=== PATIENT | female | born 1945 | race Caucasian/White ===

== ENCOUNTER 2016-05-12 08:23 | Outpatient (RCR) | payer MEDICARE ==
--- OUTSIDE RECORDS SUMMARY | 2016-03-10 09:43 | XMS REPORT | Continuity of Care Document ---
Author Author [facility] Organization [facility] Address Unknown Phone Unavailable Care Team Providers Care Sole Tier Name Role Phone ADITIMARIA LUISAJEFFREY DO PCP Insurance Providers Payer Name Policy Number Subscriber Name Relationship Wps Medicare [id number] Gabriela Warren 18 Self / Same As Patient Blue Cross Mcr Supp [id number] Gabriela Warren 18 Self / Same As Patient Advance Directives Directive Response Recorded Date/Time Advance Directives No 03/07/14 9:55am Health Care Power of Citrus Picker No 03/07/14 9:55am Organ Donor No 03/07/14 9:55am Problems No problem information available. Medications Current Home Medications Medication Dose Units Route Directions Days/Qty Instructions Start Date Metformin Hcl (Glucophage) 500 Mg 2 Each Oral Twice A Day With Meals 03/01/14 Amlodipine Besylate 10 Mg 10 Mg Oral Daily 03/01/14 Atorvastatin Calcium 40 Mg 40 Mg Oral Bedtime 03/01/14 Metoprolol Tartrate (Lopressor) 100 Mg 100 Mg Oral Twice A Day 03/01 Enalapril Maleate 20 Mg 20 Mg Oral Daily 03/01/14 Albuterol 8.5 Gm 1 Puff Inhalation Every 4HRS as needed for Shortness Of Breath 1 PUFFS 03/01/14 Ferrous Sulfate 1 Tab.ec 1 Tab.ec Oral Daily 03/01/14 Aspirin 81 Mg 81 Mg Oral Daily 03/01/14 Hydrochlorothiazide 25 Mg 25 Mg Oral Daily 03/07/14 Social History Social History Problem Response Recorded Date/Time Recent Foreign Travel N SEE CERTYE 01/07/2016 2:34pm Hospital Discharge Instructions No hospital discharge instructions. Plan of Care Prescriptions See Medication Section Functional Status No functional status results. Allergies, Adverse Reactions, Alerts No known allergies. Immunizations No immunization records. Vital Signs No known vital signs results. Results Laboratory Results Test Name Result Units Flags Reference Collection Date/Time Result Date/ Time Comments White Blood Count 8.5 10^3/uL 4.3-11.0 03/02/2016 10:06am 03/02/2016 10 :26am Red Blood Count 3.85 10^6/uL L 4.35-5.85 03/02/2016 10:06am 03/02/2016 10 :26am Hemoglobin 10.9 G/DL L 11.5-16.0 03/02/2016 10:0603/02/2016 10:26am Hematocrit 34 % L 35-52 03/02/2016 10:06am 03/02/2016 10:26am Mean Corpuscular Volume 87 FL 80-99 03/02/2016 10:0603/02/2016 10: 26am Mean Corpuscular Hemoglobin 28 PG 25-34 03/02/2016 10:06am 03/02/2016 10:26am Mean Corpuscular Hemoglobin Concent 32 G/DL 32-36 03/02/2016 10:06am 10:26am Red Cell Distribution Width 14.9 % H 10.0-14.5 03/02/2016 10:06am 2015 10:26am Platelet Count 240 10^3/uL 130-400 03/02/2016 10:0603/02/2016 10: 26am Mean Platelet Volume 10.0 FL 7.4-10.4 03/02/2016 10:06am 03/02/2016 10: 26am Neutrophils (%) (Auto) 64 % 42-75 03/02/2016 10:06am 03/02/2016 10: 26am Lymphocytes (%) (Auto) 25 % 12-44 03/02/2016 10:06am 03/02/2016 10: 26am Monocytes (%) (Auto) 9 % 0-12 03/02/2016 10:06am 03/02/2016 10:26am Eosinophils (%) (Auto) 3 % 0-10 03/02/2016 10:03/02/2016 10:26am Basophils (%) (Auto) 0 % 0-10 03/02/2016 10:03/02/2016 10:26am Neutrophils # (Auto) 5.4 X 10^3 1.8-7.8 03/02/2016 10:03/02/2016 10:am Lymphocytes # (Auto) 2.1 X 10^3 1.0-4.0 03/02/2016 10:03/02/2016 10:26am Monocytes # (Auto) 0.7 X 10^3 0.0-1.0 03/02/2016 10:03/02/2016 10: 26am Eosinophils # (Auto) 0.2 10^3/uL 0.0-0.3 03/02/2016 10:03/02/2016 10:26am Basophils # (Auto) 0.0 10^3/uL 0.0-0.1 03/02/2016 10:03/02/2016 10 :26am Absolute Reticulocyte Count 78 10e9/L 24-90 03/02/2016 10:2015 10:26am Percent Reticulocyte Count 2.02 % 0.50-2.40 03/02/2016 10:2015 10:26am Sodium Level 139 MMOL/L 135-145 03/02/2016 10:03/02/2016 10:40am Potassium Level 4.1 MMOL/L 3.6-5.0 03/02/2016 10:03/02/2016 10: 40am Chloride Level 105 MMOL/L 98-107 03/02/2016 10:03/02/2016 10:40am Carbon Dioxide Level 24 MMOL/L 21-32 03/02/2016 10:03/02/2016 10: 40am Anion Gap 10 MMOL/L 5-14 03/02/2016 10:03/02/2016 10:40am Blood Urea Nitrogen 16 MG/DL 7-18 03/02/2016 10:03/02/2016 10: 40am Creatinine 0.77 MG/DL 0.60-1.30 03/02/2016 10:03/02/2016 10:40am BUN/Creatinine Ratio 21 03/02/2016 10:0603/02/2016 10:40am Estimat Glomerular Filtration Rate > 60 03/02/2016 10:2015 10:40am GFR INTERPRETIVE DATA UNITS FOR ESTIMATED GFR (eGFR): mL/min/1.73 M2 REFERENCE RANGE FOR ESTIMATED GFR (eGFR) eGFR NORMAL eGFR >60 MODERATELY DECREASED eGFR 30-59 SEVERLY DECREASED eGFR 15-29 KIDNEY FAILURE <15 (OR DIALYSIS) Glucose Level 147 MG/DL H 70-105 03/02/2016 10:03/02/2016 10:40am Calcium Level 9.3 MG/DL 8.5-10.1 03/02/2016 10:03/02/2016 10:40am Total Bilirubin 0.3 MG/DL 0.1-1.0 03/02/2016 10:03/02/2016 10: 40am Alkaline Phosphatase 63 U/L 40-136 03/02/2016 10:06am 03/02/2016 10: 40am Aspartate Amino Transf (AST/SGOT) 14 U/L 5-34 03/02/2016 10:06am 2015 10:40am Alanine Aminotransferase (ALT/SGPT) 23 U/L 0-55 03/02/2016 10: 10:40am Total Protein 7.6 G/DL 6.4-8.2 03/02/2016 10:0603/02/2016 10:40am Albumin 4.1 G/DL 3.2-4.5 03/02/2016 10:0603/02/2016 10:40am Ferritin 61 ng/mL 15-150 03/02/2016 10:06am 03/03/2016 8:52am Test performed at [facility], CLIA# [id number] [address] [place] [address] Homocysteine 17.4 umol/L H <=10.3 01/07/2016 2:57pm 01/08/2016 7:05am Test performed at [facility], CLIA# [id number] [address] [place] [address] Methylmalonic Acid 0.16 umol/L 0.00-0.40 01/07/2016 2:57pm 01/10/2016 7 :04am INTERPRETIVE INFORMATION: MMA Serum/Plasma, Metabolic Disorder Test developed and characteristics determined by [email or web address]. See Compliance Statement B: Oscar/CS Performed by [email or web address], [address] [address] [facility] [place] [address] [email or web address], Wolf Lou MD - Lab. Director Procedures No known history of procedures. Encounters Encounter Location Arrival/Admit Date Discharge/Depart Date Attending Provider Discharged Recurring [facility] 03/02/16 9:52am 9:23am KRISTINE MOSER
[2016-03-31 09:29] LABS: BASOPHILS % (AUTO) 0 % (0-10); EOSINOPHILS # (AUTO) 0.3 10^3/uL (0.0-0.3); EOSINOPHILS % (AUTO) 3 % (0-10); LYMPHOCYTES # (AUTO) 1.9 X 10^3 (1.0-4.0); LYMPHOCYTES % (AUTO) 23 % (12-44); MEAN CORPUSCULAR HEMOGLOBIN 28 PG (25-34); MEAN CORPUSCULAR HGB CONC 32 G/DL (32-36); MEAN CORPUSCULAR VOLUME 88 FL (80-99); MEAN PLATELET VOLUME 9.4 FL (7.4-10.4); MONOCYTES # (AUTO) 0.8 X 10^3 (0.0-1.0); MONOCYTES % (AUTO) 10 % (0-12); NEUTROPHILS # (AUTO) 5.3 X 10^3 (1.8-7.8); NEUTROPHILS % (AUTO) 64 % (42-75); PLATELET COUNT 234 10^3/uL (130-400); RED BLOOD COUNT 3.64 10^6/uL (4.35-5.85); RED CELL DISTRIBUTION WIDTH 14.4 % (10.0-14.5); WHITE BLOOD COUNT 8.3 10^3/uL (4.3-11.0)
[2016-04-28 09:39] LABS: BASOPHILS % (AUTO) 0 % (0-10); EOSINOPHILS # (AUTO) 0.3 10^3/uL (0.0-0.3); EOSINOPHILS % (AUTO) 4 % (0-10); LYMPHOCYTES # (AUTO) 1.8 X 10^3 (1.0-4.0); LYMPHOCYTES % (AUTO) 23 % (12-44); MEAN CORPUSCULAR HEMOGLOBIN 28 PG (25-34); MEAN CORPUSCULAR HGB CONC 32 G/DL (32-36); MEAN CORPUSCULAR VOLUME 88 FL (80-99); MEAN PLATELET VOLUME 9.4 FL (7.4-10.4); MONOCYTES # (AUTO) 0.7 X 10^3 (0.0-1.0); MONOCYTES % (AUTO) 9 % (0-12); NEUTROPHILS # (AUTO) 5.1 X 10^3 (1.8-7.8); NEUTROPHILS % (AUTO) 65 % (42-75); PLATELET COUNT 215 10^3/uL (130-400); RED BLOOD COUNT 3.75 10^6/uL (4.35-5.85); RED CELL DISTRIBUTION WIDTH 14.8 % (10.0-14.5); RETICULOCYTE % 1.22 % (0.50-2.40); WHITE BLOOD COUNT 7.9 10^3/uL (4.3-11.0)
[2016-04-28 10:15] LABS: ALANINE AMINOTRANSFERASE 16 U/L (0-55); ANION GAP 10 MMOL/L (5-14); ASPARTATE AMINO TRANSFERASE 16 U/L (5-34); BILIRUBIN,TOTAL 0.3 MG/DL (0.1-1.0); BLOOD UREA NITROGEN 17 MG/DL (7-18); BUN/CREATININE RATIO 23; CALCIUM 9.2 MG/DL (8.5-10.1); CARBON DIOXIDE 23 MMOL/L (21-32); CHLORIDE 107 MMOL/L (98-107); CREATININE SERUM 0.73 MG/DL (0.60-1.30); GFR ESTIMATED > 60; GLUCOSE 131 MG/DL (70-105); POTASSIUM 4.7 MMOL/L (3.6-5.0); SODIUM 140 MMOL/L (135-145); TOTAL PROTEIN 7.3 G/DL (6.4-8.2)
[~2016-05-12 08:23] MED LIST: ALBU8.5H2 IH; AMLO10TA4 PO; ASP81TEC PO; ATOR40TA PO; ENAL20TA PO; FERR325T5 PO; FERRIC CARBOXYMALTOSE (CANCER) 750 MG in NS (IVPB) CANCER CENTER 250 ML IV SCH; HCT25T PO; METO100T2 PO; MTF500T PO
== END 2016-06-08 | disposition home or self-care (01) ==
LOC: ONC 08:23
PROVIDERS: ATTEND Internal Medicine Hematology & Oncology
DX: D50.9 Iron deficiency anemia, unspecified (principal); I10 Essential (primary) hypertension; E78.00 Pure hypercholesterolemia, unspecified; E11.9 Type 2 diabetes mellitus without complications; K29.70 Gastritis, unspecified, without bleeding; K20.9 Esophagitis, unspecified; Z79.899 Other long term (current) drug therapy
CPT/HCPCS: 36415; 80053; 82728; 85025; 85045; 96365; 99213

== ENCOUNTER 2016-10-19 09:06 | Outpatient (RCR) | payer MEDICARE ==
--- OUTSIDE RECORDS SUMMARY | 2016-07-27 09:51 | XMS REPORT | Continuity of Care Document ---
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 Name Role Phone ADITIMARIA LUISAJEFFREY DO PCP Insurance Providers Payer Name Policy Number Subscriber Name Relationship Wps Medicare [id number] Gabriela Warren 18 Self / Same As Patient Blue Cross Mcr Supp [id number] Gabriela Warren 18 Self / Same As Patient Advance Directives Directive Response Recorded Date/Time Advance Directives No 03/07/14 9:55am Health Care Power of Emt I/85 No 03/07/14 9:55am Organ Donor No 03/07/14 [...] 03/02/2016 10:06am 03/03/2016 8:52am Test performed at [facility], CLIA# [id number] [address] [place] [address] Homocysteine 17.4 umol/L H <=10.3 01/07/2016 2:57pm 01/08/2016 7:05am Test performed at [facility], CLIA# [id number] [address] [place] [address] Methylmalonic Acid 0.16 umol/L 0.00-0.40 01/07/2016 2:57pm 01/10/2016 7 :04am INTERPRETIVE INFORMATION: MMA Serum/Plasma, Metabolic Disorder Test developed and characteristics determined by [employer]. See Compliance Statement B: Results [facility]/CS Performed by [employer], [address] [facility] [place] [address] [email or web address], Wolf Lou MD - Lab. Director Procedures No known history of procedures. Encounters Encounter Location Arrival/Admit Date Discharge/Depart Date Attending Provider Discharged Recurring [facility] 03/02/16 9:52am 9:23am KRISTINE MOSER
[2016-07-27 10:05] LABS: BASOPHILS % (AUTO) 0 % (0-10); EOSINOPHILS # (AUTO) 0.3 10^3/uL (0.0-0.3); EOSINOPHILS % (AUTO) 4 % (0-10); LYMPHOCYTES # (AUTO) 2.2 X 10^3 (1.0-4.0); LYMPHOCYTES % (AUTO) 26 % (12-44); MEAN CORPUSCULAR HEMOGLOBIN 29 PG (25-34); MEAN CORPUSCULAR HGB CONC 33 G/DL (32-36); MEAN CORPUSCULAR VOLUME 89 FL (80-99); MEAN PLATELET VOLUME 9.2 FL (7.4-10.4); MONOCYTES # (AUTO) 0.6 X 10^3 (0.0-1.0); MONOCYTES % (AUTO) 8 % (0-12); NEUTROPHILS # (AUTO) 5.3 X 10^3 (1.8-7.8); NEUTROPHILS % (AUTO) 62 % (42-75); PLATELET COUNT 239 10^3/uL (130-400); RED BLOOD COUNT 3.84 10^6/uL (4.35-5.85); RED CELL DISTRIBUTION WIDTH 14.9 % (10.0-14.5); RETICULOCYTE % 1.44 % (0.50-2.40); WHITE BLOOD COUNT 8.4 10^3/uL (4.3-11.0)
[2016-07-27 10:45] LABS: ALANINE AMINOTRANSFERASE 22 U/L (0-55); ALBUMIN 3.9 G/DL (3.2-4.5); ANION GAP 10 MMOL/L (5-14); ASPARTATE AMINO TRANSFERASE 18 U/L (5-34); BILIRUBIN,TOTAL 0.3 MG/DL (0.1-1.0); BLOOD UREA NITROGEN 17 MG/DL (7-18); BUN/CREATININE RATIO 23; CALCIUM 8.8 MG/DL (8.5-10.1); CARBON DIOXIDE 24 MMOL/L (21-32); CHLORIDE 106 MMOL/L (98-107); CREATININE SERUM 0.75 MG/DL (0.60-1.30); GFR ESTIMATED > 60; GLUCOSE 144 MG/DL (70-105); POTASSIUM 4.4 MMOL/L (3.6-5.0); SODIUM 140 MMOL/L (135-145); TOTAL PROTEIN 7.4 G/DL (6.4-8.2)
[~2016-10-19 09:06] MED LIST changes: -FERRIC CARBOXYMALTOSE (CANCER) 750 MG in NS (IVPB) CANCER CENTER 250 ML IV SCH
[2016-10-19 09:46] LABS: BASOPHILS % (AUTO) 0 % (0-10); EOSINOPHILS # (AUTO) 0.2 10^3/uL (0.0-0.3); EOSINOPHILS % (AUTO) 3 % (0-10); LYMPHOCYTES # (AUTO) 1.1 X 10^3 (1.0-4.0); LYMPHOCYTES % (AUTO) 17 % (12-44); MEAN CORPUSCULAR HEMOGLOBIN 29 PG (25-34); MEAN CORPUSCULAR HGB CONC 32 G/DL (32-36); MEAN CORPUSCULAR VOLUME 92 FL (80-99); MEAN PLATELET VOLUME 9.6 FL (7.4-10.4); MONOCYTES # (AUTO) 0.6 X 10^3 (0.0-1.0); MONOCYTES % (AUTO) 8 % (0-12); NEUTROPHILS % (AUTO) 73 % (42-75); PLATELET COUNT 221 10^3/uL (130-400); RED BLOOD COUNT 3.42 10^6/uL (4.35-5.85); RED CELL DISTRIBUTION WIDTH 14.6 % (10.0-14.5); WHITE BLOOD COUNT 6.9 10^3/uL (4.3-11.0)
[2016-10-19 10:27] LABS: ALANINE AMINOTRANSFERASE 162 U/L (0-55); ALBUMIN 3.8 G/DL (3.2-4.5); ANION GAP 9 MMOL/L (5-14); ASPARTATE AMINO TRANSFERASE 312 U/L (5-34); BILIRUBIN,TOTAL 0.5 MG/DL (0.1-1.0); BLOOD UREA NITROGEN 24 MG/DL (7-18); BUN/CREATININE RATIO 29; CALCIUM 8.9 MG/DL (8.5-10.1); CARBON DIOXIDE 25 MMOL/L (21-32); CHLORIDE 105 MMOL/L (98-107); CREATININE SERUM 0.83 MG/DL (0.60-1.30); GFR ESTIMATED > 60; GLUCOSE 130 MG/DL (70-105); POTASSIUM 4.9 MMOL/L (3.6-5.0); SODIUM 139 MMOL/L (135-145); TOTAL PROTEIN 7.2 G/DL (6.4-8.2)
== END 2016-10-25 | disposition home or self-care (01) ==
LOC: ONC 09:06
PROVIDERS: ATTEND Internal Medicine Hematology & Oncology
DX: D50.9 Iron deficiency anemia, unspecified (principal); I10 Essential (primary) hypertension; E78.00 Pure hypercholesterolemia, unspecified; E11.9 Type 2 diabetes mellitus without complications; K29.70 Gastritis, unspecified, without bleeding; K20.9 Esophagitis, unspecified; Z79.899 Other long term (current) drug therapy
CPT/HCPCS: 36415; 80053; 82728; 85025; 85045; 99213

== ENCOUNTER 2017-01-18 09:09 | Outpatient (RCR) | payer MEDICARE ==
[2017-01-18 09:31] LABS: BASOPHILS % (AUTO) 0 % (0-10); EOSINOPHILS # (AUTO) 0.3 10^3/uL (0.0-0.3); EOSINOPHILS % (AUTO) 4 % (0-10); LYMPHOCYTES # (AUTO) 1.6 X 10^3 (1.0-4.0); LYMPHOCYTES % (AUTO) 22 % (12-44); MEAN CORPUSCULAR HEMOGLOBIN 27 PG (25-34); MEAN CORPUSCULAR HGB CONC 32 G/DL (32-36); MEAN CORPUSCULAR VOLUME 85 FL (80-99); MONOCYTES # (AUTO) 0.5 X 10^3 (0.0-1.0); MONOCYTES % (AUTO) 6 % (0-12); NEUTROPHILS # (AUTO) 5.1 X 10^3 (1.8-7.8); NEUTROPHILS % (AUTO) 68 % (42-75); PLATELET COUNT 275 10^3/uL (130-400); RED BLOOD COUNT 3.78 10^6/uL (4.35-5.85); RED CELL DISTRIBUTION WIDTH 16.3 % (10.0-14.5); WHITE BLOOD COUNT 7.6 10^3/uL (4.3-11.0)
[2017-01-18 10:24] LABS: ALANINE AMINOTRANSFERASE 17 U/L (0-55); ALBUMIN 3.8 GM/DL (3.2-4.5); ANION GAP 12 MMOL/L (5-14); ASPARTATE AMINO TRANSFERASE 20 U/L (5-34); BILIRUBIN,TOTAL 0.4 MG/DL (0.1-1.0); BLOOD UREA NITROGEN 18 MG/DL (7-18); BUN/CREATININE RATIO 22; CALCIUM 9.4 MG/DL (8.5-10.1); CARBON DIOXIDE 24 MMOL/L (21-32); CHLORIDE 104 MMOL/L (98-107); CREATININE SERUM 0.83 MG/DL (0.60-1.30); GFR ESTIMATED > 60; GLUCOSE 160 MG/DL (70-105); POTASSIUM 4.4 MMOL/L (3.6-5.0); SODIUM 140 MMOL/L (135-145); TOTAL PROTEIN 7.6 GM/DL (6.4-8.2)
== END 2017-01-24 | disposition home or self-care (01) ==
LOC: ONC 09:09
PROVIDERS: ATTEND Internal Medicine Hematology & Oncology
DX: D50.9 Iron deficiency anemia, unspecified (principal); I10 Essential (primary) hypertension; E78.00 Pure hypercholesterolemia, unspecified; E11.9 Type 2 diabetes mellitus without complications; K29.70 Gastritis, unspecified, without bleeding; K20.9 Esophagitis, unspecified; Z79.899 Other long term (current) drug therapy
CPT/HCPCS: 36415; 80053; 82728; 85025; 99213

== ENCOUNTER 2017-02-02 08:35 | Outpatient (RCR) | payer MEDICARE ==
[~2017-02-02 08:35] MED LIST changes: +FERRIC CARBOXYMALTOSE (CANCER) 750 MG in NS (IVPB) CANCER CENTER 250 ML IV SCH
== END 2017-03-06 | disposition home or self-care (01) ==
LOC: ONC 08:35
PROVIDERS: ATTEND Internal Medicine Hematology & Oncology
DX: D50.9 Iron deficiency anemia, unspecified (principal); I10 Essential (primary) hypertension; E78.00 Pure hypercholesterolemia, unspecified; E11.9 Type 2 diabetes mellitus without complications; K29.70 Gastritis, unspecified, without bleeding; K20.9 Esophagitis, unspecified; Z79.899 Other long term (current) drug therapy
CPT/HCPCS: 96365

== ENCOUNTER 2017-04-27 08:43 | Outpatient (RCR) | payer MEDICARE ==
[~2017-04-27 08:43] MED LIST changes: -FERRIC CARBOXYMALTOSE (CANCER) 750 MG in NS (IVPB) CANCER CENTER 250 ML IV SCH
[2017-04-27 08:55] LABS: BASOPHILS % (AUTO) 0 % (0-10); EOSINOPHILS # (AUTO) 0.3 10^3/uL (0.0-0.3); EOSINOPHILS % (AUTO) 5 % (0-10); HEMATOCRIT 33 % (35-52); HEMOGLOBIN 10.9 G/DL (11.5-16.0); LYMPHOCYTES # (AUTO) 1.5 X 10^3 (1.0-4.0); LYMPHOCYTES % (AUTO) 24 % (12-44); MEAN CORPUSCULAR HEMOGLOBIN 30 PG (25-34); MEAN CORPUSCULAR HGB CONC 33 G/DL (32-36); MEAN CORPUSCULAR VOLUME 91 FL (80-99); MEAN PLATELET VOLUME 10.2 FL (7.4-10.4); MONOCYTES # (AUTO) 0.5 X 10^3 (0.0-1.0); MONOCYTES % (AUTO) 8 % (0-12); NEUTROPHILS # (AUTO) 3.8 X 10^3 (1.8-7.8); NEUTROPHILS % (AUTO) 63 % (42-75); PLATELET COUNT 195 10^3/uL (130-400); RED BLOOD COUNT 3.67 10^6/uL (4.35-5.85); RED CELL DISTRIBUTION WIDTH 16.2 % (10.0-14.5); WHITE BLOOD COUNT 6.1 10^3/uL (4.3-11.0)
== END 2017-07-26 | disposition home or self-care (01) ==
LOC: ONC 08:43
PROVIDERS: ATTEND Internal Medicine Hematology & Oncology
DX: D50.9 Iron deficiency anemia, unspecified (principal); I10 Essential (primary) hypertension; E78.00 Pure hypercholesterolemia, unspecified; E11.9 Type 2 diabetes mellitus without complications; K29.70 Gastritis, unspecified, without bleeding; K20.9 Esophagitis, unspecified; Z79.899 Other long term (current) drug therapy
CPT/HCPCS: 82728; 85025

== ENCOUNTER 2017-08-05 05:33 | Outpatient (CLI) | payer MEDICARE ==
[~2017-08-05] VITALS: Ht 157.5 cm; Wt 100.2 kg
[2017-08-05] MEDS ORDERED: METO200T48 PO (12:06)
[2017-08-05] MEDS ORDERED: METF500T8 PO (12:06)
[2017-08-05] MEDS ORDERED: ASPI-999 PO (12:06)
[2017-08-05] MEDS ORDERED: ENAL20TA PO (12:06)
[2017-08-05] MEDS ORDERED: ATOR40TA70 PO (12:06)
[2017-08-05] MEDS ORDERED: AMLO10TA2 PO (12:06)
[2017-08-05] MEDS ORDERED: OMEP20TA7 PO (12:42)
[2017-08-05] MEDS ORDERED: FOLI1TAB24 PO (12:42)
[2017-08-05] MEDS ORDERED: FURO40TA4 PO (12:42)
[2017-08-05] MEDS ORDERED: METH2.5T PO (12:42)
[2017-08-05] MEDS ORDERED: CANA100T PO (12:42)
[2017-08-05] MEDS ORDERED: MELO15TA39 PO (12:42)
== END 2017-08-05 12:43 ==
LOC: PREOP 05:33
PROVIDERS: ATTEND Surgery
DX: Z01.818 Encounter for other preprocedural examination (principal); D64.9 Anemia, unspecified

== ENCOUNTER 2017-08-23 12:56 | Outpatient (CLI) | payer MEDICARE, BC ==
[~2017-08-23] VITALS: Ht 157.5 cm; Wt 100.2 kg
[~2017-08-23 12:56] MED LIST changes: +AMLO10TA2 PO; +ASPI-999 PO; +ATOR40TA70 PO; +CANA100T PO; +FOLI1TAB24 PO; +FURO40TA4 PO; +MELO15TA39 PO; +METF500T8 PO; +METH2.5T PO; +METO200T48 PO; +OMEP20TA7 PO
[2017-08-23 13:07] VITALS: BP 152/65
== END 2017-08-23 13:30 | disposition home or self-care (01) ==
LOC: PREOP 12:56
PROVIDERS: ATTEND Surgery
DX: Z01.818 Encounter for other preprocedural examination (principal); Z11.2 Encounter for screening for other bacterial diseases; C18.9 Malignant neoplasm of colon, unspecified
CPT/HCPCS: 87081

== ENCOUNTER 2017-08-26 09:05 | Inpatient (IN) | payer MEDICARE, BC ==
[2017-08-26] VITALS (12 sets, daily range): BP systolic 104–180; BP diastolic 39–99
[~2017-08-26] VITALS: Ht 157.5 cm; Wt 100.2 kg
--- NOTE | 2017-08-26 09:17 | Progress Note-Pre Operative ---
Pre-Operative Progress Note H&P Reviewed The H&P was reviewed, patient examined and no changes noted. Date Seen by Provider: Aug 26, 2017 Time Seen by Provider: 09:10 Date H&P Reviewed: Aug 26, 2017 Time H&P Reviewed: 09:10 Pre-Operative Diagnosis: right colon cancer FLORA PIERCE MD Aug 26, 2017 9:17 am
[2017-08-26] MEDS ORDERED: NS IV 1000 ML 1,000 ML IV SCH (09:19)
[2017-08-26] MEDS ORDERED: NALOXONE 0.4 MG/ML 1 ML (NARCAN) VIAL IV PRN (09:30)
[2017-08-26] MEDS ORDERED: metroNIDAZOLE 500MG/100ML IVPB 100 ML IV SCH (09:30)
[2017-08-26] MEDS ORDERED: METOCLOPRAMIDE INJ 10 MG/2 ML (REGLAN) IV PRN (09:30)
[2017-08-26] MEDS ORDERED: diphenhydrAMINE 50 MG/ML INJ (BENADRYL) IVP PRN (09:30)
[2017-08-26] MEDS ORDERED: oxyCODONE 20 MG/1 ML ORAL CONC (RoxiCODONE) CHARGE PER 1 ML PO PRN (09:30)
[2017-08-26] MEDS ORDERED: ONDANSETRON 4 MG/2 ML (SDV) Z0FRAN IV PRN (09:30)
[2017-08-26] MEDS ORDERED: diphenhydrAMINE 50 MG/ML INJ (BENADRYL) IV PRN (09:30)
[2017-08-26] MEDS ORDERED: ceFAZolin 2 GM/50 ML PRE-MIX IVPB IV ONE (09:45)
[2017-08-26] MEDS ORDERED: CATHETER FLUSH 10 ML SYR IV PRN (09:45)
[2017-08-26] MEDS ORDERED: ceFAZolin 2 GM IV Premixed 50 ML IV ONE (10:00)
[2017-08-26] MEDS ORDERED: metroNIDAZOLE 500MG/100ML IVPB 100 ML IV ONE (10:00)
[2017-08-26] MEDS ORDERED: FAMOTIDINE 20MG/2ML IV (PEPCID) IV ONE (11:30)
[2017-08-26] MEDS ORDERED: BUP/EPI 0.5% 1:200,000 (SENSORCAINE) 30 ML VIAL ONE (12:39)
[2017-08-26] MEDS ORDERED: ROCURONIUM 10 MG/ML 5 ML SYRINGE IV ONE ×2 (12:45→16:04)
[2017-08-26] MEDS ORDERED: MIDAZOLAM 2 MG/2 ML (VERSED) VIAL ONE (12:45)
[2017-08-26] MEDS ORDERED: proPOfol 200 MG/20 ML (DIPRIVAN) VIAL IV ONE (12:45)
[2017-08-26] MEDS ORDERED: LIDOCAINE PF 2% 5 ML (XYLOCAINE) VIAL ONE (12:45)
[2017-08-26] MEDS ORDERED: DESFLURANE (SUPRANE) 15 ML INHAL SOLN ONE ×12 (12:45→16:27)
[2017-08-26] MEDS ORDERED: SUFentanil CITRATE INJ 50MCG/ML 1ML AMP IV ONE (12:46)
[2017-08-26] MEDS: LACTATED RINGERS 1,000 ML IV PRN ×2 (13:19→14:34)
[2017-08-26] MEDS: metroNIDAZOLE 500 MG/100 ML IVPB (PRE-MIX) IV ONE ×2 (13:35→13:55)
[2017-08-26] MEDS ORDERED: HEParin (CENTRAL IV FLUSH) 500 UNIT/5 ML SYR ONE (13:40)
[2017-08-26] MEDS ORDERED: morphine INJ 10 MG/ML 1ML (SYR OR VIAL) ONE (16:08)
[2017-08-26] MEDS ORDERED: NEOSTIGMINE 1 MG/ML 5 ML SYRINGE ONE (16:28)
[2017-08-26] MEDS ORDERED: GLYCOPYRROLATE 0.2 MG/ML (ROBINUL) 2 ML VIAL ONE (16:28)
--- NOTE | 2017-08-26 16:44 | Progress Note-Post Operative ---
Post-Operative Progess Note Surgeon (s)/Choral Director (s) Surgeon FLORA PIERCE MD Choral Director: sigifredo amin OPHTHALMIC ASST Pre-Operative Diagnosis right colon cancer Post-Operative Diagnosis same Procedure & Operative Findings Date of Procedure 08/26/17 Procedure Performed/Findings laparoscopic right hemicolectomy. left subclavian central venous catheter placement. Anesthesia Type GET Estimated Blood Loss Estimated blood loss (mL): minimal Specimens/Packing Specimens Removed right colon. FLORA PIERCE MD Aug 26, 2017 4:43 pm
[2017-08-26] MEDS ORDERED: ONDANSETRON 4 MG/2 ML (SDV) Z0FRAN IVP PRN (17:00)
[2017-08-26] MEDS ORDERED: MEPERIDINE (DEMEROL) INJ 50 MG/ML IVP PRN (17:00)
[2017-08-26] MEDS ORDERED: PROMETHAZINE INJ 25 MG/ML (PHENERGAN) AMP IVP PRN (17:00)
--- NOTE | 2017-08-26 17:07 | Anesthesia-General Post-Op ---
General Patient Condition Mental Status/LOC: Same as Preop Cardiovascular: Satisfactory Nausea/Vomiting: Absent Respiratory: Satisfactory Pain: Controlled Complications: Absent Post Op Complications Complications None Follow Up Care/Instructions Patient Instructions None needed. Anesthesia/Patient Condition Patient Condition Patient is doing well, no complaints, stable vital signs, no apparent adverse anesthesia problems. No complications reported per nursing. DIPTI DUKES CRNA Aug 26, 2017 17:07
--- NOTE | 2017-08-26 17:22 | Diagnostic Imaging Report ---
PATIENT HISTORY: Central line placement. TECHNIQUE: Single frontal view of the chest. COMPARISON: CT from 10/03/2015. FINDINGS: The tip of the left subclavian line projects over the upper mediastinum in the midline, likely in the region of the left innominate vein. Lung volumes are low. There is mild cardiomegaly and mild central vascular congestion. No pneumothorax is seen. No large pleural effusion is seen. IMPRESSION: 1. The tip of the left subclavian line projects over the left innominate vein. 2. Mild cardiomegaly and mild central vascular congestion. Low lung volumes. Dictated by: Dictated on workstation # [id number]
[2017-08-26] MEDS: morphine INJ 10 MG/ML 1ML (SYR OR VIAL) IVP PRN ×2 (17:23→17:30)
[2017-08-26] MEDS ORDERED: metroNIDAZOLE 500MG/100ML IVPB 100 ML ONE (18:11)
[2017-08-26] MEDS: meTOprolol 5 MG/5 ML (LOPRESSOR) VIAL IV SCH (18:19)
[2017-08-26] MEDS ORDERED: METOCLOPRAMIDE INJ 10 MG/2 ML (REGLAN) ONE (18:19)
[2017-08-26] MEDS ORDERED: fentaNYL INJECTION 1,000 MCG in NS (IVPB) 80 ML IV SCH (18:56)
--- NOTE | 2017-08-26 19:34 | OPERATIVE REPORT ---
DATE OF SERVICE: 08/26/2017 ATTENDING PRIMARY CARE PHYSICIAN: Dr. Mark Hernandez. PREOPERATIVE DIAGNOSIS: Right colon cancer. POSTOPERATIVE DIAGNOSIS: Right colon cancer. PROCEDURE: Laparoscopic right hemicolectomy, placement of left subclavian central venous catheter. SURGEON: Flora Pierce MD ANESTHESIA: General endotracheal. ESTIMATED BLOOD LOSS: 200 mL. FINDINGS: Palpable lesion also identified by a previous submucosal injection of black ink of the ascending colon. There are no peritoneal carcinomatosis or any obvious lymphadenopathy nor liver lesions. DISPOSITION: The patient tolerated the procedure well. INDICATIONS: The patient is a 71-year-old female known to us. She was found to be anemic and underwent an EGD and colonoscopy in 2013. No major abnormalities were detected. She has a history of rheumatoid arthritis and was also started on methotrexate around the same time. She states that she continues to have issues with rheumatoid arthritis and does continue to take methotrexate. She has been seeing Dr. Hill for continued episodes of iron deficiency anemia. Due to her persistent symptoms of iron deficiency anemia, she was referred back to us for further evaluation with endoscopy. She recently underwent an EGD and colonoscopy. EGD did not show anything major. Colonoscopy did show a sessile polyp of the ascending colon. This could not be removed by endoscopic means. Biopsies of the lesion were consistent with an adenocarcinoma. DESCRIPTION OF PROCEDURE: The patient was brought to the operating room, laid supine on the table. After adequate IV pain and sedating medications and general endotracheal intubation, the chest and neck were prepped and draped in standard surgical fashion. A left subclavian vein was then cannulated with drawing of venous blood. A guidewire was then inserted without any resistance. The cannulating needle removed and a small skin incision made using 11 blade. A tract was then created using a venous dilator and a triple lumen central venous catheter was placed over the guidewire using the Seldinger technique. The catheter was then sutured to the skin using 3-0 silk interrupted sutures. Catheter was then cleaned and covered with sterile dressing. The abdomen was then prepped and draped in standard surgical fashion. An area in the left upper abdominal quadrant was then anesthetized and a transverse skin incision made using a 15 blade. An 0 silk suture was applied to the medial aspect of the incision for retraction and a Veress needle inserted with a low opening pressure of 0 mmHg and the abdomen was insufflated to 15 mmHg pressure. Veress needle removed and a 5 mm Xcel trocar placed followed by a 5 mm 45 degree angle laparoscope visualizing the peritoneal cavity. A four quadrant abdominal exploration was performed. There were significant omental adhesions as well as the liver adhesions towards the right upper abdominal quadrant due to previous open cholecystectomy through a Dionna incision. A lesion was identified through irregularities of the serosa as well as a previous submucosal black ink injection. No peritoneal implants, carcinomatosis or any obvious metastatic disease was identified. There was also no obvious lymphadenopathy identified. Under direct visualization, we then proceeded to place a supraumbilical 10 mm port after the skin and peritoneal lining were anesthetized using 0.5% Marcaine with epinephrine and a vertical skin incision made using a 15 blade. In a similar manner, two right upper abdominal quadrant 5 mm ports were placed. The patient was then placed in Trendelenburg position as well as plane right side up, left side down. We then proceeded with lateral dissection of the white lines of Toldt using the Sonicision. The adhesions towards the liver and the omentum were then taken down using the Sonicision. We then proceeded with medial to lateral dissection of a wide rim of mesentery using the Sonicision. The right colic artery identified and cauterized and cut using the Sonicision with visualization and good hemostasis. We then proceeded to approximate the level just right of the middle colic artery. The corresponding omentum was resected to be included in the specimen as well. During our mesenteric dissection, the duodenum was identified and spared throughout the process. Once completely freed, the 10 mm port site incision was then extended superiorly. The right colon as well as the terminal ileum were then eviscerated out of the opening. We then proceeded with the resection approximately 6 cm from the ileocecal valve to approximately the proximal third of the transverse colon using a JEFE 55 mm staplers with blue loads. We then proceeded with side to side anastomosis using the same stapler. The opening was then reapproximated using 3-0 silk sutures and stapled using the same JEFE stapler. We then proceeded to place seromuscular layer over the staple line using 3-0 silk interrupted sutures. The anastomosis was then placed back into the peritoneal cavity. Good hemostasis was observed. The fascia and peritoneal lining were then closed using 0 Prolene running suture. All skin incisions were closed using 4-0 Monocryl running subcuticular sutures. Wounds were cleaned and covered with Dermabond. The patient tolerated the procedure well. We will admit her to the ICU and start IV fluids as well as IV pain medication as well as DVT prophylaxis with early ambulation, calf SCDs as well as Lovenox injections. When she does have bowel function, we will remove the NG tube and start clear liquid diet and advance as tolerated. When she is tolerating clears, has good pain control with oral pain medications, ambulating well, we will discharge her home. Job ID: [id number] DocumentID: [id number] Dictated Date: 08/26/2017 16:58:19 Linux Consultant Date: 08/26/2017 19:33:36 Dictated By: FLORA PIERCE MD MTDD
[2017-08-26] MEDS: LACTATED RINGERS 1,000 ML IV SCH ×2 (19:42→22:39)
[2017-08-26] MEDS: ENOXAPARIN 30 MG/0.3 ML (LOVENOX) SYR SC SCH (21:41)
[2017-08-26] MEDS: ceFAZolin 2 GM IV Premixed 50 ML IV SCH (21:41)
[2017-08-26] MEDS: RT-ALBUTEROL SULF 2.5 MG/3 ML PRE-MIX VIAL INH SCH (22:04)
[2017-08-27] VITALS (13 sets, daily range): BP systolic 124–176; BP diastolic 40–100
[2017-08-27] MEDS: meTOprolol 5 MG/5 ML (LOPRESSOR) VIAL IV SCH ×4 (00:18→18:17)
[2017-08-27] MEDS: inSUlin (REGULAR) HUMAN 1 UNIT/0.01 ML (CHARGE PER UNIT) SC SCH ×4 (00:18→18:24)
[2017-08-27] MEDS: metroNIDAZOLE 500MG/100ML IVPB 100 ML IV SCH ×2 (02:30→11:07)
[2017-08-27] MEDS: LACTATED RINGERS 1,000 ML IV SCH ×3 (02:30→18:24)
[2017-08-27] MEDS: RT-ALBUTEROL SULF 2.5 MG/3 ML PRE-MIX VIAL INH SCH ×7 (02:49→21:02)
[2017-08-27 03:44] LABS: BASOPHILS % (AUTO) 0 % (0-10); EOSINOPHILS % (AUTO) 0 % (0-10); HEMATOCRIT 30 % (35-52); HEMOGLOBIN 9.9 G/DL (11.5-16.0); LYMPHOCYTES # (AUTO) 0.9 X 10^3 (1.0-4.0); LYMPHOCYTES % (AUTO) 11 % (12-44); MEAN CORPUSCULAR HEMOGLOBIN 29 PG (25-34); MEAN CORPUSCULAR HGB CONC 33 G/DL (32-36); MEAN CORPUSCULAR VOLUME 87 FL (80-99); MONOCYTES # (AUTO) 0.7 X 10^3 (0.0-1.0); MONOCYTES % (AUTO) 9 % (0-12); NEUTROPHILS # (AUTO) 6.6 X 10^3 (1.8-7.8); NEUTROPHILS % (AUTO) 80 % (42-75); PLATELET COUNT 167 10^3/uL (130-400); RED BLOOD COUNT 3.39 10^6/uL (4.35-5.85); WHITE BLOOD COUNT 8.2 10^3/uL (4.3-11.0)
[2017-08-27 04:04] LABS: BUN/CREATININE RATIO 15; CALCIUM 8.3 MG/DL (8.5-10.1); CARBON DIOXIDE 24 MMOL/L (21-32); CHLORIDE 109 MMOL/L (98-107); CREATININE SERUM 0.68 MG/DL (0.60-1.30); GFR ESTIMATED > 60; GLUCOSE 130 MG/DL (70-105); MAGNESIUM 1.8 MG/DL (1.8-2.4); PHOSPHORUS 1.9 MG/DL (2.3-4.7); POTASSIUM 4.1 MMOL/L (3.6-5.0); SODIUM 139 MMOL/L (135-145)
[2017-08-27] MEDS: ceFAZolin 2 GM IV Premixed 50 ML IV SCH ×2 (05:13→13:42)
[2017-08-27] MEDS ORDERED: KCL 20 MEQ TAB (K-DUR) PO SCH (06:00)
[2017-08-27] MEDS ORDERED: POTASSIUM CL 10MEQ/50ML IVPB 50 ML IV SCH (06:00)
[2017-08-27] MEDS ORDERED: MAGNESIUM 1 GM/100 ML IVPB 100 ML IV SCH (06:00)
[2017-08-27] MEDS: SENNA W/DOCUSATE (SENOKOT S) TABLET PO SCH (08:37)
[2017-08-27] MEDS: ENOXAPARIN 30 MG/0.3 ML (LOVENOX) SYR SC SCH ×2 (08:37→20:54)
[2017-08-27] MEDS: PANTOPRAZOLE 40 MG/10 ML (PROTONIX) VIAL IV SCH (08:37)
[2017-08-27] MEDS ORDERED: ONDANSETRON 4 MG/2 ML (SDV) Z0FRAN IVP PRN (09:30)
[2017-08-27] MEDS ORDERED: METOCLOPRAMIDE INJ 10 MG/2 ML (REGLAN) IVP PRN (09:30)
--- NOTE | 2017-08-27 10:18 | Progress Note (SOAP) ---
Subjective Date Seen by Provider: Aug 27, 2017 Time Seen by Provider: 10:10 Subjective/Events-last exam doing well. pain controlled. no bowel fxn yet. no respiratory issue overnight. will ambulate this morning. Objective Exam Vital Signs Date Time Temp Pulse Resp B/P (MAP) Pulse Ox O2 Delivery O2 Flow Rate FiO2 08/27/17 09:00 61 17 137/58 (84) 96 Nasal Cannula 2.00 08/27/17 08:30 98.4 Nasal Cannula 2.00 08/27/17 08:00 70 13 137/65 (89) 92 Nasal Cannula 2.00 08/27/17 07:30 Room Air 08/27/17 07:09 94 Nasal Cannula 1.00 08/27/17 07:00 64 08/27/17 07:00 13 08/27/17 07:00 65 27 157/100 (119) 90 Nasal Cannula 2.00 08/27/17 06:00 65 20 167/67 (100) 90 Nasal Cannula 2.00 08/27/17 05:00 64 16 156/70 (98) 90 Nasal Cannula 2.00 08/27/17 04:00 93 Room Air 1.00 08/27/17 04:00 65 20 160/69 (99) 92 Nasal Cannula 2.00 08/27/17 03:00 60 18 148/83 (104) 94 Nasal Cannula 2.00 08/27/17 02:49 93 Nasal Cannula 2.00 08/27/17 02:00 64 18 143/47 (79) 91 Nasal Cannula 2.00 08/27/17 01:00 64 17 124/40 (68) 92 Nasal Cannula 2.00 08/27/17 01:00 64 08/27/17 00:00 68 18 141/56 (84) 93 Nasal Cannula 2.00 08/27/17 00:00 93 Room Air 1.00 08/26/17 23:00 69 19 109/46 (67) 93 Nasal Cannula 2.00 08/26/17 22:08 94 Nasal Cannula 2.00 08/26/17 22:00 66 21 106/39 (61) 92 Nasal Cannula 2.00 08/26/17 21:00 94 Room Air 2.00 08/26/17 21:00 65 21 106/54 (71) 94 Nasal Cannula 2.00 08/26/17 20:00 68 17 122/45 (70) 94 Nasal Cannula 3.00 08/26/17 19:00 71 18 104/52 (69) 95 Nasal Cannula 3.00 08/26/17 19:00 72 08/26/17 18:45 68 19 159/49 (85) 95 Nasal Cannula 3.00 08/26/17 18:30 70 24 151/99 (116) 93 Nasal Cannula 3.00 08/26/17 18:15 69 24 157/68 (97) 93 Simple Mask 6.00 08/26/17 18:10 180/68 (105) 08/26/17 18:00 76 28 153/70 (97) 97 Simple Mask 6.00 08/26/17 17:50 98.4 63 22 158/61 (93) 95 Simple Mask 6.00 I & O 08/27/17 07:00 Intake Total 4150 ml Output Total 925 ml Balance 3225 ml Capillary Refill : General Appearance: No Apparent Distress HEENT: PERRL/EOMI Neck: Full Range of Motion Respiratory: Chest Non Tender, Lungs Clear Cardiovascular: Regular Rate, Rhythm Gastrointestinal: soft, tenderness, other (incisions clean/dry) Extremity: Normal Capillary Refill Neurologic/Psychiatric: Alert, Oriented x3 Skin: Normal Color Lymphatic: No Adenopathy Results Lab Laboratory Tests 08/27/17 00:17: Glucometer 123H 08/27/17 03:35: White Blood Count 8.2, Red Blood Count 3.39L, Hemoglobin 9.9L, Hematocrit 30L, Mean Corpuscular Volume 87, Mean Corpuscular Hemoglobin 29, Mean Corpuscular Hemoglobin Concent 33, Red Cell Distribution Width 17.0H, Platelet Count 167, Mean Platelet Volume 10.0, Neutrophils (%) (Auto) 80H, Lymphocytes (%) (Auto) 11L, Monocytes (%) (Auto) 9, Eosinophils (%) (Auto) 0, Basophils (%) (Auto) 0, Neutrophils # (Auto) 6.6, Lymphocytes # (Auto) 0.9L, Monocytes # (Auto) 0.7, Eosinophils # (Auto) 0.0, Basophils # (Auto) 0.0, Sodium Level 139, Potassium Level 4.1, Chloride Level 109H, Carbon Dioxide Level 24, Anion Gap 6, Blood Urea Nitrogen 10, Creatinine 0.68, Estimat Glomerular Filtration Rate > 60, BUN/ Creatinine Ratio 15, Glucose Level 130H, Calcium Level 8.3L, Phosphorus Level 1.9L, Magnesium Level 1.8 Assessment/Plan Assessment/Plan Assess & Plan/Chief Complaint s/p laparoscopic right hemicolectomy. ambulate. ice chips for now, advance to clear liquids if able to ambulate well. transfer to floor. Clinical Quality Measures DVT/VTE Risk/Contraindication: Risk Factor Score Per Nursin RFS Level Per Nursing on Admit: 4+=Very High FLORA PIERCE MD Aug 27, 2017 10:18 am
[2017-08-27] MEDS ORDERED: FURO40TA4 PO (11:19)
[2017-08-27] MEDS ORDERED: HYDR-3816 PO (11:19)
[2017-08-27] MEDS ORDERED: FUROSEMIDE 40 MG (LASIX) TAB PO PRN (13:15)
[2017-08-27] MEDS ORDERED: FAMOTIDINE 20MG/2ML IV (PEPCID) ONE (13:27)
[2017-08-27] MEDS: meTOprolol SUCCINATE 100 MG (TOPROL XL) TAB PO SCH ×2 (13:53→20:55)
[2017-08-27] MEDS: amLODIPine 10 MG (NORVASC) TAB PO SCH (13:53)
[2017-08-27] MEDS: FUROSEMIDE 40 MG (LASIX) TAB PO SCH (13:54)
[2017-08-27] MEDS: ENALAPRIL 10 MG (VASOTEC) TAB PO SCH ×2 (13:54→20:55)
[2017-08-27] MEDS: ATORVASTATIN 40 MG (LIPITOR) TABLET PO SCH (20:55)
[2017-08-28] VITALS: BP 133/61
[2017-08-28] MEDS: inSUlin (REGULAR) HUMAN 1 UNIT/0.01 ML (CHARGE PER UNIT) SC SCH ×5 (00:52→20:58)
[2017-08-28] MEDS: RT-ALBUTEROL SULF 2.5 MG/3 ML PRE-MIX VIAL INH SCH ×2 (02:43→06:41)
[2017-08-28] MEDS: LACTATED RINGERS 1,000 ML IV SCH ×4 (03:11→22:11)
[2017-08-28 03:54] VITALS: BP 130/62
[2017-08-28 05:08] LABS: BASOPHILS % (AUTO) 0 % (0-10); EOSINOPHILS # (AUTO) 0.1 10^3/uL (0.0-0.3); EOSINOPHILS % (AUTO) 1 % (0-10); HEMATOCRIT 28 % (35-52); HEMOGLOBIN 8.9 G/DL (11.5-16.0); LYMPHOCYTES # (AUTO) 1.5 X 10^3 (1.0-4.0); LYMPHOCYTES % (AUTO) 23 % (12-44); MEAN CORPUSCULAR HEMOGLOBIN 28 PG (25-34); MEAN CORPUSCULAR HGB CONC 32 G/DL (32-36); MEAN CORPUSCULAR VOLUME 89 FL (80-99); MEAN PLATELET VOLUME 10.4 FL (7.4-10.4); MONOCYTES # (AUTO) 0.7 X 10^3 (0.0-1.0); MONOCYTES % (AUTO) 11 % (0-12); NEUTROPHILS # (AUTO) 4.3 X 10^3 (1.8-7.8); NEUTROPHILS % (AUTO) 65 % (42-75); PLATELET COUNT 147 10^3/uL (130-400); RED BLOOD COUNT 3.13 10^6/uL (4.35-5.85); RED CELL DISTRIBUTION WIDTH 17.2 % (10.0-14.5); WHITE BLOOD COUNT 6.6 10^3/uL (4.3-11.0)
[2017-08-28 05:24] LABS: BUN/CREATININE RATIO 8; CALCIUM 8.2 MG/DL (8.5-10.1); CARBON DIOXIDE 28 MMOL/L (21-32); CHLORIDE 104 MMOL/L (98-107); CREATININE SERUM 0.63 MG/DL (0.60-1.30); GFR ESTIMATED > 60; GLUCOSE 118 MG/DL (70-105); POTASSIUM 3.4 MMOL/L (3.6-5.0); SODIUM 139 MMOL/L (135-145)
[2017-08-28] MEDS ORDERED: SODIUM PHOSPHATE INJ 30 MM in NS (IVPB) 250 ML IV ONE (06:15)
[2017-08-28 08:00] VITALS: BP 150/73
[2017-08-28] MEDS: PANTOPRAZOLE 40 MG/10 ML (PROTONIX) VIAL IV SCH (08:17)
[2017-08-28] MEDS: ENOXAPARIN 30 MG/0.3 ML (LOVENOX) SYR SC SCH ×2 (08:17→20:58)
[2017-08-28] MEDS: SENNA W/DOCUSATE (SENOKOT S) TABLET PO SCH (08:18)
[2017-08-28] MEDS: amLODIPine 10 MG (NORVASC) TAB PO SCH (08:18)
[2017-08-28] MEDS: FUROSEMIDE 40 MG (LASIX) TAB PO SCH (08:18)
[2017-08-28] MEDS: ENALAPRIL 10 MG (VASOTEC) TAB PO SCH ×2 (08:18→20:58)
[2017-08-28] MEDS: FOLIC ACID 1 MG TAB PO SCH (08:19)
[2017-08-28] MEDS: meTOprolol SUCCINATE 100 MG (TOPROL XL) TAB PO SCH ×2 (08:19→20:58)
--- NOTE | 2017-08-28 10:55 | Progress Note (SOAP) ---
Subjective Date Seen by Provider: Aug 28, 2017 Time Seen by Provider: 10:35 Subjective/Events-last exam Patient seen with Dr. Fang. Patient reports doing better this AM. Passing gas and had BM this AM. No nausea/vomiting. No fever/chills. Denies any abdominal pain. Ambulating well. Tolerating ice chips and sips of water. Review of Systems General: No Chills, No Night Sweats Gastrointestinal: No: Nausea, Vomiting Objective Exam Vital Signs Date Time Temp Pulse Resp B/P (MAP) Pulse Ox O2 Delivery O2 Flow Rate FiO2 08/28/17 08:00 Nasal Cannula 1.50 08/28/17 08:00 97.9 60 18 150/73 (98) 94 Nasal Cannula 2.00 08/28/17 07:00 16 08/28/17 06:40 92 Nasal Cannula 2.00 08/28/17 03:54 98.3 60 14 130/62 (84) 92 Nasal Cannula 2.00 08/28/17 02:44 91 Nasal Cannula 2.00 08/28/17 00:00 98.4 75 16 133/61 (85) 94 Nasal Cannula 2.00 08/27/17 21:30 100.0 08/27/17 21:02 90 Nasal Cannula 2.00 08/27/17 20:39 101.1 75 17 91 Nasal Cannula 2.00 08/27/17 20:00 Nasal Cannula 1.00 08/27/17 16:47 101.0 72 17 176/77 (110) 90 Nasal Cannula 2.00 08/27/17 15:01 90 Nasal Cannula 2.00 08/27/17 12:00 100.2 71 20 166/71 (102) 92 Nasal Cannula 2.00 08/27/17 10:54 Nasal Cannula 2.00 I & O 08/28/17 07:00 Intake Total 1000 ml Output Total 750 ml Balance 250 ml Capillary Refill : General Appearance: No Apparent Distress, WD/WN HEENT: PERRL/EOMI Neck: Full Range of Motion, Normal Inspection, Non Tender, Supple Respiratory: Chest Non Tender, Lungs Clear, Normal Breath Sounds, No Accessory Muscle Use, No Respiratory Distress Cardiovascular: Regular Rate, Rhythm, No Edema Gastrointestinal: normal bowel sounds, non tender, soft Extremity: Normal Capillary Refill, Normal Inspection, Normal Range of Motion, Non Tender, No Calf Tenderness, No Pedal Edema Neurologic/Psychiatric: Alert, Oriented x3 Skin: Normal Color, Warm/Dry (4 laparoscopic incisions C/D/I) Results Lab Laboratory Tests 08/27/17 12:17: Glucometer 125H 08/27/17 18:21: Glucometer 131H 08/28/17 00:32: Glucometer 136H 08/28/17 05:00: White Blood Count 6.6, Red Blood Count 3.13L, Hemoglobin 8.9L, Hematocrit 28L, Mean Corpuscular Volume 89, Mean Corpuscular Hemoglobin 28, Mean Corpuscular Hemoglobin Concent 32, Red Cell Distribution Width 17.2H, Platelet Count 147, Mean Platelet Volume 10.4, Neutrophils (%) (Auto) 65, Lymphocytes (%) (Auto) 23 , Monocytes (%) (Auto) 11, Eosinophils (%) (Auto) 1, Basophils (%) (Auto) 0, Neutrophils # (Auto) 4.3, Lymphocytes # (Auto) 1.5, Monocytes # (Auto) 0.7, Eosinophils # (Auto) 0.1, Basophils # (Auto) 0.0, Sodium Level 139, Potassium Level 3.4L, Chloride Level 104, Carbon Dioxide Level 28, Anion Gap 7, Blood Urea Nitrogen 5L, Creatinine 0.63, Estimat Glomerular Filtration Rate > 60, BUN/ Creatinine Ratio 8, Glucose Level 118H, Calcium Level 8.2L, Phosphorus Level 1.0 *L 08/28/17 05:32: Glucometer 115H Assessment/Plan Assessment/Plan Assess & Plan/Chief Complaint s/p laparoscopic right hemicolectomy. ambulate. 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
[2017-08-28] MEDS ORDERED: ACETAMINOPHEN 500 MG TAB (TYLENOL) PO PRN (11:00)
[2017-08-28 11:57] VITALS: BP 160/69
[2017-08-28 16:00] VITALS: BP 159/71
[2017-08-28] MEDS: ATORVASTATIN 40 MG (LIPITOR) TABLET PO SCH (20:58)
[2017-08-28 23:57] VITALS: BP 154/67
[2017-08-29] MEDS: LACTATED RINGERS 1,000 ML IV SCH ×2 (05:06→11:03)
[2017-08-29] MEDS: inSUlin (REGULAR) HUMAN 1 UNIT/0.01 ML (CHARGE PER UNIT) SC SCH ×4 (05:54→21:30)
[2017-08-29] MEDS: HYDROcodone/APAP 7.5 MG/325 MG (LORTAB, LORCET PLUS) TABLET PO PRN ×4 (06:02→21:39)
[2017-08-29 08:00] VITALS: BP 177/79
[2017-08-29] MEDS: ENALAPRIL 10 MG (VASOTEC) TAB PO SCH ×2 (08:27→21:39)
[2017-08-29] MEDS: amLODIPine 10 MG (NORVASC) TAB PO SCH (08:28)
[2017-08-29] MEDS: FUROSEMIDE 40 MG (LASIX) TAB PO SCH (08:28)
[2017-08-29] MEDS: meTOprolol SUCCINATE 100 MG (TOPROL XL) TAB PO SCH ×2 (08:28→21:38)
[2017-08-29] MEDS: SENNA W/DOCUSATE (SENOKOT S) TABLET PO SCH (08:28)
[2017-08-29] MEDS: FOLIC ACID 1 MG TAB PO SCH (08:28)
[2017-08-29] MEDS: ENOXAPARIN 30 MG/0.3 ML (LOVENOX) SYR SC SCH ×2 (08:29→21:38)
[2017-08-29] MEDS: PANTOPRAZOLE 40 MG/10 ML (PROTONIX) VIAL IV SCH (08:46)
--- NOTE | 2017-08-29 10:12 | Progress Note (SOAP) ---
Subjective Date Seen by Provider: Aug 29, 2017 Time Seen by Provider: 09:30 Subjective/Events-last exam Patient seen with Dr. Fang. Patient reports doing well but her arthritis is starting to hurt and bother her. Tolerating diet and having BMs. Reported an episode of night sweats last night as well as occasional cough. Ambulating. No abdominal pain. Review of Systems General: No Chills, Night Sweats Pulmonary: Cough Gastrointestinal: No: Nausea, Vomiting, Abdominal Pain Objective Exam Vital Signs Date Time Temp Pulse Resp B/P (MAP) Pulse Ox O2 Delivery O2 Flow Rate FiO2 08/29/17 08:13 Nasal Cannula 2.00 08/28/17 23:57 98.4 66 16 154/67 (96) 94 Nasal Cannula 2.00 08/28/17 20:22 100.1 08/28/17 20:15 Nasal Cannula 1.00 08/28/17 16:00 98.9 69 18 159/71 (100) 97 Nasal Cannula 2.00 08/28/17 11:57 98.7 69 20 160/69 (99) 93 Nasal Cannula 2.00 I & O 08/29/17 07:00 Intake Total 1040 ml Output Total 2800 ml Balance -1760 ml Capillary Refill : General Appearance: No Apparent Distress, WD/WN HEENT: PERRL/EOMI Neck: Full Range of Motion, Normal Inspection, Non Tender, Supple Respiratory: Chest Non Tender, Lungs Clear, Normal Breath Sounds, No Accessory Muscle Use, No Respiratory Distress Cardiovascular: Regular Rate, Rhythm, No Edema Gastrointestinal: normal bowel sounds, non tender, soft Extremity: Normal Capillary Refill, Normal Inspection, Normal Range of Motion, Non Tender, No Calf Tenderness Neurologic/Psychiatric: Alert, Oriented x3 Skin: Normal Color, Warm/Dry, Other (4 laparoscopic incisions C/D/I) Results Lab Laboratory Tests 08/28/17 11:56: Glucometer 106 08/28/17 15:45: Glucometer 155H 08/28/17 20:57: Glucometer 131H 08/29/17 05:45: Phosphorus Level 1.4L 08/29/17 05:47: Glucometer 128H Assessment/Plan Assessment/Plan Assess & Plan/Chief Complaint s/p laparoscopic right hemicolectomy. ambulate. Continue DYS3 diet Continue PO pain medications. Will check chest x-ray due to fever and cough. Will restart pts meloxicam for Rheumatoid arthritis. 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
[2017-08-29] MEDS: MELOXICAM 7.5 MG (MOBIC) TABLET PO SCH (10:48)
--- NOTE | 2017-08-29 11:18 | Diagnostic Imaging Report ---
Portable erect AP chest at 1040 hours. INDICATION: Fever and cough. FINDINGS: The heart size is within normal limits and the central pulmonary vascularity do seem less prominent than noted on the prior exam of 08/26/2017. The right hilum is still somewhat prominent but similar to the prior CT chest exam of 10/03/2015. There is no evidence for pneumonia or for significant pleural effusion. Mediastinum is not widened. The osseous structures are intact. The left-sided PICC line seen previously is again evident and unchanged in position. As on the prior exam, the line is slightly kinked on itself as it courses over the subclavian vein. IMPRESSION: The appearance of the chest has improved as the heart has decreased in size and the pulmonary congestion noted previously has essentially resolved. Dictated by: Dictated on workstation # [id number]
[2017-08-29] MEDS ORDERED: HYDR-3816 PO (11:28)
--- NOTE | 2017-08-29 11:30 | Discharge Inst-Surgical ---
D/C Lap Instructions-KIDO New, Converted, or Re-Newed RX: RX on Chart Follow Up Appt in 2 weeks Activity as tolerated No driving while on pain medications Incentive Spirometry use every 2 hours while awake Regular Diet Symptoms to Report: Fever over 101 degree F, Nausea/Vomiting Infection Signs and Symptoms to report: Increased redness, Foul odor of wound, Increased drainage Bathing instructions: May shower Operative Area Clean/Dry; Keep incision clean/dry If any problems/questions: Contact your physician or go to Emergency Room TUCKER HUTTON APRN Aug 29, 2017 11:30 am
[2017-08-29 16:00] VITALS: BP 151/70
[2017-08-29] MEDS: CATHETER FLUSH 10 ML SYR IV SCH (21:39)
[2017-08-29] MEDS: ATORVASTATIN 40 MG (LIPITOR) TABLET PO SCH (21:39)
[2017-08-30] VITALS: BP 148/65
[2017-08-30] MEDS: CATHETER FLUSH 10 ML SYR IV SCH (06:23)
[2017-08-30] MEDS: HYDROcodone/APAP 7.5 MG/325 MG (LORTAB, LORCET PLUS) TABLET PO PRN ×2 (06:23→13:28)
[2017-08-30] MEDS: inSUlin (REGULAR) HUMAN 1 UNIT/0.01 ML (CHARGE PER UNIT) SC SCH (06:24)
--- NOTE | 2017-08-30 07:44 | Consultation ---
History of Present Illness History of Present Illness Patient Consulted On(stefanie/time) 08/30/17 07:41 Time Seen by Provider: 07:40 History of Present Illness patient had surgery for colon cancer. Patient had hypertension and put on her home meds. patient feeling better today. Diabetes. Hypertension. Rheumatoid arthritis Allergies and Home Medications Allergies Coded Allergies: hydroxychloroquine (Verified Allergy, Unknown, HIVES, 08/05/17) Home Medications Amlodipine Besylate 10 Mg Tablet, 10 MG PO DAILY, (Reported) Aspirin 81 Mg Tab.chew, 81 MG PO DAILY, (Reported) Atorvastatin Calcium 40 Mg Tablet, 40 MG PO HS, (Reported) Canagliflozin 100 Mg Tablet, 100 MG PO DAILY, (Reported) Enalapril Maleate 20 Mg Tablet, 20 MG PO BID, (Reported) Folic Acid 1 Mg Tablet, 1 MG PO DAILY, (Reported) Furosemide 40 Mg Tablet, 40 MG PO DAILY, (Reported) Furosemide 40 Mg Tablet, 40 MG PO DAILY PRN for SWELLING, (Reported) MAY TAKE AN ADDITIONAL DOSE NEEDED Hydrocodone/Acetaminophen 1 Each Tablet, 1-2 TAB PO Q4H PRN for PAIN-MODERATE, ( Reported) Hydrocodone/Acetaminophen 1 Each Tablet, 1-2 EACH PO Q4H PRN for PAIN-MODERATE Prescribed by: TUCKER HUTTON on 08/29/17 1128 Meloxicam 15 Mg Tablet, 15 MG PO DAILY, (Reported) Metformin HCl 500 Mg Tab.er.24h, 1,000 MG PO BID, (Reported) take 2 (500mg) tabs Metoprolol Succinate 200 Mg Tab.er.24h, 100 MG PO BID, (Reported) take 1/2 of 200mg tab Omeprazole 20 Mg Tablet.dr, 20 MG PO DAILY, (Reported) Patient Home Medication List Home Medication List Reviewed: Yes Past [id number] Hx Patient Social History Alcohol Use: Denies Use Recreational Drug Use: No Smoking Status: Never a Smoker Recent Foreign Travel: No Contact w/Someone Who Travel: No Recent Hopitalizations: No Immunizations Up To Date Tetanus Booster (TDap): Unknown Date of Pneumonia Vaccine: Aug 27, 2014 Date of Influenza Vaccine: Feb 07, 2017 Seasonal Allergies Seasonal Allergies: No Surgeries History of Surgeries: Yes (cystoscopy) Surgeries: Gallbladder, Tonsillectomy Respiratory History of Respiratory Disorde: No Currently Using CPAP: No Currently Using BIPAP: No Cardiovascular History of Cardiac Disorders: Yes Cardiac Disorders: Hypertension 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 History of 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 Disord: No Genitourinary History of Genitourinary Disor: Yes (just finished abx for UTI) Gastrointestinal History of Gastrointestinal Di: Yes (colon cancer) Musculoskeletal History of Musculoskeletal Dis: Yes Musculoskeletal Disorders: Arthritis Endocrine History of Endocrine Disorders: Yes HEENT History of HEENT Disorders: No Cancer History of Cancer: Yes Cancer: Colon Psychosocial History of Psychiatric Problem: No Integumentary History of Skin or Integumenta: No Blood Transfusions History of Blood Disorders: Yes (anemia) Family Medical History Family Medial History: Abdominal aortic aneurysm 19 MOTHER Arthritis G8 SISTER Cardiovascular disease 19 FATHER Hypertension 19 FATHER Review of Systems-General Constitutional: no symptoms reported EENTM: no symptoms reported, other (cold sore below right leg) Respiratory: no symptoms reported Cardiovascular: no symptoms reported Gastrointestinal: no symptoms reported Genitourinary: no symptoms reported Physical Exam-General Problems Physical Exam Vital Signs Vital Signs - First Documented 08/26/17 08/26/17 10:05 17:50 Temp 98.6 Pulse 61 Resp 16 B/P (MAP) 156/67 (96) Pulse Ox 96 O2 Delivery Room Air O2 Flow Rate 6.00 Capillary Refill : General Appearance: WD/WN, no apparent distress Eyes: Bilateral Eye Normal Inspection HEENT: normal ENT inspection Neck: non-tender, full range of motion Respiratory: chest non-tender, lungs clear, no respiratory distress, no accessory muscle use Cardiovascular: regular rate, rhythm, no murmur Assessment/Plan Assessment/Plan Admission Diagnosis/Plan colon cancer. Hypertension. Diabetes. Rheumatoid arthritis Clinical Quality Measures DVT/VTE Risk/Contraindication: Risk Factor Score Per Nursin RFS Level Per Nursing on Admit: 4+=Very High JEFFREY PARRA DO Aug 30, 2017 07:44
[2017-08-30 08:44] VITALS: BP 152/66
[2017-08-30] MEDS: SENNA W/DOCUSATE (SENOKOT S) TABLET PO SCH (08:53)
[2017-08-30] MEDS: MELOXICAM 7.5 MG (MOBIC) TABLET PO SCH (08:53)
[2017-08-30] MEDS: ENALAPRIL 10 MG (VASOTEC) TAB PO SCH (08:53)
[2017-08-30] MEDS: FOLIC ACID 1 MG TAB PO SCH (08:53)
[2017-08-30] MEDS: meTOprolol SUCCINATE 100 MG (TOPROL XL) TAB PO SCH (08:54)
[2017-08-30] MEDS: ENOXAPARIN 30 MG/0.3 ML (LOVENOX) SYR SC SCH (08:54)
[2017-08-30] MEDS: FUROSEMIDE 40 MG (LASIX) TAB PO SCH (08:54)
[2017-08-30] MEDS: amLODIPine 10 MG (NORVASC) TAB PO SCH (08:54)
[2017-08-30] MEDS: PANTOPRAZOLE 40 MG/10 ML (PROTONIX) VIAL IV SCH (09:01)
[2017-08-30 13:45] VITALS: BP 140/66
== END 2017-08-30 13:45 | disposition home or self-care (01) | DRG 331 ==
LOC: 4TH 09:05 → SURG 09:06 → ICU 17:50 → 4TH 08-27 09:47
PROVIDERS: ADMIT Surgery; ATTEND Surgery
PROC: 0DTF4ZZ Resection of Right Large Intestine, Percutaneous Endoscopic Approach (ICD-10-PCS; principal; 2017-08-26 13:19)
DX: C18.2 Malignant neoplasm of ascending colon (principal); D50.9 Iron deficiency anemia, unspecified; E11.9 Type 2 diabetes mellitus without complications; M06.9 Rheumatoid arthritis, unspecified; I10 Essential (primary) hypertension; K21.9 Gastro-esophageal reflux disease without esophagitis; E78.00 Pure hypercholesterolemia, unspecified; R60.0 Localized edema; R50.9 Fever, unspecified; R05 Cough; Z79.899 Other long term (current) drug therapy
CPT/HCPCS: 36415; 71045; 80048; 82962; 83735; 84100; 85025; 94640; 94664; 94760

== ENCOUNTER 2017-09-27 08:51 | Outpatient (RCR) | payer MEDICARE ==
[2017-08-02 09:00] LABS: ABSOLUTE RETIC # 48 10e9/L (24-90); BASOPHILS % (AUTO) 0 % (0-10); EOSINOPHILS # (AUTO) 0.4 10^3/uL (0.0-0.3); EOSINOPHILS % (AUTO) 4 % (0-10); HEMATOCRIT 35 % (35-52); HEMOGLOBIN 11.1 G/DL (11.5-16.0); LYMPHOCYTES # (AUTO) 1.9 X 10^3 (1.0-4.0); LYMPHOCYTES % (AUTO) 22 % (12-44); MEAN CORPUSCULAR HEMOGLOBIN 28 PG (25-34); MEAN CORPUSCULAR HGB CONC 32 G/DL (32-36); MEAN CORPUSCULAR VOLUME 87 FL (80-99); MEAN PLATELET VOLUME 9.8 FL (7.4-10.4); MONOCYTES # (AUTO) 0.6 X 10^3 (0.0-1.0); MONOCYTES % (AUTO) 6 % (0-12); NEUTROPHILS # (AUTO) 6.1 X 10^3 (1.8-7.8); NEUTROPHILS % (AUTO) 68 % (42-75); PLATELET COUNT 273 10^3/uL (130-400); RED CELL DISTRIBUTION WIDTH 14.7 % (10.0-14.5)
[2017-08-02 09:20] LABS: ALANINE AMINOTRANSFERASE 21 U/L (0-55); ALBUMIN 4.1 GM/DL (3.2-4.5); ALKALINE PHOSPHATASE 69 U/L (40-136); BILIRUBIN,TOTAL 0.4 MG/DL (0.1-1.0); BUN/CREATININE RATIO 31; CALCIUM 9.4 MG/DL (8.5-10.1); CARBON DIOXIDE 21 MMOL/L (21-32); CHLORIDE 104 MMOL/L (98-107); CREATININE SERUM 0.88 MG/DL (0.60-1.30); GFR ESTIMATED > 60; GLUCOSE 132 MG/DL (70-105); POTASSIUM 4.2 MMOL/L (3.6-5.0); SODIUM 139 MMOL/L (135-145)
[2017-09-23 09:10] LABS: ABSOLUTE RETIC # 70 10e9/L (24-90); BASOPHILS % (AUTO) 0 % (0-10); EOSINOPHILS # (AUTO) 0.3 10^3/uL (0.0-0.3); EOSINOPHILS % (AUTO) 5 % (0-10); HEMATOCRIT 36 % (35-52); HEMOGLOBIN 11.2 G/DL (11.5-16.0); LYMPHOCYTES # (AUTO) 1.6 X 10^3 (1.0-4.0); LYMPHOCYTES % (AUTO) 25 % (12-44); MEAN CORPUSCULAR HEMOGLOBIN 28 PG (25-34); MEAN CORPUSCULAR HGB CONC 32 G/DL (32-36); MEAN CORPUSCULAR VOLUME 88 FL (80-99); MEAN PLATELET VOLUME 10.3 FL (7.4-10.4); MONOCYTES # (AUTO) 0.6 X 10^3 (0.0-1.0); MONOCYTES % (AUTO) 9 % (0-12); NEUTROPHILS # (AUTO) 3.9 X 10^3 (1.8-7.8); NEUTROPHILS % (AUTO) 62 % (42-75); PLATELET COUNT 168 10^3/uL (130-400); RED BLOOD COUNT 4.03 10^6/uL (4.35-5.85); RED CELL DISTRIBUTION WIDTH 15.8 % (10.0-14.5); RETICULOCYTE % 1.74 % (0.50-2.40); WHITE BLOOD COUNT 6.4 10^3/uL (4.3-11.0)
[2017-09-23 09:33] LABS: ERYTHROCYTE SEDIMENTATION RATE 37 MM/HR (0-30)
[2017-09-23 09:35] LABS: ALANINE AMINOTRANSFERASE 22 U/L (0-55); ALKALINE PHOSPHATASE 76 U/L (40-136); BILIRUBIN,TOTAL 0.5 MG/DL (0.1-1.0); BUN/CREATININE RATIO 20; CALCIUM 8.8 MG/DL (8.5-10.1); CARBON DIOXIDE 26 MMOL/L (21-32); CHLORIDE 105 MMOL/L (98-107); CREATININE SERUM 0.82 MG/DL (0.60-1.30); GFR ESTIMATED > 60; GLUCOSE 116 MG/DL (70-105); POTASSIUM 4.7 MMOL/L (3.6-5.0); SODIUM 139 MMOL/L (135-145); TOTAL PROTEIN 7.5 GM/DL (6.4-8.2)
[~2017-09-27 08:51] MED LIST changes: +FERRIC CARBOXYMALTOSE (CANCER) 750 MG in NS (IVPB) CANCER CENTER 250 ML IV SCH; +HYDR-3816 PO
== END 2017-10-31 | disposition home or self-care (01) ==
LOC: ONC 08:51
PROVIDERS: ATTEND Internal Medicine Hematology & Oncology
DX: C18.0 Malignant neoplasm of cecum (principal); M06.9 Rheumatoid arthritis, unspecified; D50.9 Iron deficiency anemia, unspecified; E11.9 Type 2 diabetes mellitus without complications; I10 Essential (primary) hypertension; K29.70 Gastritis, unspecified, without bleeding; K20.9 Esophagitis, unspecified; K90.49 Malabsorption due to intolerance, not elsewhere classified; Z79.899 Other long term (current) drug therapy; Z79.82 Long term (current) use of aspirin; Z79.84 Long term (current) use of oral hypoglycemic drugs
CPT/HCPCS: 36415; 80053; 82728; 85025; 85045; 85652; 86141; 96365; 99213

== ENCOUNTER 2017-12-27 12:33 | Outpatient (RCR) | payer MEDICARE, BC ==
[2017-12-23 10:38] LABS: BASOPHILS % (AUTO) 0 % (0-10); EOSINOPHILS # (AUTO) 0.4 10^3/uL (0.0-0.3); EOSINOPHILS % (AUTO) 5 % (0-10); HEMATOCRIT 37 % (35-52); HEMOGLOBIN 12.4 G/DL (11.5-16.0); LYMPHOCYTES # (AUTO) 1.6 X 10^3 (1.0-4.0); LYMPHOCYTES % (AUTO) 22 % (12-44); MEAN CORPUSCULAR HEMOGLOBIN 29 PG (25-34); MEAN CORPUSCULAR HGB CONC 33 G/DL (32-36); MEAN CORPUSCULAR VOLUME 89 FL (80-99); MEAN PLATELET VOLUME 10.2 FL (7.4-10.4); MONOCYTES # (AUTO) 0.5 X 10^3 (0.0-1.0); MONOCYTES % (AUTO) 7 % (0-12); NEUTROPHILS # (AUTO) 4.8 X 10^3 (1.8-7.8); NEUTROPHILS % (AUTO) 65 % (42-75); PLATELET COUNT 226 10^3/uL (130-400); RED BLOOD COUNT 4.22 10^6/uL (4.35-5.85); RED CELL DISTRIBUTION WIDTH 15.6 % (10.0-14.5); WHITE BLOOD COUNT 7.4 10^3/uL (4.3-11.0)
[2017-12-23 10:59] LABS: ALANINE AMINOTRANSFERASE 26 U/L (0-55); ALBUMIN 4.2 GM/DL (3.2-4.5); ALKALINE PHOSPHATASE 73 U/L (40-136); BILIRUBIN,TOTAL 0.4 MG/DL (0.1-1.0); BUN/CREATININE RATIO 23; CALCIUM 9.9 MG/DL (8.5-10.1); CARBON DIOXIDE 24 MMOL/L (21-32); CHLORIDE 107 MMOL/L (98-107); CREATININE SERUM 0.83 MG/DL (0.60-1.30); GFR ESTIMATED > 60; GLUCOSE 155 MG/DL (70-105); POTASSIUM 4.4 MMOL/L (3.6-5.0); SODIUM 139 MMOL/L (135-145)
[~2017-12-27 12:33] MED LIST changes: -AMLO10TA2 PO; +AMLO10TA6 PO; -FERRIC CARBOXYMALTOSE (CANCER) 750 MG in NS (IVPB) CANCER CENTER 250 ML IV SCH; -METH2.5T PO; +MTX2.5T PO
== END 2018-01-04 | disposition home or self-care (01) ==
LOC: ONC 12:33
PROVIDERS: ATTEND Internal Medicine Hematology & Oncology
DX: C18.0 Malignant neoplasm of cecum (principal); D50.9 Iron deficiency anemia, unspecified; I10 Essential (primary) hypertension; E78.00 Pure hypercholesterolemia, unspecified; E11.9 Type 2 diabetes mellitus without complications; K29.70 Gastritis, unspecified, without bleeding; K20.9 Esophagitis, unspecified; M06.9 Rheumatoid arthritis, unspecified; K90.49 Malabsorption due to intolerance, not elsewhere classified; Z79.82 Long term (current) use of aspirin; Z79.84 Long term (current) use of oral hypoglycemic drugs; Z79.899 Other long term (current) drug therapy
CPT/HCPCS: 36415; 80053; 82378; 82728; 85025; 99213

== ENCOUNTER 2018-03-30 08:37 | Outpatient (RCR) | payer MEDICARE, BC ==
[2018-03-15 09:02] LABS: BASOPHILS % (AUTO) 0 % (0-10); EOSINOPHILS # (AUTO) 0.4 10^3/uL (0.0-0.3); EOSINOPHILS % (AUTO) 5 % (0-10); HEMATOCRIT 38 % (35-52); HEMOGLOBIN 12.7 G/DL (11.5-16.0); LYMPHOCYTES # (AUTO) 1.8 X 10^3 (1.0-4.0); LYMPHOCYTES % (AUTO) 25 % (12-44); MEAN CORPUSCULAR HEMOGLOBIN 31 PG (25-34); MEAN CORPUSCULAR HGB CONC 34 G/DL (32-36); MEAN CORPUSCULAR VOLUME 91 FL (80-99); MEAN PLATELET VOLUME 10.3 FL (7.4-10.4); MONOCYTES # (AUTO) 0.6 X 10^3 (0.0-1.0); MONOCYTES % (AUTO) 8 % (0-12); NEUTROPHILS # (AUTO) 4.4 X 10^3 (1.8-7.8); NEUTROPHILS % (AUTO) 62 % (42-75); PLATELET COUNT 213 10^3/uL (130-400); RED BLOOD COUNT 4.15 10^6/uL (4.35-5.85); RED CELL DISTRIBUTION WIDTH 14.4 % (10.0-14.5); WHITE BLOOD COUNT 7.1 10^3/uL (4.3-11.0)
[2018-03-15 09:24] LABS: ALBUMIN 4.3 GM/DL (3.2-4.5); BILIRUBIN,TOTAL 0.5 MG/DL (0.1-1.0); CALCIUM 9.5 MG/DL (8.5-10.1); CREATININE SERUM 0.93 MG/DL (0.60-1.30); TOTAL PROTEIN 7.9 GM/DL (6.4-8.2)
== END 2018-06-13 | disposition home or self-care (01) ==
LOC: ONC 08:37
PROVIDERS: ATTEND Internal Medicine Hematology & Oncology
DX: C18.0 Malignant neoplasm of cecum (principal); D50.9 Iron deficiency anemia, unspecified; I10 Essential (primary) hypertension; E78.00 Pure hypercholesterolemia, unspecified; E11.9 Type 2 diabetes mellitus without complications; K29.70 Gastritis, unspecified, without bleeding; K20.9 Esophagitis, unspecified; M06.9 Rheumatoid arthritis, unspecified; K90.49 Malabsorption due to intolerance, not elsewhere classified; Z79.82 Long term (current) use of aspirin; Z79.84 Long term (current) use of oral hypoglycemic drugs; Z79.899 Other long term (current) drug therapy
CPT/HCPCS: 36415; 80053; 82378; 82728; 85025; 99213

== ENCOUNTER 2018-06-29 08:43 | Outpatient (RCR) | payer MEDICARE, BC ==
[2018-06-24 08:54] LABS: BASOPHILS % (AUTO) 1 % (0-10); EOSINOPHILS # (AUTO) 0.3 10^3/uL (0.0-0.3); EOSINOPHILS % (AUTO) 4 % (0-10); HEMATOCRIT 38 % (35-52); HEMOGLOBIN 12.3 G/DL (11.5-16.0); LYMPHOCYTES # (AUTO) 1.7 X 10^3 (1.0-4.0); LYMPHOCYTES % (AUTO) 26 % (12-44); MEAN CORPUSCULAR HEMOGLOBIN 30 PG (25-34); MEAN CORPUSCULAR HGB CONC 33 G/DL (32-36); MEAN CORPUSCULAR VOLUME 91 FL (80-99); MEAN PLATELET VOLUME 10.1 FL (7.4-10.4); MONOCYTES # (AUTO) 0.6 X 10^3 (0.0-1.0); MONOCYTES % (AUTO) 8 % (0-12); NEUTROPHILS % (AUTO) 61 % (42-75); PLATELET COUNT 189 10^3/uL (130-400); RED CELL DISTRIBUTION WIDTH 14.7 % (10.0-14.5); WHITE BLOOD COUNT 6.6 10^3/uL (4.3-11.0)
[2018-06-24 09:18] LABS: ALANINE AMINOTRANSFERASE 34 U/L (0-55); ALBUMIN 4.1 GM/DL (3.2-4.5); ALKALINE PHOSPHATASE 66 U/L (40-136); BILIRUBIN,TOTAL 0.5 MG/DL (0.1-1.0); BUN/CREATININE RATIO 26; CALCIUM 9.1 MG/DL (8.5-10.1); CARBON DIOXIDE 22 MMOL/L (21-32); CHLORIDE 105 MMOL/L (98-107); CREATININE SERUM 0.85 MG/DL (0.60-1.30); GFR ESTIMATED > 60; GLUCOSE 139 MG/DL (70-105); POTASSIUM 4.3 MMOL/L (3.6-5.0); SODIUM 139 MMOL/L (135-145); TOTAL PROTEIN 7.6 GM/DL (6.4-8.2)
[~2018-06-29 08:43] MED LIST changes: -AMLO10TA6 PO; +AMLO10TA7 PO
[2018-09-07] MEDS ORDERED: METH2.5T PO ×2 (09:43)
== END 2018-09-14 15:02 | disposition home or self-care (01) ==
LOC: ONC 08:43
PROVIDERS: ATTEND Internal Medicine Hematology & Oncology
DX: C18.0 Malignant neoplasm of cecum (principal); D50.9 Iron deficiency anemia, unspecified; I10 Essential (primary) hypertension; E78.00 Pure hypercholesterolemia, unspecified; E11.9 Type 2 diabetes mellitus without complications; K29.70 Gastritis, unspecified, without bleeding; K20.9 Esophagitis, unspecified; M06.9 Rheumatoid arthritis, unspecified; K90.49 Malabsorption due to intolerance, not elsewhere classified; Z79.82 Long term (current) use of aspirin; Z79.84 Long term (current) use of oral hypoglycemic drugs; Z79.899 Other long term (current) drug therapy
CPT/HCPCS: 36415; 80053; 82378; 82728; 85025; 99213

== ENCOUNTER 2018-09-07 05:40 | Outpatient (CLI) | payer MEDICARE, BC ==
[~2018-09-07] VITALS: Ht 157.5 cm; Wt 102.1 kg
[2018-09-07] MEDS ORDERED: METH2.5T PO (09:43)
== END 2018-09-07 09:48 | disposition home or self-care (01) ==
LOC: PREOP 05:40
PROVIDERS: ATTEND Surgery
DX: Z01.818 Encounter for other preprocedural examination (principal)

== ENCOUNTER 2018-09-14 08:15 | Day surgery (SDC) | payer MEDICARE, BC ==
[~2018-09-14] VITALS: Ht 157.5 cm; Wt 102.1 kg
[~2018-09-14 08:15] MED LIST changes: +METH2.5T PO
--- OUTSIDE RECORDS SUMMARY | 2018-09-14 08:25 | XMS REPORT | Continuity of Care Document ---
Author Organization Unknown Address Unknown Allergies Active Description Code Type Severity Reaction Onset Reported/Identified Relationship to Patient Clinical Status Yes No Known Drug Allergies [id number] Drug Allergy Unknown N/A 03/07/2014 Yes hydroxychloroquine [id number] Drug Allergy Unknown HIVES 08/05/2017 Yes fentanyl [id number] Drug Allergy Moderate HALLUCINATIONS 09/07/2018 Yes hydroxychloroquine [id number] Drug Allergy Mild HIVES 09/07/2018 Medications There is no data. Problems Date Dx Coded Attending Type Code Diagnosis Diagnosed By KRISTINE MOSER Ot D50.9 IRON DEFICIENCY ANEMIA, UNSPECIFIED KRISTINE MOSER Ot E11.9 TYPE 2 DIABETES MELLITUS WITHOUT COMPLIC KRISTINE MOSER Ot E78.0 PURE HYPERCHOLESTEROLEMIA KRISTINE MOSER Ot I10 ESSENTIAL (PRIMARY) HYPERTENSION KRISTINE MOSER Ot K20.9 ESOPHAGITIS, UNSPECIFIED KRISTINE MOSER Ot K29.70 GASTRITIS, UNSPECIFIED, WITHOUT BLEEDING KRISTINE MOSER Ot 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 03/07/2014 FLORA PIERCE MD Ot 250.00 DIAB SHANA WO COMPL, TYPE II OR UNSPEC TY 03/07/2014 FLORA PIERCE MD Ot 272.0 PURE HYPERCHOLESTEROLEM 03/07/2014 FLORA PIERCE MD Ot 285.9 ANEMIA NOS 03/07/2014 FLORA PIERCE MD Ot 401.9 HYPERTENSION NOS 03/07/2014 FLORA PIERCE MD Ot 455.0 INT HEMORRHOID W/O COMPL 03/07/2014 FLORA PIERCE MD Ot 455.3 EXT HEMORRHOID W/O COMPL 03/07/2014 FLORA PIERCE MD Ot 530.11 REFLUX ESOPHAGITIS 03/07/2014 ABRAM PIERCE MDAAKI Ot 535.50 UNSP GASTRITIS GASTRODUODENITIS W/O ME 03/07/2014 FLORA PIERCE MD, Ot 553.3 DIAPHRAGMATIC HERNIA 03/07/2014 FLORA PIERCE MD, Ot 562.10 DIVERTICULOSIS COLON (W/O MENT OF HEMORR 11/30/2014 STAN CAMARILLO, FLORA Romero V72.84 01/01/2015 GELLENDER DO, JEFFREY A Ot 729.5 01/01/2015 GELLENDER DO, JEFFREY A Ot E000.8 01/01/2015 GELLENDER DO, JEFFREY A Ot E927.0 01/24/2015 GELLENDER DO, JEFFREY A Ot 729.5 01/24/2015 GELLENDER DO, JEFFREY A Ot E000.8 01/24/2015 GELLENDER DO, JEFFREY A Ot E927.0 05/06/2015 EHSANKRISTINE N Ot D50.9 05/06/2015 EHSAN, BOBSHAWNA N Ot E11.9 05/06/2015 EHSAN, BOBSHAWNA N Ot E78.0 05/06/2015 EHSAN, BOBAN N Ot I10 05/06/2015 EHSAN, BOBAN N Ot K20.9 05/06/2015 EHSAN, BOBAN N Ot K29.70 05/06/2015 EHSAN, BOBAN N Ot Z79.899 05/29/2015 EHSAN, BOBAN N Ot D50.9 05/29/2015 EHSAN, BOBAN N Ot E11.9 05/29/2015 EHSAN, BOBAN N Ot E78.0 05/29/2015 EHSAN, BOBAN N Ot I10 05/29/2015 EHSAN, BOBAN N Ot K20.9 05/29/2015 EHSAN, BOBAN N Ot K29.70 05/29/2015 EHSAN, BOBAN N Ot Z79.899 06/19/2015 EHSAN, BOBAN N Ot D50.9 IRON DEFICIENCY ANEMIA, UNSPECIFIED 06/19/2015 EHSAN, BOBAN N Ot E11.9 TYPE 2 DIABETES MELLITUS WITHOUT COMPLIC 06/19/2015 EHSAN, BOBSHAWNA N Ot E78.0 PURE HYPERCHOLESTEROLEMIA 06/19/2015 KRISTINE MOSER N Ot I10 ESSENTIAL (PRIMARY) HYPERTENSION 06/19/2015 EHSAN, BOBAN N Ot K20.9 ESOPHAGITIS, UNSPECIFIED 06/19/2015 EHSAN, BOBAN N Ot K29.70 GASTRITIS, UNSPECIFIED, WITHOUT BLEEDING 06/19/2015 EHSAN, BOBAN N Ot 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 07/11/2015 MANDY HENRIQUEZ PICKLE MAKER Ot D50.9 09/04/2015 STAN CAMARILLO, FLORA Ot V72.84 09/04/2015 GELLENDER DO, JEFFREY A Ot 729.5 09/04/2015 GELLENDER DO, JEFFREY A Ot E000.8 09/04/2015 GELLENDER DO, JEFFREY A Ot E927.0 09/04/2015 MANDY HENRIQUEZ PICKLE MAKER Ot D50.9 09/04/2015 EHSAN, BOBAN N Ot D50.9 09/04/2015 EHSAN, BOBAN N Ot E11.9 09/04/2015 EHSAN, BOBAN N Ot E78.0 09/04/2015 EHSAN, BOBAN N Ot I10 09/04/2015 EHSAN, BOBAN N Ot K20.9 09/04/2015 EHSAN, BOBAN N Ot K29.70 09/04/2015 EHSAN, BOBAN N Ot Z79.899 09/04/2015 STAN CAMARILLO, FLORA Ot V72.84 09/04/2015 [facility] A Ot 729.5 09/04/2015 [facility] A Ot E000.8 09/04/2015 [facility] A Ot E927.0 09/04/2015 MANDY HENRIQUEZ PICKLE MAKER Ot D50.9 09/04/2015 EHSAN, BOBAN N Ot D50.9 09/04/2015 EHSAN, BOBAN N Ot E11.9 09/04/2015 EHSAN, BOBAN N Ot E78.0 09/04/2015 EHSAN, BOBAN N Ot I10 09/04/2015 EHSAN, BOBAN N Ot K20.9 09/04/2015 EHSAN, BOBAN N Ot K29.70 09/04/2015 EHSAN, BOBAN N Ot Z79.899 09/04/2015 STAN CAMARILLO, FLORA Ot V72.84 09/04/2015 [facility] , JEFFREY A Ot 729.5 09/04/2015 GELLENMARIA LUISA DO, JEFFREY [place] Ot E000.8 09/04/2015 GELLENDER DO, JEFFREY [place] Ot E927.0 09/04/2015 MARTINEZ MANDY HOSKINS Ot D50.9 09/04/2015 EHSAN, BOBAN N Ot D50.9 09/04/2015 EHSAN, BOBAN N Ot E11.9 09/04/2015 EHSAN, BOBAN N Ot E78.0 09/04/2015 HESAN, BOBAN N Ot I10 09/04/2015 EHSAN, BOBAN N Ot K20.9 09/04/2015 EHSAN, BOBAN N Ot K29.70 09/04/2015 EHSAN, BOBAN N Ot Z79.899 09/19/2015 EHSAN, BOBAN N Ot D50.9 09/19/2015 EHSAN, BOBAN N Ot E11.9 09/19/2015 EHSAN, BOBAN N Ot E78.0 09/19/2015 EHSAN, BOBAN N Ot I10 09/19/2015 EHSAN, BOBAN N Ot K20.9 09/19/2015 EHSAN, BOBAN N Ot K29.70 09/19/2015 EHSAN, BOBAN N Ot Z79.899 09/19/2015 EHSAN, BOBAN N Ot D50.9 09/19/2015 EHSAN, BOBAN N Ot E11.9 09/19/2015 EHSAN, BOBAN N Ot E78.0 09/19/2015 EHSAN, BOBAN N Ot I10 09/19/2015 EHSAN, BOBAN N Ot K20.9 09/19/2015 EHSAN, BOBAN N Ot K29.70 09/19/2015 EHSAN, BOBAN N Ot Z79.899 09/20/2015 EHSAN, BOBAN N Ot D50.9 IRON DEFICIENCY ANEMIA, UNSPECIFIED 09/20/2015 EHSAN, BOBAN N Ot E11.9 TYPE 2 DIABETES MELLITUS WITHOUT COMPLIC 09/20/2015 EHSAN, BOBAN N Ot E78.0 PURE HYPERCHOLESTEROLEMIA 09/20/2015 EHSAN, BOBAN N Ot I10 ESSENTIAL (PRIMARY) HYPERTENSION 09/20/2015 EHSAN, BOBAN N Ot K20.9 ESOPHAGITIS, UNSPECIFIED 09/20/2015 EHSAN, BOBAN N Ot K29.70 GASTRITIS, UNSPECIFIED, WITHOUT BLEEDING 09/20/2015 EHSAN BOBAN N Ot 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 09/24/2015 EHSAN, BOBAN N Ot D50.9 IRON DEFICIENCY ANEMIA, UNSPECIFIED 09/24/2015 EHSAN, BOBAN N Ot E11.9 TYPE 2 DIABETES MELLITUS WITHOUT COMPLIC 09/24/2015 EHSAN, BOBAN N Ot E78.0 PURE HYPERCHOLESTEROLEMIA 09/24/2015 EHSAN, BOBAN N Ot I10 ESSENTIAL (PRIMARY) HYPERTENSION 09/24/2015 EHSAN, BOBAN N Ot K20.9 ESOPHAGITIS, UNSPECIFIED 09/24/2015 EHSAN, BOBAN N Ot K29.70 GASTRITIS, UNSPECIFIED, WITHOUT BLEEDING 09/24/2015 EHSAN, BOBAN N Ot 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 09/26/2015 AIDA DO, JEFFREY De La Vega Ot M79.641 PAIN IN RIGHT HAND 09/26/2015 GALINAMARIA INESMARIA LUISA DO, JEFFREY [place] Ot R22.31 LOCALIZED SWELLING, MASS AND LUMP, RIGHT 10/04/2015 EHSAN, BOBAN N Ot K92.2 GASTROINTESTINAL HEMORRHAGE, UNSPECIFIED 10/04/2015 EHSAN, BOBAN N Ot R53.1 WEAKNESS 10/04/2015 EHSAN, BOBAN N Ot K92.2 GASTROINTESTINAL HEMORRHAGE, UNSPECIFIED 10/04/2015 EHSAN, BOBAN N Ot R53.1 WEAKNESS 10/24/2015 EHSAN, BOBAN N Ot K92.2 GASTROINTESTINAL HEMORRHAGE, UNSPECIFIED 10/24/2015 EHSAN, BOBAN N Ot R53.1 WEAKNESS 10/31/2015 EHSANKRISTINE N Ot D50.9 IRON DEFICIENCY ANEMIA, UNSPECIFIED 10/31/2015 EHSAN, BOBAN N Ot E11.9 TYPE 2 DIABETES MELLITUS WITHOUT COMPLIC 10/31/2015 EHSAN, BOBAN N Ot E78.0 PURE HYPERCHOLESTEROLEMIA 10/31/2015 EHSAN, BOBAN N Ot I10 ESSENTIAL (PRIMARY) HYPERTENSION 10/31/2015 EHSAN, BOBAN N Ot K20.9 ESOPHAGITIS, UNSPECIFIED 10/31/2015 EHSAN BOBAN N Ot K29.70 GASTRITIS, UNSPECIFIED, WITHOUT BLEEDING 10/31/2015 EHSAN, TRUAN N Ot Z79.899 OTHER RETIREMENT (CURRENT) DRUG THERAPY 11/12/2015 ADDY HENRIQUEZBRENDA Arevalo PICKLE MAKER Ot D50.9 IRON DEFICIENCY ANEMIA, UNSPECIFIED 11/12/2015 ADDY HENRIQUEZBRENDA Arevalo PICKLE MAKER Ot E11.9 TYPE 2 DIABETES MELLITUS WITHOUT COMPLIC 11/12/2015 MARTINEZ MANDY Arevalo PICKLE MAKER Ot E78.0 PURE HYPERCHOLESTEROLEMIA 11/12/2015 HENRIQUEZADDYBRENDA Arevalo PICKLE MAKER Ot I10 ESSENTIAL (PRIMARY) HYPERTENSION 11/12/2015 ADDY HENRIQUEZBRENDA Arevalo PICKLE MAKER Ot 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 11/25/2015 EHSAN, TRUAN N Ot D50.9 IRON DEFICIENCY ANEMIA, UNSPECIFIED 11/25/2015 EHSAN, BOBAN N Ot E11.9 TYPE 2 DIABETES MELLITUS WITHOUT COMPLIC 11/25/2015 EHSAN BOBAN N Ot E78.0 PURE HYPERCHOLESTEROLEMIA 11/25/2015 EHASN, BOBAN N Ot I10 ESSENTIAL (PRIMARY) HYPERTENSION 11/25/2015 EHSAN BOBAN N Ot K20.9 ESOPHAGITIS, UNSPECIFIED 11/25/2015 EHSAN BOBAN N Ot K29.70 GASTRITIS, UNSPECIFIED, WITHOUT BLEEDING 11/25/2015 EHSAN BOBAN N Ot 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 12/03/2015 ADDY HENRIQUEZBRENDA Arevalo PICKLE MAKER Ot D50.9 IRON DEFICIENCY ANEMIA, UNSPECIFIED 12/03/2015 ADDY HENRIQUEZBRENDA Arevalo PICKLE MAKER Ot E11.9 TYPE 2 DIABETES MELLITUS WITHOUT COMPLIC 12/03/2015 ADDY HENRIQUEZBRENDA Arevalo PICKLE MAKER Ot E78.0 PURE HYPERCHOLESTEROLEMIA 12/03/2015 ADDY HENRIQUEZBRENDA Arevalo PICKLE MAKER Ot I10 ESSENTIAL (PRIMARY) HYPERTENSION 12/03/2015 ADDY HENRIQUEZBRENDA Arevalo PICKLE MAKER Ot 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 12/19/2015 EHSANTRUAN N Ot D50.9 IRON DEFICIENCY ANEMIA, UNSPECIFIED 12/19/2015 EHSANTRUAN N Ot E11.9 TYPE 2 DIABETES MELLITUS WITHOUT COMPLIC 12/19/2015 EHSAN BOBAN N Ot E78.0 PURE HYPERCHOLESTEROLEMIA 12/19/2015 EHSAN BOBAN N Ot I10 ESSENTIAL (PRIMARY) HYPERTENSION 12/19/2015 EHSAN BOBAN N Ot K20.9 ESOPHAGITIS, UNSPECIFIED 12/19/2015 EHSAN BOBAN N Ot K29.70 GASTRITIS, UNSPECIFIED, WITHOUT BLEEDING 12/19/2015 EHSAN, BOBAN N Ot Z79.899 OTHER RETIREMENT (CURRENT) DRUG THERAPY 12/20/2015 EHSAN, BOBAN N Ot D50.9 IRON DEFICIENCY ANEMIA, UNSPECIFIED 12/20/2015 EHSAN, BOBAN N Ot E11.9 TYPE 2 DIABETES MELLITUS WITHOUT COMPLIC 12/20/2015 EHSAN, BOBAN N Ot E78.0 PURE HYPERCHOLESTEROLEMIA 12/20/2015 EHSAN, BOBAN N Ot I10 ESSENTIAL (PRIMARY) HYPERTENSION 12/20/2015 EHSAN, BOBAN N Ot K20.9 ESOPHAGITIS, UNSPECIFIED 12/20/2015 EHSAN, BOBAN N Ot K29.70 GASTRITIS, UNSPECIFIED, WITHOUT BLEEDING 12/20/2015 EHSAN, BOBAN N Ot Z79.899 OTHER RETIREMENT (CURRENT) DRUG THERAPY 01/06/2016 EHSAN, BOBAN N Ot D50.9 IRON DEFICIENCY ANEMIA, UNSPECIFIED 01/06/2016 EHSAN, BOBAN N Ot E11.9 TYPE 2 DIABETES MELLITUS WITHOUT COMPLIC 01/06/2016 EHSAN, BOBAN N Ot E78.0 PURE HYPERCHOLESTEROLEMIA 01/06/2016 EHSAN, BOBAN N Ot I10 ESSENTIAL (PRIMARY) HYPERTENSION 01/06/2016 EHSAN, BOBAN N Ot K20.9 ESOPHAGITIS, UNSPECIFIED 01/06/2016 EHSAN, BOBAN N Ot K29.70 GASTRITIS, UNSPECIFIED, WITHOUT BLEEDING 01/06/2016 EHSAN, BOBAN N Ot 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 01/08/2016 EHSAN, BOBAN N Ot D50.9 IRON DEFICIENCY ANEMIA, UNSPECIFIED 01/08/2016 EHSAN, BOBAN N Ot E11.9 TYPE 2 DIABETES MELLITUS WITHOUT COMPLIC 01/08/2016 EHSAN, BOBAN N Ot E78.0 PURE HYPERCHOLESTEROLEMIA 01/08/2016 EHSAN, BOBAN N Ot I10 ESSENTIAL (PRIMARY) HYPERTENSION 01/08/2016 EHSAN, BOBAN N Ot K20.9 ESOPHAGITIS, UNSPECIFIED 01/08/2016 EHSAN, BOBAN N Ot K29.70 GASTRITIS, UNSPECIFIED, WITHOUT BLEEDING 01/08/2016 EHSAN, BOBAN N Ot 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 02/27/2016 EHSAN, BOBAN N Ot D50.9 IRON DEFICIENCY ANEMIA, UNSPECIFIED 02/27/2016 EHSAN, BOBAN N Ot E11.9 TYPE 2 DIABETES MELLITUS WITHOUT COMPLIC 02/27/2016 EHSAN, BOBAN N Ot E78.0 PURE HYPERCHOLESTEROLEMIA 02/27/2016 EHSAN, BOBAN N Ot I10 ESSENTIAL (PRIMARY) HYPERTENSION 02/27/2016 EHSAN, BOBAN N Ot K20.9 ESOPHAGITIS, UNSPECIFIED 02/27/2016 EHSAN, BOBAN N Ot K29.70 GASTRITIS, UNSPECIFIED, WITHOUT BLEEDING 02/27/2016 EHSAN, BOBAN N Ot 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 03/09/2016 EHSAN, BOBAN N Ot D50.9 IRON DEFICIENCY ANEMIA, UNSPECIFIED 03/09/2016 EHSAN, BOBAN N Ot E11.9 TYPE 2 DIABETES MELLITUS WITHOUT COMPLIC 03/09/2016 EHSAN, BOBAN N Ot E78.0 PURE HYPERCHOLESTEROLEMIA 03/09/2016 EHSAN, BOBAN N Ot I10 ESSENTIAL (PRIMARY) HYPERTENSION 03/09/2016 EHSAN BOBAN N Ot K20.9 ESOPHAGITIS, UNSPECIFIED 03/09/2016 EHSAN, BOBAN N Ot K29.70 GASTRITIS, UNSPECIFIED, WITHOUT BLEEDING 03/09/2016 EHSAN, BOBAN N Ot 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 03/11/2016 EHSAN BOBAN N Ot D50.9 IRON DEFICIENCY ANEMIA, UNSPECIFIED 03/11/2016 EHSAN, BOBAN N Ot E11.9 TYPE 2 DIABETES MELLITUS WITHOUT COMPLIC 03/11/2016 EHSAN, BOBAN N Ot E78.0 PURE HYPERCHOLESTEROLEMIA * DO NOT USE * 03/11/2016 EHSAN, BOBAN N Ot I10 ESSENTIAL (PRIMARY) HYPERTENSION 03/11/2016 EHSAN, BOBAN N Ot K20.9 ESOPHAGITIS, UNSPECIFIED 03/11/2016 EHSAN, BOBAN N Ot K29.70 GASTRITIS, UNSPECIFIED, WITHOUT BLEEDING 03/11/2016 EHSAN, BOBAN N Ot Z79.899 OTHER RETIREMENT (CURRENT) DRUG THERAPY 04/28/2016 EHSAN, BOBAN N Ot D50.9 IRON DEFICIENCY ANEMIA, UNSPECIFIED 04/28/2016 EHSAN, BOBAN N Ot E11.9 TYPE 2 DIABETES MELLITUS WITHOUT COMPLIC 04/28/2016 EHSAN, BOBAN N Ot E78.00 PURE HYPERCHOLESTEROLEMIA, UNSPECIFIED 04/28/2016 EHSAN, BOBAN N Ot I10 ESSENTIAL (PRIMARY) HYPERTENSION 04/28/2016 EHSAN, BOBAN N Ot K20.9 ESOPHAGITIS, UNSPECIFIED 04/28/2016 EHSAN, BOBAN N Ot K29.70 GASTRITIS, UNSPECIFIED, WITHOUT BLEEDING 04/28/2016 EHSAN, BOBAN N Ot Z79.899 OTHER RETIREMENT (CURRENT) DRUG THERAPY 06/08/2016 EHSAN, BOBAN N Ot D50.9 IRON DEFICIENCY ANEMIA, UNSPECIFIED 06/08/2016 EHSAN, BOBAN N Ot E11.9 TYPE 2 DIABETES MELLITUS WITHOUT COMPLIC 06/08/2016 EHSAN, BOBAN N Ot E78.00 PURE HYPERCHOLESTEROLEMIA, UNSPECIFIED 06/08/2016 EHSAN, BOBAN N Ot I10 ESSENTIAL (PRIMARY) HYPERTENSION 06/08/2016 EHSAN, BOBAN N Ot K20.9 ESOPHAGITIS, UNSPECIFIED 06/08/2016 EHSAN, BOBAN N Ot K29.70 GASTRITIS, UNSPECIFIED, WITHOUT BLEEDING 06/08/2016 EHSAN, BOBAN N Ot 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 06/09/2016 EHSAN, BOBAN N Ot D50.9 IRON DEFICIENCY ANEMIA, UNSPECIFIED 06/09/2016 EHSAN, BOBAN N Ot E11.9 TYPE 2 DIABETES MELLITUS WITHOUT COMPLIC 06/09/2016 EHSAN, BOBAN N Ot E78.00 PURE HYPERCHOLESTEROLEMIA, UNSPECIFIED 06/09/2016 EHSAN, BOBAN N Ot I10 ESSENTIAL (PRIMARY) HYPERTENSION 06/09/2016 EHSAN, BOBAN N Ot K20.9 ESOPHAGITIS, UNSPECIFIED 06/09/2016 EHSAN, BOBAN N Ot K29.70 GASTRITIS, UNSPECIFIED, WITHOUT BLEEDING 06/09/2016 EHSAN, BOBAN N Ot 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 06/14/2016 EHSAN, BOBAN N Ot D50.9 IRON DEFICIENCY ANEMIA, UNSPECIFIED 06/14/2016 EHSAN, BOBAN N Ot E11.9 TYPE 2 DIABETES MELLITUS WITHOUT COMPLIC 06/14/2016 HESAN, BOBAN N Ot E78.00 PURE HYPERCHOLESTEROLEMIA, UNSPECIFIED 06/14/2016 EHSAN, BOBAN N Ot I10 ESSENTIAL (PRIMARY) HYPERTENSION 06/14/2016 EHSAN, BOBAN N Ot K20.9 ESOPHAGITIS, UNSPECIFIED 06/14/2016 EHSAN, BOBAN N Ot K29.70 GASTRITIS, UNSPECIFIED, WITHOUT BLEEDING 06/14/2016 EHSAN, BOBAN N Ot 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 07/28/2016 EHSAN, BOBAN N Ot D50.9 IRON DEFICIENCY ANEMIA, UNSPECIFIED 07/28/2016 EHSAN, BOBAN N Ot E11.9 TYPE 2 DIABETES MELLITUS WITHOUT COMPLIC 07/28/2016 EHSAN, BOBAN N Ot E78.00 PURE HYPERCHOLESTEROLEMIA, UNSPECIFIED 07/28/2016 EHSAN, BOBAN N Ot I10 ESSENTIAL (PRIMARY) HYPERTENSION 07/28/2016 EHSAN, BOBAN N Ot K20.9 ESOPHAGITIS, UNSPECIFIED 07/28/2016 EHSAN, BOBAN N Ot K29.70 GASTRITIS, UNSPECIFIED, WITHOUT BLEEDING 07/28/2016 EHSAN, BOBAN N Ot 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 08/27/2016 EHSAN, BOBAN N Ot D50.9 IRON DEFICIENCY ANEMIA, UNSPECIFIED 08/27/2016 EHSAN, BOBAN N Ot E11.9 TYPE 2 DIABETES MELLITUS WITHOUT COMPLIC 08/27/2016 EHSAN, BOBAN N Ot E78.00 PURE HYPERCHOLESTEROLEMIA, UNSPECIFIED 08/27/2016 EHSAN, BOBAN N Ot I10 ESSENTIAL (PRIMARY) HYPERTENSION 08/27/2016 EHSAN, BOBAN N Ot K20.9 ESOPHAGITIS, UNSPECIFIED 08/27/2016 EHSAN, BOBAN N Ot K29.70 GASTRITIS, UNSPECIFIED, WITHOUT BLEEDING 08/27/2016 EHSAN, BOBAN N Ot 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 10/25/2016 EHSAN, BOBAN N Ot D50.9 IRON DEFICIENCY ANEMIA, UNSPECIFIED 10/25/2016 EHSAN, BOBAN N Ot E11.9 TYPE 2 DIABETES MELLITUS WITHOUT COMPLIC 10/25/2016 EHSAN, BOBAN N Ot E78.00 PURE HYPERCHOLESTEROLEMIA, UNSPECIFIED 10/25/2016 EHSAN, BOBAN N Ot I10 ESSENTIAL (PRIMARY) HYPERTENSION 10/25/2016 EHSAN, BOBAN N Ot K20.9 ESOPHAGITIS, UNSPECIFIED 10/25/2016 HESAN, BOBAN N Ot K29.70 GASTRITIS, UNSPECIFIED, WITHOUT BLEEDING 10/25/2016 EHSAN, BOBAN N Ot Z79.899 OTHER RETIREMENT (CURRENT) DRUG THERAPY 11/10/2016 EHSAN, BOBAN N Ot D50.9 IRON DEFICIENCY ANEMIA, UNSPECIFIED 11/10/2016 EHSAN, BOBAN N Ot E11.9 TYPE 2 DIABETES MELLITUS WITHOUT COMPLIC 11/10/2016 EHSAN, BOBAN N Ot E78.00 PURE HYPERCHOLESTEROLEMIA, UNSPECIFIED 11/10/2016 EHSAN, BOBAN N Ot I10 ESSENTIAL (PRIMARY) HYPERTENSION 11/10/2016 EHSAN, BOBAN N Ot K20.9 ESOPHAGITIS, UNSPECIFIED 11/10/2016 EHSAN, BOBAN N Ot K29.70 GASTRITIS, UNSPECIFIED, WITHOUT BLEEDING 11/10/2016 EHSAN, BOBAN N Ot Z79.899 OTHER RETIREMENT (CURRENT) DRUG THERAPY 12/01/2016 EHSAN, BOBAN N Ot D50.9 IRON DEFICIENCY ANEMIA, UNSPECIFIED 12/01/2016 EHSAN, BOBAN N Ot E11.9 TYPE 2 DIABETES MELLITUS WITHOUT COMPLIC 12/01/2016 EHSAN, BOBAN N Ot E78.00 PURE HYPERCHOLESTEROLEMIA, UNSPECIFIED 12/01/2016 EHSAN, BOBAN N Ot I10 ESSENTIAL (PRIMARY) HYPERTENSION 12/01/2016 EHSAN, BOBAN N Ot K20.9 ESOPHAGITIS, UNSPECIFIED 12/01/2016 EHSAN, BOBAN N Ot K29.70 GASTRITIS, UNSPECIFIED, WITHOUT BLEEDING 12/01/2016 EHSAN, BOBAN N Ot Z79.899 OTHER RETIREMENT (CURRENT) DRUG THERAPY 01/24/2017 EHSAN, BOBAN N Ot D50.9 IRON DEFICIENCY ANEMIA, UNSPECIFIED 01/24/2017 EHSAN, BOBAN N Ot E11.9 TYPE 2 DIABETES MELLITUS WITHOUT COMPLIC 01/24/2017 EHSAN, BOBAN N Ot E78.00 PURE HYPERCHOLESTEROLEMIA, UNSPECIFIED 01/24/2017 EHSAN, BOBAN N Ot I10 ESSENTIAL (PRIMARY) HYPERTENSION 01/24/2017 EHSAN, BOBAN N Ot K20.9 ESOPHAGITIS, UNSPECIFIED 01/24/2017 EHSAN, BOBAN N Ot K29.70 GASTRITIS, UNSPECIFIED, WITHOUT BLEEDING 01/24/2017 EHSAN, BOBAN N Ot Z79.899 OTHER RETIREMENT (CURRENT) DRUG THERAPY 01/25/2017 EHSAN, BOBAN N Ot D50.9 IRON DEFICIENCY ANEMIA, UNSPECIFIED 01/25/2017 EHSAN, BOBAN N Ot E11.9 TYPE 2 DIABETES MELLITUS WITHOUT COMPLIC 01/25/2017 KRISTINE MOSER Eric Ot E78.00 PURE HYPERCHOLESTEROLEMIA, UNSPECIFIED 01/25/2017 EHSANKRISTINE Ot I10 ESSENTIAL (PRIMARY) HYPERTENSION 01/25/2017 EHSAN TRUSHAWNA Eric Ot K20.9 ESOPHAGITIS, UNSPECIFIED 01/25/2017 KRISTINE MOSER Eric Ot K29.70 GASTRITIS, UNSPECIFIED, WITHOUT BLEEDING 01/25/2017 EHSAN TRUSHAWNA Eric Ot Z79.899 OTHER RETIREMENT (CURRENT) DRUG THERAPY 01/26/2017 STAN CAMARILLO, FLORA Ot V72.84 EXAM PRE-OPERATIVE NOS 01/26/2017 GELLENDER DO, JEFFREY A Ot 729.5 PAIN IN LIMB 01/26/2017 GALINALENMARIA LUISA DO, JEFFREY A Ot E000.8 OTHER EXTERNAL CAUSE STATUS 01/26/2017 ADITIDER DO, JEFFREY A Ot E927.0 OVEREXERTION FROM SUDDEN STRENUOUS MOVEM 01/26/2017 MANDY HENRIQUEZP Ot D50.9 IRON DEFICIENCY ANEMIA, UNSPECIFIED 01/26/2017 AIDA DO, JEFFREY A Ot M79.641 PAIN IN RIGHT HAND 01/26/2017 AIDA DO, JEFFREY A Ot R22.31 LOCALIZED SWELLING, MASS AND LUMP, RIGHT 01/26/2017 EHSAN, TRUSHAWNA Eric Ot K92.2 GASTROINTESTINAL HEMORRHAGE, UNSPECIFIED 01/26/2017 EHSANTRUSHAWNA Eric Ot R53.1 WEAKNESS 01/26/2017 MANDY HENRIQUEZ PICKLE MAKER Ot D50.9 IRON DEFICIENCY ANEMIA, UNSPECIFIED 01/26/2017 MANDY HENRIQUEZP Ot E11.9 TYPE 2 DIABETES MELLITUS WITHOUT COMPLIC 01/26/2017 MANDY HENRIQUEZP Ot E78.0 PURE HYPERCHOLESTEROLEMIA 01/26/2017 MANDY HENRIQUEZP Ot I10 ESSENTIAL (PRIMARY) HYPERTENSION 01/26/2017 MANDY HENRIQUEZP Ot 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 01/26/2017 KRISTINE MOSER Ot D50.9 IRON DEFICIENCY ANEMIA, UNSPECIFIED 01/26/2017 KRISTINE MOSER Ot E11.9 TYPE 2 DIABETES MELLITUS WITHOUT COMPLIC 01/26/2017 KRISTINE MOSER Ot E78.00 PURE HYPERCHOLESTEROLEMIA, UNSPECIFIED 01/26/2017 EHSAN, BOBAN N Ot I10 ESSENTIAL (PRIMARY) HYPERTENSION 01/26/2017 EHSAN, BOBAN N Ot K20.9 ESOPHAGITIS, UNSPECIFIED 01/26/2017 EHSAN, BOBAN N Ot K29.70 GASTRITIS, UNSPECIFIED, WITHOUT BLEEDING 01/26/2017 EHSAN, BOBAN N Ot Z79.899 OTHER RETIREMENT (CURRENT) DRUG THERAPY 01/26/2017 EHSAN, BOBAN N Ot D50.9 IRON DEFICIENCY ANEMIA, UNSPECIFIED 01/26/2017 EHSAN, BOBAN N Ot E11.9 TYPE 2 DIABETES MELLITUS WITHOUT COMPLIC 01/26/2017 EHSAN, BOBAN N Ot E78.00 PURE HYPERCHOLESTEROLEMIA, UNSPECIFIED 01/26/2017 EHSAN, BOBAN N Ot I10 ESSENTIAL (PRIMARY) HYPERTENSION 01/26/2017 EHSAN, BOBAN N Ot K20.9 ESOPHAGITIS, UNSPECIFIED 01/26/2017 EHSAN, BOBAN N Ot K29.70 GASTRITIS, UNSPECIFIED, WITHOUT BLEEDING 01/26/2017 EHSAN, BOBAN N Ot 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 02/26/2017 EHSAN, BOBAN N Ot D50.9 IRON DEFICIENCY ANEMIA, UNSPECIFIED 02/26/2017 EHSAN, BOBAN N Ot E11.9 TYPE 2 DIABETES MELLITUS WITHOUT COMPLIC 02/26/2017 EHSAN, BOBAN N Ot E78.00 PURE HYPERCHOLESTEROLEMIA, UNSPECIFIED 02/26/2017 EHSAN, BOBAN N Ot I10 ESSENTIAL (PRIMARY) HYPERTENSION 02/26/2017 EHSAN, BOBAN N Ot K20.9 ESOPHAGITIS, UNSPECIFIED 02/26/2017 EHSAN, BOBAN N Ot K29.70 GASTRITIS, UNSPECIFIED, WITHOUT BLEEDING 02/26/2017 EHSAN, BOBAN N Ot 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 03/06/2017 EHSAN, BOBAN N Ot D50.9 IRON DEFICIENCY ANEMIA, UNSPECIFIED 03/06/2017 EHSAN, BOBAN N Ot E11.9 TYPE 2 DIABETES MELLITUS WITHOUT COMPLIC 03/06/2017 EHSAN, BOBAN N Ot E78.00 PURE HYPERCHOLESTEROLEMIA, UNSPECIFIED 03/06/2017 EHSAN, BOBAN N Ot I10 ESSENTIAL (PRIMARY) HYPERTENSION 03/06/2017 EHSAN, BOBAN N Ot K20.9 ESOPHAGITIS, UNSPECIFIED 03/06/2017 EHSAN, BOBAN N Ot K29.70 GASTRITIS, UNSPECIFIED, WITHOUT BLEEDING 03/06/2017 EHSAN, BOBAN N Ot Z79.899 OTHER RETIREMENT (CURRENT) DRUG THERAPY 04/28/2017 EHSAN, BOBAN N Ot D50.9 IRON DEFICIENCY ANEMIA, UNSPECIFIED 04/28/2017 EHSAN, BOBAN N Ot E11.9 TYPE 2 DIABETES MELLITUS WITHOUT COMPLIC 04/28/2017 EHSAN, BOBAN N Ot E78.00 PURE HYPERCHOLESTEROLEMIA, UNSPECIFIED 04/28/2017 EHSAN, BOBAN N Ot I10 ESSENTIAL (PRIMARY) HYPERTENSION 04/28/2017 EHSAN, BOBAN N Ot K20.9 ESOPHAGITIS, UNSPECIFIED 04/28/2017 EHSAN, BOBAN N Ot K29.70 GASTRITIS, UNSPECIFIED, WITHOUT BLEEDING 04/28/2017 EHSAN, BOBAN N Ot Z79.899 OTHER RETIREMENT (CURRENT) DRUG THERAPY 06/01/2017 EHSAN, BOBAN N Ot D50.9 IRON DEFICIENCY ANEMIA, UNSPECIFIED 06/01/2017 EHSAN, BOBAN N Ot E11.9 TYPE 2 DIABETES MELLITUS WITHOUT COMPLIC 06/01/2017 EHSAN, BOBAN N Ot E78.00 PURE HYPERCHOLESTEROLEMIA, UNSPECIFIED 06/01/2017 EHSAN, BOBAN N Ot I10 ESSENTIAL (PRIMARY) HYPERTENSION 06/01/2017 EHSAN, BOBAN N Ot K20.9 ESOPHAGITIS, UNSPECIFIED 06/01/2017 EHSAN, BOBAN N Ot K29.70 GASTRITIS, UNSPECIFIED, WITHOUT BLEEDING 06/01/2017 EHSAN, BOBAN N Ot Z79.899 OTHER RETIREMENT (CURRENT) DRUG THERAPY 07/26/2017 EHSAN, BOBAN N Ot D50.9 IRON DEFICIENCY ANEMIA, UNSPECIFIED 07/26/2017 EHSAN, BOBAN N Ot E11.9 TYPE 2 DIABETES MELLITUS WITHOUT COMPLIC 07/26/2017 EHSAN, BOBAN N Ot E78.00 PURE HYPERCHOLESTEROLEMIA, UNSPECIFIED 07/26/2017 EHSAN, BOBAN N Ot I10 ESSENTIAL (PRIMARY) HYPERTENSION 07/26/2017 EHSAN, BOBAN N Ot K20.9 ESOPHAGITIS, UNSPECIFIED 07/26/2017 EHSAN, BOBAN N Ot K29.70 GASTRITIS, UNSPECIFIED, WITHOUT BLEEDING 07/26/2017 EHSAN, BOBAN N Ot Z79.899 OTHER RETIREMENT (CURRENT) DRUG THERAPY 07/27/2017 EHSANKRISTINE TEE N Ot D50.9 IRON DEFICIENCY ANEMIA, UNSPECIFIED 07/27/2017 EHSAN BOBAN N Ot E11.9 TYPE 2 DIABETES MELLITUS WITHOUT COMPLIC 07/27/2017 EHSAN, BOBAN N Ot E78.00 PURE HYPERCHOLESTEROLEMIA, UNSPECIFIED 07/27/2017 EHSAN, BOBAN N Ot I10 ESSENTIAL (PRIMARY) HYPERTENSION 07/27/2017 EHSANKRISTINE N Ot K20.9 ESOPHAGITIS, UNSPECIFIED 07/27/2017 EHSAN, BOBAN N Ot K29.70 GASTRITIS, UNSPECIFIED, WITHOUT BLEEDING 07/27/2017 EHSAN, BOBAN N Ot Z79.899 OTHER RETIREMENT (CURRENT) DRUG THERAPY 08/05/2017 FLORA PIERCE MD, Ot D64.9 ANEMIA, UNSPECIFIED 08/05/2017 FLORA PIERCE MD, Ot Z01.818 ENCOUNTER FOR OTHER PREPROCEDURAL EXAMIN 08/05/2017 KRISTINE OMSER N Ot D50.9 IRON DEFICIENCY ANEMIA, UNSPECIFIED 08/05/2017 EHSAN BOBSHAWNA N Ot E11.9 TYPE 2 DIABETES MELLITUS WITHOUT COMPLIC 08/05/2017 EHSAN BOBAN N Ot E78.00 PURE HYPERCHOLESTEROLEMIA, UNSPECIFIED 08/05/2017 EHSAN, BOBAN N Ot I10 ESSENTIAL (PRIMARY) HYPERTENSION 08/05/2017 KRISTINE MOSER N Ot K20.9 ESOPHAGITIS, UNSPECIFIED 08/05/2017 EHSAN BOBAN N Ot K29.70 GASTRITIS, UNSPECIFIED, WITHOUT BLEEDING 08/05/2017 EHSAN KRISTINE N Ot Z79.899 OTHER RETIREMENT (CURRENT) DRUG THERAPY 08/09/2017 FLORA PIERCE MD, Ot D64.9 ANEMIA, UNSPECIFIED 08/09/2017 FLORA PIERCE MD Ot Z01.818 ENCOUNTER FOR OTHER PREPROCEDURAL EXAMIN 08/10/2017 FLORA PIERCE MD, Ot V72.84 EXAM PRE-OPERATIVE NOS 08/10/2017 GELLENDER DO, JEFFREY A Ot 729.5 PAIN IN LIMB 08/10/2017 GELLENDER DO, JEFFREY [place] Ot E000.8 OTHER EXTERNAL CAUSE STATUS 08/10/2017 GELLENDER DO, JEFFREY [place] Ot E927.0 OVEREXERTION FROM SUDDEN STRENUOUS MOVEM 08/10/2017 MANDY HENRIQUEZP Ot D50.9 IRON DEFICIENCY ANEMIA, UNSPECIFIED 08/10/2017 GELLENDER DO, JEFFREY De La Vega Ot M79.641 PAIN IN RIGHT HAND 08/10/2017 GELLENDER DO, JEFFREY De La Vega Ot R22.31 LOCALIZED SWELLING, MASS AND LUMP, RIGHT 08/10/2017 KRISTINE MOSER Ot K92.2 GASTROINTESTINAL HEMORRHAGE, UNSPECIFIED 08/10/2017 KRISTINE MOSER Ot R53.1 WEAKNESS 08/10/2017 MANDY HENRIQUEZP Ot D50.9 IRON DEFICIENCY ANEMIA, UNSPECIFIED 08/10/2017 MANDY HENRIQUEZ PICKLE MAKER Ot E11.9 TYPE 2 DIABETES MELLITUS WITHOUT COMPLIC 08/10/2017 MANDY HENRIQUEZP Ot E78.0 PURE HYPERCHOLESTEROLEMIA 08/10/2017 MANDY HENRIQUEZ PICKLE MAKER Ot I10 ESSENTIAL (PRIMARY) HYPERTENSION 08/10/2017 MANDY HENRIQUEZP Ot 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 08/10/2017 KRISTINE MOSER Ot D50.9 IRON DEFICIENCY ANEMIA, UNSPECIFIED 08/10/2017 KRISTINE MOSER Ot E11.9 TYPE 2 DIABETES MELLITUS WITHOUT COMPLIC 08/10/2017 KRISTINE MOSER Ot E78.00 PURE HYPERCHOLESTEROLEMIA, UNSPECIFIED 08/10/2017 KRISTINE MOSER Ot I10 ESSENTIAL (PRIMARY) HYPERTENSION 08/10/2017 KRISTINE MOSER Ot K20.9 ESOPHAGITIS, UNSPECIFIED 08/10/2017 KRISTINE MOSER Ot K29.70 GASTRITIS, UNSPECIFIED, WITHOUT BLEEDING 08/10/2017 KRISTINE MOSER Ot Z79.899 OTHER RETIREMENT (CURRENT) DRUG THERAPY 08/11/2017 STAN CAMARILLO, FLORA Ot V72.84 EXAM PRE-OPERATIVE NOS 08/11/2017 GELLENDER DO, JEFFREY De La Vega Ot 729.5 PAIN IN LIMB 08/11/2017 GELLENDER DO, JEFFREY De La Vega Ot E000.8 OTHER EXTERNAL CAUSE STATUS 08/11/2017 GELLENDER DO, JEFFREY De La Vega Ot E927.0 OVEREXERTION FROM SUDDEN STRENUOUS MOVEM 08/11/2017 MANDY HENRIQUEZ PICKLE MAKER Ot D50.9 IRON DEFICIENCY ANEMIA, UNSPECIFIED 08/11/2017 GELJEFFREY MCCLAIN DO Ot M79.641 PAIN IN RIGHT HAND 08/11/2017 JEFFREY PRARA DO Ot R22.31 LOCALIZED SWELLING, MASS AND LUMP, RIGHT 08/11/2017 KRISTINE MOSER Ot K92.2 GASTROINTESTINAL HEMORRHAGE, UNSPECIFIED 08/11/2017 KRISTINE MOSER Ot R53.1 WEAKNESS 08/11/2017 MANDY HENRIQUEZP Ot D50.9 IRON DEFICIENCY ANEMIA, UNSPECIFIED 08/11/2017 MANDY HENRIQUEZ PICKLE MAKER Ot E11.9 TYPE 2 DIABETES MELLITUS WITHOUT COMPLIC 08/11/2017 MANDY HENRIQUEZ PICKLE MAKER Ot E78.0 PURE HYPERCHOLESTEROLEMIA 08/11/2017 MANDY HENRIQUEZ PICKLE MAKER Ot I10 ESSENTIAL (PRIMARY) HYPERTENSION 08/11/2017 MANDY HENRIQUEZ PICKLE MAKER Ot Z79.899 OTHER RETIREMENT (CURRENT) DRUG THERAPY 08/11/2017 KRISTINE MOSER Eric Ot D50.9 IRON DEFICIENCY ANEMIA, UNSPECIFIED 08/11/2017 KRISTINE MOSER Eric Ot E11.9 TYPE 2 DIABETES MELLITUS WITHOUT COMPLIC 08/11/2017 KRISTINE MOSER Eric Ot E78.00 PURE HYPERCHOLESTEROLEMIA, UNSPECIFIED 08/11/2017 KRISTINE MOSER N Ot I10 ESSENTIAL (PRIMARY) HYPERTENSION 08/11/2017 KRISTINE MOSER Eric Ot K20.9 ESOPHAGITIS, UNSPECIFIED 08/11/2017 KRISTINE MOSER Eric Ot K29.70 GASTRITIS, UNSPECIFIED, WITHOUT BLEEDING 08/11/2017 KRISTINE MOSER N Ot Z79.899 OTHER RETIREMENT (CURRENT) DRUG THERAPY 08/11/2017 FLORA PIERCE MD, Ot D64.9 ANEMIA, UNSPECIFIED 08/11/2017 FLORA PIERCE MD Ot E11.9 TYPE 2 DIABETES MELLITUS WITHOUT COMPLIC 08/11/2017 FLORA PIERCE MD, Ot E78.00 PURE HYPERCHOLESTEROLEMIA, UNSPECIFIED 08/11/2017 FLORA PIERCE MD Ot I10 ESSENTIAL (PRIMARY) HYPERTENSION 08/11/2017 FLORA PIERCE MD Ot K21.0 GASTRO-ESOPHAGEAL REFLUX DISEASE WITH ES 08/11/2017 FLORA PIERCE MD, Ot K29.70 GASTRITIS, UNSPECIFIED, WITHOUT BLEEDING 08/11/2017 FLORA PIERCE MD, Ot K44.9 DIAPHRAGMATIC HERNIA WITHOUT OBSTRUCTION 08/11/2017 FLORA PIERCE MD, Ot K57.30 DVRTCLOS OF LG INT W/O PERFORATION OR AB 08/11/2017 FLORA PIERCE MD, Ot K63.5 POLYP OF COLON 08/11/2017 FLORA PIERCE MD, Ot K64.1 SECOND DEGREE HEMORRHOIDS 08/11/2017 FLORA PIERCE MD, Ot M06.9 RHEUMATOID ARTHRITIS, UNSPECIFIED 08/11/2017 FLORA PIERCE MD, Ot Z79.82 EXCHANGE UNDERWRITING CONSULTANT (CURRENT) USE OF ASPIRIN 08/11/2017 FLORA PIERCE MD, Ot Z79.84 RETIREMENT (CURRENT) USE OF ORAL HYPOGLYC 08/11/2017 FLORA PIERCE MD, Ot Z79.899 OTHER RETIREMENT (CURRENT) DRUG THERAPY 08/11/2017 FLORA PIERCE MD, Ot Z88.8 ALLERGY STATUS TO OTH DRUG/MEDS/BIOL SUB 08/16/2017 FLORA PIERCE MD, Ot D64.9 ANEMIA, UNSPECIFIED 08/16/2017 FLORA PIERCE MD Ot E11.9 TYPE 2 DIABETES MELLITUS WITHOUT COMPLIC 08/16/2017 FLORA PIERCE MD Ot E78.00 PURE HYPERCHOLESTEROLEMIA, UNSPECIFIED 08/16/2017 FLORA PIERCE MD Ot I10 ESSENTIAL (PRIMARY) HYPERTENSION 08/16/2017 FLORA PIERCE MD, Ot K21.0 GASTRO-ESOPHAGEAL REFLUX DISEASE WITH ES 08/16/2017 FLORA PIERCE MD, Ot K29.70 GASTRITIS, UNSPECIFIED, WITHOUT BLEEDING 08/16/2017 FLORA PIERCE MD, Ot K44.9 DIAPHRAGMATIC HERNIA WITHOUT OBSTRUCTION 08/16/2017 FLORA PIERCE MD, Ot K57.30 DVRTCLOS OF LG INT W/O PERFORATION OR AB 08/16/2017 FLORA PIERCE MD, Ot K63.5 POLYP OF COLON 08/16/2017 FLORA PIERCE MD, Ot K64.1 SECOND DEGREE HEMORRHOIDS 08/16/2017 FLORA PIERCE MD, Ot M06.9 RHEUMATOID ARTHRITIS, UNSPECIFIED 08/16/2017 FLORA PIERCE MD, Ot Z79.82 RETIREMENT (CURRENT) USE OF ASPIRIN 08/16/2017 FLORA PIERCE MD, Ot Z79.84 RETIREMENT (CURRENT) USE OF ORAL HYPOGLYC 08/16/2017 FLORA PIERCE MD, Ot 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 08/16/2017 FLORA PIERCE MD, Ot Z88.8 ALLERGY STATUS TO OTH DRUG/MEDS/BIOL SUB 08/23/2017 FLORA PIERCE MD, Ot C18.9 MALIGNANT NEOPLASM OF COLON, UNSPECIFIED 08/23/2017 FLORA PIERCE MD, Ot Z01.818 ENCOUNTER FOR OTHER PREPROCEDURAL EXAMIN 08/23/2017 FLORA PIERCE MD, Ot Z11.2 ENCOUNTER FOR SCREENING FOR OTHER BACTER 08/24/2017 FLORA PIERCE MD, Ot C18.9 MALIGNANT NEOPLASM OF COLON, UNSPECIFIED 08/24/2017 FLORA PIERCE MD, Ot Z01.818 ENCOUNTER FOR OTHER PREPROCEDURAL EXAMIN 08/24/2017 FLORA PIERCE MD, Ot Z11.2 ENCOUNTER FOR SCREENING FOR OTHER BACTER 08/25/2017 KRISTINE MOSER Ot D50.9 IRON DEFICIENCY ANEMIA, UNSPECIFIED 08/25/2017 KRISTINE OMSER Ot E11.9 TYPE 2 DIABETES MELLITUS WITHOUT COMPLIC 08/25/2017 KRISTINE MOSER Ot E78.00 PURE HYPERCHOLESTEROLEMIA, UNSPECIFIED 08/25/2017 KRISTINE MOSER Ot I10 ESSENTIAL (PRIMARY) HYPERTENSION 08/25/2017 KRISTINE MOSER Ot K20.9 ESOPHAGITIS, UNSPECIFIED 08/25/2017 KRISTINE MOSER Ot K29.70 GASTRITIS, UNSPECIFIED, WITHOUT BLEEDING 08/25/2017 KRISTINE MOSER Ot 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 08/26/2017 FLORA PIERCE MD, Ot D64.9 ANEMIA, UNSPECIFIED 08/26/2017 FLORA PIERCE MD, Ot E11.9 TYPE 2 DIABETES MELLITUS WITHOUT COMPLIC 08/26/2017 FLORA PIERCE MD, Ot E78.00 PURE HYPERCHOLESTEROLEMIA, UNSPECIFIED 08/26/2017 FLORA PIERCE MD, Ot I10 ESSENTIAL (PRIMARY) HYPERTENSION 08/26/2017 FLORA PIERCE MD, Ot K21.0 GASTRO-ESOPHAGEAL REFLUX DISEASE WITH ES 08/26/2017 FLORA PIERCE MD, Ot K29.70 GASTRITIS, UNSPECIFIED, WITHOUT BLEEDING 08/26/2017 FLORA PIERCE MD, Ot K44.9 DIAPHRAGMATIC HERNIA WITHOUT OBSTRUCTION 08/26/2017 FLORA PIERCE MD, Ot K57.30 DVRTCLOS OF LG INT W/O PERFORATION OR AB 08/26/2017 FLORA PIERCE MD, Ot K63.5 POLYP OF COLON 08/26/2017 FLORA PIERCE MD, Ot K64.1 SECOND DEGREE HEMORRHOIDS 08/26/2017 FLORA PIERCE MD, Ot M06.9 RHEUMATOID ARTHRITIS, UNSPECIFIED 08/26/2017 FLORA PIERCE MD, Ot Z79.82 EXCHANGE UNDERWRITING CONSULTANT (CURRENT) USE OF ASPIRIN 08/26/2017 FLORA PIERCE MD, Ot Z79.84 RETIREMENT (CURRENT) USE OF ORAL HYPOGLYC 08/26/2017 FLORA PIERCE MD, Ot Z79.899 OTHER RETIREMENT (CURRENT) DRUG THERAPY 08/26/2017 FLORA PIERCE MD, Ot Z88.8 ALLERGY STATUS TO OTH DRUG/MEDS/BIOL SUB 08/28/2017 FLORA PIERCE MD, Ot C18.2 MALIGNANT NEOPLASM OF ASCENDING COLON 08/28/2017 FLORA PIERCE MD, Ot D64.9 ANEMIA, UNSPECIFIED 08/28/2017 FLORA PIERCE MD, Ot E11.9 TYPE 2 DIABETES MELLITUS WITHOUT COMPLIC 08/28/2017 FLORA PIERCE MD, Ot E78.00 PURE HYPERCHOLESTEROLEMIA, UNSPECIFIED 08/28/2017 FLORA PIERCE MD Ot I10 ESSENTIAL (PRIMARY) HYPERTENSION 08/28/2017 FLORA PIERCE MD, Ot K21.9 GASTRO-ESOPHAGEAL REFLUX DISEASE WITHOUT 08/28/2017 FLORA PIERCE MD, Ot M06.9 RHEUMATOID ARTHRITIS, UNSPECIFIED 08/28/2017 FLORA PIERCE MD, Ot R60.0 LOCALIZED EDEMA 08/28/2017 FLORA PIERCE MD, Ot Z79.899 OTHER RETIREMENT (CURRENT) DRUG THERAPY 08/30/2017 FLORA PIERCE MD, Ot C18.2 MALIGNANT NEOPLASM OF ASCENDING COLON 08/30/2017 FLORA PIERCE MD, Ot D50.9 IRON DEFICIENCY ANEMIA, UNSPECIFIED 08/30/2017 FLORA PIERCE MD, Ot E11.9 TYPE 2 DIABETES MELLITUS WITHOUT COMPLIC 08/30/2017 FLORA PIERCE MD, Ot E78.00 PURE HYPERCHOLESTEROLEMIA, UNSPECIFIED 08/30/2017 FLORA PIERCE MD Ot I10 ESSENTIAL (PRIMARY) HYPERTENSION 08/30/2017 FLORA PIERCE MD Ot K21.9 GASTRO-ESOPHAGEAL REFLUX DISEASE WITHOUT 08/30/2017 FLORA PIERCE MD Ot M06.9 RHEUMATOID ARTHRITIS, UNSPECIFIED 08/30/2017 FLORA PIERCE MD Ot R05 COUGH 08/30/2017 FLORA PIERCE MD Ot R50.9 FEVER, UNSPECIFIED 08/30/2017 FLORA PIERCE MD Ot R60.0 LOCALIZED EDEMA 08/30/2017 FLORA PIERCE MD, Ot 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 10/31/2017 KRISTINE MOSER N Ot C18.0 MALIGNANT NEOPLASM OF CECUM 10/31/2017 EHSANKRISTINE TEE N Ot D50.9 IRON DEFICIENCY ANEMIA, UNSPECIFIED 10/31/2017 EHSAN, BOBSHAWNA N Ot E11.9 TYPE 2 DIABETES MELLITUS WITHOUT COMPLIC 10/31/2017 KRISTINE MOSER N Ot E78.00 PURE HYPERCHOLESTEROLEMIA, UNSPECIFIED 10/31/2017 EHSAN, BOBAN N Ot I10 ESSENTIAL (PRIMARY) HYPERTENSION 10/31/2017 KRISTINE MOSER N Ot K20.9 ESOPHAGITIS, UNSPECIFIED 10/31/2017 EHSANKRISTINE TEE N Ot K29.70 GASTRITIS, UNSPECIFIED, WITHOUT BLEEDING 10/31/2017 KRISTINE MOSER N Ot 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, NOT EL 10/31/2017 KRISTINE MOSER N Ot M06.9 RHEUMATOID ARTHRITIS, UNSPECIFIED 10/31/2017 KRISTINE MOSER N Ot Z79.82 EXCHANGE UNDERWRITING CONSULTANT (CURRENT) USE OF ASPIRIN 10/31/2017 KRISTINE MOSER N Ot Z79.84 RETIREMENT (CURRENT) USE OF ORAL HYPOGLYC 10/31/2017 KRISTINE MOSER N Ot Z79.899 OTHER RETIREMENT (CURRENT) DRUG THERAPY 11/02/2017 KRISTINE MOSER N Ot C18.0 MALIGNANT NEOPLASM OF CECUM 11/02/2017 EHSAN, BOBAN N Ot D50.9 IRON DEFICIENCY ANEMIA, UNSPECIFIED 11/02/2017 EHSANTRUAN N Ot E11.9 TYPE 2 DIABETES MELLITUS WITHOUT COMPLIC 11/02/2017 EHSAN BOBAN N Ot I10 ESSENTIAL (PRIMARY) HYPERTENSION 11/02/2017 EHSAN, BOBAN N Ot K20.9 ESOPHAGITIS, UNSPECIFIED 11/02/2017 KRISTINE MOSER N Ot K29.70 GASTRITIS, UNSPECIFIED, WITHOUT BLEEDING 11/02/2017 KRISTINE MOSER N Ot 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, NOT EL 11/02/2017 KRISTINE MOSER N Ot M06.9 RHEUMATOID ARTHRITIS, UNSPECIFIED 11/02/2017 KRISTINE MOSER N Ot Z79.82 RETIREMENT (CURRENT) USE OF ASPIRIN 11/02/2017 EHSAN KRISTINE N Ot Z79.84 EXCHANGE UNDERWRITING CONSULTANT (CURRENT) USE OF ORAL HYPOGLYC 11/02/2017 EHSANKRISTINE N Ot Z79.899 OTHER RETIREMENT (CURRENT) DRUG THERAPY 11/27/2017 EHSAN TRUSHAWNA N Ot C18.0 MALIGNANT NEOPLASM OF CECUM 11/27/2017 EHSAN KRISTINE N Ot D50.9 IRON DEFICIENCY ANEMIA, UNSPECIFIED 11/27/2017 EHSAN, TRUAN N Ot E11.9 TYPE 2 DIABETES MELLITUS WITHOUT COMPLIC 11/27/2017 EHSAN BOBAN N Ot I10 ESSENTIAL (PRIMARY) HYPERTENSION 11/27/2017 KRISTINE MOSER N Ot K20.9 ESOPHAGITIS, UNSPECIFIED 11/27/2017 KRISTINE MOSER N Ot K29.70 GASTRITIS, UNSPECIFIED, WITHOUT BLEEDING 11/27/2017 KRISTINE MOSER N Ot 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, NOT EL 11/27/2017 KRISTINE MOSER N Ot M06.9 RHEUMATOID ARTHRITIS, UNSPECIFIED 11/27/2017 KRISTINE MOSER N Ot Z79.82 EXCHANGE UNDERWRITING CONSULTANT (CURRENT) USE OF ASPIRIN 11/27/2017 EHSANKRISTINE N Ot Z79.84 RETIREMENT (CURRENT) USE OF ORAL HYPOGLYC 11/27/2017 EHSAN TRUSHAWNA N Ot 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 12/24/2017 EHSANKRISTINE N Ot D50.9 IRON DEFICIENCY ANEMIA, UNSPECIFIED 12/24/2017 EHSAN BOBAN N Ot E11.9 TYPE 2 DIABETES MELLITUS WITHOUT COMPLIC 12/24/2017 EHSANKRISTINE N Ot E78.00 PURE HYPERCHOLESTEROLEMIA, UNSPECIFIED 12/24/2017 EHSAN BOBAN N Ot I10 ESSENTIAL (PRIMARY) HYPERTENSION 12/24/2017 EHSANKRISTINE N Ot K20.9 ESOPHAGITIS, UNSPECIFIED 12/24/2017 EHSANKRISTINE N Ot K29.70 GASTRITIS, UNSPECIFIED, WITHOUT BLEEDING 12/24/2017 KRISTINE MOSER N Ot Z79.899 OTHER RETIREMENT (CURRENT) DRUG THERAPY 01/04/2018 KRISTINE MOSER N Ot C18.0 MALIGNANT NEOPLASM OF CECUM 01/04/2018 EHSANKRISTINE TEE N Ot D50.9 IRON DEFICIENCY ANEMIA, UNSPECIFIED 01/04/2018 EHSANKRISTINE N Ot E11.9 TYPE 2 DIABETES MELLITUS WITHOUT COMPLIC 01/04/2018 EHSANKRISTINE N Ot E78.00 PURE HYPERCHOLESTEROLEMIA, UNSPECIFIED 01/04/2018 EHSAN, BOBAN N Ot I10 ESSENTIAL (PRIMARY) HYPERTENSION 01/04/2018 EHSANKRISTINE N Ot K20.9 ESOPHAGITIS, UNSPECIFIED 01/04/2018 EHSANKRISTINE N Ot K29.70 GASTRITIS, UNSPECIFIED, WITHOUT BLEEDING 01/04/2018 EHSAN KRISTINE N Ot 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, NOT EL 01/04/2018 KRISTINE MOSER N Ot M06.9 RHEUMATOID ARTHRITIS, UNSPECIFIED 01/04/2018 KRISTINE MOSER N Ot Z79.82 EXCHANGE UNDERWRITING CONSULTANT (CURRENT) USE OF ASPIRIN 01/04/2018 KRISTINE MOSER N Ot Z79.84 RETIREMENT (CURRENT) USE OF ORAL HYPOGLYC 01/04/2018 KRISTINE MOSER N Ot 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 01/25/2018 KRISTINE MOSER N Ot C18.0 MALIGNANT NEOPLASM OF CECUM 01/25/2018 KRISTINE MOSER N Ot D50.9 IRON DEFICIENCY ANEMIA, UNSPECIFIED 01/25/2018 EHSANKRISTINE N Ot E11.9 TYPE 2 DIABETES MELLITUS WITHOUT COMPLIC 01/25/2018 EHSANKRISTINE N Ot E78.00 PURE HYPERCHOLESTEROLEMIA, UNSPECIFIED 01/25/2018 EHSAN BOBAN N Ot I10 ESSENTIAL (PRIMARY) HYPERTENSION 01/25/2018 KRISTINE MOSER N Ot K20.9 ESOPHAGITIS, UNSPECIFIED 01/25/2018 EHSANKRISTINE N Ot K29.70 GASTRITIS, UNSPECIFIED, WITHOUT BLEEDING 01/25/2018 EHSANKRISTINE N Ot 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, NOT EL 01/25/2018 EHSAN, BOBAN N Ot M06.9 RHEUMATOID ARTHRITIS, UNSPECIFIED 01/25/2018 EHSANKRISTINE N Ot Z79.82 RETIREMENT (CURRENT) USE OF ASPIRIN 01/25/2018 EHSANTRUAN N Ot Z79.84 EXCHANGE UNDERWRITING CONSULTANT (CURRENT) USE OF ORAL HYPOGLYC 01/25/2018 EHSAN BOBAN N Ot 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 03/08/2018 EHSAN BOBAN N Ot C18.0 MALIGNANT NEOPLASM OF CECUM 03/08/2018 EHSAN BOBAN N Ot D50.9 IRON DEFICIENCY ANEMIA, UNSPECIFIED 03/08/2018 EHSAN, BOBAN N Ot E11.9 TYPE 2 DIABETES MELLITUS WITHOUT COMPLIC 03/08/2018 EHSAN, BOBAN N Ot E78.00 PURE HYPERCHOLESTEROLEMIA, UNSPECIFIED 03/08/2018 EHSAN, BOBAN N Ot I10 ESSENTIAL (PRIMARY) HYPERTENSION 03/08/2018 EHSAN BOBAN N Ot K20.9 ESOPHAGITIS, UNSPECIFIED 03/08/2018 EHSAN, BOBAN N Ot K29.70 GASTRITIS, UNSPECIFIED, WITHOUT BLEEDING 03/08/2018 EHSAN BOBAN N Ot 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, NOT EL 03/08/2018 EHSANKRISTINE TEE N Ot M06.9 RHEUMATOID ARTHRITIS, UNSPECIFIED 03/08/2018 EHSAN BOBSHAWNA N Ot Z79.82 EXCHANGE UNDERWRITING CONSULTANT (CURRENT) USE OF ASPIRIN 03/08/2018 EHSAN BOBAN N Ot Z79.84 EXCHANGE UNDERWRITING CONSULTANT (CURRENT) USE OF ORAL HYPOGLYC 03/08/2018 EHSANTRUSHAWNA N Ot 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 05/02/2018 EHSAN KRISTINE N Ot C18.0 MALIGNANT NEOPLASM OF CECUM 05/02/2018 EHSAN BOBAN N Ot D50.9 IRON DEFICIENCY ANEMIA, UNSPECIFIED 05/02/2018 EHSAN, BOBAN N Ot E11.9 TYPE 2 DIABETES MELLITUS WITHOUT COMPLIC 05/02/2018 EHSAN, BOBAN N Ot E78.00 PURE HYPERCHOLESTEROLEMIA, UNSPECIFIED 05/02/2018 EHSAN, BOBAN N Ot I10 ESSENTIAL (PRIMARY) HYPERTENSION 05/02/2018 EHSAN, BOBAN N Ot K20.9 ESOPHAGITIS, UNSPECIFIED 05/02/2018 EHSAN, BOBAN N Ot K29.70 GASTRITIS, UNSPECIFIED, WITHOUT BLEEDING 05/02/2018 KRISTINE MOSER N Ot 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, NOT EL 05/02/2018 KRISTINE MOSER N Ot M06.9 RHEUMATOID ARTHRITIS, UNSPECIFIED 05/02/2018 KRISTINE MOSER N Ot Z79.82 EXCHANGE UNDERWRITING CONSULTANT (CURRENT) USE OF ASPIRIN 05/02/2018 EHSANKRISTINE N Ot Z79.84 RETIREMENT (CURRENT) USE OF ORAL HYPOGLYC 05/02/2018 KRISTINE MOSER N Ot 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 06/13/2018 EHSAN BOBAN N Ot C18.0 MALIGNANT NEOPLASM OF CECUM 06/13/2018 EHSAN, BOBAN N Ot D50.9 IRON DEFICIENCY ANEMIA, UNSPECIFIED 06/13/2018 EHSAN, BOBAN N Ot E11.9 TYPE 2 DIABETES MELLITUS WITHOUT COMPLIC 06/13/2018 EHSAN, BOBAN N Ot E78.00 PURE HYPERCHOLESTEROLEMIA, UNSPECIFIED 06/13/2018 EHSAN, BOBAN N Ot I10 ESSENTIAL (PRIMARY) HYPERTENSION 06/13/2018 EHSAN BOBAN N Ot K20.9 ESOPHAGITIS, UNSPECIFIED 06/13/2018 EHSAN BOBAN N Ot K29.70 GASTRITIS, UNSPECIFIED, WITHOUT BLEEDING 06/13/2018 EHASN, BOBSHAWNA N Ot 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, NOT EL 06/13/2018 KRISTINE MOSER N Ot M06.9 RHEUMATOID ARTHRITIS, UNSPECIFIED 06/13/2018 KRISTINE MOSER N Ot Z79.82 EXCHANGE UNDERWRITING CONSULTANT (CURRENT) USE OF ASPIRIN 06/13/2018 KRISTINE MOSER N Ot Z79.84 EXCHANGE UNDERWRITING CONSULTANT (CURRENT) USE OF ORAL HYPOGLYC 06/13/2018 EHSANKRISTINE N Ot 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 06/14/2018 EHSAN BOBAN N Ot C18.0 MALIGNANT NEOPLASM OF CECUM 06/14/2018 EHSAN, BOBAN N Ot D50.9 IRON DEFICIENCY ANEMIA, UNSPECIFIED 06/14/2018 EHSAN, BOBAN N Ot E11.9 TYPE 2 DIABETES MELLITUS WITHOUT COMPLIC 06/14/2018 EHSAN, BOBAN N Ot E78.00 PURE HYPERCHOLESTEROLEMIA, UNSPECIFIED 06/14/2018 EHSAN, BOBAN N Ot I10 ESSENTIAL (PRIMARY) HYPERTENSION 06/14/2018 EHSAN, BOBAN N Ot K20.9 ESOPHAGITIS, UNSPECIFIED 06/14/2018 KRISTINE MOSER Eric Ot K29.70 GASTRITIS, UNSPECIFIED, WITHOUT BLEEDING 06/14/2018 KRISTINE MOSER Eric Ot 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, NOT EL 06/14/2018 KRISTINE MOSER Eric Ot M06.9 RHEUMATOID ARTHRITIS, UNSPECIFIED 06/14/2018 KRISTINE MOSER Eric Ot Z79.82 RETIREMENT (CURRENT) USE OF ASPIRIN 06/14/2018 KRISTINE MOSER Eric Ot Z79.84 RETIREMENT (CURRENT) USE OF ORAL HYPOGLYC 06/14/2018 KRISTINE MOSER Eric Ot Z79.899 OTHER RETIREMENT (CURRENT) DRUG THERAPY 06/24/2018 STAN CAMARILLO, FLORA Ot V72.84 EXAM PRE-OPERATIVE NOS 06/24/2018 AIDA DO, JEFFREY De La Vega Ot 729.5 PAIN IN LIMB 06/24/2018 AIDA LUNDBERG, JEFFREY De La Vega Ot E000.8 OTHER EXTERNAL CAUSE STATUS 06/24/2018 AIDA LUNDBERG, JEFFREY De La Vega Ot E927.0 OVEREXERTION FROM SUDDEN STRENUOUS MOVEM 06/24/2018 MANDY HENRIQUEZP Ot D50.9 IRON DEFICIENCY ANEMIA, UNSPECIFIED 06/24/2018 AIDA LUNDBERG, JEFFREY De La Vega Ot M79.641 PAIN IN RIGHT HAND 06/24/2018 AIDA LUNDBERG, JEFFREY De La Vega Ot R22.31 LOCALIZED SWELLING, MASS AND LUMP, RIGHT 06/24/2018 KRISTINE MOSER Eric Ot K92.2 GASTROINTESTINAL HEMORRHAGE, UNSPECIFIED 06/24/2018 KRISTINE MOSER Eric Ot R53.1 WEAKNESS 06/24/2018 MANDY HENRIQUEZ PICKLE MAKER Ot D50.9 IRON DEFICIENCY ANEMIA, UNSPECIFIED 06/24/2018 MANDY HENRIQUEZ PICKLE MAKER Ot E11.9 TYPE 2 DIABETES MELLITUS WITHOUT COMPLIC 06/24/2018 MANDY HENRIQUEZP Ot E78.0 PURE HYPERCHOLESTEROLEMIA 06/24/2018 MANDY HENRIQUEZP Ot I10 ESSENTIAL (PRIMARY) HYPERTENSION 06/24/2018 MANDY HENRIQUEZP Ot 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 06/24/2018 EHSANTRUSHAWNA Eric Ot C18.0 MALIGNANT NEOPLASM OF CECUM 06/24/2018 KRISTINE MOSER N Ot D50.9 IRON DEFICIENCY ANEMIA, UNSPECIFIED 06/24/2018 KRISTINE MOSER N Ot E11.9 TYPE 2 DIABETES MELLITUS WITHOUT COMPLIC 06/24/2018 KRISTINE MOSER N Ot E78.00 PURE HYPERCHOLESTEROLEMIA, UNSPECIFIED 06/24/2018 KRISTINE MOSER N Ot I10 ESSENTIAL (PRIMARY) HYPERTENSION 06/24/2018 KRISTINE MOSER N Ot K20.9 ESOPHAGITIS, UNSPECIFIED 06/24/2018 EHSAN TRUSHAWNA N Ot K29.70 GASTRITIS, UNSPECIFIED, WITHOUT BLEEDING 06/24/2018 KRISTINE MOSER N Ot 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, NOT EL 06/24/2018 KRISTINE MOSER N Ot M06.9 RHEUMATOID ARTHRITIS, UNSPECIFIED 06/24/2018 EHSAN TRUSHAWNA N Ot Z79.82 EXCHANGE UNDERWRITING CONSULTANT (CURRENT) USE OF ASPIRIN 06/24/2018 EHSANKRISTINE N Ot Z79.84 EXCHANGE UNDERWRITING CONSULTANT (CURRENT) USE OF ORAL HYPOGLYC 06/24/2018 KRISTINE MOSER N Ot Z79.899 OTHER RETIREMENT (CURRENT) DRUG THERAPY 06/27/2018 KRISTINE MOSER N Ot C18.0 MALIGNANT NEOPLASM OF CECUM 06/27/2018 KRISTINE MOSER N Ot D50.9 IRON DEFICIENCY ANEMIA, UNSPECIFIED 06/27/2018 KRISTINE MOSER N Ot E11.9 TYPE 2 DIABETES MELLITUS WITHOUT COMPLIC 06/27/2018 KRISTINE MOSER N Ot E78.00 PURE HYPERCHOLESTEROLEMIA, UNSPECIFIED 06/27/2018 KRISTINE MOSER N Ot I10 ESSENTIAL (PRIMARY) HYPERTENSION 06/27/2018 KRISTINE MOSER N Ot K20.9 ESOPHAGITIS, UNSPECIFIED 06/27/2018 KRISTINE MOSER N Ot K29.70 GASTRITIS, UNSPECIFIED, WITHOUT BLEEDING 06/27/2018 KRISTINE MOSER N Ot 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, 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 06/27/2018 EHSAN TRUSHAWNA N Ot M06.9 RHEUMATOID ARTHRITIS, UNSPECIFIED 06/27/2018 EHSANKRISTINE N Ot Z79.82 EXCHANGE UNDERWRITING CONSULTANT (CURRENT) USE OF ASPIRIN 06/27/2018 KRISTINE MOSER N Ot Z79.84 RETIREMENT (CURRENT) USE OF ORAL HYPOGLYC 06/27/2018 KRISTINE MOSER N Ot 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 07/27/2018 KRISTINE MOSER Eric Ot C18.0 MALIGNANT NEOPLASM OF CECUM 07/27/2018 KRISTINE MOSER Eric Ot D50.9 IRON DEFICIENCY ANEMIA, UNSPECIFIED 07/27/2018 KRISTINE MOSER Eric Ot E11.9 TYPE 2 DIABETES MELLITUS WITHOUT COMPLIC 07/27/2018 KRISTINE MOSER Eric Ot E78.00 PURE HYPERCHOLESTEROLEMIA, UNSPECIFIED 07/27/2018 KRISTINE MOSER Eric Ot I10 ESSENTIAL (PRIMARY) HYPERTENSION 07/27/2018 KRISTINE MOSER Eric Ot K20.9 ESOPHAGITIS, UNSPECIFIED 07/27/2018 KRISTINE MOSER Eric Ot K29.70 GASTRITIS, UNSPECIFIED, WITHOUT BLEEDING 07/27/2018 KRISTINE MOSER Eric Ot 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, 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 07/27/2018 KRISTINE MOSER Eric Ot M06.9 RHEUMATOID ARTHRITIS, UNSPECIFIED 07/27/2018 KRISTINE MOSER Eric Ot Z79.82 EXCHANGE UNDERWRITING CONSULTANT (CURRENT) USE OF ASPIRIN 07/27/2018 KRISTINE MOSER Eric Ot Z79.84 RETIREMENT (CURRENT) USE OF ORAL HYPOGLYC 07/27/2018 KRISTINE MOSER Eric Ot 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 09/07/2018 STAN CAMARILLO, FLORA Ot Z01.818 ENCOUNTER FOR OTHER PREPROCEDURAL EXAMIN Procedures Code Description Performed By Performed On [id number] RESECTION OF RIGHT LARGE INTESTINE, PERC 08/26/2017 Results Test Result Range Complete blood count (CBC) with automated white blood cell (WBC) differential - 08/11/17 14:30 Blood leukocytes automated count (number/volume) 6.5 10*3/uL 4.3-11.0 Blood erythrocytes automated count (number/volume) 3.88 10*6/uL 4.35-5.85 Venous blood hemoglobin measurement (mass/volume) 10.9 g/dL 11.5-16.0 Blood hematocrit (volume fraction) 34 % 35-52 Automated erythrocyte mean corpuscular volume 88 [foz_us] 80-99 Automated erythrocyte mean corpuscular hemoglobin (mass per erythrocyte) 28 pg 25-34 Automated erythrocyte mean corpuscular hemoglobin concentration measurement ( mass/volume) 32 g/dL 32-36 Automated erythrocyte distribution width ratio 16.1 % 10.0-14.5 Automated blood platelet count (count/volume) 218 10*3/uL 130-400 Automated blood platelet mean volume measurement 10.2 [foz_us] 7.4-10.4 Automated blood neutrophils/100 leukocytes 69 % 42-75 Automated blood lymphocytes/100 leukocytes 19 % 12-44 Blood monocytes/100 leukocytes 8 % 0-12 Automated blood eosinophils/100 leukocytes 3 % 0-10 Automated blood basophils/100 leukocytes 0 % 0-10 Blood neutrophils automated count (number/volume) 4.5 10*3 1.8-7.8 Blood lymphocytes automated count (number/volume) 1.3 10*3 1.0-4.0 Blood monocytes automated count (number/volume) 0.5 10*3 0.0-1.0 Automated eosinophil count 0.2 10*3/uL 0.0-0.3 Automated blood basophil count (count/volume) 0.0 10*3/uL 0.0-0.1 Comprehensive metabolic panel - 08/11/17 14:30 Serum or plasma sodium measurement (moles/volume) 137 mmol/L 135-145 Serum or plasma potassium measurement (moles/volume) 4.0 mmol/L 3.6-5.0 Serum or plasma chloride measurement (moles/volume) 104 mmol/L 98-107 Carbon dioxide 25 mmol/L 21-32 Serum or plasma anion gap determination (moles/volume) 8 mmol/L 5-14 Serum or plasma urea nitrogen measurement (mass/volume) 11 mg/dL 7-18 Serum or plasma creatinine measurement (mass/volume) 0.75 mg/dL 0.60-1.30 Serum or plasma urea nitrogen/creatinine mass ratio 15 NRG Serum or plasma creatinine measurement with calculation of estimated glomerular filtration rate > NRG Serum or plasma glucose measurement (mass/volume) 116 mg/dL 70-105 Serum or plasma calcium measurement (mass/volume) 8.8 mg/dL 8.5-10.1 Serum or plasma total bilirubin measurement (mass/volume) 0.5 mg/dL 0.1-1.0 Serum or plasma alkaline phosphatase measurement (enzymatic activity/volume) 68 U/L 40-136 Serum or plasma aspartate aminotransferase measurement (enzymatic activity/ volume) 43 U/L 5-34 Serum or plasma alanine aminotransferase measurement (enzymatic activity/volume ) 45 U/L 0-55 Serum or plasma protein measurement (mass/volume) 7.4 g/dL 6.4-8.2 Serum or plasma albumin measurement (mass/volume) 3.8 g/dL 3.2-4.5 Serum ragweed IgE antibody assay - 08/11/17 14:30 Serum ragweed IgE antibody assay 1.5 % 0.0-5.0 Methicillin resistant Staphylococcus aureus (MRSA) screening culture - 13:26 Methicillin resistant Staphylococcus aureus (MRSA) screening culture NG NRG Capillary blood glucose measurement by glucometer (mass/volume) - 08/26/17 09: 27 Capillary blood glucose measurement by glucometer (mass/volume) 159 mg/dL 70-110 Capillary blood glucose measurement by glucometer (mass/volume) - 08/27/17 00: 17 Capillary blood glucose measurement by glucometer (mass/volume) 123 mg/dL 70-110 Complete blood count (CBC) with automated white blood cell (WBC) differential - 08/27/17 03:35 Blood leukocytes automated count (number/volume) 8.2 10*3/uL 4.3-11.0 Blood erythrocytes automated count (number/volume) 3.39 10*6/uL 4.35-5.85 Venous blood hemoglobin measurement (mass/volume) 9.9 g/dL 11.5-16.0 Blood hematocrit (volume fraction) 30 % 35-52 Automated erythrocyte mean corpuscular volume 87 [foz_us] 80-99 Automated erythrocyte mean corpuscular hemoglobin (mass per erythrocyte) 29 pg 25-34 Automated erythrocyte mean corpuscular hemoglobin concentration measurement ( mass/volume) 33 g/dL 32-36 Automated erythrocyte distribution width ratio 17.0 % 10.0-14.5 Automated blood platelet count (count/volume) 167 10*3/uL 130-400 Automated blood platelet mean volume measurement 10.0 [foz_us] 7.4-10.4 Automated blood neutrophils/100 leukocytes 80 % 42-75 Automated blood lymphocytes/100 leukocytes 11 % 12-44 Blood monocytes/100 leukocytes 9 % 0-12 Automated blood eosinophils/100 leukocytes 0 % 0-10 Automated blood basophils/100 leukocytes 0 % 0-10 Blood neutrophils automated count (number/volume) 6.6 10*3 1.8-7.8 Blood lymphocytes automated count (number/volume) 0.9 10*3 1.0-4.0 Blood monocytes automated count (number/volume) 0.7 10*3 0.0-1.0 Automated eosinophil count 0.0 10*3/uL 0.0-0.3 Automated blood basophil count (count/volume) 0.0 10*3/uL 0.0-0.1 Whole blood basic metabolic panel - 08/27/17 03:35 Serum or plasma sodium measurement (moles/volume) 139 mmol/L 135-145 Serum or plasma potassium measurement (moles/volume) 4.1 mmol/L 3.6-5.0 Serum or plasma chloride measurement (moles/volume) 109 mmol/L 98-107 Carbon dioxide 24 mmol/L 21-32 Serum or plasma anion gap determination (moles/volume) 6 mmol/L 5-14 Serum or plasma urea nitrogen measurement (mass/volume) 10 mg/dL 7-18 Serum or plasma creatinine measurement (mass/volume) 0.68 mg/dL 0.60-1.30 Serum or plasma urea nitrogen/creatinine mass ratio 15 NRG Serum or plasma creatinine measurement with calculation of estimated glomerular filtration rate > NRG Serum or plasma glucose measurement (mass/volume) 130 mg/dL 70-105 Serum or plasma calcium measurement (mass/volume) 8.3 mg/dL 8.5-10.1 Serum or plasma phosphate measurement (mass/volume) - 08/27/17 03:35 Serum or plasma phosphate measurement (mass/volume) 1.9 mg/dL 2.3-4.7 Magnesium - 08/27/17 03:35 Magnesium 1.8 mg/dL 1.8-2.4 Capillary blood glucose measurement by glucometer (mass/volume) - 08/27/17 12: 17 Capillary blood glucose measurement by glucometer (mass/volume) 125 mg/dL 70-110 Capillary blood glucose measurement by glucometer (mass/volume) - 08/27/17 18: 21 Capillary blood glucose measurement by glucometer (mass/volume) 131 mg/dL 70-110 Capillary blood glucose measurement by glucometer (mass/volume) - 08/28/17 00: 32 Capillary blood glucose measurement by glucometer (mass/volume) 136 mg/dL 70-110 Complete blood count (CBC) with automated white blood cell (WBC) differential - 08/28/17 05:00 Blood leukocytes automated count (number/volume) 6.6 10*3/uL 4.3-11.0 Blood erythrocytes automated count (number/volume) 3.13 10*6/uL 4.35-5.85 Venous blood hemoglobin measurement (mass/volume) 8.9 g/dL 11.5-16.0 Blood hematocrit (volume fraction) 28 % 35-52 Automated erythrocyte mean corpuscular volume 89 [foz_us] 80-99 Automated erythrocyte mean corpuscular hemoglobin (mass per erythrocyte) 28 pg 25-34 Automated erythrocyte mean corpuscular hemoglobin concentration measurement ( mass/volume) 32 g/dL 32-36 Automated erythrocyte distribution width ratio 17.2 % 10.0-14.5 Automated blood platelet count (count/volume) 147 10*3/uL 130-400 Automated blood platelet mean volume measurement 10.4 [foz_us] 7.4-10.4 Automated blood neutrophils/100 leukocytes 65 % 42-75 Automated blood lymphocytes/100 leukocytes 23 % 12-44 Blood monocytes/100 leukocytes 11 % 0-12 Automated blood eosinophils/100 leukocytes 1 % 0-10 Automated blood basophils/100 leukocytes 0 % 0-10 Blood neutrophils automated count (number/volume) 4.3 10*3 1.8-7.8 Blood lymphocytes automated count (number/volume) 1.5 10*3 1.0-4.0 Blood monocytes automated count (number/volume) 0.7 10*3 0.0-1.0 Automated eosinophil count 0.1 10*3/uL 0.0-0.3 Automated blood basophil count (count/volume) 0.0 10*3/uL 0.0-0.1 Whole blood basic metabolic panel - 08/28/17 05:00 Serum or plasma sodium measurement (moles/volume) 139 mmol/L 135-145 Serum or plasma potassium measurement (moles/volume) 3.4 mmol/L 3.6-5.0 Serum or plasma chloride measurement (moles/volume) 104 mmol/L 98-107 Carbon dioxide 28 mmol/L 21-32 Serum or plasma anion gap determination (moles/volume) 7 mmol/L 5-14 Serum or plasma urea nitrogen measurement (mass/volume) 5 mg/dL 7-18 Serum or plasma creatinine measurement (mass/volume) 0.63 mg/dL 0.60-1.30 Serum or plasma urea nitrogen/creatinine mass ratio 8 NRG Serum or plasma creatinine measurement with calculation of estimated glomerular filtration rate > NRG Serum or plasma glucose measurement (mass/volume) 118 mg/dL 70-105 Serum or plasma calcium measurement (mass/volume) 8.2 mg/dL 8.5-10.1 Serum or plasma phosphate measurement (mass/volume) - 08/28/17 05:00 Serum or plasma phosphate measurement (mass/volume) 1.0 mg/dL 2.3-4.7 Capillary blood glucose measurement by glucometer (mass/volume) - 08/28/17 05: 32 Capillary blood glucose measurement by glucometer (mass/volume) 115 mg/dL 70-110 Capillary blood glucose measurement by glucometer (mass/volume) - 08/28/17 11: 56 Capillary blood glucose measurement by glucometer (mass/volume) 106 mg/dL 70-110 Capillary blood glucose measurement by glucometer (mass/volume) - 08/28/17 15: 45 Capillary blood glucose measurement by glucometer (mass/volume) 155 mg/dL 70-110 Capillary blood glucose measurement by glucometer (mass/volume) - 08/28/17 20: 57 Capillary blood glucose measurement by glucometer (mass/volume) 131 mg/dL 70-110 Serum or plasma phosphate measurement (mass/volume) - 08/29/17 05:45 Serum or plasma phosphate measurement (mass/volume) 1.4 mg/dL 2.3-4.7 Capillary blood glucose measurement by glucometer (mass/volume) - 08/29/17 05: 47 Capillary blood glucose measurement by glucometer (mass/volume) 128 mg/dL 70-110 Capillary blood glucose measurement by glucometer (mass/volume) - 08/29/17 10: 57 Capillary blood glucose measurement by glucometer (mass/volume) 136 mg/dL 70-110 Capillary blood glucose measurement by glucometer (mass/volume) - 08/29/17 15: 50 Capillary blood glucose measurement by glucometer (mass/volume) 155 mg/dL 70-110 Capillary blood glucose measurement by glucometer (mass/volume) - 08/29/17 20: 39 Capillary blood glucose measurement by glucometer (mass/volume) 192 mg/dL 70-110 Serum or plasma phosphate measurement (mass/volume) - 08/30/17 05:10 Serum or plasma phosphate measurement (mass/volume) 1.4 mg/dL 2.3-4.7 Capillary blood glucose measurement by glucometer (mass/volume) - 08/30/17 06: 05 Capillary blood glucose measurement by glucometer (mass/volume) 120 mg/dL 70-110 Capillary blood glucose measurement by glucometer (mass/volume) - 08/30/17 10: 32 Capillary blood glucose measurement by glucometer (mass/volume) 169 mg/dL 70-110 Encounters ACCT No. Visit Date/Time Discharge Status Pt. Type Provider Facility Loc./Unit Complaint [id number] 09/07/2018 05:40:00 09/07/2018 09:48:00 DIS Outpatient FLORA PIERCE MD [facility] PREOP COLONOSCOPY [id number] 06/29/2018 08:43:00 06/29/2018 23:59:59 CLS Outpatient KRISTINE MOSER [facility] ONC [id number] 03/30/2018 08:37:00 06/13/2018 00:01:00 DIS Outpatient KRISTINE MOSER [facility] ONC [id number] 12/27/2017 12:33:00 01/04/2018 00:01:00 DIS Outpatient KRISTINE MOSER [facility] ONC [id number] 09/27/2017 08:51:00 10/31/2017 00:01:00 DIS Outpatient KRISTINE MOSER [facility] ONC [id number] 08/26/2017 09:05:00 08/30/2017 13:45:00 DIS Inpatient FLORA PIERCE MD [facility] 4TH COLON CANCER [id number] 08/23/2017 12:56:00 08/23/2017 13:30:00 DIS Outpatient FLORA PIERCE MD [facility] PREOP COLON CANCER [id number] 08/11/2017 14:30:00 08/11/2017 23:59:59 CLS Preadmit FLORA PIERCE MD [facility] RAD COLON MASS [id number] 08/11/2017 09:58:00 08/11/2017 15:31:00 DIS Outpatient FLORA PIERCE MD [facility] ENDO ANEMIA [id number] 08/05/2017 05:33:00 08/05/2017 12:43:00 DIS Outpatient FLORA PIERCE MD [facility] PREOP COLONOSCOPY/EGD [id number] 04/27/2017 08:43:00 07/26/2017 00:01:00 DIS Outpatient EHSANKRISTINE TEE [facility] ONC [id number] 02/02/2017 08:35:00 03/06/2017 00:01:00 DIS Outpatient KRISTINE OMSER [facility] ONC [id number] 01/18/2017 09:09:00 01/24/2017 00:01:00 DIS Outpatient KRISTINE MOSER [facility] ONC [id number] 2016 09:06:00 10/25/2016 00:01:00 DIS Outpatient KRISTINE MOSER [facility] ONC [id number] 05/12/2016 08:23:00 06/08/2016 00:01:00 DIS Outpatient KRISTINE MOSER [facility] ONC [id number] 03/02/2016 09:52:00 03/09/2016 09:23:00 DIS Outpatient KRISTINE MOSER [facility] ONC [id number] 11/08/2015 11:42:00 12/19/2015 00:01:00 DIS Outpatient KRISTINE MOSER [facility] ONC [id number] 11/11/2015 13:00:00 11/11/2015 23:59:59 CLS Outpatient MANDY HENRIQUEZ [facility] ONC [id number] 10/03/2015 08:25:00 10/03/2015 23:59:59 CLS Outpatient KRISTINE MOSER [facility] RAD WEAKNESS,GI BLEEDING [id number] 09/04/2015 10:41:00 09/04/2015 23:59:59 CLS Outpatient JEFFREY PARRA DO [facility] RAD PAIN RIGHT HAND AND SWELLING [id number] 06/20/2015 12:25:00 06/20/2015 23:59:59 CLS Outpatient MANDY HENRIQUEZ [facility] ONC [id number] 04/02/2015 08:56:00 06/19/2015 00:01:00 DIS Outpatient KRISTINE MOSER Eric [facility] ONC [id number] 11/30/2014 15:39:00 11/30/2014 23:59:59 CLS Outpatient JEFFREY PARRA DO [facility] RAD ROLLED RT SIDE FOOR 5TH METATARSAL [id number] 03/07/2014 09:10:00 03/07/2014 14:15:00 DIS Outpatient FLORA PIERCE MD [facility] SDC ANEMIA [id number] 03/01/2014 07:36:00 03/01/2014 23:59:59 CLS Outpatient FLORA PIERCE MD [facility] PREOP ANEMIA [id number] 09/14/2018 08:15:00 ACT Outpatient FLORA PIERCE MD [facility] ENDO SCREENING/HX COLON CA/1 YR FOLLOW UP [id number] 11/30/2014 15:39:00 Document Registration [id number] 11/30/2014 15:39:00 Document Registration [id number] 11/30/2014 15:39:00 Document Registration [id number] 12/01/2014 05:12:26 ACT Document Registration
[2018-09-14] MEDS ORDERED: NS IV 500 ML 500 ML IV PRN (08:26)
[2018-09-14] MEDS ORDERED: NS IV 500 ML 500 ML ONE (08:28)
[2018-09-14] MEDS ORDERED: fentaNYL INJECTION 100 MCG/2 ML AMP IVP ONE (08:30)
[2018-09-14] MEDS ORDERED: LIDOCAINE JELLY 2% 6 ML SYRINGE MM PRN (08:30)
[2018-09-14] MEDS ORDERED: MIDAZOLAM 2 MG/2 ML (VERSED) VIAL IVP ONE (08:30)
[2018-09-14 08:42] VITALS: BP 178/80
[2018-09-14] MEDS ORDERED: morphine INJ 10 MG/ML 1ML (SYR OR VIAL) ONE (09:50)
[2018-09-14] MEDS ORDERED: MIDAZOLAM 2 MG/2 ML (VERSED) VIAL ONE ×5 (09:50→10:03)
[2018-09-14] MEDS ORDERED: LIDOCAINE JELLY 2% 6 ML SYRINGE ONE (09:51)
--- NOTE | 2018-09-14 09:52 | Conscious Sedation/ASA ---
Conscious Sedation Pre-Proced Time 09:00 ASA Score 2 For ASA 3 and 4: Consider anesthesia and medical clearance. Also, for patients with a history of failed moderate sedation consider anesthesia. Airway Lungs Heart ASA score ASA 1: a normal healthy patient ASA 2: a patient with a mild systemic disease (mid diabetes, controlled hypertension, obesity ASA 3: a patient with a severe systemic disease that limits activity (angina , COPD, prior Myocardial infarction) ASA 4: a patient with an incapacitating disease that is a constant threat to life (CHF, renal failure) ASA 5: a moribund patient not expected to survive 24 hrs. (ruptured aneurysm) ASA 6: a declared brain- patient whose organs are being harvested. For emergent operations, add the letter E after the classification Mallampati Classification Grade 3 Sedation Plan Analgesia, Amnesia, Plan communicated to team members, Discussed options with patient/fam, Discussed risks with patient/fam The patient is an appropriate candidate to undergo the planned procedure, sedation, and anesthesia. The patient immediately re-assessed prior to indication. FLORA PIERCE MD Sep 14, 2018 09:52
--- NOTE | 2018-09-14 09:52 | Progress Note-Pre Operative ---
Pre-Operative Progress Note H&P Reviewed The H&P was reviewed, patient examined and no changes noted. Date Seen by Provider: Sep 14, 2018 Time Seen by Provider: 09:00 Date H&P Reviewed: Sep 14, 2018 Time H&P Reviewed: 09:00 Pre-Operative Diagnosis: hx colon ca FLORA PIERCE MD Sep 14, 2018 09:52
--- NOTE | 2018-09-14 09:54 | Discharge Inst-Surgical ---
D/C Lap Instructions-STAN Follow Up 1 year Activity as tolerated High Fiber Diet 25g or more per day Avoid Alcohol, Caffeine, Spicy [place] and Acid foods. Drink 64 fluid oz or more of fluids per day. Symptoms to Report: Fever over 101 degree F, Nausea/Vomiting If any problems/questions: Contact your physician or go to Emergency Room FLORA PIERCE MD Sep 14, 2018 09:54
[2018-09-14] MEDS ORDERED: ACETAMINOPHEN 325 MG TABLET PO PRN (10:00)
[2018-09-14] MEDS ORDERED: HYDROcodone/APAP 5 MG/325 MG (LORTAB) TAB PO PRN (10:00)
[2018-09-14] MEDS ORDERED: morphine INJ 10 MG/ML 1ML (SYR OR VIAL) IV PRN (10:00)
[2018-09-14] MEDS ORDERED: ONDANSETRON 4 MG/2 ML (SDV) Z0FRAN IV PRN (10:00)
--- NOTE | 2018-09-14 10:27 | Progress Note-Post Operative ---
Post-Operative Progess Note Surgeon (s)/Computer Technology Teacher (s) Surgeon FLORA PIERCE MD Computer Technology Teacher: none Pre-Operative Diagnosis hx colon ca Post-Operative Diagnosis mild chronic stage 1 ext and int hemorrhoids, moderate sigmoid diverticulosis. Procedure & Operative Findings Date of Procedure 09/14/18 Procedure Performed/Findings Colonoscopy Anesthesia Type cs Estimated Blood Loss Estimated blood loss (mL): minimal Specimens/Packing Specimens Removed none FLORA PIERCE MD Sep 14, 2018 10:27
[2018-09-14 10:30] VITALS: BP 118/58
[2018-09-14 11:00] VITALS: BP 120/62
[2018-09-14 11:05] VITALS: BP 120/62
--- NOTE | 2018-09-14 13:27 | OPERATIVE REPORT ---
DATE OF SERVICE: 09/14/2018 ATTENDING PRIMARY CARE PHYSICIAN: Mark Hernandez DO PREOPERATIVE DIAGNOSIS: History of colon cancer. POSTOPERATIVE DIAGNOSES: Mild chronic stage I external and internal hemorrhoids, moderate sigmoid diverticulosis. PROCEDURE: Colonoscopy. SURGEON: Flora Pierce MD ANESTHESIA: Conscious sedation. ESTIMATED BLOOD LOSS: Minimal. FINDINGS: Mild chronic stage I external and internal hemorrhoids, moderate sigmoid diverticulosis with no inflammatory changes to indicate any active diverticulitis. The descending and transverse colon as well as the ileocolonic anastomosis were normal. DISPOSITION: The patient tolerated the procedure well. INDICATIONS: The patient is a 72-year-old female known to us. She was referred over to us for anemia and had been getting iron infusions. She was seen by us in 2013. EGD and colonoscopy were performed. She was found to have diverticulosis; however, no neoplasms identified at that time. She was then seen in 07/2017 for continued anemia and underwent an EGD and colonoscopy and found to have a neoplasm of the right colon, which was biopsied and consistent with a moderately differentiated adenocarcinoma. She then underwent a laparoscopic right hemicolectomy on 08/26/2017. She is here for her followup colonoscopy. At this time, she is doing well, does not report any diarrhea, constipation as well as no red blood per rectum nor any dark tarry stools. DESCRIPTION OF PROCEDURE: The patient was brought to the endoscopy suite, laid in the left lateral decubitus position. After adequate IV pain and sedating medications and conscious sedation anesthesia, a digital rectal examination was performed. Mild chronic stage I external and internal hemorrhoids were identified, which were not actively edematous nor inflamed and no bleeding. Normal sphincter tone was felt and there were no palpable masses. The endoscope was then intubated to the anus and rectum gently insufflated. The endoscope was then advanced through the valves of Diaz of the rectum with no polyps or any neoplasms identified. Through the sigmoid colon, a moderate sigmoid diverticulosis identified. There were no mucosal inflammatory changes to indicate any active diverticulitis. The endoscope was then advanced to the remainder of the descending and transverse colon to the ileocolonic anastomosis with no recurrent lesions identified. The endoscope was then slowly withdrawn while taking a second look and suctioning of residual air with no additional findings. The patient tolerated the procedure well. We will recommend continued medical management with a high fiber diet with at least 25 to 30 grams of fiber per day as well as significant amounts of water daily to promote soft stools daily. We will recommend a followup colonoscopy in one year and if this is normal, she may wait approximately 5 years for her next colonoscopy. Job ID: [id number] DocumentID: [id number] Dictated Date: 09/14/2018 10:26:32 Outside Plant Engineer Date: 09/14/2018 13:26:24 Dictated By: FLORA PIERCE MD
[2018-09-14] MEDS ORDERED: morphine INJ 10 MG/ML 1ML (SYR OR VIAL) IVP ONE (15:30)
== END 2018-09-14 11:05 | disposition home or self-care (01) ==
LOC: ENDO 08:15
PROVIDERS: ATTEND Surgery
DX: Z08 Encounter for follow-up examination after completed treatment for malignant neoplasm (principal); Z85.038 Personal history of other malignant neoplasm of large intestine; K64.0 First degree hemorrhoids; K57.30 Diverticulosis of large intestine without perforation or abscess without bleeding; D64.9 Anemia, unspecified; E11.9 Type 2 diabetes mellitus without complications; M06.9 Rheumatoid arthritis, unspecified; E78.00 Pure hypercholesterolemia, unspecified; K21.0 Gastro-esophageal reflux disease with esophagitis; K44.9 Diaphragmatic hernia without obstruction or gangrene; K29.70 Gastritis, unspecified, without bleeding; Z87.11 Personal history of peptic ulcer disease; Z86.010 Personal history of colon polyps; Z79.899 Other long term (current) drug therapy; Z79.84 Long term (current) use of oral hypoglycemic drugs; Z79.82 Long term (current) use of aspirin

== ENCOUNTER 2018-09-29 09:32 | Outpatient (RCR) | payer MEDICARE, BC ==
[2018-09-22 10:57] LABS: BASOPHILS % (AUTO) 0 % (0-10); EOSINOPHILS # (AUTO) 0.3 10^3/uL (0.0-0.3); EOSINOPHILS % (AUTO) 5 % (0-10); HEMATOCRIT 38 % (35-52); HEMOGLOBIN 12.1 G/DL (11.5-16.0); LYMPHOCYTES # (AUTO) 1.8 X 10^3 (1.0-4.0); LYMPHOCYTES % (AUTO) 27 % (12-44); MEAN CORPUSCULAR HEMOGLOBIN 29 PG (25-34); MEAN CORPUSCULAR HGB CONC 32 G/DL (32-36); MEAN CORPUSCULAR VOLUME 91 FL (80-99); MEAN PLATELET VOLUME 10.5 FL (7.4-10.4); MONOCYTES # (AUTO) 0.5 X 10^3 (0.0-1.0); MONOCYTES % (AUTO) 8 % (0-12); NEUTROPHILS % (AUTO) 60 % (42-75); PLATELET COUNT 170 10^3/uL (130-400); RED CELL DISTRIBUTION WIDTH 14.6 % (10.0-14.5); WHITE BLOOD COUNT 6.6 10^3/uL (4.3-11.0)
[2018-09-22 11:20] LABS: ALANINE AMINOTRANSFERASE 38 U/L (0-55); ALKALINE PHOSPHATASE 66 U/L (40-136); BILIRUBIN,TOTAL 0.4 MG/DL (0.1-1.0); BUN/CREATININE RATIO 22; CALCIUM 9.4 MG/DL (8.5-10.1); CARBON DIOXIDE 20 MMOL/L (21-32); CHLORIDE 107 MMOL/L (98-107); CREATININE SERUM 0.85 MG/DL (0.60-1.30); GFR ESTIMATED > 60; GLUCOSE 125 MG/DL (70-105); POTASSIUM 4.7 MMOL/L (3.6-5.0); SODIUM 138 MMOL/L (135-145); TOTAL PROTEIN 7.6 GM/DL (6.4-8.2)
== END 2018-12-21 | disposition home or self-care (01) ==
LOC: ONC 09:32
PROVIDERS: ATTEND Internal Medicine Hematology & Oncology
DX: C18.0 Malignant neoplasm of cecum (principal); D50.9 Iron deficiency anemia, unspecified; I10 Essential (primary) hypertension; E78.00 Pure hypercholesterolemia, unspecified; E11.9 Type 2 diabetes mellitus without complications; K29.70 Gastritis, unspecified, without bleeding; K20.9 Esophagitis, unspecified; M06.9 Rheumatoid arthritis, unspecified; K90.49 Malabsorption due to intolerance, not elsewhere classified; Z79.82 Long term (current) use of aspirin; Z79.84 Long term (current) use of oral hypoglycemic drugs; Z79.899 Other long term (current) drug therapy
CPT/HCPCS: 36415; 80053; 82378; 82728; 85025; 99213

== ENCOUNTER 2018-12-29 09:48 | Outpatient (RCR) | payer MEDICARE, BC ==
[2018-12-26 09:31] LABS: BASOPHILS % (AUTO) 0 % (0-10); EOSINOPHILS # (AUTO) 0.3 10^3/uL (0.0-0.3); EOSINOPHILS % (AUTO) 5 % (0-10); HEMATOCRIT 37 % (35-52); HEMOGLOBIN 12.2 G/DL (11.5-16.0); LYMPHOCYTES # (AUTO) 1.3 X 10^3 (1.0-4.0); LYMPHOCYTES % (AUTO) 21 % (12-44); MEAN CORPUSCULAR HEMOGLOBIN 29 PG (25-34); MEAN CORPUSCULAR HGB CONC 33 G/DL (32-36); MEAN CORPUSCULAR VOLUME 89 FL (80-99); MONOCYTES # (AUTO) 0.5 X 10^3 (0.0-1.0); MONOCYTES % (AUTO) 8 % (0-12); NEUTROPHILS # (AUTO) 4.1 X 10^3 (1.8-7.8); NEUTROPHILS % (AUTO) 67 % (42-75); PLATELET COUNT 177 10^3/uL (130-400); RED CELL DISTRIBUTION WIDTH 14.9 % (10.0-14.5); WHITE BLOOD COUNT 6.1 10^3/uL (4.3-11.0)
[2018-12-26 09:53] LABS: ALANINE AMINOTRANSFERASE 35 U/L (0-55); ALBUMIN 3.9 GM/DL (3.2-4.5); ALKALINE PHOSPHATASE 59 U/L (40-136); BILIRUBIN,TOTAL 0.4 MG/DL (0.1-1.0); BUN/CREATININE RATIO 20; CALCIUM 9.3 MG/DL (8.5-10.1); CARBON DIOXIDE 20 MMOL/L (21-32); CHLORIDE 104 MMOL/L (98-107); CREATININE SERUM 0.84 MG/DL (0.60-1.30); GFR ESTIMATED > 60; GLUCOSE 203 MG/DL (70-105); POTASSIUM 4.5 MMOL/L (3.6-5.0); SODIUM 136 MMOL/L (135-145); TOTAL PROTEIN 7.1 GM/DL (6.4-8.2)
[2019-03-23 09:15] LABS: BASOPHILS % (AUTO) 0 % (0-10); EOSINOPHILS # (AUTO) 0.3 10^3/uL (0.0-0.3); EOSINOPHILS % (AUTO) 4 % (0-10); HEMATOCRIT 39 % (35-52); HEMOGLOBIN 12.4 G/DL (11.5-16.0); LYMPHOCYTES # (AUTO) 1.6 X 10^3 (1.0-4.0); LYMPHOCYTES % (AUTO) 21 % (12-44); MEAN CORPUSCULAR HEMOGLOBIN 29 PG (25-34); MEAN CORPUSCULAR HGB CONC 32 G/DL (32-36); MEAN CORPUSCULAR VOLUME 91 FL (80-99); MEAN PLATELET VOLUME 10.5 FL (7.4-10.4); MONOCYTES # (AUTO) 0.6 X 10^3 (0.0-1.0); MONOCYTES % (AUTO) 8 % (0-12); NEUTROPHILS % (AUTO) 66 % (42-75); PLATELET COUNT 177 10^3/uL (130-400); RED CELL DISTRIBUTION WIDTH 15.1 % (10.0-14.5); WHITE BLOOD COUNT 7.5 10^3/uL (4.3-11.0)
[2019-03-23 09:36] LABS: ALANINE AMINOTRANSFERASE 30 U/L (0-55); ALBUMIN 4.2 GM/DL (3.2-4.5); ALKALINE PHOSPHATASE 75 U/L (40-136); BILIRUBIN,TOTAL 0.4 MG/DL (0.1-1.0); BUN/CREATININE RATIO 21; CALCIUM 9.1 MG/DL (8.5-10.1); CARBON DIOXIDE 21 MMOL/L (21-32); CHLORIDE 106 MMOL/L (98-107); GFR ESTIMATED > 60; GLUCOSE 173 MG/DL (70-105); POTASSIUM 4.6 MMOL/L (3.6-5.0); SODIUM 138 MMOL/L (135-145); TOTAL PROTEIN 7.7 GM/DL (6.4-8.2)
== END 2019-03-26 | disposition home or self-care (01) ==
LOC: ONC 09:48
PROVIDERS: ATTEND Internal Medicine Hematology & Oncology
DX: C18.0 Malignant neoplasm of cecum (principal); D50.9 Iron deficiency anemia, unspecified; I10 Essential (primary) hypertension; E78.00 Pure hypercholesterolemia, unspecified; E11.9 Type 2 diabetes mellitus without complications; K29.70 Gastritis, unspecified, without bleeding; K20.9 Esophagitis, unspecified; M06.9 Rheumatoid arthritis, unspecified; K90.49 Malabsorption due to intolerance, not elsewhere classified; Z79.82 Long term (current) use of aspirin; Z79.84 Long term (current) use of oral hypoglycemic drugs; Z79.899 Other long term (current) drug therapy
CPT/HCPCS: 36415; 80053; 82378; 82728; 85025; 99213

== ENCOUNTER 2019-03-30 09:44 | Outpatient (RCR) | payer MEDICARE, BC ==
[~2019-03-30 09:44] MED LIST changes: +METF500T19 PO; -METF500T8 PO
[2019-06-22 09:15] LABS: BASOPHILS % (AUTO) 0 % (0-10); EOSINOPHILS # (AUTO) 0.3 10^3/uL (0.0-0.3); EOSINOPHILS % (AUTO) 5 % (0-10); HEMATOCRIT 38 % (35-52); HEMOGLOBIN 12.5 G/DL (11.5-16.0); LYMPHOCYTES # (AUTO) 1.5 X 10^3 (1.0-4.0); LYMPHOCYTES % (AUTO) 25 % (12-44); MEAN CORPUSCULAR HEMOGLOBIN 29 PG (25-34); MEAN CORPUSCULAR HGB CONC 33 G/DL (32-36); MEAN CORPUSCULAR VOLUME 89 FL (80-99); MEAN PLATELET VOLUME 10.4 FL (7.4-10.4); MONOCYTES # (AUTO) 0.6 X 10^3 (0.0-1.0); MONOCYTES % (AUTO) 10 % (0-12); NEUTROPHILS # (AUTO) 3.7 X 10^3 (1.8-7.8); NEUTROPHILS % (AUTO) 61 % (42-75); PLATELET COUNT 172 10^3/uL (130-400); WHITE BLOOD COUNT 6.1 10^3/uL (4.3-11.0)
[2019-06-22 09:37] LABS: ALANINE AMINOTRANSFERASE 31 U/L (0-55); ALBUMIN 4.1 GM/DL (3.2-4.5); ALKALINE PHOSPHATASE 66 U/L (40-136); BILIRUBIN,TOTAL 0.4 MG/DL (0.1-1.0); BUN/CREATININE RATIO 23; CALCIUM 9.5 MG/DL (8.5-10.1); CARBON DIOXIDE 22 MMOL/L (21-32); CHLORIDE 105 MMOL/L (98-107); CREATININE SERUM 0.87 MG/DL (0.60-1.30); GFR ESTIMATED > 60; GLUCOSE 163 MG/DL (70-105); POTASSIUM 4.3 MMOL/L (3.6-5.0); SODIUM 138 MMOL/L (135-145); TOTAL PROTEIN 7.7 GM/DL (6.4-8.2)
== END 2019-06-22 09:01 | disposition home or self-care (01) ==
LOC: ONC 09:44
PROVIDERS: ATTEND Internal Medicine Hematology & Oncology
DX: C18.0 Malignant neoplasm of cecum (principal); D50.9 Iron deficiency anemia, unspecified; I10 Essential (primary) hypertension; E78.00 Pure hypercholesterolemia, unspecified; E11.9 Type 2 diabetes mellitus without complications; K29.70 Gastritis, unspecified, without bleeding; K20.9 Esophagitis, unspecified; M06.9 Rheumatoid arthritis, unspecified; K90.49 Malabsorption due to intolerance, not elsewhere classified; Z79.82 Long term (current) use of aspirin; Z79.84 Long term (current) use of oral hypoglycemic drugs; Z79.899 Other long term (current) drug therapy
CPT/HCPCS: 80053; 82378; 82728; 85025; 99213

== ENCOUNTER → 2019-05-10 | Outpatient (CLI) | payer MEDICARE, BC ==
[~2019-05-10] MED LIST changes: -METF500T19 PO; +METF500T8 PO
[2019-05-10 11:32] LABS: BILIRUBIN,URINE NEGATIVE (NEGATIVE); CLARITY,URINE SL CLOUDY; COLOR,URINE YELLOW; GLUCOSE, URINE (UA) 3+ (NEGATIVE); KETONES,URINE NEGATIVE (NEGATIVE); LEUKOCYTE ESTERASE ,URINE 1+ (NEGATIVE); NITRITE,URINE NEGATIVE (NEGATIVE); PH,URINE 5.5 (5-9); PROTEIN,URINE TRACE (NEGATIVE)
[2019-05-10 11:51] LABS: BACTERIA,URINE FEW /HPF; WBC,URINE 25-50 /HPF
== END ==
LOC: LAB 11:13
PROVIDERS: ATTEND Family Medicine
DX: N39.0 Urinary tract infection, site not specified (principal)
CPT/HCPCS: 81000; 87088

== ENCOUNTER 2019-06-29 09:42 | Outpatient (RCR) | payer MEDICARE, BC ==
[~2019-06-29 09:42] MED LIST changes: +HYDR-34 PO; -HYDR-3816 PO; +METF500T19 PO; -METF500T8 PO
== END 2019-09-20 | disposition home or self-care (01) ==
LOC: ONC 09:42
PROVIDERS: ATTEND Internal Medicine Hematology & Oncology
DX: C18.0 Malignant neoplasm of cecum (principal); D50.9 Iron deficiency anemia, unspecified; I10 Essential (primary) hypertension; E78.00 Pure hypercholesterolemia, unspecified; E11.9 Type 2 diabetes mellitus without complications; K29.70 Gastritis, unspecified, without bleeding; K20.9 Esophagitis, unspecified; M06.9 Rheumatoid arthritis, unspecified; K90.49 Malabsorption due to intolerance, not elsewhere classified; Z79.82 Long term (current) use of aspirin; Z79.84 Long term (current) use of oral hypoglycemic drugs; Z79.899 Other long term (current) drug therapy; Z98.890 Other specified postprocedural states; Z90.49 Acquired absence of other specified parts of digestive tract
CPT/HCPCS: 99213

== ENCOUNTER 2019-11-22 09:59 | Outpatient (RCR) | payer MEDICARE, BC ==
[2019-11-15 10:51] LABS: BASOPHILS % (AUTO) 0 % (0-10); EOSINOPHILS # (AUTO) 0.2 10^3/uL (0.0-0.3); EOSINOPHILS % (AUTO) 4 % (0-10); HEMATOCRIT 36 % (35-52); HEMOGLOBIN 11.9 G/DL (11.5-16.0); LYMPHOCYTES # (AUTO) 1.5 X 10^3 (1.0-4.0); LYMPHOCYTES % (AUTO) 26 % (12-44); MEAN CORPUSCULAR HGB CONC 33 G/DL (32-36); MEAN CORPUSCULAR VOLUME 89 FL (80-99); MONOCYTES # (AUTO) 0.6 X 10^3 (0.0-1.0); MONOCYTES % (AUTO) 9 % (0-12); NEUTROPHILS # (AUTO) 3.6 X 10^3 (1.8-7.8); NEUTROPHILS % (AUTO) 60 % (42-75); PLATELET COUNT 188 10^3/uL (130-400); WHITE BLOOD COUNT 5.9 10^3/uL (4.3-11.0)
[2019-11-15 10:52] LABS: MEAN CORPUSCULAR HEMOGLOBIN 29 PG (25-34)
[2019-11-15 11:08] LABS: BILIRUBIN,TOTAL 0.5 MG/DL (0.1-1.0); CALCIUM 9.3 MG/DL (8.5-10.1); CREATININE SERUM 0.93 MG/DL (0.60-1.30); POTASSIUM 4.4 MMOL/L (3.6-5.0); TOTAL PROTEIN 7.8 GM/DL (6.4-8.2)
[~2019-11-22 09:59] MED LIST changes: +METF-865 PO; -METF500T19 PO
== END 2020-02-13 | disposition home or self-care (01) ==
LOC: ONC 09:59
PROVIDERS: ATTEND Internal Medicine Hematology & Oncology
DX: C18.0 Malignant neoplasm of cecum (principal); D50.9 Iron deficiency anemia, unspecified; I10 Essential (primary) hypertension; E78.00 Pure hypercholesterolemia, unspecified; E11.9 Type 2 diabetes mellitus without complications; K29.70 Gastritis, unspecified, without bleeding; K20.9 Esophagitis, unspecified; M06.9 Rheumatoid arthritis, unspecified; K90.49 Malabsorption due to intolerance, not elsewhere classified; Z79.82 Long term (current) use of aspirin; Z79.84 Long term (current) use of oral hypoglycemic drugs; Z79.899 Other long term (current) drug therapy; Z98.890 Other specified postprocedural states; Z90.49 Acquired absence of other specified parts of digestive tract
CPT/HCPCS: 80053; 82378; 82728; 85025; 99213

== ENCOUNTER → 2020-01-23 | Outpatient (CLI) | payer MEDICARE, BC | LOC: LAB 08:57 | PROVIDERS: ATTEND Family Medicine | DX: N39.0 Urinary tract infection, site not specified (principal) | CPT/HCPCS: 87077; 87088; 87186 ==

== ENCOUNTER → 2020-04-05 | Outpatient (CLI) | payer MEDICARE, BC ==
[~2020-04-05] MED LIST changes: +AMLO-251 PO; -AMLO10TA7 PO; +ENAL20TA16 PO
[2020-04-05 13:14] LABS: BASOPHILS % (AUTO) 0 % (0-10); EOSINOPHILS # (AUTO) 0.2 10^3/uL (0.0-0.3); EOSINOPHILS % (AUTO) 3 % (0-10); HEMATOCRIT 36 % (35-52); HEMOGLOBIN 11.8 g/dL (11.5-16.0); LYMPHOCYTES # (AUTO) 1.6 10^3/uL (1.0-4.0); LYMPHOCYTES % (AUTO) 26 % (12-44); MEAN CORPUSCULAR HEMOGLOBIN 29 pg (25-34); MEAN CORPUSCULAR HGB CONC 32 g/dL (32-36); MEAN CORPUSCULAR VOLUME 90 fL (80-99); MEAN PLATELET VOLUME 9.6 fL (9.0-12.2); MONOCYTES # (AUTO) 0.6 10^3/uL (0.0-1.0); MONOCYTES % (AUTO) 10 % (0-12); NEUTROPHILS # (AUTO) 3.6 10^3/uL (1.8-7.8); NEUTROPHILS % (AUTO) 60 % (42-75); PLATELET COUNT 162 10^3/uL (130-400)
[2020-04-05 13:35] LABS: ALANINE AMINOTRANSFERASE 27 U/L (0-55); ALKALINE PHOSPHATASE 61 U/L (40-136); BILIRUBIN,TOTAL 0.5 MG/DL (0.1-1.0); BUN/CREATININE RATIO 15; CALCIUM 9.1 MG/DL (8.5-10.1); CARBON DIOXIDE 24 MMOL/L (21-32); CHLORIDE 105 MMOL/L (98-107); CREATININE SERUM 0.81 MG/DL (0.60-1.30); GFR ESTIMATED > 60; GLUCOSE 156 MG/DL (70-105); POTASSIUM 3.9 MMOL/L (3.6-5.0); SODIUM 140 MMOL/L (135-145); TOTAL PROTEIN 7.6 GM/DL (6.4-8.2)
== END ==
LOC: EDSTATUS 02-14 16:12 → ONC 12:57
PROVIDERS: ATTEND Internal Medicine Hematology & Oncology
DX: C18.0 Malignant neoplasm of cecum (principal); D50.9 Iron deficiency anemia, unspecified; I10 Essential (primary) hypertension; E78.00 Pure hypercholesterolemia, unspecified; E11.9 Type 2 diabetes mellitus without complications; K29.70 Gastritis, unspecified, without bleeding; M06.9 Rheumatoid arthritis, unspecified; K90.49 Malabsorption due to intolerance, not elsewhere classified; Z79.82 Long term (current) use of aspirin; Z79.84 Long term (current) use of oral hypoglycemic drugs; Z79.899 Other long term (current) drug therapy; Z98.890 Other specified postprocedural states; Z90.49 Acquired absence of other specified parts of digestive tract
CPT/HCPCS: 80053; 82378; 82728; 85025; G0463; 99213

== ENCOUNTER → 2020-04-05 | Outpatient (CLI) | payer MEDICARE, BC ==
[2020-04-05 13:55] LABS: CHOLESTEROL 146 MG/DL (< 200); HDL CHOLESTEROL 36 MG/DL (40-60); TRIGLYCERIDES 342 MG/DL (<150); VLDL CHOLESTEROL 68 MG/DL (5-40)
== END ==
LOC: LAB 13:01
PROVIDERS: ATTEND Family Medicine
DX: E11.9 Type 2 diabetes mellitus without complications (principal); I10 Essential (primary) hypertension; E78.5 Hyperlipidemia, unspecified
CPT/HCPCS: 36415; 80061; 83036

== ENCOUNTER → 2020-09-26 | Outpatient (CLI) | payer MEDICARE, BC ==
[~2020-09-26] MED LIST changes: -FOLI1TAB24 PO; +FOLI1TAB33 PO
[2020-09-26 10:20] LABS: BASOPHILS % (AUTO) 0 % (0-10); EOSINOPHILS # (AUTO) 0.1 10^3/uL (0.0-0.3); EOSINOPHILS % (AUTO) 3 % (0-10); HEMATOCRIT 35 % (35-52); HEMOGLOBIN 11.5 g/dL (11.5-16.0); LYMPHOCYTES # (AUTO) 1.2 10^3/uL (1.0-4.0); LYMPHOCYTES % (AUTO) 25 % (12-44); MEAN CORPUSCULAR HEMOGLOBIN 29 pg (25-34); MEAN CORPUSCULAR HGB CONC 33 g/dL (32-36); MEAN CORPUSCULAR VOLUME 89 fL (80-99); MEAN PLATELET VOLUME 9.8 fL (9.0-12.2); MONOCYTES # (AUTO) 0.6 10^3/uL (0.0-1.0); MONOCYTES % (AUTO) 12 % (0-12); NEUTROPHILS # (AUTO) 2.8 10^3/uL (1.8-7.8); NEUTROPHILS % (AUTO) 59 % (42-75); PLATELET COUNT 154 10^3/uL (130-400); WHITE BLOOD COUNT 4.7 10^3/uL (4.3-11.0)
[2020-09-26 10:39] LABS: ERYTHROCYTE SEDIMENTATION RATE 13 MM/HR (0-30)
[2020-09-26 10:48] LABS: CREATININE SERUM 0.78 MG/DL (0.60-1.30)
== END ==
LOC: LAB 10:03
PROVIDERS: ATTEND Internal Medicine Rheumatology
DX: M06.09 Rheumatoid arthritis without rheumatoid factor, multiple sites (principal)
CPT/HCPCS: 36415; 82565; 84460; 85025; 85652; 86141

== ENCOUNTER → 2020-09-26 | Outpatient (CLI) | payer MEDICARE, BC ==
[2020-09-26 10:18] LABS: BASOPHILS % (AUTO) 0 % (0-10); EOSINOPHILS # (AUTO) 0.1 10^3/uL (0.0-0.3); EOSINOPHILS % (AUTO) 3 % (0-10); HEMATOCRIT 35 % (35-52); HEMOGLOBIN 11.5 g/dL (11.5-16.0); LYMPHOCYTES # (AUTO) 1.2 10^3/uL (1.0-4.0); LYMPHOCYTES % (AUTO) 25 % (12-44); MEAN CORPUSCULAR HEMOGLOBIN 29 pg (25-34); MEAN CORPUSCULAR HGB CONC 33 g/dL (32-36); MEAN CORPUSCULAR VOLUME 89 fL (80-99); MEAN PLATELET VOLUME 9.8 fL (9.0-12.2); MONOCYTES # (AUTO) 0.6 10^3/uL (0.0-1.0); MONOCYTES % (AUTO) 12 % (0-12); NEUTROPHILS # (AUTO) 2.8 10^3/uL (1.8-7.8); NEUTROPHILS % (AUTO) 59 % (42-75); PLATELET COUNT 154 10^3/uL (130-400); WHITE BLOOD COUNT 4.7 10^3/uL (4.3-11.0)
[2020-09-26 10:48] LABS: ALANINE AMINOTRANSFERASE 39 U/L (0-55); ALBUMIN 3.9 GM/DL (3.2-4.5); ALKALINE PHOSPHATASE 69 U/L (40-136); BILIRUBIN,TOTAL 0.4 MG/DL (0.1-1.0); BUN/CREATININE RATIO 18; CALCIUM 8.8 MG/DL (8.5-10.1); CARBON DIOXIDE 19 MMOL/L (21-32); CHLORIDE 104 MMOL/L (98-107); GFR ESTIMATED > 60; GLUCOSE 172 MG/DL (70-105); POTASSIUM 4.2 MMOL/L (3.6-5.0); SODIUM 136 MMOL/L (135-145); TOTAL PROTEIN 7.8 GM/DL (6.4-8.2)
== END ==
LOC: ONC 10:01
PROVIDERS: ATTEND Internal Medicine Hematology & Oncology
DX: C18.0 Malignant neoplasm of cecum (principal); M06.9 Rheumatoid arthritis, unspecified; E11.9 Type 2 diabetes mellitus without complications; I10 Essential (primary) hypertension; Z86.2 Personal history of diseases of the blood and blood-forming organs and certain disorders involving the immune mechanism
CPT/HCPCS: 80053; 82378; 82728; 85025

== ENCOUNTER → 2020-10-07 | Outpatient (CLI) | payer MEDICARE, BC | LOC: ONC 10:10 | PROVIDERS: ATTEND Internal Medicine Hematology & Oncology | DX: C18.0 Malignant neoplasm of cecum (principal); Z86.2 Personal history of diseases of the blood and blood-forming organs and certain disorders involving the immune mechanism | CPT/HCPCS: 99213 ==

== ENCOUNTER → 2020-11-21 | Outpatient (CLI) | payer MEDICARE, BC ==
--- NOTE | 2020-11-21 08:25 | Diagnostic Imaging Report ---
PROCEDURE: CT abdomen and pelvis without contrast. TECHNIQUE: Multiple contiguous axial images were obtained through the abdomen and pelvis without the use of intravenous contrast. Auto Exposure Controls were utilized during the CT exam to meet ALARA standards for radiation dose reduction. INDICATION: Urinary tract infections and hematuria. Correlation is made with prior CT from 08/11/2017. Lung bases are clear. No discrete liver mass is identified. Gallbladder appears to be surgically absent. There is no biliary duct dilatation. Pancreas and spleen are unremarkable. No adrenal mass is detected. No definite renal calculi or hydronephrosis is identified. Aorta is calcified but nonaneurysmal. No definite ureteral or bladder calculi are seen. Bladder is decompressed. There is some wall thickening to the bladder, indeterminate. The small and large bowel loops are normal caliber. There appear to be postoperative changes from a right hemicolectomy. There is diffuse diverticulosis of the sigmoid and descending colon but no evidence of acute diverticulitis. There is no free fluid or fluid collection. Uterus is unremarkable. No definite abdominal or pelvic lymphadenopathy is identified. IMPRESSION: 1. No evidence of urinary tract calculi or obstruction. 2. Uncomplicated diverticulosis. 3. Wall thickening of the urinary bladder. While this could be owing to incomplete distention, possibility of cystitis cannot be entirely excluded. Dictated by: Dictated on workstation # [id number]
== END ==
LOC: RAD 06:39
PROVIDERS: ATTEND Urology
DX: N39.0 Urinary tract infection, site not specified (principal); N32.89 Other specified disorders of bladder; K57.90 Diverticulosis of intestine, part unspecified, without perforation or abscess without bleeding
CPT/HCPCS: 74176

== ENCOUNTER 2021-02-12 19:57 | Inpatient (IN) | payer MEDICARE, BC ==
[~2021-02-12] VITALS: Ht 155 cm; Wt 95.0 kg
[2021-02-12 20:04] VITALS: BP 171/82
--- NOTE | 2021-02-12 20:18 | ED General ---
General Stated Complaint: CONFUSION/NO TREE./TROUBLE WALKING,SPEAKING Source of Information: Patient Exam Limitations: No Limitations History of Present Illness Date Seen by Provider: Feb 12, 2021 Time Seen by Provider: 20:15 Initial Comments To ER by family with reports of altered mental status. Patient has been forgetting to take her pills, all of them, for the past 4 days. This is very unlike her. She did note some chills last week but that lasted only about a day and has been gone since then. She had an appointment with Dr. Parra today as part of a routine exam and was able to make it there without difficulty. She then took a nap this evening and upon awakening had some increased confusion and general weakness. No nausea no vomiting no fevers or chills other than the chills last week. She is on cephalexin for UTI suppression though daughter does not believe her to be taking it as directed. She follows with Dr. Gonzalez for this reason for recurrent urinary tract infections. Patient does report that her urine this morning was unusually cloudy. Timing/Duration: 1-2 Days Severity: Moderate Associated Systoms: No Cough, No Shortness of Air Allergies and Home Medications Allergies Coded Allergies: fentanyl (Verified Allergy, Intermediate, HALLUCINATIONS, 09/07/18) hydroxychloroquine (Verified Allergy, Mild, HIVES, 09/07/18) Patient Home Medication List Home Medication List Reviewed: Yes Amlodipine Besylate (Amlodipine Besylate) 10 Mg Tablet, 10 MG PO DAILY, (Reported) Entered as Reported by: THAI ARREOLA on 08/05/17 1206 Aspirin (Aspirin) 81 Mg Tab.chew, 81 MG PO DAILY, (Reported) Entered as Reported by: THAI ARREOLA on 08/05/17 1206 Atorvastatin Calcium (Atorvastatin Calcium) 40 Mg Tablet, 40 MG PO HS, (Reported) Entered as Reported by: TAHI ARREOLA on 08/05/17 1206 Canagliflozin (Invokana) 100 Mg Tablet, 100 MG PO DAILY, (Reported) Entered as Reported by: THAI ARREOLA on 08/05/17 1242 Enalapril Maleate (Enalapril Maleate) 20 Mg Tablet, 20 MG PO BID, (Reported) Entered as Reported by: THAI ARREOLA on 08/05/17 1206 Folic Acid (Folic Acid) 1 Mg Tablet, 1 MG PO DAILY, (Reported) Entered as Reported by: THAI ARREOLA on 08/05/17 1242 Furosemide (Furosemide) 40 Mg Tablet, 40 MG PO DAILY, (Reported) Entered as Reported by: THAI ARREOLA on 08/05/17 1242 Furosemide (Furosemide) 40 Mg Tablet, 40 MG PO DAILY PRN for SWELLING, (Reported) Entered as Reported by: JASIEL ORR on 08/27/17 1119 Meloxicam (Meloxicam) 15 Mg Tablet, 15 MG PO DAILY, (Reported) Entered as Reported by: THAI ARREOLA on 08/05/17 1242 Metformin HCl (Metformin HCl ER) 500 Mg Tab.er.24h, 1,000 MG PO BID, (Reported) Entered as Reported by: THAI ARREOLA on 08/05/17 1206 Methotrexate Sodium (Methotrexate) 2.5 Mg Tablet, 7.5 MG PO Fr, (Reported) Entered as Reported by: JESSICA MONTAGUE on 09/07/18 0943 Metoprolol Succinate (Metoprolol Succinate) 200 Mg Tab.er.24h, 100 MG PO BID, (Reported) Entered as Reported by: THAI ARREOLA on 08/05/17 1206 Omeprazole (Omeprazole) 20 Mg Tablet.dr, 20 MG PO DAILY, (Reported) Entered as Reported by: THAI ARREOLA on 08/05/17 1242 Review of Systems Review of Systems Constitutional: see HPI, chills; No fever EENTM: see HPI Respiratory: see HPI; No cough Cardiovascular: no symptoms reported Genitourinary: no symptoms reported Musculoskeletal: no symptoms reported Skin: no symptoms reported Psychiatric/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: No Symptoms Reported Hematologic/Lymphatic: No Symptoms Reported Past Dbfgxdb-Jeqdko-Aymnei Hx Immunizations Up To Date Tetanus Booster (TDap): Unknown Seasonal Allergies Seasonal Allergies: No Past Medical History Surgeries: Yes (cystoscopy, CATARACTS, COLON RESECTION) Gallbladder, Tonsillectomy Respiratory: No Currently Using CPAP: No Currently Using BIPAP: No Cardiac: Yes Hypertension 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: No Sexually Transmitted Disease: No HIV/AIDS: No Genitourinary: Yes UTI-Chronic Gastrointestinal: Yes (colon cancer) Gastroesophageal Reflux Musculoskeletal: Yes Arthritis Endocrine: Yes Diabetes, Non-Insulin dep HEENT: Yes (READING GLASSES) Loss of Vision: Bilateral Hearing Impairment: Denies Cancer: Yes Colon Did You Recieve Any Treatments: Yes What Type of Treatment Did You: Surgical Intervention Psychosocial: No Integumentary: No Blood Disorders: Yes (anemia) Adverse Reaction/Blood Tranf: No (N/A) Family Medical History Abdominal aortic aneurysm 19 MOTHER Arthritis G8 SISTER Cardiovascular disease 19 FATHER Hypertension 19 FATHER Physical Exam Vital Signs Vital Signs - First Documented 02/12/21 20:00 Temp 37.0 Pulse 98 Resp 20 B/P (MAP) 181/121 (141) O2 Delivery Room Air Capillary Refill : Height, Weight, BMI Height: 5'2.00" Weight: 225lbs. 0.0oz. 102.044015oy; 41.2 BMI Method: General Appearance: No Apparent Distress, WD/WN Eyes: Bilateral Eye Normal Inspection, Bilateral Eye PERRL, Bilateral Eye EOMI Neck: Full Range of Motion, Normal Inspection Respiratory: No Accessory Muscle Use, No Respiratory Distress Cardiovascular: Regular Rate, Rhythm, Normal Peripheral Pulses Gastrointestinal: Normal Bowel Sounds, Non Tender, Soft Extremity: Normal Capillary Refill, Normal Inspection Neurologic/Psychiatric: Alert, Oriented x3, Other (At this time she is alert and oriented, pleasant but generally weak and requires assistance of 1-2 to get out of her chair and into bed which is unusual for her. She has difficulty with recent memory which family also states is not like her.) Skin: Normal Color, Warm/Dry Focused Exam Lactate Level 02/12/21 20:16: Lactic Acid Level 2.48*H Lactic Acid Level Laboratory Tests Test 02/12/21 20:16 Lactic Acid Level 2.48 MMOL/L (0.50-2.00) *H Progress/Results/Core Measures Suspected Sepsis SIRS Temperature: Pulse: Respiratory Rate: Laboratory Tests 02/12/21 20:08: White Blood Count 4.0L Blood Pressure / Mean: 02/12/21 20:16: Lactic Acid Level 2.48*H Laboratory Tests 02/12/21 20:08: Creatinine 1.28, INR Comment 1.1, Platelet Count 202, Total Bilirubin 0.4 Results/Orders Lab Results Laboratory Tests Test 02/12/21 20:08 02/12/21 20:16 02/12/21 21:08 Range/Units White Blood Count 4.0 L 4.3-11.0 10^3/uL Red Blood Count 3.75 L 3.80-5.11 10^6/uL Hemoglobin 10.7 L 11.5-16.0 g/dL Hematocrit 34 L 35-52 % Mean Corpuscular Volume 90 80-99 fL Mean Corpuscular Hemoglobin 29 25-34 pg Mean Corpuscular Hemoglobin Concent 32 32-36 g/dL Red Cell Distribution Width 15.0 H 10.0-14.5 % Platelet Count 202 130-400 10^3/uL Mean Platelet Volume 9.6 9.0-12.2 fL Immature Granulocyte % (Auto) 1 % Neutrophils (%) (Auto) 69 42-75 % Lymphocytes (%) (Auto) 21 12-44 % Monocytes (%) (Auto) 9 0-12 % Eosinophils (%) (Auto) 1 0-10 % Basophils (%) (Auto) 1 0-10 % Neutrophils # (Auto) 2.8 1.8-7.8 10^3/uL Lymphocytes # (Auto) 0.8 L 1.0-4.0 10^3/uL Monocytes # (Auto) 0.4 0.0-1.0 10^3/uL Eosinophils # (Auto) 0.0 0.0-0.3 10^3/uL Basophils # (Auto) 0.0 0.0-0.1 10^3/uL Immature Granulocyte # (Auto) 0.0 0.0-0.1 10^3/uL Prothrombin Time 14.6 12.2-14.7 SEC INR Comment 1.1 0.8-1.4 Activated Partial Thromboplast Time 33 24-35 SEC Sodium Level 134 L 135-145 MMOL/L Potassium Level 4.9 3.6-5.0 MMOL/L Chloride Level 106 98-107 MMOL/L Carbon Dioxide Level 16 L 21-32 MMOL/L Anion Gap 12 5-14 MMOL/L Blood Urea Nitrogen 22 H 7-18 MG/DL Creatinine 1.28 0.60-1.30 MG/DL Estimat Glomerular Filtration Rate 40 BUN/Creatinine Ratio 17 Glucose Level 160 H 70-105 MG/DL Calcium Level 10.2 H 8.5-10.1 MG/DL Corrected Calcium 10.2 H 8.5-10.1 MG/DL Total Bilirubin 0.4 0.1-1.0 MG/DL Aspartate Amino Transf (AST/SGOT) 29 5-34 U/L Alanine Aminotransferase (ALT/SGPT) 27 0-55 U/L Alkaline Phosphatase 61 40-136 U/L Total Protein 8.4 H 6.4-8.2 GM/DL Albumin 4.0 3.2-4.5 GM/DL Lactic Acid Level 2.48 *H 0.50-2.00 MMOL/L Urine Color YELLOW Urine Clarity CLOUDY Urine pH 6.0 5-9 Urine Specific [place] 1.020 1.016-1.022 Urine Protein 2+ H NEGATIVE Urine Glucose (UA) TRACE H NEGATIVE Urine Ketones NEGATIVE NEGATIVE Urine Nitrite POSITIVE H NEGATIVE Urine Bilirubin NEGATIVE NEGATIVE Urine Urobilinogen 0.2 < = 1.0 MG/DL Urine Leukocyte Esterase 3+ H NEGATIVE Urine RBC (Auto) 3+ H NEGATIVE Urine RBC NONE /HPF Urine WBC >100 H /HPF Urine Squamous Epithelial Cells NONE /HPF Urine Renal Epithelial Cells NONE /HPF Urine Crystals NONE /LPF Urine Bacteria LARGE H /HPF Urine Casts NONE /LPF Urine Mucus LARGE H /LPF Urine Culture Indicated CULTURE PENDING My Orders Orders - KATHERINE LOUIS APRN Cbc With Automated Diff (02/12/21 20:02) Comprehensive Metabolic Panel (02/12/21 20:02) Ua Culture If Indicated (02/12/21 20:02) Chest 1 View, Ap/Pa Only (02/12/21 20:02) Ed Iv/Invasive Line Start (02/12/21 20:02) Ct Head Wo (02/12/21 20:02) Blood Culture (02/12/21 20:02) Sputum Culture (02/12/21 20:02) Urine Culture (02/12/21 20:02) Protime With Inr (02/12/21 20:02) Partial Thromboplastin Time (02/12/21 20:02) Vital Signs Adult Sepsis Patie Q15M (02/12/21 20:02) O2 (02/12/21 20:02) Remove Rings In Anticipation O (02/12/21 20:02) Lactic Acid Analyzer (02/12/21 20:02) Vital Signs/I&O 02/12/21 20:00 Temp 37.0 Pulse 98 Resp 20 B/P (MAP) 181/121 (141) O2 Delivery Room Air Capillary Refill : Departure Communication (Admissions) 2140-Given the altered mental status and the general weakness with UTI will admit for empiric Rocephin. Historically she has grown out E. coli which was sensitive to Rocephin. Discussed with Dr. Dior and he agrees with the plan of care. Impression Primary Impression: UTI (urinary tract infection) Qualified Codes: N30.00 - Acute cystitis without hematuria Additional Impression: AMS (altered mental status) Qualified Codes: R41.82 - Altered mental status, unspecified Disposition: ADMITTED INPATIENT Condition: Stable Admissions Decision to Admit Reason: Admit from ER (General) Decision to Admit/Date: Feb 12, 2021 Time/Decision to Admit Time: 21:42 Departure-Patient Inst. Referrals: JEFFREY PARRA DO (PCP/Family) Primary Care Physician KATHERINE LOUIS APRN Feb 12, 2021 20:18
[2021-02-12 20:24] LABS: BASOPHILS % (AUTO) 1 % (0-10); EOSINOPHILS % (AUTO) 1 % (0-10); HEMATOCRIT 34 % (35-52); HEMOGLOBIN 10.7 g/dL (11.5-16.0); LYMPHOCYTES # (AUTO) 0.8 10^3/uL (1.0-4.0); LYMPHOCYTES % (AUTO) 21 % (12-44); MEAN CORPUSCULAR HEMOGLOBIN 29 pg (25-34); MEAN CORPUSCULAR HGB CONC 32 g/dL (32-36); MEAN CORPUSCULAR VOLUME 90 fL (80-99); MEAN PLATELET VOLUME 9.6 fL (9.0-12.2); MONOCYTES # (AUTO) 0.4 10^3/uL (0.0-1.0); MONOCYTES % (AUTO) 9 % (0-12); NEUTROPHILS # (AUTO) 2.8 10^3/uL (1.8-7.8); NEUTROPHILS % (AUTO) 69 % (42-75); PLATELET COUNT 202 10^3/uL (130-400)
[2021-02-12 20:37] LABS: BILIRUBIN,TOTAL 0.4 MG/DL (0.1-1.0); CALCIUM 10.2 MG/DL (8.5-10.1); CREATININE SERUM 1.28 MG/DL (0.60-1.30); POTASSIUM 4.9 MMOL/L (3.6-5.0); TOTAL PROTEIN 8.4 GM/DL (6.4-8.2)
[2021-02-12 20:40] LABS: INR 1.1 (0.8-1.4); PROTHROMBIN TIME PATIENT 14.6 SEC (12.2-14.7)
--- NOTE | 2021-02-12 21:03 | Diagnostic Imaging Report ---
PROCEDURE: CT head without contrast. TECHNIQUE: Multiple contiguous axial images were obtained through the brain without the use of intravenous contrast. Auto Exposure Controls were utilized during the CT exam to meet ALARA standards for radiation dose reduction. INDICATION: Altered mental status. COMPARISON: None available. FINDINGS: No hyperdense hemorrhage or space-occupying mass. No hydrocephalus or midline shift. Symmetric prominence of the ventricles and cortical sulci is compatible with age-appropriate atrophy. No isolated lobar atrophy. No territorial loss of [place]-white matter differentiation to indicate acute/subacute infarct. Periventricular white matter hypoattenuation is most compatible chronic microvascular ischemic disease. The mastoid air cells are clear. Paranasal sinuses are normal. No focal osseous abnormality of the calvarium. IMPRESSION: No acute intracranial process. Dictated by: Dictated on workstation # [id number]
--- NOTE | 2021-02-12 21:08 | Diagnostic Imaging Report ---
CHEST 1 VIEW, AP/PA ONLY Indication: Altered mental status Comparison: 08/29/2017 Findings: No focal airspace disease in the visualized lungs. Please note that the posterior lower lobes are poorly evaluated by portable radiography. No pleural effusion or pneumothorax. Normal cardiomediastinal silhouette. Impression: 1. No acute cardiopulmonary process by portable radiography. Dictated by: Dictated on workstation # [id number]
[2021-02-12 21:13] LABS: BILIRUBIN,URINE NEGATIVE (NEGATIVE); CLARITY,URINE CLOUDY; COLOR,URINE YELLOW; GLUCOSE, URINE (UA) TRACE (NEGATIVE); KETONES,URINE NEGATIVE (NEGATIVE); LEUKOCYTE ESTERASE ,URINE 3+ (NEGATIVE); NITRITE,URINE POSITIVE (NEGATIVE); PROTEIN,URINE 2+ (NEGATIVE)
[2021-02-12 21:26] LABS: BACTERIA,URINE LARGE /HPF; WBC,URINE >100 /HPF
[2021-02-12] MEDS ORDERED: meTOprolol SUCCINATE 100 MG (TOPROL XL) TAB PO ONE (21:45)
[2021-02-12] MEDS ORDERED: amLODIPine 5 MG (NORVASC) TAB PO ONE (21:45)
[2021-02-12] MEDS ORDERED: cefTRIAXone 1,000 MG in WATER (STERILE) FOR INJECTION 10 ML IV ONE (21:45)
[2021-02-12] MEDS ORDERED: LACTATED RINGERS 1,000 ML IV SCH (22:15)
[2021-02-12 22:58] VITALS: BP 171/82
[2021-02-12 23:26] VITALS: BP 171/82
[2021-02-13 00:30] VITALS: BP 146/95
[2021-02-13] MEDS ORDERED: ACETAMINOPHEN 325 MG TABLET PO PRN (00:45)
[2021-02-13] MEDS ORDERED: ONDANSETRON 4 MG/2 ML (SDV) Z0FRAN IVP PRN (00:45)
[2021-02-13] MEDS: LACTATED RINGERS 1,000 ML IV SCH ×3 (01:48→20:58)
[2021-02-13 03:37] VITALS: BP 138/74
[2021-02-13 05:45] LABS: BASOPHILS % (AUTO) 1 % (0-10); EOSINOPHILS % (AUTO) 1 % (0-10); HEMATOCRIT 30 % (35-52); HEMOGLOBIN 9.3 g/dL (11.5-16.0); LYMPHOCYTES # (AUTO) 0.9 10^3/uL (1.0-4.0); LYMPHOCYTES % (AUTO) 27 % (12-44); MEAN CORPUSCULAR HEMOGLOBIN 29 pg (25-34); MEAN CORPUSCULAR HGB CONC 32 g/dL (32-36); MEAN CORPUSCULAR VOLUME 91 fL (80-99); MEAN PLATELET VOLUME 10.5 fL (9.0-12.2); MONOCYTES # (AUTO) 0.5 10^3/uL (0.0-1.0); MONOCYTES % (AUTO) 13 % (0-12); NEUTROPHILS # (AUTO) 1.9 10^3/uL (1.8-7.8); NEUTROPHILS % (AUTO) 58 % (42-75); PLATELET COUNT 162 10^3/uL (130-400); WHITE BLOOD COUNT 3.4 10^3/uL (4.3-11.0)
[2021-02-13 06:03] LABS: POTASSIUM 4.9 MMOL/L (3.6-5.0)
[2021-02-13 06:04] LABS: CALCIUM 9.3 MG/DL (8.5-10.1)
[2021-02-13 06:08] LABS: CREATININE SERUM 0.96 MG/DL (0.60-1.30)
[2021-02-13 07:30] VITALS: BP 166/66
[2021-02-13] MEDS: ENOXAPARIN 40 MG/0.4 ML (LOVENOX) SYR SC SCH ×2 (08:24→20:58)
--- NOTE | 2021-02-13 09:19 | Physical Therapy Evaluation ---
PT Evaluation-General Medical Diagnosis Admission Date Feb 12, 2021 at 21:40 Medical Diagnosis: AMS, UTI Onset Date: Feb 12, 2021 Therapy Diagnosis Therapy Diagnosis: impaired mobility, strength, endurance Height/Weight Height (Feet): 5 Height (Inches): 2.00 Weight (Pounds): 225 Weight (Ounces): 0.0 Precautions Precautions/Isolations: Fall Prevention, Standard Precautions Referral Physician: Barby Reason for Referral: Evaluation/Treatment Medical History Additional Medical History Past Medical History Surgeries: Yes (cystoscopy, CATARACTS, COLON RESECTION) Gallbladder, Tonsillectomy Respiratory: No Currently Using CPAP: No Currently Using BIPAP: No Cardiac: Yes Hypertension 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: No Sexually Transmitted Disease: No HIV/AIDS: No Genitourinary: Yes UTI-Chronic Gastrointestinal: Yes (colon cancer) Gastroesophageal Reflux Musculoskeletal: Yes Arthritis Endocrine: Yes Diabetes, Non-Insulin dep HEENT: Yes (READING GLASSES) Loss of Vision: Bilateral Hearing Impairment: Denies Cancer: Yes Colon Did You Recieve Any Treatments: Yes What Type of Treatment Did You: Surgical Intervention Psychosocial: No Integumentary: No Blood Disorders: Yes (anemia) Reviewed History: Yes Social History Home: Single Level Current Living Status: Spouse Entry Into Home: Stairs Without Railing PT Steps Into Home: 2 Prior Prior Level of Function SCALE: Activities may be completed with or without assistive devices. 3-Vcvijddjjx-omrqetx completes the activity by him/herself with no assistance from a helper. 5-Set-up or Clean-up Assistance-helper sets up or cleans up; patient completes activity. [place] assists only prior to or following the activity. 4-Supervision or Touching Assistance-helper provides verbal cues and/or touching/steadying and/or contact guard assistance as patient completes activity. Assistance may be provided throughout the activity or intermittently. 3-Partial/Moderate Assistance-helper does LESS THAN HALF the effort. [place] lift s, holds or supports trunk or limbs, but provides less than half the effort. 2-Substantial/Maximal Assistance-helper does MORE THAN HALF the effort. [place] lifts or holds trunk or limbs and provides more than half the effort. 5-Hndcvdrno-pjomna does ALL the effort. Patient does none of the effort to complete the activity. Or, the assistance of 2 or more helpers is required for the patient to complete the activity. If activity was not attempted, code reason: 7-Patient Refused. 9-Not Applicable-not attempted and the patient did not perform the activity before the current illness, exacerbation or injury. 10-Not Attempted due to Environmental Limitations-(lack of equipment, weather restraints, etc.). 88-Not Attempted due to Medical Conditions or Safety Concerns. Bed Mobility: 6 Transfers (B,C,W/C): 6 Gait: 6 Stairs: 6 Indoor Mobility (Ambulation): Independent Stairs: Independent Prior Device Use: SPC PT Evaluation-Current Subjective Patient in bed pre tx, agrees to PT, has no complaints of pain at rest but states she has been having pain in her left hip. Patient needs to get pants on and she needs assist getting them on her feet while sitting EOB but is able to pull them up herself after standing with CGA. Pt/Family Goals to be independent at home Objective Patient Orientation: Person, Place, Situation Attachments: IV ROM/Strength ROM Lower Extremities WNL Strength Lower Extremities 4/5 gross BLE Sensory Hearing: Functional Sensation Right Lower Extremit: Intact Sensation Left Lower Extremity: Intact Transfers Roll Left to Right (QC): 6 Lying to Sitting/Side of Bed(Q: 5 Sit to Stand (QC): 4 Chair/Hln-kv-Uqcdk Xfer(QC): 4 cues for hand placement with sit <-> stand. Patient needs to use the restroom, she ambulates from the bed to bathroom and after getting into position she can pull her pants down herself and when done she pulls them back up herself. Gait Does the Patient Walk?: Yes Mode of Locomotion: Walk Anticipated Mode of Locomotion: Walk Walk 10 feet (QC): 4 Walk 50 ft with 2 Turns(QC): 4 Distance: 120' Gait Assistive Device: FWW Comments/Gait Description slow ambulation, cues to stay close to walker Balance Sitting Static: Normal Sitting Dynamic: Normal Standing Static: Fair Standing Dynamic: Fair Assessment/Needs Patient has impaired mobility, strength, endurance. Patient in recliner post tx with nurse call, phone, tray, all needs met, patient instructed to call nurse if she needs to get up, patient assures therapist that she will do so. Patient CGA for transfers and ambulation. Rehab Potential: Fair PT Snf Goals Snf Goals PT House Mover Helper Goals Time Frame: Feb 20, 2021 Roll Left & Right (QC): 6 Sit to Lying (QC): 6 Lying-Sitting on Side/Bed(QC): 6 Sit to Stand (QC): 6 Chair/Lqm-lr-Jqebn Xfer(QC): 6 Walk 10 feet (QC): 6 Walk 50ft with 2 Turns (QC): 6 Walk 150 ft (QC): 6 PT Plan Problem List Problem List: Activity Tolerance, Functional Strength, Safety, Balance, Gait, Transfer, Bed Mobility, ROM Treatment/Plan Treatment Plan: Continue Plan of Care Treatment Plan: Bed Mobility, Education, Functional Activity Livia, Functional Strength, Gait, Safety, Therapeutic Exercise, Transfers Treatment Duration: Feb 20, 2021 Frequency: 6 times per week Estimated Hrs Per Day: .25 hour per day Patient and/or Family Agrees t: Yes Safety Risks/Education Patient Education: Gait Training, Transfer Techniques, Correct Positioning, Safety Issues Teaching Recipient: Patient Teaching Methods: Demonstration, Discussion Response to Teaching: Reinforcement Needed Discharge Recommendations Plan Patient will perform bed mobility and transfer training, balance and endurance training, functional strengthening, stair training, gait training, and education, to improve functional mobility and independence at home. Therapy Discharge Recommendati: Home & Family, Post Acute PT Time/GCodes Time In: 0830 Time Out: 0900 Total Billed Treatment Time: 30 Total Billed Treatment 1 visit EBONY 15' FA 15' RAEGAN WHYTE PT Feb 13, 2021 09:19
--- NOTE | 2021-02-13 09:54 | History & Physical-Hospitalist ---
LINDA PEARSON Yolette MED STUDENT 02/13/21 0954: History of Present Illness HPI/Chief Complaint Pt was admitted to floor from ED yesterday d/t dizziness and confusion with UTI symptoms. Pt reports her daughters were concerned about her and felt she should be evaluated. Pt reports not taking her UTI prophylaxis antibiotic, blood pressure medication or water pill for three days d/t appointments and not wanting to urinate frequently. Pt has hx of chronic UTI's for which she takes either Bactrim or Ciprofloxacin prescribed by her PCP, Dr. Hernandez. Pt also sees Dr. Gonzalez and he recently put her on a prophylactic antibiotic. Pt states she is normally compliant with antibiotic treatment and always takes the full dose and does not stockpile her antibiotics. Pt reports this current UTI has been ongoing for awhile and she has been trying to treat it at home with no relief. Pt reports she lives at home with her who helps with her meals. Pt uses a walker at home that she borrowed from a friend. Pt has concerns of diarrhea recently d/t antibiotic use. Pt denies blood in stools. Date Seen 02/13/21 Attending Physician Chinmay Dior MD PCP Mark Hernandez DO Referring Physician Date of Admission Feb 12, 2021 at 21:40 Home Medications & Allergies Home Medications Reviewed patient Home Medication Reconciliation performed by pharmacy medication reconciliations medical laboratory technicians and/or nursing. Patients Allergies have been reviewed. Allergies Allergies Coded Allergies fentanyl (Verified Allergy, Intermediate, HALLUCINATIONS, 09/07/18) hydroxychloroquine (Verified Allergy, Mild, HIVES, 09/07/18) Past Cfvwrid-Mipulq-Fzsmxq Hx Patient Social History Tobacco Use?: No Smoking Status: Never a Smoker Use of E-Cig and/or Vaping dev: No Substance use?: No Alcohol Use?: No Pt feels they are or have been: No Immunizations Up To Date Date of Influenza Vaccine: Mar 14, 2018 First/Initial COVID19 Vaccinat: 07/26/2020 Second COVID19 Vaccination [place]: 08/20/2020 Tetanus Booster (TDap): More Than 5 Years Date of Pneumonia Vaccine: Aug 27, 2014 Seasonal Allergies Seasonal Allergies: No Current Status status: No status: No Advance Directives: No Communicates: Verbally Primary Language: British Preferred Spoken Language: British Is interpretation needed?: No Sensory deficits: Vision impairment Implanted or Applied Medical D: None Past Medical History Surgeries: Gallbladder, Tonsillectomy Currently Using CPAP: No Currently Using BIPAP: No Hypertension Sexually Transmitted Disease: No HIV/AIDS: No UTI-Chronic Gastroesophageal Reflux Arthritis Diabetes, Non-Insulin dep Loss of Vision: Bilateral Hearing Impairment: Denies Colon Did You Recieve Any Treatments: Yes What Type of Treatment Did You: Surgical Intervention Blood Disorders: Yes (anemia) Adverse Reaction/Blood Tranf: No (N/A) Family Medical History Abdominal aortic aneurysm 19 MOTHER Arthritis G8 SISTER Cardiovascular disease 19 FATHER Hypertension 19 FATHER Review of Systems Constitutional: No chills, No fever; malaise EENTM: no symptoms reported Respiratory: No cough, No dyspnea on exertion Cardiovascular: No chest pain, No palpitations Gastrointestinal: No abdominal pain, No constipation, No diarrhea, No nausea, No vomiting Genitourinary: No dysuria; frequency, other (urgency) Musculoskeletal: no symptoms reported Skin: no symptoms reported Physical Exam Physical Exam Vital Signs Vital Signs - First Documented 02/12/21 02/12/21 20:00 20:04 Temp 37.0 Pulse 98 Resp 20 B/P (MAP) 181/121 (141) Pulse Ox 95 O2 Delivery Room Air Capillary Refill : Less Than 3 Seconds Height, Weight, BMI Height: 5'2.00" Weight: 225lbs. 0.0oz. 102.219395qw; 39.54 BMI Method: General Appearance: No Apparent Distress, WD/WN HEENT: PERRL/EOMI Neck: Full Range of Motion, Normal Inspection Respiratory: Chest Non Tender, Normal Breath Sounds, No Accessory Muscle Use, No Respiratory Distress Cardiovascular: Regular Rate, Rhythm, No Murmur, Normal Peripheral Pulses Gastrointestinal: Normal Bowel Sounds, No Organomegaly, No Pulsatile Mass, Non Tender, Soft Extremity: Normal Capillary Refill, Normal Inspection, Non Tender, Pedal Edema (1+ pitting) Neurologic/Psychiatric: Alert, Oriented x3, No Motor/Sensory Deficits, Normal Mood/Affect, clinical transformation specialist II-XII Norm as Tested Skin: Normal Color, Warm/Dry Results Results/Procedures Labs Laboratory Tests 02/12/21 20:08 02/13/21 04:25 Patient resulted labs reviewed. Assessment/Plan Admission Diagnosis UTI Altered Mental Status Reason for Inpatient Admission: UTI, AMS Assessment and Plan UTI AMS Decreased mobility HTN GERD UTI -Pt has chronic UTIs -Urine culture grew Gram negative bacillus, pending sensitivity report -Currently on Ceftriaxone AMS -Resolved Anemia -Will order iron panel Decreased Mobility -Order for walker at home -Physical therapy ordered for rehabilitation HTN -Amlodipine and Metoprolol Hyponatremia -Continue LR Hypercalcemia -Resolved GERD Diarrhea -Will order probiotic KAYE COLVIN MD 02/15/21 1238: History of Present Illness Exam Limitations: no limitations Time Seen by a Provider: 12:34 Past Gtgqrly-Vijbgd-Wahage Hx Family Medical History Abdominal aortic aneurysm 19 MOTHER Arthritis G8 SISTER Cardiovascular disease 19 FATHER Hypertension 19 FATHER Results Results/Procedures Imaging: Reviewed Imaging Report [facility] [place] [place] NAME: LULÚ WARREN MED REC#: [id number] PT STATUS: REG ER : 1945 PHYSICIAN: KATHERINE LOUIS APRN ADMIT DATE: 02/12/21/ER Signed Date of Exam:02/12/21 CT HEAD WO PROCEDURE: CT head without contrast. TECHNIQUE: Multiple contiguous axial images were obtained through the brain without the use of intravenous contrast. Auto Exposure Controls were utilized during the CT exam to meet ALARA standards for radiation dose reduction. INDICATION: Altered mental status. COMPARISON: None available. FINDINGS: No hyperdense hemorrhage or space-occupying mass. No hydrocephalus or midline shift. Symmetric prominence of the ventricles and cortical sulci is compatible with age-appropriate atrophy. No isolated lobar atrophy. No territorial loss of copeland-white matter differentiation to indicate acute/subacute infarct. Periventricular white matter hypoattenuation is most compatible chronic microvascular ischemic disease. The mastoid air cells are clear. Paranasal sinuses are normal. No focal osseous abnormality of the calvarium. IMPRESSION: No acute intracranial process. Dictated by: Dictated on workstation # [id number] Dict: 02/12/212099 Trans: 02/12/212101 [facility] [id number] Interpreted by: JOLEEN SARABIA MD Electronically signed by: JOLEEN SARABIA MD 02/12/212101 [facility] [place], [place] NAME: LULÚ WARREN MED REC#: [id number] PT STATUS: REG ER : 1945 PHYSICIAN: KATHERINE LOUIS ANIMAL CARE GIVER ADMIT DATE: 02/12/21/ER Signed Date of Exam:02/12/21 CHEST 1 VIEW, AP/PA ONLY CHEST 1 VIEW, AP/PA ONLY Indication: Altered mental status Comparison: 08/29/2017 Findings: No focal airspace disease in the visualized lungs. Please note that the posterior lower lobes are poorly evaluated by portable radiography. No pleural effusion or pneumothorax. Normal cardiomediastinal silhouette. Impression: 1. No acute cardiopulmonary process by portable radiography. Dictated by: Dictated on workstation # [id number] Dict: 02/12/212105 Trans: 02/12/212106 [facility] [id number] Interpreted by: JOLEEN SARABIA MD Electronically signed by: JOLEEN SARABIA MD 02/12/212106 Assessment/Plan Admission Diagnosis Admission Status: Inpatient Order (span 2 midnights) Reason for Inpatient Admission: see below Assessment and Plan Patient was admitted to the hospital secondary to urinary tract infection and generalized weakness. She has chronic recurring urinary tract infections and follows with Dr. Gonzalez. She has been treated with IV antibiotics. We will keep her in the hospital and wait for cultures and sensitivities to return. She will be seen by physical therapy and Occupational Therapy. She is requesting home health upon discharge and if appropriate this will be arranged. Diagnosis/Problems Diagnosis/Problems (1) AMS (altered mental status) Status: Resolved Qualifiers: Altered mental status type: unspecified Qualified Codes: R41.82 - Altered mental status, unspecified Resolution Date/Time: 02/14/21 @ 11:11 (2) UTI (urinary tract infection) Status: Acute Qualifiers: Urinary tract infection type: acute cystitis Hematuria presence: without hematuria Qualified Codes: N30.00 - Acute cystitis without hematuria (3) Anemia Status: Chronic Supervisory-Addendum Brief Verification & Attestation Participated in pt care: history, MDM, physical Personally performed: exam, history, MDM, supervision of care Care discussed with: Medical Student Procedures: n/a Results interpretation: Verified all documentation Verification and Attestation of Medical Student E/M Service A medical student performed and documented this service in my presence. I rev iewed and verified all information documented by the medical student and made modifications to such information, when appropriate. I personally performed the physical exam and medical decision making. Kaye Colvin, Feb 15, 2021,12:34 LINDA PEARSON MED STUDENT Feb 13, 2021 09:54 KAYE COLVIN MD Feb 15, 2021 12:38
[2021-02-13 11:36] VITALS: BP 152/70
--- NOTE | 2021-02-13 12:34 | Occupational Therapy Eval ---
OT Evaluation-General/PLF Medical Diagnosis Admission Date Feb 12, 2021 at 21:40 Medical Diagnosis: AMS, UTI Onset Date: Feb 12, 2021 Therapy Diagnosis Therapy Diagnosis: AMS, UTI Height/Weight Height (Feet): 5 Height (Inches): 2.00 Weight (Pounds): 225 Weight (Ounces): 0.0 Precautions Precautions/Isolations: Fall Prevention, Standard Precautions Referral Physician: Barby Referral Reason: Evaluation/Treatment Medical History Pertinent Medical History: Arthritis, DM Additional Medical History Frequent UTI Current History Pt presents to ED d/t dizziness and confusion with UTI symptoms. She reports her daughters were concerned about her and felt she should be evaluated. Pt reports not taking her blood pressure or water pill for three days d/t appointments and not wanting to urinate frequently. Pt has hx of chronic UTI's for which she takes either Bactrim or Ciprofloxacin prescribed by her PCP, Dr. Hernandez. She verbalizes that this current UTI has been ongoing for awhile and she has been trying to treat it at home with no relief. Pt reports she lives in a single story home with her spouse. She was indep with all ADLs except that her assists her with transferring in/out of tub. She shares IADL responsibilities with her spouse, except he will do majority of cooking and grocery shopping. Pt uses a 4ww that she borrowed from a friend. Reviewed History: Yes Social History Home: Single Level Current Living Status: Spouse Entry Into Home: Stairs Without Railing Steps Into Home: 2 ADL-Prior Level of Function SCALE: Activities may be completed with or without assistive devices. 0-Ygzawhaxsq-crizctg completes the activity by him/herself with no assistance from a helper. 5-Set-up or Clean-up Assistance-helper sets up or cleans up; patient completes activity. [place] assists only prior to or following the activity. 4-Supervision or Touching Assistance-helper provides verbal cues and/or touching/steadying and/or contact guard assistance as patient completes activity. Assistance may be provided throughout the activity or intermittently. 3-Partial/Moderate Assistance-helper does LESS THAN HALF the effort. [place] lifts, holds or supports trunk or limbs, but provides less than half the effort. 2-Substantial/Maximal Assistance-helper does MORE THAN HALF the effort. [place] lifts or holds trunk or limbs and provides more than half the effort. 3-Xyspvrtdk-rrjwhn does ALL the effort. Patient does none of the effort to complete the activity. Or, the assistance of 2 or more helpers is required for the patient to complete the activity. If activity was not attempted, code reason: 7-Patient Refused. 9-Not Applicable-not attempted and the patient did not perform the activity before the current illness, exacerbation or injury. 10-Not Attempted due to Environmental Limitations-(lack of equipment, weather restraints, etc.). 88-Not Attempted due to Medical Conditions or Safety Concerns. Self Care: Independent Functional Cognition: Independent DME/Equipment: Bedside Commode, Tub/Shower Pt uses a commode over toilet to increase height. Drive Self: No OT Current Status Subjective "I am feeling so much better today." Pt denies any pain. Appearance Pt left sitting in chair with lunch in front of her. All needs within reach. RN informed. Mental Status/Objective Patient Orientation: Person, Place, Situation Attachments: IV Current Glasses/Contacts: Yes Hand Dominance: Right Upper Extremity ROM WFL Upper Extremity Strength 3+/5 throughout ADL-Treatment Lower Body Dressing (QC): 4 (SBA) On/Off Footwear (QC): 6 Toileting Hygiene (QC): 4 (SBA) Pt sitting in recliner at OT arrival. Able to stand and ambulate to/from bathroom with use of 4ww and SBA. Cue for correct hand placement. Pt able to lower/stand from toilet and manage clothing over hips without assist. Cue to wipe front to back with education provided on UTI's. She stood at the sink for hand hygiene with sup. While sitting in chair, pt able to don/doff milagros socks with use of cross over method. Education on DME and adaptive strategies including purchase of shower chair/tub transfer bench, grab bars, bedrail, and energy conservation strategies. Family in room taking notes and asking letty ropriate questions. Pt reports that she is back at baseline for self cares. No further OT services needed at this time. Education OT Patient Education: Energy conservation, Modified ADL techniques, Progress toward Goal/Update tx plan, Purpose of tx/functional activities Teaching Recipient: Patient, Family Teaching Methods: Demonstration, Discussion Response to Teaching: Verbalize Understanding OT Senior Living Goals Ops Analyst Goals 1=Demonstrate adherence to instructed precautions during ADL tasks. 2=Patient will verbalize/demonstrate understanding of assistive devices/modifications for ADL. 3=Patient will improve strength/tolerance for activity to enable patient to perform ADL's. OT Education/Plan Problem List/Assessment Assessment: Decreased UE Strength Discharge Recommendations Plan/Recommendations: Discharge/Goals Met Therapy Discharge Recommendati: Home & Family Equpiment Recommendations-D/C: Extended Bath Bench, Rails on Tub/Shower, Bath Chair Comment education on bath/tub bench vs shower chair as well as demonstration on how to perform sit method when getting in/out of tub. Treatment Plan/Plan of Care Treatment,Training & Education: Yes Patient would benefit from OT for education, treatment and training to promote independence in ADL's, mobility, safety and/or upper extremity function for ADL's. Plan of Care: ADL Retraining Treatment Duration: Feb 13, 2021 Frequency: 1 time per week Estimated Hrs Per Day: .25 hour per day Agreement: Yes Rehab Potential: Fair Time/GCodes Start Time: 11:37 Stop Time: 12:00 Total Time Billed (hr/min): 23 Billed Treatment Time 1, EVL (10 min), ADL (13 min) Lor Daly OT Feb 13, 2021 12:34
[2021-02-13] MEDS ORDERED: SOLI5TAB7 PO (15:13)
[2021-02-13] MEDS ORDERED: ASPI-1238 PO (15:13)
[2021-02-13] MEDS ORDERED: CEPH250C PO (15:13)
[2021-02-13] MEDS ORDERED: ACET-2267 PO (15:13)
[2021-02-13] MEDS ORDERED: ZINC50TA58 PO (15:13)
[2021-02-13] MEDS ORDERED: L.AC1CAP6 PO (15:13)
[2021-02-13] MEDS ORDERED: CHOL-34 PO (15:13)
[2021-02-13] MEDS ORDERED: ASCO500T17 PO (15:13)
[2021-02-13 16:00] VITALS: BP 148/72
[2021-02-13] MEDS: LACTOBACILLUS ACIDOPHILUS (PROBIOTIC) CAPSULE PO SCH (17:50)
[2021-02-13] MEDS ORDERED: FUROSEMIDE 40 MG (LASIX) TAB PO PRN (19:45)
[2021-02-13] MEDS ORDERED: ACETAMINOPHEN 500 MG TAB (TYLENOL) PO PRN (19:45)
[2021-02-13 20:47] VITALS: BP 170/72
[2021-02-13] MEDS: meTOprolol SUCCINATE 100 MG (TOPROL XL) TAB PO SCH (20:58)
[2021-02-13] MEDS: ENALAPRIL 10 MG (VASOTEC) TAB PO SCH (20:58)
[2021-02-13] MEDS ORDERED: SOLIFENACIN 5 MG TAB (VESICARE) NON-FORMULARY PO SCH (21:00)
[2021-02-13] MEDS ORDERED: cefTRIAXone 1,000 MG/SWFI 10 ML IV PUSH IV SCH ×2 (21:00)
[2021-02-13] MEDS ORDERED: NON-FORMULARY MEDICATION 1 EA EA (Metoprolol Succinate 100 MG) PO SCH (21:00)
[2021-02-13] MEDS ORDERED: FOLIC ACID 1 MG TAB PO SCH (21:00)
[2021-02-13] MEDS ORDERED: NON-FORMULARY MEDICATION 1 EA EA (Enalapril Maleate 20 MG) PO SCH (21:00)
[2021-02-14] VITALS: BP 148/88
[2021-02-14 03:51] VITALS: BP 130/70
[2021-02-14] MEDS ORDERED: TROSPIUM 20 MG (SANCTURA) TAB PO SCH (06:00)
[2021-02-14 08:00] VITALS: BP 157/79
[2021-02-14] MEDS: LACTOBACILLUS ACIDOPHILUS (PROBIOTIC) CAPSULE PO SCH ×2 (08:55→11:57)
[2021-02-14] MEDS: meTOprolol SUCCINATE 100 MG (TOPROL XL) TAB PO SCH (08:55)
[2021-02-14] MEDS: ENOXAPARIN 40 MG/0.4 ML (LOVENOX) SYR SC SCH (08:55)
[2021-02-14] MEDS: ENALAPRIL 10 MG (VASOTEC) TAB PO SCH (08:55)
[2021-02-14] MEDS ORDERED: FUROSEMIDE 40 MG (LASIX) TAB PO SCH (09:00)
[2021-02-14] MEDS ORDERED: PANTOPRAZOLE 20 MG TABLET (PROTONIX) PO SCH (09:00)
[2021-02-14] MEDS ORDERED: NON-FORMULARY MEDICATION 1 EA EA (L.acidoph & Paracasei,B.lactis (Probiotic) 1 EACH) PO SCH (09:00)
[2021-02-14] MEDS ORDERED: amLODIPine 10 MG (NORVASC) TAB PO SCH (09:00)
[2021-02-14] MEDS ORDERED: VITAMIN D3 25 MCG (1,000 UNITS) TABLET PO SCH (09:00)
--- NOTE | 2021-02-14 10:06 | D/C HH Face to Face Order ---
D/C Face to Face Orders Instructions for Patient Via [facility], Patient Instructions/FollowUp: Please continue to take your medications as written. Please follow up with your primary care doctor to follow up this hospital stay. Physician to follow Patient: Dr Hernandez Discharge Diet for Home: No Restrictions Patient Data-Allergies,Ht & Wt Patient Allergies: Coded Allergies: fentanyl (Verified Allergy, Intermediate, HALLUCINATIONS, 09/07/18) hydroxychloroquine (Verified Allergy, Mild, HIVES, 09/07/18) Height (Feet): 5 Height (Inches): 2.00 Weight (Pounds): 225 Weight (Ounces): 0.0 Home Health Need/Face to Face Date of Face to Face: Feb 14, 2021 Clinical Findings: Generalized weakness and fatigue I have seen Pt lcvk-nl-nvqk: Yes Discharged To: Home Diagnosis/Conditions: Recurrent UTIs, weakness Patient is Homebound due to: Muscle weakness Homebound Status Due to the above stated illness, injury or surgical procedure (medical condition or diagnosis) and associated clinical findings, the patient is homebound because of his/her inability to leave home except with aid of a s upportive device and/or person AND leaving the home requires a considerable and taxing effort or is medically contraindicated. Pt req the following assistanc: Walker Home Health Nursing Orders Home Health Services Order: Nursing Services, Behavioral Health Tech-Evaluate & Treat, Physical Therapy-Evaluate & Treat Home Health Infusion Therapy Line Start Date: Feb 12, 2021 Therapy Orders Therapy Orders: OT (must have SN or PT order), Physical Therapy Therapy Specific Orders: Eval assistive deivces, Teach enviro modifications/safety, Gait training, Increase strength/endurance Certify Stmt I certify that this patient is under my care and that I, a nurse practitioner or a physician; a glass ribbon machine operator assistant working with me, had a face to face encounter that - meets the physician face to face encounter requirements with this patient as dated. KAYE GARZA MD Feb 14, 2021 10:06
[2021-02-14] MEDS ORDERED: CEFD300C3 PO (11:04)
[2021-02-14] MEDS ORDERED: CEPH250C PO (11:04)
--- NOTE | 2021-02-14 11:10 | Discharge Summary ---
LINDA PEARSON MED STUDENT 02/14/21 1110: Diagnosis/Chief Complaint Date of Admission Feb 12, 2021 at 21:40 Date of Discharge Discharge Date: Feb 14, 2021 Admission Diagnosis UTI Altered Mental Status Primary Care Mark Hernandez DO Discharge Diagnosis UTI Anemia Decreased mobility HTN GERD (1) UTI (urinary tract infection) Status: Acute Assessment & Plan: D/c with PO Cefdinir 300mg q24hr x7 days Continue taking probiotic at home (2) Anemia Status: Chronic Assessment & Plan: Likely d/t methotrexate use (3) AMS (altered mental status) Status: Resolved Discharge Summary Discharge Physical Exam Allergies: Coded Allergies: fentanyl (Verified Allergy, Intermediate, HALLUCINATIONS, 09/07/18) hydroxychloroquine (Verified Allergy, Mild, HIVES, 09/07/18) Vitals & I&Os Vital Signs Date Time Temp Pulse Resp B/P (MAP) Pulse Ox O2 Delivery O2 Flow Rate FiO2 02/14/21 08:00 36.7 52 20 157/79 (105) 93 Room Air General Appearance: No Apparent Distress, WD/WN HEENT: PERRL/EOMI Respiratory: Chest Non Tender, Lungs Clear, Normal Breath Sounds, No Accessory Muscle Use, No Respiratory Distress Cardiovascular: Regular Rate, Rhythm, No Murmur, Normal Peripheral Pulses Gastrointestinal: Normal Bowel Sounds, No Organomegaly, No Pulsatile Mass, Non Tender, Soft Extremity: Normal Capillary Refill, Normal Inspection, Non Tender, No Pedal Edema Skin: Normal Color, Warm/Dry Neurologic/Psychiatric: Alert, Oriented x3, No Motor/Sensory Deficits, Normal Mood/Affect, pulpwood dealer II-XII Norm as Tested Hospital Course Labs (last 24 hrs) Microbiology 02/12/21 Blood Culture - Preliminary, Resulted No growth 02/12/21 Urine Culture - Preliminary, Resulted 3 or more isolates Patient resulted labs reviewed. Discharge Home Medications: Active Scripts Active Cefdinir 300 Mg Capsule 300 Mg PO BID Cephalexin 250 Mg Capsule 250 Mg PO DAILY 30 Days resume after completing Cefdinir Reported Vitamin D3 (Cholecalciferol (Vitamin D3)) 25 Mcg Tablet 25 Mcg PO DAILY Vitamin C (Ascorbic Acid) 500 Mg Tablet 500 Mg PO DAILY Zinc 50 Mg Tablet 50 Mg PO DAILY Tylenol Extra Strength (Acetaminophen) 500 Mg Tablet 1,000 Mg PO Q8H PRN Probiotic (L.acidoph & Paracasei,B.lactis) 1 Each Capsule 1 Each PO DAILY Solifenacin Succinate 5 Mg Tablet 5 Mg PO HS Aspirin EC (Aspirin) 81 Mg Tablet.dr 81 Mg PO HS Methotrexate (Methotrexate Sodium) 2.5 Mg Tablet 5 Mg PO FRI TAKES 2 (2.5MG) TABS Furosemide 40 Mg Tablet 40 Mg PO DAILY PRN MAY TAKE AN ADDITIONAL DOSE NEEDED Furosemide 40 Mg Tablet 40 Mg PO DAILY Folic Acid 1 Mg Tablet 1 Mg PO HS Meloxicam 15 Mg Tablet 15 Mg PO DAILY Omeprazole 20 Mg Tablet.dr 20 Mg PO DAILY Enalapril Maleate 20 Mg Tablet 20 Mg PO BID Metoprolol Succinate 200 Mg Tab.er.24h 100 Mg PO BID TAKES OF A 200MG TAB Atorvastatin Calcium 40 Mg Tablet 40 Mg PO HS Amlodipine Besylate 10 Mg Tablet 10 Mg PO DAILY Metformin HCl ER (Metformin HCl) 500 Mg Tab.er.24h 1,000 Mg PO BID TAKES 2 (500MG) TABS Instructions to patient/family Please see electronic discharge instructions given to patient. HOLLIE COLVIN MD 02/16/21 5108: Discharge Summary Discharge Physical Exam Allergies: Coded Allergies: fentanyl (Verified Allergy, Intermediate, HALLUCINATIONS, 09/07/18) hydroxychloroquine (Verified Allergy, Mild, HIVES, 09/07/18) Hospital Course Patient was admitted secondary to generalized weakness and confusion due to urinary tract infection. She was treated with IV antibiotics and did very well. Her symptoms resolved. She is able to be discharged home on oral antibiotics. She was set up with home health for transition from hospital to home. She is to follow-up with her primary care doctor to follow-up this hospital stay she specifically asked about coming off some of her chronic medicines and it was recommended that she do this in conjunction with her primary physician. Discussion & Recommendations Discharge Planning: >30 minutes discharge planning Supervisory-Addendum Brief Verification & Attestation Participated in pt care: history, MDM, physical Personally performed: exam, history, MDM, supervision of care Care discussed with: Medical Student Procedures: n/a Results interpretation: Verified all documentation Verification and Attestation of Medical Student E/M Service A medical student performed and documented this service in my presence. I reviewed and verified all information documented by the medical student and made modifications to such information, when appropriate. I personally performed the physical exam and medical decision making. Hollie Colvin, Feb 16, 2021,13:57 Problem Qualifiers (1) UTI (urinary tract infection): Urinary tract infection type: acute cystitis Hematuria presence: without hematuria Qualified Codes: N30.00 - Acute cystitis without hematuria (2) AMS (altered mental status): Altered mental status type: unspecified Qualified Codes: R41.82 - Altered mental status, unspecified LINDA PEARSON MED STUDENT Feb 14, 2021 11:10 HOLLIE COLVIN MD Feb 16, 2021 13:58
--- NOTE | 2021-02-14 11:45 | Physical Therapy Daily Note ---
PT Daily Note-Current Subjective Patient in recliner pre tx, agrees to PT, has no complaints of pain. Appearance Patient in recliner post tx with nurse call, phone, tray, all needs met. Mental Status Patient Orientation: Person, Place, Situation Attachments: IV Transfers SCALE: Activities may be completed with or without assistive devices. 2-Xbnpifvfvu-nruaolu completes the activity by him/herself with no assistance from a helper. 5-Set-up or Clean-up Assistance-helper sets up or cleans up; patient completes activity. [place] assists only prior to or following the activity. 4-Supervision or Touching Assistance-helper provides verbal cues and/or touching/steadying and/or contact guard assistance as patient completes activity. Assistance may be provided throughout the activity or intermittently. 3-Partial/Moderate Assistance-helper does LESS THAN HALF the effort. [place] lifts, holds or supports trunk or limbs, but provides less than half the effort. 2-Substantial/Maximal Assistance-helper does MORE THAN HALF the effort. [place] lifts or holds trunk or limbs and provides more than half the effort. 9-Qhqueybxz-amqxpk does ALL the effort. Patient does none of the effort to complete the activity. Or, the assistance of 2 or more helpers is required for the patient to complete the activity. If activity was not attempted, code reason: 7-Patient Refused. 9-Not Applicable-not attempted and the patient did not perform the activity before the current illness, exacerbation or injury. 10-Not Attempted due to Environmental Limitations-(lack of equipment, weather restraints, etc.). 88-Not Attempted due to Medical Conditions or Safety Concerns. Sit to Stand (QC): 4 Chair/Lrk-xg-Psumd Xfer(QC): 4 SBA Gait Training Distance: 200' Walk 10 feet (QC): 4 Walk 50 ft with 2 Turns(QC): 4 Walk 150 ft (QC): 4 Gait Assistive Device: Walker 4 Wheeled slow but steady ambulation. Patient states she is being discharged from the hospital later today. 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 Time Frame: Feb 20, 2021 Roll Left & Right (QC): 6 Sit to Lying (QC): 6 Lying-Sitting on Side/Bed(QC): 6 Sit to Stand (QC): 6 Chair/Hfj-ef-Wxvak Xfer(QC): 6 Walk 10 feet (QC): 6 Walk 50ft with 2 Turns (QC): 6 Walk 150 ft (QC): 6 PT Plan Problem List Problem List: Activity Tolerance, Functional Strength, Safety, Balance, Gait, Transfer Treatment/Plan Treatment Plan: Continue Plan of Care Treatment Plan: Bed Mobility, Education, Functional Activity Livia, Functional Strength, Gait, Safety, Therapeutic Exercise, Transfers Treatment Duration: Feb 20, 2021 Frequency: 6 times per week Estimated Hrs Per Day: .25 hour per day Patient and/or Family Agrees t: Yes Safety Risks/Education Patient Education: Gait Training, Transfer Techniques, Correct Positioning, Safety Issues Teaching Recipient: Patient Teaching Methods: Demonstration, Discussion Response to Teaching: Reinforcement Needed Time/GCodes Time In: 1106 Time Out: 1116 Total Billed Treatment Time: 10 Total Billed Treatment 1 visit GT 10' RAEGAN WHYTE PT Feb 14, 2021 11:45
[2021-02-14 13:05] VITALS: BP 157/79
== END 2021-02-14 13:05 | disposition home health service (06) | DRG 690 ==
LOC: EDUNIT# 19:57 → ER 20:01 → 4TH 21:40
PROVIDERS: ADMIT Internal Medicine; ATTEND Internal Medicine
DX: N39.0 Urinary tract infection, site not specified (principal); E87.1 Hypo-osmolality and hyponatremia; D64.9 Anemia, unspecified; I10 Essential (primary) hypertension; K21.9 Gastro-esophageal reflux disease without esophagitis; R41.82 Altered mental status, unspecified; T45.1X5A Adverse effect of antineoplastic and immunosuppressive drugs, initial encounter; M19.90 Unspecified osteoarthritis, unspecified site; E11.9 Type 2 diabetes mellitus without complications; E83.52 Hypercalcemia; R19.7 Diarrhea, unspecified; Z79.82 Long term (current) use of aspirin; Z79.899 Other long term (current) drug therapy; Z79.84 Long term (current) use of oral hypoglycemic drugs
CPT/HCPCS: 36415; 70450; 71045; 80048; 80053; 81000; 83605; 85025; 85610; 85730; 87040; 87088

== ENCOUNTER 2021-03-18 20:51 | Inpatient (IN) | payer MEDICARE, BC ==
[~2021-03-18] VITALS: Ht 157.5 cm; Wt 96.5 kg
[~2021-03-18 20:51] MED LIST changes: +ACET-2267 PO; +ASCO500T17 PO; +ASPI-1238 PO; +CEFD300C3 PO; +CEPH250C PO; +CHOL-34 PO; +L.AC1CAP6 PO; +SOLI5TAB7 PO; +ZINC50TA58 PO
[2021-03-18] MEDS ORDERED: LACTATED RINGERS 1,000 ML IV ONE (21:00)
--- NOTE | 2021-03-18 21:09 | ED General ---
General Stated Complaint: AMS Source of Information: Family (DAUGHTER) Exam Limitations: Other (PT IS MINIMALLY VERBAL/ALTERED MENTAL STATUS AND UNABLE TO PROVIDE ANY INFORMATION) History of Present Illness Date Seen by Provider: Mar 18, 2021 Time Seen by Provider: 20:53 Initial Comments PT ARRIVES VIA EMS FROM HOME, WITH DAUGHTER RIDING IN AMBULANCE WITH HER PT LIVES WITH HER DAUGHTER STATES THAT YESTERDAY MORNING AT 0800, PT "DIDN'T FEEL WELL" BUT NO SPECIFIC SYMPTOMS CHECKED ON HER TODAY, AND PT'S REPORTED THAT SHE HAD NOT BEEN OUT OF BED SINCE 1430 TODAY AND IS TOO WEAK TO STAND PT HAS BEEN CONFUSED TODAY AND MINIMALLY VERBAL WAS REPORTED TO DAUGHTER THAT PT WAS UP MULTIPLE TIMES DURING THE NIGHT TO URINATE, AND HAS BEEN INCONTINENT OF URINE SINCE YESTERDAY HAS HAD MINIMAL INTAKE SINCE YESTERDAY--ONLY A LITTLE BIT OF TOAST TODAY, AND U NKNOWN HOW MUCH FLUID INTAKE SHE HAS HAD OVER THE LAST 2 DAYS NO REPORTED VOMITING OR DIARRHEA FAMILY UNAWARE OF FEVER--TEMP IS 39.7/103.4 DEGREES ON ARRIVAL HERE PT WITH CHRONIC UTI'S OVER THE LAST YEAR OR SO, AND IS FOLLOWED BY DR. MURILLO, AND HAD BEEN ON KEFLEX FOR MAINTENANCE, BUT IS UNCLEAR IF PT HAS BEEN TAKING OR NOT PT ADMITTED 02/12-02/14/21 FOR UTI AND SIMILAR SYMPTOMS TODAY, BUT IS WORSE TODAY THAN SHE WAS WHEN SHE WAS ADMITTED THEN--MORE WEAK AND CONFUSED THIS TIME. URINE CULTURE GREW OUT > 3 ISOLATES/CONTAMINATED SPECIMEN PT IS DIABETIC, ON ORAL MEDICATIONS AND HAS RHEUMATOID ARTHRITIS, NO METHOTREXATE PT DX WITH COLON CANCER IN 2018--S/P SURGERY. NO CHEMO OR RADIATION PT HAS HAD BOTH COVID-19 VACCINES PCP: DR. PARRA UROLOGIST: DR. MURILLO SURGEON: DR. PIERCE Allergies and Home Medications Allergies Coded Allergies: fentanyl (Verified Allergy, Intermediate, HALLUCINATIONS, 09/07/18) hydroxychloroquine (Verified Allergy, Mild, HIVES, 09/07/18) Patient Home Medication List Home Medication List Reviewed: Yes Acetaminophen (Tylenol Extra Strength) 500 Mg Tablet, 1,000 MG PO Q8H PRN for PAIN-MILD (1-4), (Reported) Entered as Reported by: FIDELINA WATSON on 02/13/21 1513 Amlodipine Besylate (Amlodipine Besylate) 10 Mg Tablet, 10 MG PO DAILY, (Reported) Entered as Reported by: THAI ARREOLA on 08/05/17 1206 Ascorbic Acid (Vitamin C) 500 Mg Tablet, 500 MG PO DAILY, (Reported) Entered as Reported by: FIDELINA WATSON on 02/13/21 151 Aspirin (Aspirin EC) 81 Mg Tablet.dr, 81 MG PO HS, (Reported) Entered as Reported by: FIDELINA WATSON on 02/13/21 151 Atorvastatin Calcium (Atorvastatin Calcium) 40 Mg Tablet, 40 MG PO HS, (Reporte d) Entered as Reported by: THAI ARREOLA on 08/05/17 120 Cefdinir (Cefdinir) 300 Mg Capsule, 300 MG PO BID Prescribed by: KAYE GARZA on 02/14/21 110 Cephalexin (Cephalexin) 250 Mg Capsule, 250 MG PO DAILY Prescribed by: KAYE GARZA on 02/14/21 1104 Cholecalciferol (Vitamin D3) (Vitamin D3) 25 Mcg Tablet, 25 MCG PO DAILY, (Reported) Entered as Reported by: FIDELINA WATSON on 02/13/21 151 Enalapril Maleate (Enalapril Maleate) 20 Mg Tablet, 20 MG PO BID, (Reported) Entered as Reported by: THAI ARREOLA on 08/05/17 1206 Folic Acid (Folic Acid) 1 Mg Tablet, 1 MG PO HS, (Reported) Entered as Reported by: THAI ARREOLA on 08/05/17 1242 Furosemide (Furosemide) 40 Mg Tablet, 40 MG PO DAILY, (Reported) Entered as Reported by: THAI ARREOLA on 08/05/17 1242 Furosemide (Furosemide) 40 Mg Tablet, 40 MG PO DAILY PRN for SWELLING, (Reported) Entered as Reported by: JASIEL ORR on 08/27/17 1119 L.acidoph & Paracasei,B.lactis (Probiotic) 1 Each Capsule, 1 EACH PO DAILY, (Reported) Entered as Reported by: FIDELINA WATSON on 02/13/21 151 Meloxicam (Meloxicam) 15 Mg Tablet, 15 MG PO DAILY, (Reported) Entered as Reported by: THAI ARREOLA on 08/05/17 1242 Metformin HCl (Metformin HCl ER) 500 Mg Tab.er.24h, 1,000 MG PO BID, (Reported) Entered as Reported by: THAI ARREOLA on 08/05/17 1206 Methotrexate Sodium (Methotrexate) 2.5 Mg Tablet, 5 MG PO FRI, (Reported) Entered as Reported by: JESSICA MONTAGUE on 09/07/18 0943 Metoprolol Succinate (Metoprolol Succinate) 200 Mg Tab.er.24h, 100 MG PO BID, (Reported) Entered as Reported by: THAI ARREOLA on 08/05/17 1206 Omeprazole (Omeprazole) 20 Mg Tablet.dr, 20 MG PO DAILY, (Reported) Entered as Reported by: THAI ARREOLA on 08/05/17 1242 Solifenacin Succinate (Solifenacin Succinate) 5 Mg Tablet, 5 MG PO HS, (Reported) Entered as Reported by: FIDELINA WATSON on 02/13/21 1513 Zinc (Zinc) 50 Mg Tablet, 50 MG PO DAILY, (Reported) Entered as Reported by: FIDELINA WATSON on 02/13/21 1513 Review of Systems Review of Systems Constitutional: see HPI, malaise, weakness Past Thvxxzk-Drsxat-Ogzicu Hx Immunizations Up To Date Tetanus Booster (TDap): Unknown First/Initial COVID19 Vaccinat: 07/26/2020 Second COVID19 Vaccination [place]: 08/20/2020 Seasonal Allergies Seasonal Allergies: No Past Medical History Surgery/Hospitalization HX: Colon resection, galbladder, tonsilectomy, Surgeries: Yes (cystoscopy, CATARACTS, COLON RESECTION) Abdominal, Bladder Surgery, Bowel Surgery, Eye Surgery, Gallbladder, Tonsillectomy Respiratory: No Currently Using CPAP: No Currently Using BIPAP: No Cardiac: Yes High Cholesterol, Hypertension 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 Sexually Transmitted Disease: No HIV/AIDS: No Genitourinary: Yes UTI-Chronic Gastrointestinal: Yes (COLON CANCER DX 2018) Gastroesophageal Reflux Musculoskeletal: Yes (ON METHOTREXATE) Arthritis, Rheumatoid Arthritis Endocrine: Yes Diabetes, Non-Insulin dep HEENT: Yes (READING GLASSES; S/P CATARACT SURGERY) Cataract Loss of Vision: Bilateral Hearing Impairment: Denies Cancer: Yes Colon Did You Recieve Any Treatments: Yes What Type of Treatment Did You: Surgical Intervention COLON CANCER DX 2018--S/P RIGHT HEMICOLECTOMY Psychosocial: No Integumentary: No Blood Disorders: Yes (anemia) Adverse Reaction/Blood Tranf: No (N/A) Family Medical History Abdominal aortic aneurysm 19 MOTHER Arthritis G8 SISTER Cardiovascular disease 19 FATHER Hypertension 19 FATHER PAST SURGICAL HISTORY: -LAPAROSCOPIC RIGHT HEMICOLECTOMY [address] PIERCE -CHOLECYSTECTOMY -TONSILLECTOMY -CATARACT SURGERY -CYSTOSCOPIES -EGD/COLONOSCOPY 2013 Physical Exam Vital Signs Vital Signs - First Documented 03/18/21 20:52 Temp 39.7 Pulse 74 Resp 22 B/P (MAP) 142/62 (88) Pulse Ox 96 O2 Delivery Room Air Capillary Refill : Height, Weight, BMI Height: 5'2.00" Weight: 225lbs. 0.0oz. [id number]; 39.54 BMI Method: General Appearance: No Apparent Distress, Obese, Other (LETHARGIC, NOT REALLY TALKING. PT IS VERY WARM AND FACE IS VERY FLUSHED) HEENT: PERRL/EOMI Neck: Normal Inspection Respiratory: Normal Breath Sounds, No Accessory Muscle Use, No Respiratory Di stress Cardiovascular: Regular Rate, Rhythm, No Edema, No Murmur Gastrointestinal: Non Tender, Soft Genital/Rectal: Other (HAS EXTENSIVE ERYTHEMA, MACERATION/SKIN BREAK DOWN, WITH A FEW SATELLITE LESIONS TO ENTIRE GENITAL/RECTAL AREA-FROM MONS TO PERIRECTAL AREA. ) Back: No CVA Tenderness Extremity: Normal Capillary Refill, No Pedal Edema Neurologic/Psychiatric: Other (AWAKE, BUT IS LETHARGIC AND NOT REALLY TALKING OR FOLLOWING COMMANDS, APPEARS TO RECOGNIZE DAUGHTERF) Skin: Normal Color (FLUSHED), Warm/Dry (VERY WARM); No Rash Focused Exam Sepsis Stage: Severe Sepsis Possible Source: Genitouriary Lactate Level 03/18/21 21:11: Lactic Acid Level 0.99 Time of Focused Exam: 22:30 Respiratory: Normal Breath Sounds, No Accessory Muscle Use, No Respiratory Distress Cardiovascular: Regular Rate, Rhythm, No Edema, No Murmur Capillary Refill: Less Than 3 Seconds Skin: normal color, warm/dry Lactic Acid Level Laboratory Tests Test 03/18/21 21:11 Lactic Acid Level 0.99 MMOL/L (0.50-2.00) Within 3hrs of presentation: Admin fluids, Admin ABX, Blood cultures prior to ABX's, Focus exam, Lactate level Progress/Results/Core Measures Suspected Sepsis SIRS Temperature: Pulse: Respiratory Rate: Laboratory Tests 03/18/21 21:11: White Blood Count 2.3L Blood Pressure / Mean: 03/18/21 21:11: Lactic Acid Level 0.99 Laboratory Tests 03/18/21 21:11: Creatinine 2.90H, INR Comment 1.2, Platelet Count 216, Total Bilirubin 0.7 Results/Orders Lab Results Laboratory Tests Test 03/18/21 21:11 03/18/21 21:52 03/18/21 21:54 Range/Units White Blood Count 2.3 L 4.3-11.0 10^3/uL Red Blood Count 3.27 L 3.80-5.11 10^6/uL Hemoglobin 9.4 L 11.5-16.0 g/dL Hematocrit 29 L 35-52 % Mean Corpuscular Volume 88 80-99 fL Mean Corpuscular Hemoglobin 29 25-34 pg Mean Corpuscular Hemoglobin Concent 33 32-36 g/dL Red Cell Distribution Width 15.4 H 10.0-14.5 % Platelet Count 216 130-400 10^3/uL Mean Platelet Volume 9.8 9.0-12.2 fL Immature Granulocyte % (Auto) 0 % Neutrophils (%) (Auto) 28 L 42-75 % Lymphocytes (%) (Auto) 62 H 12-44 % Monocytes (%) (Auto) 5 0-12 % Eosinophils (%) (Auto) 4 0-10 % Basophils (%) (Auto) 0 0-10 % Neutrophils # (Auto) 0.6 L 1.8-7.8 10^3/uL Lymphocytes # (Auto) 1.4 1.0-4.0 10^3/uL Monocytes # (Auto) 0.1 0.0-1.0 10^3/uL Eosinophils # (Auto) 0.1 0.0-0.3 10^3/uL Basophils # (Auto) 0.0 0.0-0.1 10^3/uL Immature Granulocyte # (Auto) 0.0 0.0-0.1 10^3/uL Neutrophils % (Manual) 22 % Lymphocytes % (Manual) 65 % Monocytes % (Manual) 5 % Eosinophils % (Manual) 8 % Blood Morphology Comment NORMAL Erythrocyte Sedimentation Rate 90 H 0-30 MM/HR Prothrombin Time 15.5 H 12.2-14.7 SEC INR Comment 1.2 0.8-1.4 Activated Partial Thromboplast Time 30 24-35 SEC Sodium Level 131 L 135-145 MMOL/L Potassium Level 6.0 H 3.6-5.0 MMOL/L Chloride Level 106 98-107 MMOL/L Carbon Dioxide Level 12 L 21-32 MMOL/L Anion Gap 13 5-14 MMOL/L Blood Urea Nitrogen 80 H 7-18 MG/DL Creatinine 2.90 H 0.60-1.30 MG/DL Estimat Glomerular Filtration Rate 16 BUN/Creatinine Ratio 28 Glucose Level 142 H 70-105 MG/DL Lactic Acid Level 0.99 0.50-2.00 MMOL/L Calcium Level 9.2 8.5-10.1 MG/DL Corrected Calcium 9.8 8.5-10.1 MG/DL Magnesium Level 1.9 1.6-2.4 MG/DL Total Bilirubin 0.7 0.1-1.0 MG/DL Aspartate Amino Transf (AST/SGOT) 38 H 5-34 U/L Alanine Aminotransferase (ALT/SGPT) 52 0-55 U/L Alkaline Phosphatase 77 40-136 U/L Lactate Dehydrogenase 268 H 125-220 U/L Total Creatine Kinase 54 29-168 U/L Creatine Kinase MB 0.6 <6.6 NG/ML Myoglobin 90.7 10.0-92.0 NG/ML Troponin I < 0.028 <0.028 NG/ML C-Reactive Protein High Sensitivity 12.18 H 0.00-0.50 MG/DL Total Protein 7.9 6.4-8.2 GM/DL Albumin 3.3 3.2-4.5 GM/DL Amylase Level 34 25-125 U/L Lipase 13 8-78 U/L Beta-Hydroxybutyrate (Chem panel) 0.51 H 0.00-0.27 MMOL/L Procalcitonin 0.32 H <0.10 NG/ML TSH [place] Testing 1.62 0.35-4.94 UIU/ML Urine Color YELLOW Urine Clarity CLEAR Urine pH 6.0 5-9 Urine Specific [place] 1.020 1.016-1.022 Urine Protein 2+ H NEGATIVE Urine Glucose (UA) 1+ H NEGATIVE Urine Ketones NEGATIVE NEGATIVE Urine Nitrite NEGATIVE NEGATIVE Urine Bilirubin NEGATIVE NEGATIVE Urine Urobilinogen 0.2 < = 1.0 MG/DL Urine Leukocyte Esterase 2+ H NEGATIVE Urine RBC (Auto) 3+ H NEGATIVE Urine RBC 0 /HPF Urine WBC >100 H /HPF Urine Squamous Epithelial Cells NONE /HPF Urine Renal Epithelial Cells NONE /HPF Urine Crystals NONE /LPF Urine Bacteria NEGATIVE /HPF Urine Casts NONE /LPF Urine Mucus NEGATIVE /LPF Urine Culture Indicated CULTURE PENDING SARS-CoV-2 RNA (RT-PCR) Not Detected Not Detecte My Orders Orders - PRISCILA NUNEZ DO Ed Iv/Invasive Line Start (03/18/21 20:53) Ekg Tracing (03/18/21 20:53) Catheter(Urinary) Insert & Ass 03,15 (03/18/21 20:53) Ct Head Wo-R/O Stroke (03/18/21 20:53) Amylase (03/18/21 20:53) Cbc With Automated Diff (03/18/21 20:53) Comprehensive Metabolic Panel (03/18/21 20:53) Creatine Kinase (03/18/21 20:53) Creatine Kinase Mb (03/18/21 20:53) Hs C Reactive Protein (03/18/21 20:53) Lactic Acid Analyzer (03/18/21 20:53) Lipase (03/18/21 20:53) Magnesium (03/18/21 20:53) Thyroid Analyzer (03/18/21 20:53) Ua Culture If Indicated (03/18/21 20:53) Erythrocyte Sedimentation Rate (03/18/21 20:53) Myoglobin Serum (03/18/21 20:53) Troponin I (03/18/21 20:53) Chest 1 View, Ap/Pa Only (03/18/21 20:53) Procalcitonin (Pct) (03/18/21 20:53) LDH (03/18/21 20:53) Blood Culture (03/18/21 20:53) Covid 19 Inhouse Test (03/18/21 20:53) Urine Culture (03/18/21 20:53) Protime With Inr (03/18/21 20:53) Partial Thromboplastin Time (03/18/21 20:53) Ed Iv/Invasive Line Start (03/18/21 20:53) Vital Signs Adult Sepsis Patie Q15M (03/18/21 20:53) O2 (03/18/21 20:53) Remove Rings In Anticipation O (03/18/21 20:53) Lactated Ringers (Lr 1000 Ml Iv Solution (03/18/21 21:00) Acetaminophen Tablet (Tylenol Tablet) (03/18/21 21:15) Ibuprofen Tablet (Motrin Tablet) (03/18/21 21:15) Lidocaine 2% Viscous 15 Ml (Xylocaine Vi (03/18/21 21:30) Manual Differential (03/18/21 21:11) Ct Chest/Abdomen/Pelvis Wo (03/18/21 21:57) Cefepime Injection (Maxipime Injection) (03/18/21 22:45) Beta Hydroxybutyrate (03/18/21 22:40) D50w (Emergency) Syringe (Dextrose 50% 5 (03/18/21 22:45) Insulin (Regular) Human (Novolin R (Per (03/18/21 22:45) Calcium Chloride 10% Injection (Calcium (03/18/21 22:45) Sodium Polystyrene Sulfonate (Kayexalate (03/18/21 22:45) Ed Iv/Invasive Line Start (03/18/21 22:47) Ns Iv 1000 Ml (Sodium Chloride 0.9%) (03/18/21 23:00) Medications Given in ED Current Medications Medications Dose Ordered Sig/Faiza Route Start Time Stop Time Status Last Admin Dose Admin Acetaminophen 1,000 mg ONCE ONCE PO 03/18/21 21:15 03/18/21 21:16 DC 03/18/21 21:45 1,000 MG Calcium Chloride 1 gm ONCE ONCE INJ 03/18/21 22:45 03/18/21 22:46 DC 03/19/21 00:51 1 GM Cefepime HCl 1000 mg/Sterile Water 10 ml @ 200 mls/hr ONCE ONCE IV 03/18/21 22:45 03/18/21 22:47 DC 03/18/21 22:56 200 MLS/HR Dextrose 50 ml ONCE ONCE IV 03/18/21 22:45 03/18/21 22:46 DC 03/18/21 23:09 50 ML Ibuprofen 800 mg ONCE ONCE PO 03/18/21 21:15 03/19/21 00:41 DC 03/18/21 21:45 800 MG Insulin Human Regular 10 unit ONCE ONCE IV 03/18/21 22:45 03/18/21 22:46 DC 03/18/21 23:09 10 UNIT Lactated Ringer's 1,000 ml @ 0 mls/hr Q0M ONCE IV 03/18/21 21:00 03/18/21 21:01 DC 03/18/21 21:46 0 MLS/HR Lidocaine HCl 5 ml ONCE ONCE MM 03/18/21 21:30 03/18/21 21:31 DC 03/18/21 21:33 5 ML Sodium Polystyrene Sulfonate 15 gm ONCE ONCE PO 03/18/21 22:45 03/18/21 22:46 DC 03/18/21 22:56 15 GM Vital Signs/I&O 03/18/21 03/18/21 03/18/21 20:52 21:45 21:45 Temp 39.7 39.7 39.7 Pulse 74 Resp 22 B/P (MAP) 142/62 (88) Pulse Ox 96 O2 Delivery Room Air 03/19/21 00:00 Intake Total 1200 ml Balance 1200 ml Capillary Refill : Progress Note : Progress Note GIVEN IV FLUIDS GIVEN TYLENOL AND MOTRIN FOR FEVER SEPSIS PROTOCOL INITIATED PT IS MUCH MORE VOCAL AND INTERACTIVE AND LESS CONFUSED, EVEN AFTER 1/2 LITER OF FLUIDS PT CONTINUES TO IMPROVE IN MENTATION AND IS BASICALLY BACK TO BASELINE AT TIME OF ADMIT--PT NOT CONFUSED AT ALL, TALKATIVE, AND INTERACTIVE AND MUCH LESS LETHARGIC. NO DETERIORATION IN PT'S CONDITION DURING ER STAY TEMP DOWN WITH FLUIDS AND TYLENOL AND MOTRIN NO HYPOXIA--O2 SATS IN MID TO UPPER 90'S ON ROOM AIR NO HYPOTENSION OR TACHYCARDIA NO DYSPNEA NO COUGH ECG Initial ECG Impression Date: Mar 18, 2021 Initial ECG Impression Time: 21:04 Initial ECG Rate: 71 Initial ECG Rhythm: Normal Sinus (MUCH ARTIFACT DUE TO PT MOVEMENT) EKG : EKG Time: 23:26 Rate: 71 Rhythm: Normal Sinus Diagnostic Imaging Comments CXR--PER RADIOLOGIST REPORT AT 2256 FINDINGS: The heart size is normal. There is some venous congestion. There is no pleural effusion or pneumothorax. The mediastinum is unremarkable. IMPRESSION: Central pulmonary venous congestion. CT HEAD--PER RADIOLOGIST VIA PHONE AT 2230 FINDINGS: The ventricles and cortical sulci are diffusely prominent, compatible with age-related volume loss. There are confluent areas of abnormal, low attenuation in the periventricular white matter. This is consistent with chronic small vessel ischemic changes. There is no midline shift or mass-effect. No acute intra-axial hemorrhage is seen. There are no abnormal areas of increased or decreased density to suggest acute hemorrhage or edema. No extra-axial masses or collections are present. The bony calvarium is intact. The visualized paranasal sinuses are unremarkable. The mastoid air cells are clear. IMPRESSION: 1. No acute intracranial abnormality. No CT evidence of mass, acute infarct or intracranial hemorrhage. 2. Chronic small vessel ischemic changes in the deep white matter. CT CHEST/ABDOMEN /PELVIS--PER RADIOLOGIST REPORT AT 2255 FINDINGS: There are no discrete pulmonary nodules, masses or infiltrates. There are coronary artery calcifications. There is no pleural or pericardial fluid. There is no pneumothorax. There is no pathologically enlarged adenopathy in the chest. The liver is normal in size and without focal lesion. There is cholelithiasis. There is no biliary ductal dilatation. Spleen is normal. Pancreas and adrenal glands are unremarkable. There is bilateral hydronephrosis. There is Winters catheter in the bladder. There is atherosclerotic calcification of the aorta which is nonaneurysmal. There is no free air. There is no ascites. There are no focal inflammatory changes. There is diverticular disease without evidence of diverticulitis. No pelvic mass or adenopathy. There are degenerative changes in the spine. IMPRESSION: No acute cardiopulmonary abnormality. Coronary artery calcification. Cholelithiasis. Bilateral hydronephrosis without evidence of obstructive uropathy. There is a Winters catheter in the bladder. Diverticular disease without evidence of diverticulitis. Reviewed: Reviewed by Ar Departure Communication (Admissions) 2257--SPOKE WITH DR. ESCOBAR, HOSPITALIST, ACCEPTS PT FOR ADMIT. NO ADDITIONAL RECOMMENDATIONS AT THIS TIME. 2309--REPORT TO E-ICU PHYSICIAN, NO ADDITIONAL RECOMMENDATIONS AT THIS TIME Impression Primary Impression: Severe sepsis Additional Impressions: Dehydration Acute renal failure AMS (altered mental status) UTI (urinary tract infection) Anemia Hyperkalemia Hyponatremia Acidosis SEVERE RASH IN MARCOS AREA NIDDM History of colon cancer Rheumatoid arthritis Disposition: ADMITTED INPATIENT Condition: Improved Admissions Decision to Admit Reason: Admit from ER (General) Decision to Admit/Date: Mar 18, 2021 Time/Decision to Admit Time: 23:00 Departure-Patient Inst. Referrals: JEFFREY PARRA DO (PCP/Family) Primary Care Physician PRISCILA NUNEZ DO Mar 18, 2021 21:09
[2021-03-18] MEDS ORDERED: ACETAMINOPHEN 500 MG TAB (TYLENOL) PO ONE (21:15)
[2021-03-18] MEDS ORDERED: IBUPROFEN 800 MG (MOTRIN) TAB PO ONE (21:15)
[2021-03-18 21:30] LABS: BASOPHILS % (AUTO) 0 % (0-10); EOSINOPHILS # (AUTO) 0.1 10^3/uL (0.0-0.3); EOSINOPHILS % (AUTO) 4 % (0-10); HEMATOCRIT 29 % (35-52); HEMOGLOBIN 9.4 g/dL (11.5-16.0); LYMPHOCYTES # (AUTO) 1.4 10^3/uL (1.0-4.0); LYMPHOCYTES % (AUTO) 62 % (12-44); MEAN CORPUSCULAR HEMOGLOBIN 29 pg (25-34); MEAN CORPUSCULAR HGB CONC 33 g/dL (32-36); MEAN CORPUSCULAR VOLUME 88 fL (80-99); MEAN PLATELET VOLUME 9.8 fL (9.0-12.2); MONOCYTES # (AUTO) 0.1 10^3/uL (0.0-1.0); MONOCYTES % (AUTO) 5 % (0-12); NEUTROPHILS # (AUTO) 0.6 10^3/uL (1.8-7.8); NEUTROPHILS % (AUTO) 28 % (42-75); PLATELET COUNT 216 10^3/uL (130-400); WHITE BLOOD COUNT 2.3 10^3/uL (4.3-11.0)
[2021-03-18] MEDS ORDERED: LIDOCAINE 2% VISCOUS 15 ML UDC MM ONE (21:30)
[2021-03-18 21:49] LABS: ALBUMIN 3.3 GM/DL (3.2-4.5); CHLORIDE 106 MMOL/L (98-107); EOSINOPHILS % (MANUAL) 8 %; LYMPHOCYTES % (MANUAL) 65 %; MONOCYTES % (MANUAL) 5 %; NEUTROPHILS % (MANUAL) 22 %; RBC MORPH NORMAL; SODIUM 131 MMOL/L (135-145)
[2021-03-18 21:50] LABS: CALCIUM 9.2 MG/DL (8.5-10.1)
[2021-03-18 21:51] LABS: AMYLASE 34 U/L (25-125)
[2021-03-18 21:52] LABS: GLUCOSE 142 MG/DL (70-105); TOTAL PROTEIN 7.9 GM/DL (6.4-8.2)
[2021-03-18 21:53] LABS: BILIRUBIN,TOTAL 0.7 MG/DL (0.1-1.0); CARBON DIOXIDE 12 MMOL/L (21-32)
[2021-03-18 21:55] LABS: ALKALINE PHOSPHATASE 77 U/L (40-136); GFR ESTIMATED 16
[2021-03-18 21:56] LABS: BUN/CREATININE RATIO 28
[2021-03-18 21:58] LABS: ALANINE AMINOTRANSFERASE 52 U/L (0-55); MAGNESIUM 1.9 MG/DL (1.6-2.4)
[2021-03-18 21:59] LABS: INR 1.2 (0.8-1.4); PROTHROMBIN TIME PATIENT 15.5 SEC (12.2-14.7)
[2021-03-18 22:00] LABS: CREATINE KINASE 54 U/L (29-168); ERYTHROCYTE SEDIMENTATION RATE 90 MM/HR (0-30); LIPASE 13 U/L (8-78)
[2021-03-18 22:07] LABS: CREATINE KINASE MB 0.6 NG/ML (<6.6)
[2021-03-18 22:19] LABS: CLARITY,URINE CLEAR; COLOR,URINE YELLOW; GLUCOSE, URINE (UA) 1+ (NEGATIVE); KETONES,URINE NEGATIVE (NEGATIVE); PROTEIN,URINE 2+ (NEGATIVE)
[2021-03-18 22:20] LABS: BILIRUBIN,URINE NEGATIVE (NEGATIVE); LEUKOCYTE ESTERASE ,URINE 2+ (NEGATIVE); NITRITE,URINE NEGATIVE (NEGATIVE)
[2021-03-18 22:20] LABS: TSH (THYROID ANALYZER) 1.62 UIU/ML (0.35-4.94)
[2021-03-18 22:21] LABS: BACTERIA,URINE NEGATIVE /HPF; RBC,URINE 0 /HPF; WBC,URINE >100 /HPF
--- NOTE | 2021-03-18 22:34 | Diagnostic Imaging Report ---
INDICATION: Altered mental status. Weakness. TECHNIQUE: Routine non contrast-enhanced axial images were obtained from the skull base to the vertex. Auto Exposure Controls were utilized during the CT exam to meet ALARA standards for radiation dose reduction COMPARISON: 02/12/2021 FINDINGS: The ventricles and cortical sulci are diffusely prominent, compatible with age-related volume loss. There are confluent areas of abnormal, low attenuation in the periventricular white matter. This is consistent with chronic small vessel ischemic changes. There is no midline shift or mass-effect. No acute intra-axial hemorrhage is seen. There are no abnormal areas of increased or decreased density to suggest acute hemorrhage or edema. No extra-axial masses or collections are present. The bony calvarium is intact. The visualized paranasal sinuses are unremarkable. The mastoid air cells are clear. IMPRESSION: 1. No acute intracranial abnormality. No CT evidence of mass, acute infarct or intracranial hemorrhage. 2. Chronic small vessel ischemic changes in the deep white matter. Results were discussed with Dr. Page by Dr. Pablo at 2230 on 03/18/2021 Dictated by: Dictated on workstation # [id number]
--- NOTE | 2021-03-18 22:44 | Diagnostic Imaging Report ---
INDICATION: Altered mental status. COMPARISON: 02/12/2021. FINDINGS: The heart size is normal. There is some venous congestion. There is no pleural effusion or pneumothorax. The mediastinum is unremarkable. IMPRESSION: Central pulmonary venous congestion. Dictated by: Dictated on workstation # [id number]
[2021-03-18] MEDS ORDERED: CALCIUM CHLORIDE 1 GM/10 ML (IMS) SYR INJ ONE (22:45)
[2021-03-18] MEDS ORDERED: inSUlin (REGULAR) HUMAN 1 UNIT/0.01 ML (CHARGE PER UNIT) IV ONE (22:45)
[2021-03-18] MEDS ORDERED: DEXTROSE 50% 50 ML (IMS) SYR IV ONE (22:45)
[2021-03-18] MEDS ORDERED: CEFEPIME INJECTION 1,000 MG in WATER (STERILE) FOR INJECTION 10 ML IV ONE (22:45)
[2021-03-18] MEDS ORDERED: SOD POLYSTERENE 15 GM/60 ML (KAYEXALATE) UNIT DOSE PO ONE (22:45)
--- NOTE | 2021-03-18 22:53 | Diagnostic Imaging Report ---
PROCEDURE: CT chest, abdomen, and pelvis without contrast. TECHNIQUE: Multiple contiguous axial images were obtained through the chest, abdomen, and pelvis without the use of intravenous contrast. Auto Exposure Controls were utilized during the CT exam to meet ALARA standards for radiation dose reduction. INDICATION: Colon cancer, fever and UTI. COMPARISON: 11/21/2020 FINDINGS: There are no discrete pulmonary nodules, masses or infiltrates. There are coronary artery calcifications. There is no pleural or pericardial fluid. There is no pneumothorax. There is no pathologically enlarged adenopathy in the chest. The liver is normal in size and without focal lesion. There is cholelithiasis. There is no biliary ductal dilatation. Spleen is normal. Pancreas and adrenal glands are unremarkable. There is bilateral hydronephrosis. There is Winters catheter in the bladder. There is atherosclerotic calcification of the aorta which is nonaneurysmal. There is no free air. There is no ascites. There are no focal inflammatory changes. There is diverticular disease without evidence of diverticulitis. No pelvic mass or adenopathy. There are degenerative changes in the spine. IMPRESSION: No acute cardiopulmonary abnormality. Coronary artery calcification. Cholelithiasis. Bilateral hydronephrosis without evidence of obstructive uropathy. There is a Winters catheter in the bladder. Diverticular disease without evidence of diverticulitis. Dictated by: Dictated on workstation # [id number]
[2021-03-18] MEDS ORDERED: NS IV 1000 ML 1,000 ML IV SCH (23:00)
[2021-03-18 23:55] VITALS: BP 147/93
[2021-03-19] VITALS (15 sets, daily range): BP systolic 77–169; BP diastolic 45–99
[2021-03-19] MEDS ORDERED: IBUPROFEN 800 MG (MOTRIN) TAB PO PRN (00:15)
[2021-03-19 00:23] LABS: ABG BASE EXCESS -10.7 MMOL/L (-2.5-2.5); ABG OXYGEN SATURATION 96 % (94-100); ABG PCO2 29 MMHG (35-45); ABG PO2 89 MMHG (79-93); ABG TCO2 15.2 MMOL/L (21.0-31.0)
[2021-03-19 00:24] LABS: ALLENS TEST YES-POS; PATIENT TEMP 37.9
[2021-03-19 00:27] LABS: ABG PH 7.31 (7.37-7.43); VENTILATOR NO
[2021-03-19] MEDS ORDERED: NS W/KCL 20 MEQ/L 1,000 ML IV SCH (00:30)
[2021-03-19] MEDS ORDERED: ONDANSETRON 4 MG/2 ML (SDV) Z0FRAN IVP PRN (00:30)
[2021-03-19] MEDS ORDERED: NS IV 1000 ML 1,000 ML ONE (00:42)
[2021-03-19] MEDS: NS IV 1000 ML 1,000 ML IV SCH ×2 (00:50→05:52)
--- NOTE | 2021-03-19 01:02 | Tele-ICU Progress Note ---
Progress Note 75F with DM, chronic UTIs, RA, colon ca s/p resection 2018 admitted with sepsis. Feeling unwell since yesterday with nonspecific symptoms. Today confused, minimally verbal, too weak to stand. On arrival, temp 103. Has been on keflex for UTI prophylaxis. COVID negative, +vaccine. - UTI/Sepsis: protocol in place. Cultures pending. cefepime initiated. - DM: on metformin at home. Despite ADRIAN, no evidence of metformin tox with normal glucose and lactic. Will place in insulin sliding scale. - ADRIAN: secondary to hypovolemia vs ATN from sepsis. IVF ongoing. Monitor renal function and UOP, Avoid hypotension and nephrotoxins. - hyperK: Secondary to ADRIAN. Calcium, bicarb, insulin, dextrose, kayexelate given. Will follow up with AM labs (in 3 hours) Focused Exam Lactate Level 03/18/21 21:11: Lactic Acid Level 0.99 Height, Weight, BMI Height: 5'2.00" Weight: 225lbs. 0.0oz. 102.161118dz; 38.00 BMI Method: Time of Focused Exam: 22:30 Lactic Acid Level Laboratory Tests Test 03/18/21 21:11 Lactic Acid Level 0.99 MMOL/L (0.50-2.00) JOSHUA MARIE MD Mar 19, 2021 01:01
[2021-03-19 05:04] LABS: BASOPHILS % (AUTO) 1 % (0-10); EOSINOPHILS # (AUTO) 0.1 10^3/uL (0.0-0.3); EOSINOPHILS % (AUTO) 3 % (0-10); HEMATOCRIT 26 % (35-52); HEMOGLOBIN 8.2 g/dL (11.5-16.0); LYMPHOCYTES # (AUTO) 1.6 10^3/uL (1.0-4.0); LYMPHOCYTES % (AUTO) 62 % (12-44); MEAN CORPUSCULAR HEMOGLOBIN 29 pg (25-34); MEAN CORPUSCULAR HGB CONC 32 g/dL (32-36); MEAN CORPUSCULAR VOLUME 90 fL (80-99); MEAN PLATELET VOLUME 9.5 fL (9.0-12.2); MONOCYTES # (AUTO) 0.1 10^3/uL (0.0-1.0); MONOCYTES % (AUTO) 3 % (0-12); NEUTROPHILS # (AUTO) 0.8 10^3/uL (1.8-7.8); NEUTROPHILS % (AUTO) 30 % (42-75); PLATELET COUNT 176 10^3/uL (130-400); WHITE BLOOD COUNT 2.6 10^3/uL (4.3-11.0)
[2021-03-19 05:28] LABS: POTASSIUM 4.7 MMOL/L (3.6-5.0)
[2021-03-19 05:29] LABS: CALCIUM 9.2 MG/DL (8.5-10.1)
[2021-03-19 05:34] LABS: CREATININE SERUM 2.3 MG/DL (0.60-1.30)
[2021-03-19] MEDS: inSUlin ASPART (NovoLOG) 1 UNIT/0.01 ML (CHARGE PER UNIT) SC SCH ×4 (05:52→21:02)
[2021-03-19] MEDS ORDERED: KCL 20 MEQ TAB (K-DUR) PO SCH (06:00)
[2021-03-19] MEDS ORDERED: MAGNESIUM 1 GM/100 ML IVPB 100 ML IV SCH (06:00)
[2021-03-19] MEDS ORDERED: POTASSIUM CL 10MEQ/50ML IVPB 50 ML IV SCH (06:00)
[2021-03-19] MEDS ORDERED: ENOXAPARIN 30 MG/0.3 ML (LOVENOX) SYR SC SCH (09:00)
[2021-03-19] MEDS: LACTATED RINGERS 1,000 ML IV SCH ×3 (09:42→21:43)
[2021-03-19] MEDS: NYSTATIN CREAM (MYCOSTATIN) 30 GM TUBE TP SCH ×2 (09:42→21:43)
--- NOTE | 2021-03-19 11:11 | Tele-ICU Progress Note ---
Subjective Date Seen by a Provider: Mar 19, 2021 Time Seen by a Provider: 09:38 Sepsis Event Evaluation Height, Weight, BMI Height: 5'2.00" Weight: 225lbs. 0.0oz. 102.842384dj; 42.26 BMI Method: Focused Exam Lactate Level 03/18/21 21:11: Lactic Acid Level 0.99 03/19/21 00:55: Lactic Acid Level 1.37 Time of Focused Exam: 22:30 Exam Exam Patient acknowledged, consented, and participated in this virtual visit which was conducted using real time audio/video Vital Signs Date Time Temp Pulse Resp B/P (MAP) Pulse Ox O2 Delivery O2 Flow Rate FiO2 03/19/21 10:00 64 23 126/48 (74) 98 Nasal Cannula 2.00 03/19/21 09:00 63 12 152/64 (93) 98 Nasal Cannula 2.00 03/19/21 08:00 55 19 123/95 (104) 98 Nasal Cannula 2.00 03/19/21 07:37 36.6 03/19/21 07:00 60 03/19/21 07:00 61 19 126/46 (72) 98 Nasal Cannula 2.00 03/19/21 06:00 Nasal Cannula 2.00 03/19/21 06:00 60 19 126/46 (72) 98 Nasal Cannula 2.00 03/19/21 05:00 62 19 110/45 (66) 97 Nasal Cannula 2.00 03/19/21 04:33 36.6 67 14 154/86 (108) 94 Nasal Cannula 2.00 03/19/21 04:00 65 22 132/49 (76) 95 Room Air 03/19/21 03:55 96 Nasal Cannula 2.00 03/19/21 03:00 66 20 152/70 (97) 97 Room Air 03/19/21 02:45 36.9 69 18 147/93 (111) 95 Room Air 03/19/21 02:00 62 19 169/78 (108) 97 Room Air 03/19/21 01:09 96 Room Air 03/19/21 01:00 65 125/57 (79) 91 Room Air 03/19/21 00:42 64 03/19/21 00:03 37.9 72 19 127/52 95 Room Air 03/19/21 00:00 22 110/60 (77) Room Air 03/18/21 23:55 36.9 69 18 147/93 (111) 95 Room Air 03/18/21 23:50 36.6 03/18/21 23:50 36.6 03/18/21 23:25 38.0 03/18/21 21:45 39.7 03/18/21 21:45 39.7 03/18/21 20:52 39.7 74 22 142/62 (88) 96 Room Air I & O 03/19/21 07:00 Intake Total 3460 ml Output Total 1200 ml Balance 2260 ml Height & Weight Height: 5'2.00" Weight: 225lbs. 0.0oz. 102.511643tx; 42.26 BMI Method: General Appearance: No Apparent Distress, Obese, Other (LETHARGIC, NOT REALLY TALKING. PT IS VERY WARM AND FACE IS VERY FLUSHED) HEENT: PERRL/EOMI Neck: Normal Inspection Respiratory: Normal Breath Sounds, No Accessory Muscle Use, No Respiratory Distress Cardiovascular: Regular Rate, Rhythm, No Edema, No Murmur Capillary Refill: Less Than 3 Seconds Extremity: Normal Capillary Refill, No Pedal Edema Neurologic/Psychiatric: Other (AWAKE, BUT IS LETHARGIC AND NOT REALLY TALKING OR FOLLOWING COMMANDS, APPEARS TO RECOGNIZE DAUGHTERF) Skin: Normal Color (FLUSHED), Warm/Dry (VERY WARM); No Rash Results Lab Laboratory Tests 03/18/21 21:11 03/19/21 04:25 Assessment/Plan Assessment/Plan (Tele-ICU Physician , Progress Note ) Available chart/ vitals / labs / Images reviewed Video assessment done using teleICU camera, rest of exam as per RN Discussed with RN , EXAM PER RN Events overnight : Afebrile I/O = Drips: Pressors: , hemodynamically stable Consultants: Hospital course: 03/19- ER to ICU with ADRIAN , sepsis A/P Sepsis ( immunocompromised - on MTX for RA ) and hydronephrosis - > h/o chronic UTIs - urine cx pending - urology consult ? TME - due to above - resolved ADRIAN- hypovolemia, sepsis - cont hydration HyperKalemia due to above - resolved , follow Metabolic acidosis - ADRIAN, sepsis , not suspected metformin toxicity - with low lactate - follow closely - CT - Bilateral hydronephrosis without evidence of obstructive uropathy. DM II - on metformin home ISS Lines : (Central Line Necessity Reviewed) Winters: OG: Nutritin: Analgesia: Anxiety/ delirium VTE Prophylaxis: lovenox Stress Ulcer Prophylaxis: po Plans in collaboration with bedside consultants and IM MDs. Discussed with RN to reach out if any questions or concerns A total of 25 minutes of critical care time was devoted to this patient today, required to treat and/or prevent further deterioration of critical care condition ( as above) . KEYA SWENSON MD Mar 19, 2021 11:11
[2021-03-19] MEDS ORDERED: fluCOnazole (DIFLUCAN) 100 MG TAB PO ONE (11:30)
[2021-03-19] MEDS: CEFEPIME 1,000 MG/SWFI 10 ML IV PUSH IV SCH ×4 (11:54→23:30)
--- NOTE | 2021-03-19 13:47 | History & Physical ---
SEANSTUART 03/19/21 1347: History of Present Illness History of Present Illness Reason for visit/HPI Pt is a 75yo female with PMH of chronic UTI (last admitted to hospital 02/12 for this), T2DM and colon cancer s/p resection. She states that she woke up 2 days ago feeling very tired and weak, was unable to get out of bed. She reported worsening dysuria, loss of appetite, diarrhea 3x in the last few days and chills. Denies any shortness of breath, cough, vomiting, stomach/back pain or changes in vision. She states that recently she has felt like she needs to urinate "all the time". She has been incontinent of urine for the last 2 day. She recently noticed a rash on her buttocks. She saw Dr. Gonzalez with urology last week for her chronic UTIs, who prescribed her Keflex that she has been taking prophylactically. Date of Admission Mar 18, 2021 at 23:00 Date Seen by a Provider: Mar 19, 2021 Time Seen by a Provider: 09:00 I consulted on this patient on 03/19/21 13:39 Attending Physician Dayan Brunner DO Admitting Physician Mark Hernandez DO Consult Allergies and Home Medications Allergies Coded Allergies: fentanyl (Verified Allergy, Intermediate, HALLUCINATIONS, 09/07/18) hydroxychloroquine (Verified Allergy, Mild, HIVES, 09/07/18) Patient Home Medication List Acetaminophen (Tylenol Extra Strength) 500 Mg Tablet, 1,000 MG PO Q8H PRN for PAIN-MILD (1-4), (Reported) Entered as Reported by: FIDELINA WATSON on 02/13/211512 Last Action: Reviewed Amlodipine Besylate (Amlodipine Besylate) 10 Mg Tablet, 10 MG PO DAILY, (Reported) Entered as Reported by: THAI ARREOLA on 08/05/17 1206 Last Action: Reviewed Ascorbic Acid (Vitamin C) 500 Mg Tablet, 500 MG PO DAILY, (Reported) Entered as Reported by: FIDELINA WATSON on 02/13/211512 Last Action: Reviewed Aspirin (Aspirin EC) 81 Mg Tablet., 81 MG PO HS, (Reported) Entered as Reported by: FIDELINA WATSON on 02/13/211512 Last Action: Reviewed Atorvastatin Calcium (Atorvastatin Calcium) 40 Mg Tablet, 40 MG PO HS, (Reported) Entered as Reported by: THAI ARREOLA on 08/05/17 120 Last Action: Reviewed Cephalexin (Cephalexin) 250 Mg Tablet, 250 MG PO DAILY, (Reported) Entered as Reported by: FIDELINA WATSON on 03/19/21 152 Last Action: Reviewed Cholecalciferol (Vitamin D3) (Vitamin D3) 25 Mcg Tablet, 25 MCG PO DAILY, (Reported) Entered as Reported by: FIDELINA WATSON on 02/13/211512 Last Action: Reviewed Enalapril Maleate (Enalapril Maleate) 20 Mg Tablet, 20 MG PO BID, (Reported) Entered as Reported by: THAI ARREOLA on 08/05/171205 Last Action: Reviewed Folic Acid (Folic Acid) 1 Mg Tablet, 1 MG PO HS, (Reported) Entered as Reported by: THAI ARREOLA on 08/05/17 124 Last Action: Reviewed Furosemide (Furosemide) 40 Mg Tablet, 40 MG PO DAILY, (Reported) Entered as Reported by: THAI ARREOLA on 08/05/17 124 Last Action: Reviewed Furosemide (Furosemide) 40 Mg Tablet, 40 MG PO DAILY PRN for SWELLING, (Reported ) Entered as Reported by: JASIEL ORR on 08/27/17 1119 Last Action: Reviewed L.acidoph & Paracasei,B.lactis (Probiotic) 1 Each Capsule, 1 EACH PO DAILY, (Reported) Entered as Reported by: FIDELINA WATSON on 02/13/211512 Last Action: Reviewed Meloxicam (Meloxicam) 15 Mg Tablet, 15 MG PO DAILY, (Reported) Entered as Reported by: THAI ARREOLA on 08/05/17 124 Last Action: Reviewed Metformin HCl (Metformin HCl ER) 500 Mg Tab.er.24h, 1,000 MG PO BID, (Reported) Entered as Reported by: THAI ARREOLA on 08/05/171205 Last Action: Reviewed Methotrexate Sodium (Methotrexate) 2.5 Mg Tablet, 5 MG PO FRI, (Reported) Entered as Reported by: JESSICA MONTAGUE on 09/07/18 9398 Last Action: Reviewed Metoprolol Succinate (Metoprolol Succinate) 200 Mg Tab.er.24h, 100 MG PO BID, (Reported) Entered as Reported by: THAI ARREOLA on 08/05/17 1206 Last Action: Reviewed Omeprazole (Omeprazole) 20 Mg Tablet.dr, 20 MG PO DAILY, (Reported) Entered as Reported by: THAI ARREOLA on 08/05/17 1242 Last Action: Reviewed Solifenacin Succinate (Solifenacin Succinate) 5 Mg Tablet, 5 MG PO HS, (Reported) Entered as Reported by: FIDELINA WATSON on 02/13/21 151 Last Action: Reviewed Zinc (Zinc) 50 Mg Tablet, 50 MG PO DAILY, (Reported) Entered as Reported by: FIDELINA WATSON on 02/13/21 151 Last Action: Reviewed Discontinued Medications Cefdinir (Cefdinir) 300 Mg Capsule, 300 MG PO BID Discontinued Reason: No Longer Taking Prescribed by: KAYE GARZA on 02/14/21 110 Last Action: Discontinued Cephalexin (Cephalexin) 250 Mg Capsule, 250 MG PO DAILY Discontinued Reason: No Longer Taking Prescribed by: KAYE GARZA on 02/14/21 110 Last Action: Discontinued Past Mpurzvc-Xtmftf-Zqwlfb Hx Patient Social History Tobacco Use?: No Smoking Status: Never a Smoker Use of E-Cig and/or Vaping dev: No Substance use?: No Alcohol Use?: No Pt feels they are or have been: No Immunizations Up To Date Date of Influenza Vaccine: Mar 19, 2021 First/Initial COVID19 Vaccinat: 2020 Second COVID19 Vaccination [place]: 2020 Tetanus Booster (TDap): More Than 5 Years Date of Pneumonia Vaccine: Aug 27, 2014 Seasonal Allergies Seasonal Allergies: No Current Status Advance Directives: No Communicates: Verbally Primary Language: [place] Preferred Spoken Language: [place] Is interpretation needed?: No Implanted or Applied Medical D: None Past Medical History Surgeries: Abdominal, Bladder Surgery, Bowel Surgery, Eye Surgery, Gallbladder, Tonsillectomy Currently Using CPAP: No Currently Using BIPAP: No 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 Cholesterol, 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 Sexually Transmitted Disease: No HIV/AIDS: No UTI-Chronic Gastroesophageal Reflux Arthritis, Rheumatoid Arthritis Diabetes, Non-Insulin dep Cataract Loss of Vision: Bilateral Hearing Impairment: Denies Colon Did You Recieve Any Treatments: Yes What Type of Treatment Did You: Surgical Intervention COLON CANCER DX 2018--S/P RIGHT HEMICOLECTOMY Blood Disorders: Yes (anemia) Adverse Reaction/Blood Tranf: No (N/A) Family Medical History Abdominal aortic aneurysm 19 MOTHER Arthritis G8 SISTER Cardiovascular disease 19 FATHER Hypertension 19 FATHER PAST SURGICAL HISTORY: -LAPAROSCOPIC RIGHT HEMICOLECTOMY [address] PIERCE -CHOLECYSTECTOMY -TONSILLECTOMY -CATARACT SURGERY -CYSTOSCOPIES -EGD/COLONOSCOPY 2013 Review of Systems Constitutional: chills; No diaphoresis EENTM: No blurred vision, No double vision Respiratory: No cough, No short of breath Cardiovascular: No chest pain, No palpitations Gastrointestinal: No abdominal pain, No constipation; diarrhea, loss of appetite; No nausea, No vomiting Genitourinary: dysuria, incontinence Musculoskeletal: No back pain Skin: rash (buttocks) Physical Exam Vital Signs Vital Signs - First Documented 03/18/21 03/19/21 20:52 03:55 Temp 39.7 Pulse 74 Resp 22 B/P (MAP) 142/62 (88) Pulse Ox 96 O2 Delivery Room Air O2 Flow Rate 2.00 Capillary Refill : Less Than 3 Seconds Height, Weight, BMI Height: 5'2.00" Weight: 225lbs. 0.0oz. 102.451274ot; 42.26 BMI Method: General Appearance: WD/WN HEENT: PERRL/EOMI Neck: Normal Inspection, Supple Respiratory: Chest Non Tender, Normal Breath Sounds, No Accessory Muscle Use, No Respiratory Distress Cardiovascular: Regular Rate, Rhythm, No Murmur Gastrointestinal: Normal Bowel Sounds, Non Tender, Soft Extremity: Normal Capillary Refill, Normal Inspection, No Pedal Edema Neurologic/Psychiatric: Alert, Oriented x3, Normal Mood/Affect Skin: Normal Color, Warm/Dry Assessment/Plan Assessment and Plan Severe sepsis Likely related to UTI, urine culture pending IV fluids & Cefepime Lactic acid- 0.99 ADRIAN Dehydration & sepsis likely precipitating factors Will monitor renal fxn closely Metabolic acidosis ADRIAN, sepsis. Metformin toxicity unlikely- Lactate is low. Monitor closely CT revealed B/L hydronephrosis w/o evidence of obstructive uropathy Anemia Possible ACD related to RA and chronic UTI Hyperkalemia Resolved at present T2DM ISS DVT PPX Lovenox Admission Diagnosis Admission Status: Inpatient Order (span 2 midnights) Reason for Inpatient Admission: IV fluids, abx, monitor kidney fxn ROS LEIVA MD 03/19/21 1606: Allergies and Home Medications Allergies Coded Allergies: fentanyl (Verified Allergy, Intermediate, HALLUCINATIONS, 09/07/18) hydroxychloroquine (Verified Allergy, Mild, HIVES, 09/07/18) Patient Home Medication List Home Medication List Reviewed: Yes Acetaminophen (Tylenol Extra Strength) 500 Mg Tablet, 1,000 MG PO Q8H PRN for PAIN-MILD (1-4), (Reported) Entered as Reported by: FIDELINA WATSON on 02/13/211512 Last Action: Reviewed Amlodipine Besylate (Amlodipine Besylate) 10 Mg Tablet, 10 MG PO DAILY, (Reported) Entered as Reported by: THAI ARREOLA on 08/05/17 1206 Last Action: Reviewed Ascorbic Acid (Vitamin C) 500 Mg Tablet, 500 MG PO DAILY, (Reported) Entered as Reported by: FIDELINA WATSON on 02/13/211512 Last Action: Reviewed Aspirin (Aspirin EC) 81 Mg Tablet.dr, 81 MG PO HS, (Reported) Entered as Reported by: FIDELINA WATSON on 02/13/211512 Last Action: Reviewed Atorvastatin Calcium (Atorvastatin Calcium) 40 Mg Tablet, 40 MG PO HS, (Reported) Entered as Reported by: THAI ARREOLA on 08/05/17 1206 Last Action: Reviewed Cephalexin (Cephalexin) 250 Mg Tablet, 250 MG PO DAILY, (Reported) Entered as Reported by: FIDELINA WATSON on 03/19/21 152 Last Action: Reviewed Cholecalciferol (Vitamin D3) (Vitamin D3) 25 Mcg Tablet, 25 MCG PO DAILY, (Reported) Entered as Reported by: FIDELINA WATSON on 02/13/211512 Last Action: Reviewed Enalapril Maleate (Enalapril Maleate) 20 Mg Tablet, 20 MG PO BID, (Reported) Entered as Reported by: THAI ARREOLA on 08/05/17 1206 Last Action: Reviewed Folic Acid (Folic Acid) 1 Mg Tablet, 1 MG PO HS, (Reported) Entered as Reported by: THAI ARREOLA on 08/05/17 1242 Last Action: Reviewed Furosemide (Furosemide) 40 Mg Tablet, 40 MG PO DAILY, (Reported) Entered as Reported by: THAI ARREOLA on 08/05/17 1242 Last Action: Reviewed Furosemide (Furosemide) 40 Mg Tablet, 40 MG PO DAILY PRN for SWELLING, (Reported) Entered as Reported by: JASIEL ORR on 08/27/17 1119 Last Action: Reviewed L.acidoph & Paracasei,B.lactis (Probiotic) 1 Each Capsule, 1 EACH PO DAILY, (Reported) Entered as Reported by: FIDELINA WATSON on 02/13/211512 Last Action: Reviewed Meloxicam (Meloxicam) 15 Mg Tablet, 15 MG PO DAILY, (Reported) Entered as Reported by: THAI ARREOLA on 08/05/17 1242 Last Action: Reviewed Metformin HCl (Metformin HCl ER) 500 Mg Tab.er.24h, 1,000 MG PO BID, (Reported) Entered as Reported by: THAI ARREOLA on 08/05/17 1206 Last Action: Reviewed Methotrexate Sodium (Methotrexate) 2.5 Mg Tablet, 5 MG PO FRI, (Reported) Entered as Reported by: JESSICA MONTAGUE on 09/07/18 0943 Last Action: Reviewed Metoprolol Succinate (Metoprolol Succinate) 200 Mg Tab.er.24h, 100 MG PO BID, (Reported) Entered as Reported by: THAI ARREOLA on 08/05/17 1206 Last Action: Reviewed Omeprazole (Omeprazole) 20 Mg Tablet.dr, 20 MG PO DAILY, (Reported) Entered as Reported by: THAI ARREOLA on 08/05/17 1242 Last Action: Reviewed Solifenacin Succinate (Solifenacin Succinate) 5 Mg Tablet, 5 MG PO HS, (Reported) Entered as Reported by: FIDELINA WATSON on 02/13/211512 Last Action: Reviewed Zinc (Zinc) 50 Mg Tablet, 50 MG PO DAILY, (Reported) Entered as Reported by: FIDELINA WATSON on 02/13/211512 Last Action: Reviewed Discontinued Medications Cefdinir (Cefdinir) 300 Mg Capsule, 300 MG PO BID Discontinued Reason: No Longer Taking Prescribed by: KAYE GARZA on 02/14/21 110 Last Action: Discontinued Cephalexin (Cephalexin) 250 Mg Capsule, 250 MG PO DAILY Discontinued Reason: No Longer Taking Prescribed by: KAYE GARZA on 02/14/211103 Last Action: Discontinued Past Mopxofk-Ykfcfk-Erjvpc Hx Past Medical History Diabetes, Non-Insulin dep Family Medical History Abdominal aortic aneurysm 19 MOTHER Arthritis G8 SISTER Cardiovascular disease 19 FATHER Hypertension 19 FATHER Assessment/Plan Assessment and Plan Admitted with severe sepsis due to UTI with ADRIAN. Continue fluids and antibiotics. Consult urology due to hydronephrosis. Checking anemia labs. Problems: (1) Severe sepsis Status: Acute (2) UTI (urinary tract infection) Status: Acute (3) Acute renal failure Status: Acute Admission Diagnosis Severe sepsis due to UTI Admission Status: Inpatient Order (span 2 midnights) Reason for Inpatient Admission: IV antibiotics and fluids Supervisory-Addendum Brief Verification & Attestation Participated in pt care: history, MDM, physical Personally performed: exam, history, MDM, supervision of care Care discussed with: Medical Student Procedures: n/a Results interpretation: Verified all documentation A medical student performed and documented this service in my presence. I reviewed and verified all information documented by the medical student and made modifications to such information, when appropriate. I personally performed the physical exam and medical decision making. STUART ESTRADA Mar 19, 2021 13:47 ROS LEIVA MD Mar 19, 2021 16:06
[2021-03-19] MEDS ORDERED: CEPH250T PO (15:27)
[2021-03-19] MEDS: ACETAMINOPHEN 500 MG TAB (TYLENOL) PO PRN (17:08)
[2021-03-20] VITALS (7 sets, daily range): BP systolic 128–155; BP diastolic 58–84
[2021-03-20] MEDS: inSUlin ASPART (NovoLOG) 1 UNIT/0.01 ML (CHARGE PER UNIT) SC SCH ×4 (05:09→21:34)
[2021-03-20] MEDS: LACTATED RINGERS 1,000 ML IV SCH ×2 (05:11→12:36)
[2021-03-20 05:50] LABS: BASOPHILS % (AUTO) 1 % (0-10); EOSINOPHILS # (AUTO) 0.1 10^3/uL (0.0-0.3); EOSINOPHILS % (AUTO) 4 % (0-10); HEMATOCRIT 24 % (35-52); HEMOGLOBIN 7.7 g/dL (11.5-16.0); LYMPHOCYTES % (AUTO) 47 % (12-44); MEAN CORPUSCULAR HEMOGLOBIN 28 pg (25-34); MEAN CORPUSCULAR HGB CONC 32 g/dL (32-36); MEAN CORPUSCULAR VOLUME 90 fL (80-99); MEAN PLATELET VOLUME 9.2 fL (9.0-12.2); MONOCYTES # (AUTO) 0.1 10^3/uL (0.0-1.0); MONOCYTES % (AUTO) 3 % (0-12); NEUTROPHILS # (AUTO) 0.9 10^3/uL (1.8-7.8); NEUTROPHILS % (AUTO) 44 % (42-75); PLATELET COUNT 132 10^3/uL (130-400); WHITE BLOOD COUNT 2.1 10^3/uL (4.3-11.0)
[2021-03-20 05:58] LABS: POTASSIUM 4.3 MMOL/L (3.6-5.0)
[2021-03-20 06:04] LABS: CREATININE SERUM 1.33 MG/DL (0.60-1.30)
[2021-03-20 07:52] LABS: RETICULOCYTE % 0.45 % (0.50-2.40)
[2021-03-20] MEDS: ENOXAPARIN 40 MG/0.4 ML (LOVENOX) SYR SC SCH (09:07)
[2021-03-20] MEDS: NYSTATIN CREAM (MYCOSTATIN) 30 GM TUBE TP SCH ×2 (09:08→19:48)
[2021-03-20] MEDS: CEFEPIME 1,000 MG/SWFI 10 ML IV PUSH IV SCH ×4 (11:05→19:19)
--- NOTE | 2021-03-20 12:00 | Progress Note ---
Subjective Subjective Date Seen by Provider: Mar 20, 2021 Time Seen by Provider: 08:40 Pt reports feeling well this morning. She was able to sit up in her chair yesterday and is wanting to get up and move around a bit today. She denies any N/V, sweats/chills, SOA or pain/discomfort. Review of Systems General: No Chills, No Night Sweats Pulmonary: No Dyspnea Cardiovascular: No: Chest Pain, Palpitations Gastrointestinal: No: Nausea, Vomiting, Abdominal Pain, Diarrhea Objective Exam Vital Signs Vital Signs Date Time Temp Pulse Resp B/P (MAP) Pulse Ox O2 Delivery O2 Flow Rate FiO2 03/20/21 11:33 37.2 111 20 155/74 (101) 92 Room Air 03/20/21 08:05 37.2 76 20 154/74 (100) 92 Room Air 03/20/21 04:20 36.7 70 22 128/58 (81) 91 Room Air 03/20/21 00:24 36.3 75 18 147/84 (105) 92 Room Air 03/19/21 21:05 Room Air 03/19/21 19:34 37.1 80 20 145/74 (97) 94 Room Air 03/19/21 17:08 37.4 03/19/21 16:00 37.4 90 18 156/99 (118) 95 Room Air I & O 03/20/21 07:00 Intake Total 3455 ml Output Total 3125 ml Balance 330 ml General Appearance: WD/WN HEENT: PERRL/EOMI Neck: Normal Inspection, Supple Respiratory: Chest Non Tender, Normal Breath Sounds, No Accessory Muscle Use, No Respiratory Distress Cardiovascular: Regular Rate, Rhythm, No Murmur Gastrointestinal: Normal Bowel Sounds, Non Tender, Soft Genital/Rectal: Other (HAS EXTENSIVE ERYTHEMA, MACERATION/SKIN BREAK DOWN, WITH A FEW SATELLITE LESIONS TO ENTIRE GENITAL/RECTAL AREA-FROM MONS TO PERIRECTAL AREA. ) Back: No CVA Tenderness Extremity: Normal Capillary Refill, Normal Inspection, No Pedal Edema Neurologic/Psychiatric: Alert, Oriented x3, Normal Mood/Affect Skin: Normal Color, Warm/Dry Results Lab Laboratory Tests 03/19/21 13:02: Glucometer 197H 03/19/21 16:56: Glucometer 101 03/19/21 20:05: Glucometer 160H 03/19/21 21:49: 10/14/21 05:05: Glucometer 108 03/20/21 05:20: White Blood Count 2.1L, Red Blood Count 2.72L, Hemoglobin 7.7L, Hematocrit 24L, Mean Corpuscular Volume 90, Mean Corpuscular Hemoglobin 28, Mean Corpuscular Hemoglobin Concent 32, Red Cell Distribution Width 15.5H, Platelet Count 132, Mean Platelet Volume 9.2, Immature Granulocyte % (Auto) 1, Neutrophils (%) (Auto) 44, Lymphocytes (%) (Auto) 47H, Monocytes (%) (Auto) 3, Eosinophils (%) (Auto) 4, Basophils (%) (Auto) 1, Neutrophils # (Auto) 0.9L, Lymphocytes # (Auto) 1.0, Monocytes # (Auto) 0.1, Eosinophils # (Auto) 0.1, Basophils # (Auto) 0.0, Immature Granulocyte # (Auto) 0.0, Absolute Reticulocyte Count 12L, Percent Reticulocyte Count 0.45L, Sodium Level 134L, Potassium Level 4.3, Chloride Level 110H, Carbon Dioxide Level 15L, Anion Gap 9, Blood Urea Nitrogen 39H, Creatinine 1.33H, Estimat Glomerular Filtration Rate 39, BUN/Creatinine Ratio 29, Glucose Level 106H, Calcium Level 9.0 03/20/21 11:13: Glucometer 157H Microbiology 03/19/21 MRSA Screen - Final, Complete MRSA not isolated 03/18/21 Urine Culture - Final, Complete YEAST 03/18/21 Blood Culture - Preliminary, Resulted No growth Assessment/Plan Assessment/Plan Assessment and Plan UTI Sepsis resolved Urine culture + for yeast Received 1 dose fluconazole. Using Nystatin cream Receiving IV fluids & Cefepime. 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 Metformin toxicity unlikely- Lactate is low. Monitor closely CT revealed B/L hydronephrosis w/o evidence of obstructive uropathy Anemia Possible ACD related to RA and chronic UTI Hyperkalemia Resolved at present T2DM ISS DVT PPX Lovenox Clinical Quality Measures Admission Status Admission Dx Severe sepsis Likely related to UTI, urine culture pending IV fluids & Cefepime Lactic acid- 0.99 ADRIAN Dehydration & sepsis likely precipitating factors Will monitor renal fxn closely Metabolic acidosis ADRIAN, sepsis. Metformin toxicity unlikely- Lactate is low. Monitor closely CT revealed B/L hydronephrosis w/o evidence of obstructive uropathy Anemia Possible ACD related to RA and chronic UTI Hyperkalemia Resolved at present T2DM ISS DVT PPX Lovenox Supervisory-Addendum Brief Verification & Attestation Participated in pt care: history, MDM, physical Personally performed: exam, history, MDM, supervision of care Care discussed with: Medical Student Procedures: n/a Results interpretation: Verified all documentation A medical student performed and documented this service in my presence. I reviewed and verified all information documented by the medical student and made modifications to such information, when appropriate. I personally performed the physical exam and medical decision making. STUART ESTRADA Mar 20, 2021 12:00 ROS LEIVA MD Mar 20, 2021 12:49
--- NOTE | 2021-03-20 13:41 | Occupational Therapy Eval ---
OT Evaluation-General/PLF Medical Diagnosis Admission Date Mar 18, 2021 at 23:00 Medical Diagnosis: sepis, UTI, acute renal failure Onset Date: Mar 17, 2021 Therapy Diagnosis Therapy Diagnosis: decreased ADL status Height/Weight Height (Feet): 5 Height (Inches): 2.00 Weight (Pounds): 225 Weight (Ounces): 0.0 Precautions Precautions/Isolations: Fall Prevention, Standard Precautions Referral Physician: Garrick Referral Reason: Evaluation/Treatment Medical History Pertinent Medical History: Arthritis, DM Additional Medical History chronic UTI (last admit 02/12), DM, colon cancer s/p resection, GERD, arthritis Current History Pt has been weak and tired, unable to get out of bed and diarrhea Social History Home: Single Level Current Living Status: Spouse Entry Into Home: Stairs With Railing (steps getting built) Steps Into Home: 2 ADL-Prior Level of Function SCALE: Activities may be completed with or without assistive devices. 6-Waawcyapjn-oexvqvc completes the activity by him/herself with no assistance fr om a helper. 5-Set-up or Clean-up Assistance-helper sets up or cleans up; patient completes activity. [place] assists only prior to or following the activity. 4-Supervision or Touching Assistance-helper provides verbal cues and/or touching/steadying and/or contact guard assistance as patient completes activity. Assistance may be provided throughout the activity or intermittently. 3-Partial/Moderate Assistance-helper does LESS THAN HALF the effort. [place] lifts, holds or supports trunk or limbs, but provides less than half the effort. 2-Substantial/Maximal Assistance-helper does MORE THAN HALF the effort. [place] lifts or holds trunk or limbs and provides more than half the effort. 0-Iwmisnxza-eopavx does ALL the effort. Patient does none of the effort to complete the activity. Or, the assistance of 2 or more helpers is required for the patient to complete the activity. If activity was not attempted, code reason: 7-Patient Refused. 9-Not Applicable-not attempted and the patient did not perform the activity before the current illness, exacerbation or injury. 10-Not Attempted due to Environmental Limitations-(lack of equipment, weather restraints, etc.). 88-Not Attempted due to Medical Conditions or Safety Concerns. ADL PLOF Comments Pt reports IND with ADLs at OF, able to manage her own shower but requires SBA in/out of bath tub. Pt indicates IND with dressing and toileting. Self Care: Independent Functional Cognition: Independent DME/Equipment: Tub/Shower OT Current Status Subjective Pt seated in recliner, nursing students present. Pt agreeable to OT evaluation. Mental Status/Objective Patient Orientation: Person, Place, Situation Attachments: Winters Catheter, IV Current Upper Extremity ROM WFL Upper Extremity Coordination WFL Upper Extremity Sensation WFL Upper Extremity Strength grossly 3+/5 ADL-Treatment Eating (QC): 6 On/Off Footwear (QC): 3 Other Treatments Pt seated in recliner, finished with lunch. Pt provided information about PLOF and home set up, and participated in UE Screen. Pt states she feels like she is close to her baseline, unsure if she would benefit from further OT services. She declines need to toilet at this time (catheter present). Pt donned gripper socks, requiring min A with threading over toes bilaterally, pt then able to reach down and pull socks up. OT talked with pt about sock aide, she does not have one but indicates "Brandon is coming up". OT educated pt on POC, including further education on AE for LE dressing, and to check back to see if pt has any further concerns with completing ADLs, pt in agreement. Post tx, pt in recliner, call light in reach and all needs met. Education OT Patient Education: Correct positioning, Energy conservation, Modified ADL techniques, Progress toward Goal/Update tx plan, Purpose of tx/functional activities, Rehab process, Safety issues Teaching Recipient: Patient Teaching Methods: Discussion Response to Teaching: Verbalize Understanding OT Block Breaker Goals Correction Goals Time Frame: Mar 28, 2021 Eating (QC): 6 Oral Hygiene (QC): 6 Toileting Hygiene (QC): 6 Shower/Bathe Self (QC): 4 Upper Body Dressing (QC): 6 Lower Body Dressing (QC): 6 On/Off Footwear (QC): 6 Additional Goals: 1-Demonstrate ADL Tasks, 2-Verbalize Understanding, 3- ImproveStrength/Livia 1=Demonstrate adherence to instructed precautions during ADL tasks. 2=Patient will verbalize/demonstrate understanding of assistive devices/modifications for ADL. 3=Patient will improve strength/tolerance for activity to enable patient to perform ADL's. OT Education/Plan Problem List/Assessment Assessment: Decreased Activ Tolerance, Decreased UE Strength, Impaired I ADL's, Impaired Self-Care Skills Pt would benefit from short term skilled OT services in order to increase safety and independence with ADLs, and she would benefit from education on sock aide/ AE for LE dressing. Discharge Recommendations Plan/Recommendations: Continue POC Equpiment Recommendations-D/C: Transport Specialist, Sock Aide Treatment Plan/Plan of Care Patient would benefit from OT for education, treatment and training to promote independence in ADL's, mobility, safety and/or upper extremity function for ADL's. Plan of Care: ADL Retraining, Functional Mobility, UE Funct Exercise/Act Treatment Duration: Mar 28, 2021 Frequency: 5 times per week Estimated Hrs Per Day: .25 hour per day Time/GCodes Start Time: 13:17 Stop Time: 13:33 Total Time Billed (hr/min): 16 Billed Treatment Time 1, LISA REDDY OT Mar 20, 2021 13:41
--- NOTE | 2021-03-20 14:33 | Physical Therapy Evaluation ---
PT Evaluation-General Medical Diagnosis Admission Date Mar 18, 2021 at 23:00 Medical Diagnosis: sepis, UTI, acute renal failure Onset Date: Mar 17, 2021 Therapy Diagnosis Therapy Diagnosis: debility/weakness Height/Weight Height (Feet): 5 Height (Inches): 2.00 Weight (Pounds): 225 Weight (Ounces): 0.0 Precautions Precautions/Isolations: Fall Prevention, Standard Precautions Referral Physician: Garrick Reason for Referral: Evaluation/Treatment Medical History Pertinent Medical History: DM, Rheumatoid Arthritis Additional Medical History colon cancer Current History EMS from home secondary to AMS Reviewed History: Yes Social History Home: Single Level Current Living Status: Spouse Entry Into Home: Stairs With Railing (steps getting built) PT Steps Into Home: 2 Prior Prior Level of Function SCALE: Activities may be completed with or without assistive devices. 5-Ddlckozrbe-fcarrus completes the activity by him/herself with no assistance from a helper. 5-Set-up or Clean-up Assistance-helper sets up or cleans up; patient completes activity. [place] assists only prior to or following the activity. 4-Supervision or Touching Assistance-helper provides verbal cues and/or touching/steadying and/or contact guard assistance as patient completes activity. Assistance may be provided throughout the activity or intermittently. 3-Partial/Moderate Assistance-helper does LESS THAN HALF the effort. [place] lifts, holds or supports trunk or limbs, but provides less than half the effort. 2-Substantial/Maximal Assistance-helper does MORE THAN HALF the effort. [place] lifts or holds trunk or limbs and provides more than half the effort. 5-Uechnlnrk-orwwog does ALL the effort. Patient does none of the effort to complete the activity. Or, the assistance of 2 or more helpers is required for the patient to complete the activity. If activity was not attempted, code reason: 7-Patient Refused. 9-Not Applicable-not attempted and the patient did not perform the activity before the current illness, exacerbation or injury. 10-Not Attempted due to Environmental Limitations-(lack of equipment, weather restraints, etc.). 88-Not Attempted due to Medical Conditions or Safety Concerns. Bed Mobility: 6 Transfers (B,C,W/C): 6 Gait: 6 Stairs: 6 Indoor Mobility (Ambulation): Independent Stairs: Independent Prior Devices Use: Walker (4WW) PT Evaluation-Current Subjective Patient agrees to PT. Objective Patient Orientation: Normal For Age Attachments: Winters Catheter, IV ROM/Strength ROM Lower Extremities bilateral LE WFL Strength Lower Extremities 3+/5 grossly bilateral LE Integumentary/Posture Bladder Incontinence: Winters Cath Posture WFL Neuromuscular (Tone, Coordination, Reflexes) grossly intact Sensory Vision: Functional Hearing: Functional Transfers Roll Left to Right (QC): 4 Sit to Lying (QC): 4 Lying to Sitting/Side of Bed(Q: 4 Sit to Stand (QC): 4 Chair/Wpy-lh-Tdjrs Xfer(QC): 4 Gait Does the Patient Walk?: Yes Mode of Locomotion: Walk Anticipated Mode of Locomotion: Walk Walk 10 feet (QC): 4 Walk 50 ft with 2 Turns(QC): 4 Walk 150 ft (QC): 4 Distance: 150' Gait Assistive Device: FWW Comments/Gait Description SBA/slow, steady gait sequence Balance Sitting Static: Normal Sitting Dynamic: Normal Standing Static: Normal Standing Dynamic: Normal Assessment/Needs 75 y.o. female,will benefit from short term skilled PT to address functional strength and mobility to improve current LOF to safely return to home at maximum LOF. Rehab Potential: Fair PT Fpc Goals Marketing Business Analyst Goals PT Marketing Business Analyst Goals Time Frame: Mar 29, 2021 Roll Left & Right (QC): 6 Sit to Lying (QC): 6 Lying-Sitting on Side/Bed(QC): 6 Sit to Stand (QC): 6 Chair/Hme-mb-Kzmmk Xfer(QC): 6 Toilet Transfer (QC): 6 Walk 10 feet (QC): 6 Walk 50ft with 2 Turns (QC): 6 Walk 150 ft (QC): 6 1 Step (curb) (QC): 6 4 Steps (QC): 6 PT Plan Problem List Problem List: Activity Tolerance, Functional Strength, Safety, Balance, Gait, Transfer, Bed Mobility Treatment/Plan Treatment Plan: Continue Plan of Care Treatment Plan: Bed Mobility, Education, Functional Activity Livia, Functional Strength, Gait, Safety, Therapeutic Exercise, Transfers Treatment Duration: Mar 29, 2021 Frequency: 6 times per week Estimated Hrs Per Day: .25 hour per day Patient and/or Family Agrees t: Yes Time/GCodes Time In: 1350 Time Out: 1402 Total Billed Treatment Time: 12 Total Billed Treatment 1 visit EVMod 12 min DEAN UDBON PT Mar 20, 2021 14:33
[2021-03-20] MEDS ORDERED: fluCOnazole (DIFLUCAN) 100 MG TAB PO ONE (17:30)
[2021-03-20] MEDS ORDERED: fluCOnazole (DIFLUCAN) 100 MG TAB PO NR (18:00)
--- NOTE | 2021-03-20 18:06 | CONSULTATION REPORT ---
DATE OF SERVICE: 03/20/2021 ATTENDING PHYSICIAN: Dr. Mccauley. SUMMARY: After reviewing the patient's record in the hospital and in the office, this is a 75-year-old white lady with history of urinary tract infection, admitted again with UTI and sepsis, put on appropriate antibiotic including anti-yeast treatment. She feels better and I first encountered her on 11/18/2020 for history of urinary tract infection, overactive bladder with incontinence, and on and off hematuria. She was followed with urine test. A CT scan at that time was normal except for wall thickening of the urinary bladder. Cystoscopy was performed on 12/02/2020 at the office and revealed distal urethral stenosis and diffuse trabeculation and cystitis. She was put on medication for that including Macrodantin, Premarin vaginal cream and Myrbetriq 50 daily with a plan of scoping her again in two to three months, which happened on 01/20/2021. The bladder looked much better, but not 100% yet. We will continue her on Myrbetriq and Keflex 250 mg daily along with the Premarin cream and she did well. Last time, I saw her in the office was 03/11/2021 and she was doing much better, well residuals in both cystoscopy time was 30 mL and 5 mL. When she came here, catheter was inserted. Unfortunately, there is no documentation of how much the nursing staff had in the bladder. A CT scan revealed bilateral hydronephrosis, most probably due outlet bladder obstruction either functional or neurogenic. Catheter is indwelling, draining clear diego urine. The patient definitely is looking and doing better. IMPRESSION: History of urinary tract infection present one and bilateral hydronephrosis from outlet bladder obstruction. PLAN: 1. Hold any anticholinergic or bladder treatment she is on whether Myrbetriq, solifenacin or else. 2. Leave the Winters catheter in for now. 3. Get a renal ultrasound tomorrow and see what it shows. 4. Down [address], she may need another cystoscopy with possible biopsies. The plan was fully explained to the patient. CC: Dr. Kamla Mccauley -- requested, unable to deliver. Job ID: [id number] DocumentID: [id number] Dictated Date: 03/20/2021 17:26:51 Quality Assurance Associate Date: 03/20/2021 18:05:52 Dictated By: SARAH MURILLO MD
--- NOTE | 2021-03-20 18:51 | CONSULTATION REPORT ---
DATE OF SERVICE: 03/20/2021 The patient is admitted to room 411. PRIMARY PHYSICIAN: Dr. Kamla Mccauley. IMPRESSION: 1. A 75-year-old female admitted to the hospital with mental status changes and found to have urinary tract infection/sepsis. 2. Urine cultures growing more than 100,000 colonies of yeast. 3. Acute on chronic kidney failure at the time of admission with GFR of 16 mL per minute. 4. History of rheumatoid arthritis and on treatment with weekly methotrexate. 5. Current pancytopenia, most likely related to methotrexate toxicity worsened by renal failure. 6. Bilateral hydronephrosis without evidence of obstructive uropathy. Urology following. 7. History of colon cancer, stage II diagnosed in early 2018, status post right hemicolectomy and on surveillance with no evidence of recurrence or metastatic disease. RECOMMENDATIONS: 1. Continue management of UTI as you are doing and continue with antifungal therapy. 2. Hold methotrexate because of the pancytopenia and renal failure. 3. Start the patient on folic acid 1 mg daily. 4. Continue adequate hydration and monitor urine output. 5. Continue to monitor blood counts serially. 6. We will follow the patient with you. The patient is a 75-year-old female with 1 to 2-week history of not feeling well, which gradually worsened to urinary frequency and incontinence and mental status changes. She was brought to the emergency room for evaluation and admitted with possible UTI/sepsis. The patient has been on broad spectrum antibiotics and antifungal. She was noted to be pancytopenic and a hematology consultation was requested. Last dose of methotrexate was taken last Wednesday. She has previous history of stage III colon cancer diagnosed in early 2017 and underwent a right hemicolectomy. She has been on surveillance on an outpatient basis without evidence of recurrent or metastatic disease. She was started on methotrexate not too long ago and has been taking 5 to 7.5 mg weekly with the last dose taken on last Wednesday. PAST MEDICAL HISTORY: Other significant includes hypertension for more than 25 years. Hypercholesterolemia for more than 10 years. Diabetes mellitus type 2 for more than 10 years and rheumatoid arthritis diagnosed within the last two years and started on treatment with methotrexate. PAST SURGICAL HISTORY: Include a tonsillectomy and adenoidectomy more than 50 years ago, right carpal tunnel release approximately 35 to 40 years ago and a cholecystectomy in 1970, and right hemicolectomy in 2018. SOCIAL HISTORY: The patient is and lives in [place], [place]. She has two daughters, one biologic and one adopted, both of whom live close by. 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 No history of tobacco, alcohol or recreational drug use. FAMILY HISTORY: Significant for coronary artery disease in her father and diabetes mellitus type 2 in her grandmother. No other medical problems in the family that the patient knows of. PHYSICAL EXAMINATION: GENERAL: Showed an elderly female, obese, weak appearing, awake and answering questions appropriately, and in no acute distress. VITAL SIGNS: Temperature was 36.7, pulse rate of 84, respirations 18, blood pressure 150/70 with oxygen saturation of 98% on room air. HEENT: Normocephalic, extraocular muscles intact, conjunctivae pink, and oral mucosa moist. NECK: Supple with no JVD. No cervical, supraclavicular or axillary lymphadenopathy palpable. CHEST: Symmetrical. LUNGS: Clear to auscultation without wheezes or rales. CARDIOVASCULAR: Regular in rate and rhythm. No murmurs or gallops heard. ABDOMEN: Obese, soft, and nontender with no hepatosplenomegaly or other masses palpable. Indwelling Winters catheter present. EXTREMITIES: Showed no edema. NEUROLOGIC: Grossly intact without focal motor deficits. LABORATORY DATA: CBC done today showed WBC 2.1, hemoglobin 7.7, MCV 90, platelet count 132,000 with neutrophil count 0.9, lymphocyte count 1.0 and monocyte count 0.1. ESR at the time of admission was 90 mm. Absolute reticulocyte count done today was low at 12,000. BMP done today showed sodium level of 134. BUN was 39 and creatinine 1.33 with GFR 39 mL per minute. CMP done at the time of admission showed sodium level of 131 and potassium 6.0. BUN was 80 and creatinine 2.90 with GFR of 16 mL per minute. Nonfasting glucose was 142. AST was 38 with the rest of the liver function studies within normal limits. C-reactive protein was 12.18. Procalcitonin was 0.32. TSH was 1.62. COVID testing by RT-PCR was negative. UA showed 2+ leukocyte esterase, more than 100 WBCs per high power field and negative for bacteria. Urine culture showed more than 100,000 colonies of yeast. Blood cultures are negative so far. CT scan of the chest, abdomen and pelvis done at the time of admission showed no acute cardiopulmonary abnormality. Coronary artery calcification noted. Cholelithiasis noted. Bilateral hydronephrosis without evidence of obstructive uropathy. There is a Winters catheter in the bladder. Diverticular disease without evidence of diverticulitis. CT scan of the head showed no acute intracranial abnormality. No CT evidence of mass, acute infarct or intracranial hemorrhage. Chronic small vessel ischemic changes in the deep white matter. Thank you for allowing me to participate in this patient's care. I will follow the patient with you and make appropriate recommendations. Job ID: [id number] DocumentID: [id number] Dictated Date: 03/20/2021 17:58:43 Addiction Specialist Date: 03/20/2021 18:50:34 Dictated By: KRISTINE MOSER MD
[2021-03-20] MEDS: SODIUM BICARBONATE 650 MG TABLET (NON-FORMULARY) PO SCH (23:34)
[2021-03-21] MEDS: CEFEPIME 1,000 MG/SWFI 10 ML IV PUSH IV SCH ×4 (02:14→11:42)
[2021-03-21] MEDS: LACTATED RINGERS 1,000 ML IV SCH (02:16)
[2021-03-21 04:00] VITALS: BP 159/68
[2021-03-21] MEDS: inSUlin ASPART (NovoLOG) 1 UNIT/0.01 ML (CHARGE PER UNIT) SC SCH ×4 (05:43→21:50)
[2021-03-21 06:11] LABS: BASOPHILS % (AUTO) 0 % (0-10); EOSINOPHILS # (AUTO) 0.2 10^3/uL (0.0-0.3); EOSINOPHILS % (AUTO) 8 % (0-10); HEMATOCRIT 22 % (35-52); HEMOGLOBIN 7.2 g/dL (11.5-16.0); LYMPHOCYTES # (AUTO) 1.1 10^3/uL (1.0-4.0); LYMPHOCYTES % (AUTO) 44 % (12-44); MEAN CORPUSCULAR HEMOGLOBIN 29 pg (25-34); MEAN CORPUSCULAR HGB CONC 32 g/dL (32-36); MEAN CORPUSCULAR VOLUME 89 fL (80-99); MEAN PLATELET VOLUME 9.8 fL (9.0-12.2); MONOCYTES # (AUTO) 0.1 10^3/uL (0.0-1.0); MONOCYTES % (AUTO) 5 % (0-12); NEUTROPHILS % (AUTO) 43 % (42-75); PLATELET COUNT 113 10^3/uL (130-400); WHITE BLOOD COUNT 2.4 10^3/uL (4.3-11.0)
[2021-03-21 06:33] LABS: CALCIUM 8.6 MG/DL (8.5-10.1); CREATININE SERUM 1.04 MG/DL (0.60-1.30)
[2021-03-21 08:00] VITALS: BP 163/78
[2021-03-21] MEDS: SODIUM BICARBONATE 650 MG TABLET (NON-FORMULARY) PO SCH ×3 (08:35→21:50)
[2021-03-21] MEDS: NYSTATIN CREAM (MYCOSTATIN) 30 GM TUBE TP SCH ×2 (08:35→21:50)
[2021-03-21] MEDS: FOLIC ACID 1 MG TAB PO SCH (08:35)
[2021-03-21] MEDS: fluCOnazole (DIFLUCAN) 100 MG TAB PO SCH (08:35)
[2021-03-21] MEDS ORDERED: fluCOnazole (DIFLUCAN) 100 MG TAB PO SCH (09:00)
[2021-03-21] MEDS ORDERED: CANA100T PO (09:11)
--- NOTE | 2021-03-21 09:29 | Physical Therapy Daily Note ---
PT Daily Note-Current Subjective Patient agrees to PT. Mental Status Patient Orientation: Normal For Age Attachments: Winters Catheter, IV Transfers SCALE: Activities may be completed with or without assistive devices. 5-Hgeddhzsaz-dkqxpno completes the activity by him/herself with no assistance from a helper. 5-Set-up or Clean-up Assistance-helper sets up or cleans up; patient completes activity. [place] assists only prior to or following the activity. 4-Supervision or Touching Assistance-helper provides verbal cues and/or touching/steadying and/or contact guard assistance as patient completes activity. Assistance may be provided throughout the activity or intermittently. 3-Partial/Moderate Assistance-helper does LESS THAN HALF the effort. [place] lifts, holds or supports trunk or limbs, but provides less than half the effort. 2-Substantial/Maximal Assistance-helper does MORE THAN HALF the effort. [place] lifts or holds trunk or limbs and provides more than half the effort. 9-Bbswpejjq-phvuxa does ALL the effort. Patient does none of the effort to complete the activity. Or, the assistance of 2 or more helpers is required for the patient to complete the activity. If activity was not attempted, code reason: 7-Patient Refused. 9-Not Applicable-not attempted and the patient did not perform the activity before the current illness, exacerbation or injury. 10-Not Attempted due to Environmental Limitations-(lack of equipment, weather restraints, etc.). 88-Not Attempted due to Medical Conditions or Safety Concerns. Lying to Sitting/Side of Bed(Q: 4 Sit to Stand (QC): 4 Chair/Din-kn-Cugfd Xfer(QC): 4 Toilet Transfer (QC): 4 SBA with all mobility/patient requires time to complete all functional tasks. Gait Training Does the Patient Walk?: Yes Distance: 175' Walk 10 feet (QC): 4 Walk 50 ft with 2 Turns(QC): 4 Walk 150 ft (QC): 4 Gait Assistive Device: FWW SBA with very slow gait sequence Exercises Seated Therapy Exercises: Ankle pumps, Long arc quads, Hip flexion Seated Reps: 15 Assessment Patient toilets self. Patient up in recliner with needs met. Increase activity as tolerated by patient. PT Multi Share Program Coordinator Goals Multi Share Program Coordinator Goals PT Multi Share Program Coordinator Goals Time Frame: Mar 29, 2021 Roll Left & Right (QC): 6 Sit to Lying (QC): 6 Lying-Sitting on Side/Bed(QC): 6 Sit to Stand (QC): 6 Chair/Qxw-lh-Iigds Xfer(QC): 6 Toilet Transfer (QC): 6 Walk 10 feet (QC): 6 Walk 50ft with 2 Turns (QC): 6 Walk 150 ft (QC): 6 1 Step (curb) (QC): 6 4 Steps (QC): 6 PT Plan Treatment/Plan Treatment Plan: Continue Plan of Care Treatment Plan: Bed Mobility, Education, Functional Activity Livia, Functional Strength, Gait, Safety, Therapeutic Exercise, Transfers Treatment Duration: Mar 29, 2021 Frequency: 6 times per week Estimated Hrs Per Day: .25 hour per day Patient and/or Family Agrees t: Yes Time/GCodes Time In: 900 Time Out: 923 Total Billed Treatment Time: 23 Total Billed Treatment 1 visit FA x 2 23 min DEAN DUBON PT Mar 21, 2021 09:29
--- NOTE | 2021-03-21 09:57 | Diagnostic Imaging Report ---
PROCEDURE: US Renal Bilateral. TECHNIQUE: Multiple real-time grayscale images were obtained over the kidneys in various projections bilaterally. INDICATION: Sepsis and bilateral hydronephrosis. Right kidney measures 12.3 x 5.5 x 6.3 cm, the left kidney measures 13.8 x 6.1 x 6.7 cm. Cortical thickness and echogenicity is normal bilaterally. No calculi are seen. There is a dilatation of the right renal pelvis measuring up to 2.3 cm. There is some dilatation of left renal pelvis measuring up to 2.7 cm. The bladder is decompressed. Ureteral jets were not visualized. IMPRESSION: There is some renal pelvic dilatation bilaterally. No other significant abnormality is seen. Dictated by: Dictated on workstation # [id number]
[2021-03-21] MEDS ORDERED: MIRA50TA PO (10:03)
--- NOTE | 2021-03-21 10:59 | Occupational Ther Daily Note ---
OT Current Status-Daily Note Subjective Pt alert, sitting in bathroom with nrsg. BAIRES took over care from nurse tech. No c/o pain. Mental Status/Objective Patient Orientation: Person, Place, Time, Situation Attachments: Winters Catheter, IV ADL-Treatment Pt set up with shower then pt able to complete shower by self sitting on shower bench using grabbars and hand held shower. After set up, pt completed upper body dressing by self. Pt completed toileting, independently. Discussed tub transfer bench for home use due to pt only having tub/shower. After session, pt sitting EOB with physician present. Nrsg notified of pt's position. All needs met in room. Therapy Code Descriptions/Definitions Functional [place] Measure: 0=Not Assessed/NA 4=Minimal Assistance 1=Total Assistance 5=Supervision or Setup 2=Maximal Assistance 6=Modified [place] 3=Moderate Assistance 7=Complete IndependenceSCALE: Activities may be completed with or without assistive devices. 5-Nhzvfexkti-yttmrzm completes the activity by him/herself with no assistance from a helper. 5-Set-up or Clean-up Assistance-helper sets up or cleans up; patient completes activity. [place] assists only prior to or following the activity. 4-Supervision or Touching Assistance-helper provides verbal cues and/or touching/steadying and/or contact guard assistance as patient completes activity. Assistance may be provided throughout the activity or intermittently. 3-Partial/Moderate Assistance-helper does LESS THAN HALF the effort. [place] lifts, holds or supports trunk or limbs, but provides less than half the effort. 2-Substantial/Maximal Assistance-helper does MORE THAN HALF the effort. [place] lifts or holds trunk or limbs and provides more than half the effort. 5-Qnanygbmd-nubxiv does ALL the effort. Patient does none of the effort to compl ete the activity. Or, the assistance of 2 or more helpers is required for the patient to complete the activity. If activity was not attempted, code reason: 7-Patient Refused. 9-Not Applicable-not attempted and the patient did not perform the activity before the current illness, exacerbation or injury. 10-Not Attempted due to Environmental Limitations-(lack of equipment, weather restraints, etc.). 88-Not Attempted due to Medical Conditions or Safety Concerns. Shower/Bathe Self (QC): 5 Upper Body Dressing (QC): 5 Toileting Hygiene (QC): 6 OT Aviation Safety Technician Goals Aviation Safety Technician Goals Time Frame: Mar 28, 2021 Eating (QC): 6 Oral Hygiene (QC): 6 Toileting Hygiene (QC): 6 Shower/Bathe Self (QC): 4 Upper Body Dressing (QC): 6 Lower Body Dressing (QC): 6 On/Off Footwear (QC): 6 Additional Goals: 1-Demonstrate ADL Tasks, 2-Verbalize Understanding, 3-ImproveStrength/Livia 1=Demonstrate adherence to instructed precautions during ADL tasks. 2=Patient will verbalize/demonstrate understanding of assistive devices/modifications for ADL. 3=Patient will improve strength/tolerance for activity to enable patient to perform ADL's. OT Education/Plan Problem List/Assessment Assessment: Decreased Activ Tolerance, Decreased UE Strength, Impaired Self- Care Skills Pt would benefit from short term skilled OT services in order to increase safety and independence with ADLs, and she would benefit from education on sock aide/ AE for LE dressing. Discharge Recommendations Plan/Recommendations: Continue POC Treatment Plan/Plan of Care Patient would benefit from OT for education, treatment and training to promote independence in ADL's, mobility, safety and/or upper extremity function for ADL's. Plan of Care: ADL Retraining, Functional Mobility, UE Funct Exercise/Act Treatment Duration: Mar 28, 2021 Frequency: 5 times per week Estimated Hrs Per Day: .25 hour per day Rehab Potential: Fair Time/GCodes Start Time: 09:50 Stop Time: 10:20 Total Time Billed (hr/min): 30 Billed Treatment Time 1 visit-ADL 2 (30 min) MARY JEFFREY Mar 21, 2021 10:59
--- NOTE | 2021-03-21 11:09 | Progress Note ---
Standard Progress Note Progress Notes/Assess & Plan Date Seen by a Provider: Mar 21, 2021 Time Seen by a Provider: 11:05 Progress/Assessment & Plan 75-year-old female admitted with UTI/sepsis and found to have pancytopenia. Urine cultures growing yeast and patient is on Diflucan. Also noted to have acute on chronic renal failure at the time of admission which is improving with hydration. GFR is 51 mL/min today. Pancytopenia most likely due to methotrexate use and worsened by renal failure. Advised patient to hold methotrexate and started on folic acid. Hemoglobin and platelets have decreased further with hemoglobin level of 7.2 and platelets 113,000 today. Patient feels good today and ambulated short distance with physical therapy. She completed a shower this morning and denied any dyspnea on exertion or lightheadedness. No bleeding or bruising. Continue treatment of UTI and may consider discontinuing cephalosporin. Monitor lab work daily and transfuse PRBCs for hemoglobin less than [address] Garzon is commission specialist this weekend for any problems or questions. Focused Exam Lactate Level 03/18/21 21:11: Lactic Acid Level 0.99 03/19/21 00:55: Lactic Acid Level 1.37 Time of Focused Exam: 22:30 KRISTINE MOSER Mar 21, 2021 11:09
[2021-03-21] MEDS: ENOXAPARIN 40 MG/0.4 ML (LOVENOX) SYR SC SCH (11:42)
[2021-03-21 12:00] VITALS: BP 129/72
--- NOTE | 2021-03-21 13:03 | Progress Note ---
Subjective Subjective Date Seen by Provider: Mar 21, 2021 Time Seen by Provider: 08:40 Pt continues to feel better today. She was able to stand up and walk around with PT yesterday. She denies any N/V, sweats/chills, SOA or pain/discomfort. Review of Systems General: No Chills, No Night Sweats Pulmonary: No Dyspnea Cardiovascular: No: Chest Pain, Palpitations Gastrointestinal: No: Nausea, Vomiting, Abdominal Pain, Diarrhea Objective Exam Vital Signs Vital Signs Date Time Temp Pulse Resp B/P (MAP) Pulse Ox O2 Delivery O2 Flow Rate FiO2 03/21/21 08:00 37.2 90 20 163/78 (106) 93 Room Air 03/21/21 08:00 Room Air 03/21/21 04:00 37.7 71 18 159/68 (98) 93 Room Air 03/20/21 23:30 37.5 81 18 152/66 (94) 96 Room Air 03/20/21 20:29 Room Air 03/20/21 19:55 37.6 83 20 153/70 (97) 96 Room Air 03/20/21 16:00 36.7 84 18 150/70 (96) 98 Room Air I & O 03/21/21 06:59 Intake Total 4425 ml Output Total 2560 ml Balance 1865 ml General Appearance: WD/WN, Obese Respiratory: Lungs Clear, Normal Breath Sounds, No Respiratory Distress Cardiovascular: Regular Rate, Rhythm, No Edema, No Murmur Gastrointestinal: Normal Bowel Sounds, Non Tender, Soft Genital/Rectal: Other (HAS EXTENSIVE ERYTHEMA, MACERATION/SKIN BREAK DOWN, WITH A FEW SATELLITE LESIONS TO ENTIRE GENITAL/RECTAL AREA-FROM MONS TO PERIRECTAL AREA. Winters cath present) Back: No CVA Tenderness Extremity: Normal Inspection, No Pedal Edema Neurologic/Psychiatric: Alert, Oriented x3, Normal Mood/Affect Skin: Normal Color, Warm/Dry Results Lab Laboratory Tests 03/20/21 16:31: Glucometer 133H 03/20/21 21:26: Glucometer 137H 03/21/21 05:27: White Blood Count 2.4L, Red Blood Count 2.50L, Hemoglobin 7.2L, Hematocrit 22L, Mean Corpuscular Volume 89, Mean Corpuscular Hemoglobin 29, Mean Corpuscular Hemoglobin Concent 32, Red Cell Distribution Width 15.3H, Platelet Count 113L, Mean Platelet Volume 9.8, Immature Granulocyte % (Auto) 0, Neutrophils (%) (Auto) 43, Lymphocytes (%) (Auto) 44, Monocytes (%) (Auto) 5, Eosinophils (%) (Auto) 8, Basophils (%) (Auto) 0, Neutrophils # (Auto) 1.0L, Lymphocytes # (Auto) 1.1, Monocytes # (Auto) 0.1, Eosinophils # (Auto) 0.2, Basophils # (Auto) 0.0, Immature Granulocyte # (Auto) 0.0, Percent Immature Platelet Fraction 1.2, Sodium Level 137, Potassium Level 4.0, Chloride Level 111H, Carbon Dioxide Level 17L, Anion Gap 9, Blood Urea Nitrogen 23H, Creatinine 1.04, Estimat Glomerular Filtration Rate 51, BUN/Creatinine Ratio 22, Glucose Level 111H, Calcium Level 8.6, Procalcitonin 0.31H 03/21/21 05:36: Glucometer 106 03/21/21 11:07: Glucometer 152H Microbiology 03/19/21 MRSA Screen - Final, Complete MRSA not isolated 03/18/21 Urine Culture - Final, Complete YEAST 03/18/21 Blood Culture - Preliminary, Resulted No growth Assessment/Plan Assessment/Plan Assessment and Plan Pancytopenia Likely secondary to methotrexate Heme/onc following Hold methotrexate Supplement with folic acid Trend CBC Transfuse for Hgb <7 Yeast UTI Sepsis resolved Urine culture + for yeast No evidence of bacterial infection Stop antibiotics PO Diflucan, Nystatin cream Stop IV fluids Normal diet resumed, pt tolerating well Obstructive nephropathy Urology following Winters in place Hold anticholinergics Renal tubular acidosis Urine anion gap positive, consistent with RTA Started on bicarb replacement T2DM Hold Metformin Sliding scale insulin Debility PT/OT DVT PPX: Lovenox Severe sepsis, resolved Hyperkalemia, resolved Problems: (1) Severe sepsis (2) Yeast UTI (3) Ilene infection of genital region (4) UTI (urinary tract infection) (5) Acute renal failure (6) RTA (renal tubular acidosis) Supervisory-Addendum Brief Verification & Attestation Participated in pt care: history, MDM, physical Personally performed: exam, history, MDM, supervision of care Care discussed with: Medical Student Procedures: n/a Results interpretation: Verified all documentation A medical student performed and documented this service in my presence. I reviewed and verified all information documented by the medical student and made modifications to such information, when appropriate. I personally performed the physical exam and medical decision making. STUART ESTRADA Mar 21, 2021 13:03 ROS LEIVA MD Mar 21, 2021 16:54
[2021-03-21 15:40] VITALS: BP 150/69
[2021-03-21] MEDS: LACTOBACILLUS ACIDOPHILUS (PROBIOTIC) CAPSULE PO SCH (17:59)
[2021-03-21 19:08] VITALS: BP 171/70
[2021-03-21] MEDS ORDERED: NON-FORMULARY MEDICATION 1 EA EA (Metoprolol Succinate 100 MG) PO SCH (21:00)
[2021-03-21] MEDS: meTOprolol SUCCINATE 100 MG (TOPROL XL) TAB PO SCH (21:50)
[2021-03-21] MEDS: ASPIRIN E.C. 81 MG (ECOTRIN) TAB PO SCH (21:50)
[2021-03-21 23:30] VITALS: BP 161/65
[2021-03-22 04:00] VITALS: BP_SYST 150; BP_SYST 162; BP_DIAS 58; BP_DIAS 69
[2021-03-22 05:39] LABS: HEMOGLOBIN 7.6 g/dL (11.5-16.0); MEAN PLATELET VOLUME 9.8 fL (9.0-12.2); MONOCYTES # (AUTO) 0.2 10^3/uL (0.0-1.0)
[2021-03-22 05:42] LABS: BASOPHILS % (AUTO) 0 % (0-10); EOSINOPHILS # (AUTO) 0.3 10^3/uL (0.0-0.3); EOSINOPHILS % (AUTO) 8 % (0-10); HEMATOCRIT 24 % (35-52); LYMPHOCYTES # (AUTO) 1.2 10^3/uL (1.0-4.0); LYMPHOCYTES % (AUTO) 38 % (12-44); MEAN CORPUSCULAR HEMOGLOBIN 29 pg (25-34); MEAN CORPUSCULAR HGB CONC 31 g/dL (32-36); MEAN CORPUSCULAR VOLUME 91 fL (80-99); MONOCYTES % (AUTO) 8 % (0-12); NEUTROPHILS # (AUTO) 1.4 10^3/uL (1.8-7.8); NEUTROPHILS % (AUTO) 45 % (42-75); PLATELET COUNT 117 10^3/uL (130-400); WHITE BLOOD COUNT 3.1 10^3/uL (4.3-11.0)
[2021-03-22 05:48] LABS: POTASSIUM 4.1 MMOL/L (3.6-5.0)
[2021-03-22 05:49] LABS: CALCIUM 8.9 MG/DL (8.5-10.1)
[2021-03-22 05:54] LABS: CREATININE SERUM 1.01 MG/DL (0.60-1.30)
[2021-03-22] MEDS: inSUlin ASPART (NovoLOG) 1 UNIT/0.01 ML (CHARGE PER UNIT) SC SCH ×4 (06:16→20:34)
[2021-03-22 07:13] VITALS: BP 165/80
[2021-03-22] MEDS: fluCOnazole (DIFLUCAN) 100 MG TAB PO SCH (08:45)
[2021-03-22] MEDS: amLODIPine 10 MG (NORVASC) TAB PO SCH (08:45)
[2021-03-22] MEDS: FUROSEMIDE 40 MG (LASIX) TAB PO SCH (08:45)
[2021-03-22] MEDS: SODIUM BICARBONATE 650 MG TABLET (NON-FORMULARY) PO SCH ×3 (08:45→20:33)
[2021-03-22] MEDS: FOLIC ACID 1 MG TAB PO SCH (08:45)
[2021-03-22] MEDS: meTOprolol SUCCINATE 100 MG (TOPROL XL) TAB PO SCH ×2 (08:45→20:33)
[2021-03-22] MEDS: PANTOPRAZOLE 20 MG TABLET (PROTONIX) PO SCH (08:45)
[2021-03-22] MEDS: LACTOBACILLUS ACIDOPHILUS (PROBIOTIC) CAPSULE PO SCH ×3 (08:46→18:16)
[2021-03-22] MEDS: NYSTATIN CREAM (MYCOSTATIN) 30 GM TUBE TP SCH ×2 (08:47→20:34)
[2021-03-22] MEDS: ENOXAPARIN 40 MG/0.4 ML (LOVENOX) SYR SC SCH (08:47)
--- NOTE | 2021-03-22 11:12 | Progress Note ---
Subjective Subjective Date Seen by Provider: Mar 22, 2021 Time Seen by Provider: 10:30 Pt reports feeling good this morning. She is up and moving around, eating and drinking without issues. She denies any N/V, sweats/chills, SOA or pain/discomfort. Review of Systems General: No Chills, No Night Sweats Pulmonary: No Dyspnea Cardiovascular: No: Chest Pain, Palpitations Gastrointestinal: No: Nausea, Vomiting, Abdominal Pain, Diarrhea Objective Exam Vital Signs Vital Signs Date Time Temp Pulse Resp B/P (MAP) Pulse Ox O2 Delivery O2 Flow Rate FiO2 03/22/21 09:12 Room Air 03/22/21 07:13 36.0 64 20 165/80 (108) 94 Room Air 03/22/21 04:00 37.4 67 18 150/58 (88) 93 Room Air 03/21/21 23:30 37.6 54 18 161/65 (97) 92 Room Air 03/21/21 21:00 Room Air 03/21/21 19:08 36.9 95 18 171/70 (103) 95 Room Air 03/21/21 15:40 36.6 77 20 150/69 (96) 96 Room Air 03/21/21 12:00 36.8 78 20 129/72 (91) 96 Room Air I & O 03/22/21 07:00 Intake Total 3025 ml Output Total 1650 ml Balance 1375 ml General Appearance: WD/WN, Obese HEENT: PERRL/EOMI Neck: Normal Inspection, Supple Respiratory: Lungs Clear, Normal Breath Sounds, No Respiratory Distress Cardiovascular: Regular Rate, Rhythm, No Edema, No Murmur Gastrointestinal: Normal Bowel Sounds, Non Tender, Soft Genital/Rectal: Other (HAS EXTENSIVE ERYTHEMA, MACERATION/SKIN BREAK DOWN, WITH A FEW SATELLITE LESIONS TO ENTIRE GENITAL/RECTAL AREA-FROM MONS TO PERIRECTAL AREA. Winters cath present) Extremity: Normal Inspection, No Pedal Edema Neurologic/Psychiatric: Alert, Oriented x3, Normal Mood/Affect Skin: Normal Color, Warm/Dry Results Lab Laboratory Tests 03/21/21 11:07: Glucometer 152H 03/21/21 15:45: Glucometer 139H 03/21/21 20:38: Glucometer 182H 03/22/21 05:15: White Blood Count 3.1L, Red Blood Count 2.66L, Hemoglobin 7.6L, Hematocrit 24L, Mean Corpuscular Volume 91, Mean Corpuscular Hemoglobin 29, Mean Corpuscular Hemoglobin Concent 31L, Red Cell Distribution Width 15.4H, Platelet Count 117L, Mean Platelet Volume 9.8, Immature Granulocyte % (Auto) 1, Neutrophils (%) (Auto) 45, Lymphocytes (%) (Auto) 38, Monocytes (%) (Auto) 8, Eosinophils (%) (Auto) 8, Basophils (%) (Auto) 0, Neutrophils # (Auto) 1.4L, Lymphocytes # (Auto) 1.2, Monocytes # (Auto) 0.2, Eosinophils # (Auto) 0.3, Basophils # (Auto) 0.0, Immature Granulocyte # (Auto) 0.0, Percent Immature Platelet Fraction 1.8, Sodium Level 136, Potassium Level 4.1, Chloride Level 106, Carbon Dioxide Level 19L, Anion Gap 11, Blood Urea Nitrogen 18, Creatinine 1.01, Estimat Glomerular Filtration Rate 53, BUN/Creatinine Ratio 18, Glucose Level 139H, Calcium Level 8.9 03/22/21 10:42: Glucometer 177H Microbiology 03/19/21 MRSA Screen - Final, Complete MRSA not isolated 03/18/21 Urine Culture - Final, Complete YEAST 03/18/21 Blood Culture - Preliminary, Resulted No growth Assessment/Plan Assessment/Plan Assessment and Plan Pancytopenia Likely secondary to methotrexate Heme/onc following Hold methotrexate Supplement with folic acid CBC trending up, recheck tmrw. discharge if improved again Transfuse for Hgb <7 Yeast UTI Sepsis resolved Urine culture + for yeast No evidence of bacterial infection PO Diflucan, Nystatin cream Normal diet resumed, pt tolerating well No IV fluids needed Obstructive nephropathy Urology following Winters in place Hold anticholinergics Renal tubular acidosis Urine anion gap positive, consistent with RTA Started on bicarb replacement T2DM Hold Metformin Sliding scale insulin Debility PT/OT DVT PPX: Lovenox Problems: (1) Pancytopenia (2) Yeast UTI (3) Ilene infection of genital region (4) RTA (renal tubular acidosis) (5) Rheumatoid arthritis (6) History of colon cancer Supervisory-Addendum Brief Verification & Attestation Participated in pt care: history, MDM, physical Personally performed: exam, history, MDM, supervision of care Care discussed with: Medical Student Procedures: n/a Results interpretation: Verified all documentation A medical student performed and documented this service in my presence. I reviewed and verified all information documented by the medical student and made modifications to such information, when appropriate. I personally performed the physical exam and medical decision making. STUART ESTRADA Mar 22, 2021 11:12 ROS LEIVA MD Mar 22, 2021 21:42
[2021-03-22 11:51] VITALS: BP 156/69
--- NOTE | 2021-03-22 12:06 | Physical Therapy Daily Note ---
PT Daily Note-Current Subjective Patient lying supine in bed upon PT arrival, agreeable to treatment. Mental Status Patient Orientation: Person, Place, Time, Situation Transfers SCALE: Activities may be completed with or without assistive devices. 7-Imxfzmwlkf-psqtaqy completes the activity by him/herself with no assistance from a helper. 5-Set-up or Clean-up Assistance-helper sets up or cleans up; patient completes activity. [place] assists only prior to or following the activity. 4-Supervision or Touching Assistance-helper provides verbal cues and/or touching/steadying and/or contact guard assistance as patient completes activity. Assistance may be provided throughout the activity or intermittently. 3-Partial/Moderate Assistance-helper does LESS THAN HALF the effort. [place] lifts, holds or supports trunk or limbs, but provides less than half the effort. 2-Substantial/Maximal Assistance-helper does MORE THAN HALF the effort. [place] lifts or holds trunk or limbs and provides more than half the effort. 4-Uolmxkfab-manhfi does ALL the effort. Patient does none of the effort to complete the activity. Or, the assistance of 2 or more helpers is required for the patient to complete the activity. If activity was not attempted, code reason: 7-Patient Refused. 9-Not Applicable-not attempted and the patient did not perform the activity before the current illness, exacerbation or injury. 10-Not Attempted due to Environmental Limitations-(lack of equipment, weather restraints, etc.). 88-Not Attempted due to Medical Conditions or Safety Concerns. Roll Left & Right (QC): 4 Sit to Lying (QC): 4 Lying to Sitting/Side of Bed(Q: 4 Sit to Stand (QC): 4 Chair/Xqi-in-Vqjla Xfer(QC): 4 Gait Training Does the Patient Walk?: Yes Distance: 200 Walk 10 feet (QC): 4 Walk 50 ft with 2 Turns(QC): 4 Walk 150 ft (QC): 4 Gait Persons Needed: 1 Gait Assistive Device: FWW Assessment Current Status: Fair Progress Patient tolerated treatment fair. She demonstrates CGA with all bed mobility and transfers. Patient ambulates 200 feet slowly, with FWW, with CGA and verbal cues. Patient tends to keep the FWW too far from her body and looks around frequently. When she stares to her right, she tends to veer to the right, claims it is the FWW wheels. Patient in chair post treatment with all needs met, nursing notified, call light in hand, and in the room. PT Nursing Home Goals Crane Ladle Person Goals PT Crane Ladle Person Goals Time Frame: Mar 29, 2021 Roll Left & Right (QC): 6 Sit to Lying (QC): 6 Lying-Sitting on Side/Bed(QC): 6 Sit to Stand (QC): 6 Chair/Qfc-ce-Ysvud Xfer(QC): 6 Toilet Transfer (QC): 6 Walk 10 feet (QC): 6 Walk 50ft with 2 Turns (QC): 6 Walk 150 ft (QC): 6 1 Step (curb) (QC): 6 4 Steps (QC): 6 PT Plan Treatment/Plan Treatment Plan: Continue Plan of Care Treatment Plan: Bed Mobility, Education, Functional Activity Livia, Functional Strength, Gait, Safety, Therapeutic Exercise, Transfers Treatment Duration: Mar 29, 2021 Frequency: 6 times per week Estimated Hrs Per Day: .25 hour per day Patient and/or Family Agrees t: Yes Safety Risks/Education Patient Education: Gait Training Teaching Recipient: Patient Teaching Methods: Demonstration, Discussion Response to Teaching: Verbalize Understanding, Return Demonstration Time/GCodes Time In: 1114 Time Out: 1138 Total Billed Treatment Time: 24 Total Billed Treatment Visit, Gait (2) AGUSTO LUONG PT Mar 22, 2021 12:05
[2021-03-22 16:00] VITALS: BP 149/67
[2021-03-22 20:00] VITALS: BP 149/60
[2021-03-22] MEDS: ASPIRIN E.C. 81 MG (ECOTRIN) TAB PO SCH (20:33)
[2021-03-22 23:42] VITALS: BP 151/66
[2021-03-23 04:59] VITALS: BP 138/60
[2021-03-23] MEDS: inSUlin ASPART (NovoLOG) 1 UNIT/0.01 ML (CHARGE PER UNIT) SC SCH ×4 (05:13→20:13)
[2021-03-23 05:32] LABS: BASOPHILS % (AUTO) 0 % (0-10); MEAN CORPUSCULAR HGB CONC 32 g/dL (32-36)
[2021-03-23 05:34] LABS: EOSINOPHILS # (AUTO) 0.3 10^3/uL (0.0-0.3); EOSINOPHILS % (AUTO) 8 % (0-10); HEMATOCRIT 22 % (35-52); HEMOGLOBIN 7.1 g/dL (11.5-16.0); LYMPHOCYTES # (AUTO) 1.4 10^3/uL (1.0-4.0); LYMPHOCYTES % (AUTO) 43 % (12-44); MEAN CORPUSCULAR HEMOGLOBIN 29 pg (25-34); MEAN CORPUSCULAR VOLUME 90 fL (80-99); MEAN PLATELET VOLUME 10.1 fL (9.0-12.2); MONOCYTES # (AUTO) 0.3 10^3/uL (0.0-1.0); MONOCYTES % (AUTO) 10 % (0-12); NEUTROPHILS # (AUTO) 1.3 10^3/uL (1.8-7.8); NEUTROPHILS % (AUTO) 39 % (42-75); PLATELET COUNT 89 10^3/uL (130-400); WHITE BLOOD COUNT 3.3 10^3/uL (4.3-11.0)
[2021-03-23 05:44] LABS: POTASSIUM 3.6 MMOL/L (3.6-5.0)
[2021-03-23 05:46] LABS: CALCIUM 8.4 MG/DL (8.5-10.1)
[2021-03-23 05:50] LABS: CREATININE SERUM 0.88 MG/DL (0.60-1.30)
[2021-03-23] MEDS: ACETAMINOPHEN 500 MG TAB (TYLENOL) PO PRN ×2 (06:31→23:47)
[2021-03-23 07:30] VITALS: BP 150/71
[2021-03-23 08:00] VITALS: BP 150/71
[2021-03-23] MEDS: ENOXAPARIN 40 MG/0.4 ML (LOVENOX) SYR SC SCH (09:07)
[2021-03-23] MEDS: amLODIPine 10 MG (NORVASC) TAB PO SCH (09:07)
[2021-03-23] MEDS: LACTOBACILLUS ACIDOPHILUS (PROBIOTIC) CAPSULE PO SCH ×3 (09:07→17:04)
[2021-03-23] MEDS: FUROSEMIDE 40 MG (LASIX) TAB PO SCH (09:07)
[2021-03-23] MEDS: SODIUM BICARBONATE 650 MG TABLET (NON-FORMULARY) PO SCH ×3 (09:07→20:16)
[2021-03-23] MEDS: meTOprolol SUCCINATE 100 MG (TOPROL XL) TAB PO SCH ×2 (09:07→20:16)
[2021-03-23] MEDS: PANTOPRAZOLE 20 MG TABLET (PROTONIX) PO SCH (09:07)
[2021-03-23] MEDS: fluCOnazole (DIFLUCAN) 100 MG TAB PO SCH (09:07)
[2021-03-23] MEDS: FOLIC ACID 1 MG TAB PO SCH (09:07)
[2021-03-23] MEDS: NYSTATIN CREAM (MYCOSTATIN) 30 GM TUBE TP SCH ×2 (09:08→20:18)
--- NOTE | 2021-03-23 09:49 | Progress Note ---
Subjective Subjective Date Seen by Provider: Mar 23, 2021 Time Seen by Provider: 08:50 Pt reports feeling good this morning, sitting up in a chair and eating breakfast during out visit. She has been able to move around without issue. She had a fever last night but was asymptomatic. She denies any N/V, sweats/chills, SOA or pain/discomfort. Review of Systems General: No Chills, No Night Sweats Pulmonary: No Dyspnea Cardiovascular: No: Chest Pain, Palpitations Gastrointestinal: No: Nausea, Vomiting, Abdominal Pain, Diarrhea Objective Exam Vital Signs Vital Signs Date Time Temp Pulse Resp B/P (MAP) Pulse Ox O2 Delivery O2 Flow Rate FiO2 03/23/21 09:38 Room Air 03/23/21 06:51 37.0 03/23/21 06:49 37.0 03/23/21 06:31 37.4 03/23/21 04:59 37.4 70 18 138/60 (86) 91 Room Air 03/22/21 23:42 37.7 75 20 151/66 (94) 94 Room Air 03/22/21 22:00 Room Air 03/22/21 20:00 38.6 72 22 149/60 (89) 93 Room Air 03/22/21 16:00 37.0 62 18 149/67 (94) 91 Room Air 03/22/21 11:51 36.2 63 20 156/69 (98) 94 Room Air I & O 03/23/21 06:59 Intake Total 1630 ml Output Total 2275 ml Balance -645 ml General Appearance: No Apparent Distress, Obese HEENT: PERRL/EOMI Neck: Normal Inspection, Supple Respiratory: Lungs Clear, Normal Breath Sounds, No Respiratory Distress Cardiovascular: Regular Rate, Rhythm, No Edema, No Murmur Gastrointestinal: Normal Bowel Sounds, Non Tender, Soft Genital/Rectal: Other (HAS EXTENSIVE ERYTHEMA, MACERATION/SKIN BREAK DOWN, WITH A FEW SATELLITE LESIONS TO ENTIRE GENITAL/RECTAL AREA-FROM MONS TO PERIRECTAL AREA. Winters cath present) Extremity: Normal Inspection, No Pedal Edema Neurologic/Psychiatric: Alert, Oriented x3, Normal Mood/Affect Skin: Normal Color, Warm/Dry Results Lab Laboratory Tests 03/22/21 10:42: Glucometer 177H 03/22/21 16:09: Glucometer 199H 03/22/21 20:09: Glucometer 202H 03/23/21 05:02: Glucometer 124H 03/23/21 05:23: White Blood Count 3.3L, Red Blood Count 2.48L, Hemoglobin 7.1L, Hematocrit 22L, Mean Corpuscular Volume 90, Mean Corpuscular Hemoglobin 29, Mean Corpuscular Hemoglobin Concent 32, Red Cell Distribution Width 15.2H, Platelet Count 89L, Mean Platelet Volume 10.1, Immature Granulocyte % (Auto) 1, Neutrophils (%) (Auto) 39L, Lymphocytes (%) (Auto) 43, Monocytes (%) (Auto) 10, Eosinophils (%) (Auto) 8, Basophils (%) (Auto) 0, Neutrophils # (Auto) 1.3L, Lymphocytes # ( Auto) 1.4, Monocytes # (Auto) 0.3, Eosinophils # (Auto) 0.3, Basophils # (Auto) 0.0, Immature Granulocyte # (Auto) 0.0, Percent Immature Platelet Fraction 3.0, Sodium Level 135, Potassium Level 3.6, Chloride Level 104, Carbon Dioxide Level 19L, Anion Gap 12, Blood Urea Nitrogen 16, Creatinine 0.88, Estimat Glomerular Filtration Rate 62, BUN/Creatinine Ratio 18, Glucose Level 122H, Calcium Level 8.4L Microbiology 03/19/21 MRSA Screen - Final, Complete MRSA not isolated 03/18/21 Urine Culture - Final, Complete YEAST 03/18/21 Blood Culture - Preliminary, Resulted No growth Assessment/Plan Assessment/Plan Assessment and Plan Pancytopenia Likely secondary to methotrexate Heme/onc following Hold methotrexate Supplement with folic acid Hgb 7.1, PLT 89, trending down today Transfuse for Hgb <7 Ilene dermatitis Nystatin Yeast UTI Sepsis resolved Urine culture + for yeast No evidence of bacterial infection Continue Diflucan Obstructive nephropathy Urology following Winters in place Hold anticholinergics Renal tubular acidosis Urine anion gap positive, consistent with RTA Started on bicarb replacement T2DM Hold Metformin Sliding scale insulin Debility PT/OT DVT PPX: Lovenox Problems: (1) Pancytopenia (2) Ilene infection of genital region (3) Yeast UTI (4) RTA (renal tubular acidosis) (5) T2DM (type 2 diabetes mellitus) Qualifiers: Qualified Codes: E11.9 - Type 2 diabetes mellitus without complications Supervisory-Addendum Brief Verification & Attestation Participated in pt care: history, MDM, physical Personally performed: exam, history, MDM, supervision of care Care discussed with: Medical Student Procedures: n/a Results interpretation: Verified all documentation A medical student performed and documented this service in my presence. I reviewed and verified all information documented by the medical student and made modifications to such information, when appropriate. I personally performed the physical exam and medical decision making. STUART ESTRADA Mar 23, 2021 09:49 ROS LEIVA MD Mar 23, 2021 17:01
[2021-03-23 12:01] VITALS: BP 139/62
[2021-03-23] MEDS ORDERED: DOCUSATE SODIUM 100 MG (COLACE) CAP PO PRN (14:30)
[2021-03-23 16:00] VITALS: BP 138/65
[2021-03-23 19:29] VITALS: BP 146/64
[2021-03-23] MEDS: ASPIRIN E.C. 81 MG (ECOTRIN) TAB PO SCH (20:16)
[2021-03-24] VITALS (8 sets, daily range): BP systolic 107–175; BP diastolic 61–79
[2021-03-24 05:34] LABS: BASOPHILS % (AUTO) 0 % (0-10); EOSINOPHILS # (AUTO) 0.3 10^3/uL (0.0-0.3); EOSINOPHILS % (AUTO) 7 % (0-10); HEMATOCRIT 23 % (35-52); HEMOGLOBIN 7.5 g/dL (11.5-16.0); LYMPHOCYTES # (AUTO) 1.7 10^3/uL (1.0-4.0); LYMPHOCYTES % (AUTO) 42 % (12-44); MEAN CORPUSCULAR HEMOGLOBIN 29 pg (25-34); MEAN CORPUSCULAR HGB CONC 32 g/dL (32-36); MEAN CORPUSCULAR VOLUME 89 fL (80-99); MEAN PLATELET VOLUME 10.4 fL (9.0-12.2); MONOCYTES # (AUTO) 0.4 10^3/uL (0.0-1.0); MONOCYTES % (AUTO) 10 % (0-12); NEUTROPHILS # (AUTO) 1.7 10^3/uL (1.8-7.8); NEUTROPHILS % (AUTO) 40 % (42-75); PLATELET COUNT 94 10^3/uL (130-400); WHITE BLOOD COUNT 4.2 10^3/uL (4.3-11.0)
[2021-03-24] MEDS: inSUlin ASPART (NovoLOG) 1 UNIT/0.01 ML (CHARGE PER UNIT) SC SCH ×4 (05:34→20:40)
[2021-03-24 05:46] LABS: POTASSIUM 3.4 MMOL/L (3.6-5.0)
[2021-03-24 05:47] LABS: CALCIUM 8.3 MG/DL (8.5-10.1)
[2021-03-24 05:51] LABS: CREATININE SERUM 0.86 MG/DL (0.60-1.30)
[2021-03-24] MEDS: ENOXAPARIN 40 MG/0.4 ML (LOVENOX) SYR SC SCH (08:17)
--- NOTE | 2021-03-24 09:31 | D/C HH Face to Face Order ---
D/C Face to Face Orders Instructions for Patient Via [facility], Patient Instructions/FollowUp: Please continue to take your medications as written. Please follow up with Dr Hernandez Physician to follow Patient: Dr Hernandez Discharge Diet for Home: ADA Diet Patient Data-Allergies,Ht & Wt Patient Allergies: Coded Allergies: fentanyl (Verified Allergy, Intermediate, HALLUCINATIONS, 09/07/18) hydroxychloroquine (Verified Allergy, Mild, HIVES, 09/07/18) Height (Feet): 5 Height (Inches): 2.00 Weight (Pounds): 225 Weight (Ounces): 0.0 Home Health Need/Face to Face Date of Face to Face: Mar 24, 2021 Clinical Findings: Generalized weakness and fatigue, Muscle weakness I have seen Pt kcvz-um-geer: Yes Discharged To: Home Diagnosis/Conditions: Recurrent UTIs, chronic farmer catheter Patient is Homebound due to: Muscle weakness Homebound Status Due to the above stated illness, injury or surgical procedure (medical condition or diagnosis) and associated clinical findings, the patient is homebound because of his/her inability to leave home except with aid of a supportive device and/or person AND leaving the home requires a considerable and taxing effort or is medically contraindicated. Pt req the following assistanc: Aid of another person Home Health Nursing Orders Home Health Services Order: Nursing Services, Dough Braker-Evaluate & Treat, Physical Therapy-Evaluate & Treat Home Health Infusion Therapy Line Start Date: Mar 18, 2021 Therapy Orders Therapy Orders: OT (must have SN or PT order), Physical Therapy Therapy Specific Orders: Eval assistive deivces, Teach enviro modifications/safety, Gait training, Increase strength/endurance Certify Stmt I certify that this patient is under my care and that I, a nurse practitioner or a physician; a fiscal assistant working with me, had a face to face encounter that - meets the physician face to face encounter requirements with this patient as dated. KAYE GARZA MD Mar 24, 2021 08:57
--- NOTE | 2021-03-24 09:41 | Physical Therapy Daily Note ---
PT Daily Note-Current Subjective Patient reports she is going home today. Agrees to PT. Mental Status Patient Orientation: Normal For Age Transfers SCALE: Activities may be completed with or without assistive devices. 2-Wgjzxninnb-rrulpzm completes the activity by him/herself with no assistance from a helper. 5-Set-up or Clean-up Assistance-helper sets up or cleans up; patient completes activity. [place] assists only prior to or following the activity. 4-Supervision or Touching Assistance-helper provides verbal cues and/or touc geovany/steadying and/or contact guard assistance as patient completes activity. Assistance may be provided throughout the activity or intermittently. 3-Partial/Moderate Assistance-helper does LESS THAN HALF the effort. Loop lifts, holds or supports trunk or limbs, but provides less than half the effort. 2-Substantial/Maximal Assistance-helper does MORE THAN HALF the effort. Loop lifts or holds trunk or limbs and provides more than half the effort. 4-Xvjvjvtcu-ardkjl does ALL the effort. Patient does none of the effort to complete the activity. Or, the assistance of 2 or more helpers is required for the patient to complete the activity. If activity was not attempted, code reason: 7-Patient Refused. 9-Not Applicable-not attempted and the patient did not perform the activity before the current illness, exacerbation or injury. 10-Not Attempted due to Environmental Limitations-(lack of equipment, weather restraints, etc.). 88-Not Attempted due to Medical Conditions or Safety Concerns. Sit to Stand (QC): 6 Gait Training Does the Patient Walk?: Yes Distance: 200' Walk 10 feet (QC): 5 Walk 50 ft with 2 Turns(QC): 5 Walk 150 ft (QC): 5 Gait Assistive Device: FWW very slow, steady gait sequence Stair Training 1 Step (curb) (QC): 7 4 Steps (QC): 7 Exercises Seated Therapy Exercises: Ankle pumps, Long arc quads Seated Reps: 15 Assessment Patient requires time to complete all functional tasks. Patient is currently at OF per her report. Patient declined to attempt steps on this date and reports family will assist. PT Intermediate Goals Intermediate Goals PT Nurse Head Goals Time Frame: Mar 29, 2021 Roll Left & Right (QC): 6 Sit to Lying (QC): 6 Lying-Sitting on Side/Bed(QC): 6 Sit to Stand (QC): 6 Chair/Bmu-lg-Fnlad Xfer(QC): 6 Toilet Transfer (QC): 6 Walk 10 feet (QC): 6 Walk 50ft with 2 Turns (QC): 6 Walk 150 ft (QC): 6 1 Step (curb) (QC): 6 4 Steps (QC): 6 PT Plan Treatment/Plan Treatment Plan: Discontinue PT Treatment Plan: Bed Mobility, Education, Functional Activity Livia, Functional Strength, Gait, Safety, Therapeutic Exercise, Transfers Treatment Duration: Mar 29, 2021 Frequency: 6 times per week Estimated Hrs Per Day: .25 hour per day Patient and/or Family Agrees t: Yes Time/GCodes Time In: 833 Time Out: 843 Total Billed Treatment Time: 10 Total Billed Treatment 1 visit FA 10 min DEAN DUBON PT Mar 24, 2021 09:41
[2021-03-24] MEDS ORDERED: NF-SODBICA PO (09:53)
[2021-03-24] MEDS ORDERED: FLUC100T PO (09:53)
[2021-03-24] MEDS: amLODIPine 10 MG (NORVASC) TAB PO SCH (09:58)
[2021-03-24] MEDS: LACTOBACILLUS ACIDOPHILUS (PROBIOTIC) CAPSULE PO SCH ×3 (09:58→17:57)
[2021-03-24] MEDS: meTOprolol SUCCINATE 100 MG (TOPROL XL) TAB PO SCH ×2 (09:58→20:38)
[2021-03-24] MEDS: PANTOPRAZOLE 20 MG TABLET (PROTONIX) PO SCH (09:58)
[2021-03-24] MEDS: SODIUM BICARBONATE 650 MG TABLET (NON-FORMULARY) PO SCH ×3 (09:58→20:38)
[2021-03-24] MEDS: FOLIC ACID 1 MG TAB PO SCH (09:58)
[2021-03-24] MEDS: fluCOnazole (DIFLUCAN) 100 MG TAB PO SCH (09:59)
[2021-03-24] MEDS: NYSTATIN CREAM (MYCOSTATIN) 30 GM TUBE TP SCH ×2 (09:59→20:39)
[2021-03-24] MEDS: FUROSEMIDE 40 MG (LASIX) TAB PO SCH (09:59)
--- NOTE | 2021-03-24 10:36 | Occupational Ther Daily Note ---
OT Current Status-Daily Note Subjective Pt alert, at bathroom sink sitting in chair when therapy entered. Pt agreed to therapy. No c/o pain reported. Mental Status/Objective Patient Orientation: Person, Place, Time, Situation Attachments: Winters Catheter, IV ADL-Treatment Pt completed oral hygiene and brushing of hair independently while sitting in chair at bathroom sink. Pt completed sponge bath while sitting in chair. Pt was able to cleanse UB, LB, chest, and abdomen independently. Pt sit-stand from w/c to FWW and cleansed yaneli area and buttocks with CGA. Pt ambulated to recliner using FWW with supervision. Pt transferred to recliner. After therapy, pt sitting in recliner. All needs met and call light in reach. Therapy Code Descriptions/Definitions Functional [place] Measure: 0=Not Assessed/NA 4=Minimal Assistance 1=Total Assistance 5=Supervision or Setup 2=Maximal Assistance 6=Modified [place] 3=Moderate Assistance 7=Complete IndependenceSCALE: Activities may be completed with or without assistive devices. 9-Zypznxcyrm-jtisfvj completes the activity by him/herself with no assistance from a helper. 5-Set-up or Clean-up Assistance-helper sets up or cleans up; patient completes activity. [place] assists only prior to or following the activity. 4-Supervision or Touching Assistance-helper provides verbal cues and/or touching/steadying and/or contact guard assistance as patient completes activity. Assistance may be provided throughout the activity or intermittently. 3-Partial/Moderate Assistance-helper does LESS THAN HALF the effort. [place] lifts, holds or supports trunk or limbs, but provides less than half the effort. 2-Substantial/Maximal Assistance-helper does MORE THAN HALF the effort. [place] lifts or holds trunk or limbs and provides more than half the effort. 6-Uvihnufku-mahcsa does ALL the effort. Patient does none of the effort to complete the activity. Or, the assistance of 2 or more helpers is required for the patient to complete the activity. If activity was not attempted, code reason: 7-Patient Refused. 9-Not Applicable-not attempted and the patient did not perform the activity before the current illness, exacerbation or injury. 10-Not Attempted due to Environmental Limitations-(lack of equipment, weather restraints, etc.). 88-Not Attempted due to Medical Conditions or Safety Concerns. Education OT Patient Education: Correct positioning, Modified ADL techniques, Purpose of tx/functional activities, Transfer techniques Teaching Recipient: Patient, Primary Caregiver Teaching Methods: Demonstration, Discussion Response to Teaching: Verbalize Understanding, Return Demonstration OT Mcfp Goals Electric Detector Operator Goals Time Frame: Mar 28, 2021 Eating (QC): 6 Oral Hygiene (QC): 6 Toileting Hygiene (QC): 6 Shower/Bathe Self (QC): 4 Upper Body Dressing (QC): 6 Lower Body Dressing (QC): 6 On/Off Footwear (QC): 6 Additional Goals: 1-Demonstrate ADL Tasks, 2-Verbalize Understanding, 3- ImproveStrength/Livia 1=Demonstrate adherence to instructed precautions during ADL tasks. 2=Patient will verbalize/demonstrate understanding of assistive devices/modifications for ADL. 3=Patient will improve strength/tolerance for activity to enable patient to perform ADL's. OT Education/Plan Problem List/Assessment Assessment: Impaired Self-Care Skills Pt would benefit from short term skilled OT services in order to increase safety and independence with ADLs, and she would benefit from education on sock aide/ AE for LE dressing. Discharge Recommendations Plan/Recommendations: Continue POC Treatment Plan/Plan of Care Patient would benefit from OT for education, treatment and training to promote independence in ADL's, mobility, safety and/or upper extremity function for ADL's. Plan of Care: ADL Retraining, Functional Mobility, UE Funct Exercise/Act Treatment Duration: Mar 28, 2021 Frequency: 5 times per week Estimated Hrs Per Day: .25 hour per day Rehab Potential: Fair Time/GCodes Start Time: 09:28 Stop Time: 09:49 Total Time Billed (hr/min): 21 Billed Treatment Time 1 visit- ADL 1 (21 mins) ALIA HAYS Mar 24, 2021 10:36
--- NOTE | 2021-03-24 10:56 | Discharge Summary ---
Diagnosis/Chief Complaint Date of Admission Mar 18, 2021 at 23:00 Date of Discharge Discharge Date: Mar 24, 2021 Primary Care MaryMark Yolette DO Discharge Diagnosis (1) Pancytopenia (2) Ilene infection of genital region (3) Yeast UTI (4) RTA (renal tubular acidosis) (5) T2DM (type 2 diabetes mellitus) Discharge Summary Discharge Physical Exam Allergies: Coded Allergies: fentanyl (Verified Allergy, Intermediate, HALLUCINATIONS, 09/07/18) hydroxychloroquine (Verified Allergy, Mild, HIVES, 09/07/18) Vitals & I&Os Vital Signs Date Time Temp Pulse Resp B/P (MAP) Pulse Ox O2 Delivery O2 Flow Rate FiO2 03/24/21 13:45 37.0 64 18 175/75 95 Room Air 03/19/21 10:00 2.00 Hospital Course Labs (last 24 hrs) Laboratory Tests 03/23/21 15:16: Glucometer 187H 03/23/21 20:11: Glucometer 177H 03/24/21 05:00: White Blood Count 4.2L, Red Blood Count 2.62L, Hemoglobin 7.5L, Hematocrit 23L, Mean Corpuscular Volume 89, Mean Corpuscular Hemoglobin 29, Mean Corpuscular Hemoglobin Concent 32, Red Cell Distribution Width 15.3H, Platelet Count 94L, Mean Platelet Volume 10.4, Immature Granulocyte % (Auto) 1, Neutrophils (%) (Auto) 40L, Lymphocytes (%) (Auto) 42, Monocytes (%) (Auto) 10, Eosinophils (%) (Auto) 7, Basophils (%) (Auto) 0, Neutrophils # (Auto) 1.7L, Lymphocytes # (Auto) 1.7, Monocytes # (Auto) 0.4, Eosinophils # (Auto) 0.3, Basophils # (Auto) 0.0, Immature Granulocyte # (Auto) 0.0, Sodium Level 137, Potassium Level 3.4L, Chloride Level 105, Carbon Dioxide Level 22, Anion Gap 10, Blood Urea Nitrogen 14, Creatinine 0.86, Estimat Glomerular Filtration Rate 64, BUN/Creatinine Ratio 16, Glucose Level 120H, Calcium Level 8.3L 03/24/21 05:31: Glucometer 118H 03/24/21 10:58: Glucometer 270H Microbiology 03/19/21 MRSA Screen - Final, Complete MRSA not isolated 03/18/21 Urine Culture - Final, Complete YEAST 03/18/21 Blood Culture - Preliminary, Resulted No growth Patient resulted labs reviewed. Pending Labs Laboratory Tests 03/24/21 10:58: Glucometer 270 Discharge Home Medications: Active Scripts Active Diflucan (Fluconazole) 100 Mg Tablet 100 Mg PO DAILY Sodium Bicarbonate 650 Mg Tablet 650 Mg PO TID Reported Myrbetriq (Mirabegron) 50 Mg Tab.er.24h 50 Mg PO DAILY Invokana (Canagliflozin) 100 Mg Tablet 100 Mg PO DAILY Cephalexin 250 Mg Tablet 250 Mg PO DAILY Vitamin D3 (Cholecalciferol (Vitamin D3)) 25 Mcg Tablet 25 Mcg PO DAILY Vitamin C (Ascorbic Acid) 500 Mg Tablet 500 Mg PO DAILY Zinc 50 Mg Tablet 50 Mg PO DAILY Tylenol Extra Strength (Acetaminophen) 500 Mg Tablet 1,000 Mg PO Q8H PRN Probiotic (L.acidoph & Paracasei,B.lactis) 1 Each Capsule 1 Each PO DAILY Solifenacin Succinate 5 Mg Tablet 5 Mg PO HS Aspirin EC (Aspirin) 81 Mg Tablet.dr 81 Mg PO HS Methotrexate (Methotrexate Sodium) 2.5 Mg Tablet 5 Mg PO FRI TAKES 2 (2.5MG) TABS Furosemide 40 Mg Tablet 40 Mg PO DAILY PRN MAY TAKE AN ADDITIONAL DOSE NEEDED Furosemide 40 Mg Tablet 40 Mg PO DAILY Folic Acid 1 Mg Tablet 1 Mg PO HS Meloxicam 15 Mg Tablet 15 Mg PO DAILY Omeprazole 20 Mg Tablet.dr 20 Mg PO DAILY Enalapril Maleate 20 Mg Tablet 20 Mg PO BID Metoprolol Succinate 200 Mg Tab.er.24h 100 Mg PO BID TAKES OF A 200MG TAB Atorvastatin Calcium 40 Mg Tablet 40 Mg PO HS Amlodipine Besylate 10 Mg Tablet 10 Mg PO DAILY Metformin HCl ER (Metformin HCl) 500 Mg Tab.er.24h 1,000 Mg PO BID TAKES 2 (500MG) TABS Instructions to patient/family Please see electronic discharge instructions given to patient. Problem Qualifiers (1) T2DM (type 2 diabetes mellitus): Diabetes mellitus penitentiary insulin use: without penitentiary use Diabetes mellitus complication status: without complication Qualified Codes: E11.9 - Type 2 diabetes mellitus without complications KAYE GARZA MD Mar 24, 2021 10:56
--- NOTE | 2021-03-24 14:25 | Progress Note - Hospitalist ---
Subjective HPI/CC On Admission Date Seen by Provider: Mar 24, 2021 Time Seen by Provider: 14:22 Subjective/Events-last exam Pt reports feeling better today. Hopeful for DC home with farmer in place. Spoke with daughter who is attempting to arrange home health and get her follow up with [facility]. Focused Exam Time of Focused Exam: 22:30 Objective Exam Vital Signs Vital Signs Date Time Temp Pulse Resp B/P (MAP) Pulse Ox O2 Delivery O2 Flow Rate FiO2 03/24/21 13:45 37.0 64 18 175/75 95 Room Air 03/19/21 10:00 2.00 Capillary Refill : Less Than 3 Seconds General Appearance: No Apparent Distress, Chronically ill, Obese Respiratory: Lungs Clear, No Respiratory Distress Cardiovascular: Regular Rate, Rhythm, No Murmur Genital/Rectal: Other (farmer with clear yellow urine) Neurologic/Psychiatric: Alert, Oriented x3 Results/Procedures Lab Laboratory Tests 03/24/21 05:00 Patient resulted labs reviewed. Assessment/Plan Assessment and Plan Assess & Plan/Chief Complaint Pancytopenia Likely secondary to methotrexate Heme/onc following Hold methotrexate Supplement with folic acid Labs trended back up today, stable- spoke with Dr Chandra who will see today but encouraged by labs trending up Transfuse for Hgb <7 Ilene dermatitis Nystatin Yeast UTI Sepsis resolved Urine culture + for yeast No evidence of bacterial infection Continue Diflucan Will need to DC Invokana on DC due to recurrent UTIs- discussed with Dr Hernandez who will follow her BS as an outpatient Obstructive nephropathy Urology following Farmer in place- education consulted for DC education Hold anticholinergics Renal tubular acidosis Urine anion gap positive, consistent with RTA Continue bicarb replacement T2DM Hold Metformin Sliding scale insulin Debility PT/OT DVT PPX: LoveKAYE Gill MD Mar 24, 2021 14:25
--- NOTE | 2021-03-24 16:57 | Progress Note ---
Standard Progress Note Progress Notes/Assess & Plan Date Seen by a Provider: Mar 24, 2021 Time Seen by a Provider: 16:53 Progress/Assessment & Plan 75-year-old female admitted with UTI/sepsis and found to have pancytopenia. Urine cultures growing yeast and patient is on Diflucan. Also noted to have acute on chronic renal failure at the time of admission which has improved with hydration. GFR is in normal range today. Pancytopenia most likely due to methotrexate toxicity worsened by renal failure. Advised patient to hold methotrexate and continue on folic acid. WBC and ANC is normal today with hemoglobin and platelets starting to improve. Patient feels good today and ambulated short distance with physical therapy. She is awaiting discharge once home health care can be arranged at home. She has an appointment scheduled with urology in [place]. She will be discharged home with Winters catheter in place. She has a follow-up appointment at the cancer center on April 07, 2021 at 10:30 AM and was instructed to keep this appointment. Focused Exam Time of Focused Exam: 22:30 KRISTINE MOSER Mar 24, 2021 16:57
[2021-03-24] MEDS: ACETAMINOPHEN 500 MG TAB (TYLENOL) PO PRN (20:37)
[2021-03-24] MEDS: ASPIRIN E.C. 81 MG (ECOTRIN) TAB PO SCH (20:38)
[2021-03-25 04:03] VITALS: BP 139/72
[2021-03-25 05:12] LABS: BASOPHILS % (AUTO) 0 % (0-10); EOSINOPHILS # (AUTO) 0.3 10^3/uL (0.0-0.3); EOSINOPHILS % (AUTO) 7 % (0-10); HEMATOCRIT 24 % (35-52); HEMOGLOBIN 7.7 g/dL (11.5-16.0); LYMPHOCYTES # (AUTO) 1.9 10^3/uL (1.0-4.0); LYMPHOCYTES % (AUTO) 37 % (12-44); MEAN CORPUSCULAR HEMOGLOBIN 29 pg (25-34); MEAN CORPUSCULAR HGB CONC 32 g/dL (32-36); MEAN CORPUSCULAR VOLUME 90 fL (80-99); MEAN PLATELET VOLUME 10.4 fL (9.0-12.2); MONOCYTES # (AUTO) 0.5 10^3/uL (0.0-1.0); MONOCYTES % (AUTO) 9 % (0-12); NEUTROPHILS # (AUTO) 2.4 10^3/uL (1.8-7.8); NEUTROPHILS % (AUTO) 46 % (42-75); PLATELET COUNT 119 10^3/uL (130-400); WHITE BLOOD COUNT 5.2 10^3/uL (4.3-11.0)
[2021-03-25 05:26] LABS: POTASSIUM 3.5 MMOL/L (3.6-5.0)
[2021-03-25 05:28] LABS: CALCIUM 8.3 MG/DL (8.5-10.1)
[2021-03-25 05:32] LABS: CREATININE SERUM 0.92 MG/DL (0.60-1.30)
[2021-03-25] MEDS: inSUlin ASPART (NovoLOG) 1 UNIT/0.01 ML (CHARGE PER UNIT) SC SCH ×2 (05:56→11:16)
[2021-03-25 07:23] VITALS: BP 156/70
[2021-03-25] MEDS: ENOXAPARIN 40 MG/0.4 ML (LOVENOX) SYR SC SCH (07:34)
[2021-03-25 08:19] VITALS: BP 139/73
[2021-03-25] MEDS: amLODIPine 10 MG (NORVASC) TAB PO SCH (08:49)
[2021-03-25] MEDS: PANTOPRAZOLE 20 MG TABLET (PROTONIX) PO SCH (08:49)
[2021-03-25] MEDS: meTOprolol SUCCINATE 100 MG (TOPROL XL) TAB PO SCH (08:49)
[2021-03-25] MEDS: SODIUM BICARBONATE 650 MG TABLET (NON-FORMULARY) PO SCH ×2 (08:49→11:15)
[2021-03-25] MEDS: FUROSEMIDE 40 MG (LASIX) TAB PO SCH (08:49)
[2021-03-25] MEDS: fluCOnazole (DIFLUCAN) 100 MG TAB PO SCH (08:49)
[2021-03-25] MEDS: LACTOBACILLUS ACIDOPHILUS (PROBIOTIC) CAPSULE PO SCH ×2 (08:50→11:15)
[2021-03-25] MEDS: NYSTATIN CREAM (MYCOSTATIN) 30 GM TUBE TP SCH (08:50)
[2021-03-25] MEDS: FOLIC ACID 1 MG TAB PO SCH (08:50)
--- NOTE | 2021-03-25 09:12 | Physical Therapy Daily Note ---
PT Daily Note-Current Subjective Patient agrees to PT. Patient reports she is going home today "no matter what." Mental Status Patient Orientation: Normal For Age Attachments: Winters Catheter Transfers SCALE: Activities may be completed with or without assistive devices. 2-Ybwwdrehyp-mmusyvb completes the activity by him/herself with no assistance from a helper. 5-Set-up or Clean-up Assistance-helper sets up or cleans up; patient completes activity. [place] assists only prior to or following the activity. 4-Supervision or Touching Assistance-helper provides verbal cues and/or touching/steadying and/or contact guard assistance as patient completes activity. Assistance may be provided throughout the activity or intermittently. 3-Partial/Moderate Assistance-helper does LESS THAN HALF the effort. [place] lifts, holds or supports trunk or limbs, but provides less than half the effort. 2-Substantial/Maximal Assistance-helper does MORE THAN HALF the effort. [place] lifts or holds trunk or limbs and provides more than half the effort. 7-Sccvmnmuh-addsyg does ALL the effort. Patient does none of the effort to complete the activity. Or, the assistance of 2 or more helpers is required for the patient to complete the activity. If activity was not attempted, code reason: 7-Patient Refused. 9-Not Applicable-not attempted and the patient did not perform the activity before the current illness, exacerbation or injury. 10-Not Attempted due to Environmental Limitations-(lack of equipment, weather restraints, etc.). 88-Not Attempted due to Medical Conditions or Safety Concerns. Lying to Sitting/Side of Bed(Q: 6 Sit to Stand (QC): 4 Chair/Vtj-lg-Qzcmn Xfer(QC): 4 Gait Training Does the Patient Walk?: Yes Distance: 200' Walk 10 feet (QC): 4 Walk 50 ft with 2 Turns(QC): 4 Walk 150 ft (QC): 4 Gait Assistive Device: FWW very, very slow, steady gait sequence Assessment Patient is up in recliner with breakfast place. Patient tolerated treatment well and voices no concerns. PT Automobile Carpets Molder Goals [facility] Goals PT Automobile Carpets Molder Goals Time Frame: Mar 29, 2021 Roll Left & Right (QC): 6 Sit to Lying (QC): 6 Lying-Sitting on Side/Bed(QC): 6 Sit to Stand (QC): 6 Chair/Jbj-wd-Uachp Xfer(QC): 6 Toilet Transfer (QC): 6 Walk 10 feet (QC): 6 Walk 50ft with 2 Turns (QC): 6 Walk 150 ft (QC): 6 1 Step (curb) (QC): 6 4 Steps (QC): 6 PT Plan Treatment/Plan Treatment Plan: Continue Plan of Care Treatment Plan: Bed Mobility, Education, Functional Activity Livia, Functional Strength, Gait, Safety, Therapeutic Exercise, Transfers Treatment Duration: Mar 29, 2021 Frequency: 6 times per week Estimated Hrs Per Day: .25 hour per day Patient and/or Family Agrees t: Yes Time/GCodes Time In: 818 Time Out: 833 Total Billed Treatment Time: 15 Total Billed Treatment 1 visit FA 15 min DEAN DUBON PT Mar 25, 2021 09:12
--- NOTE | 2021-03-25 09:21 | Discharge Summary ---
Diagnosis/Chief Complaint Date of Admission Mar 18, 2021 at 23:00 Date of Discharge Discharge Date: Mar 25, 2021 Primary Care Mark Parra DO Discharge Diagnosis (1) Pancytopenia (2) Ilene infection of genital region (3) Yeast UTI (4) RTA (renal tubular acidosis) (5) T2DM (type 2 diabetes mellitus) Discharge Summary Discharge Physical Exam Allergies: Coded Allergies: fentanyl (Verified Allergy, Intermediate, HALLUCINATIONS, 09/07/18) hydroxychloroquine (Verified Allergy, Mild, HIVES, 09/07/18) Vitals & I&Os Vital Signs Date Time Temp Pulse Resp B/P (MAP) Pulse Ox O2 Delivery O2 Flow Rate FiO2 03/25/21 08:19 36.5 67 18 139/73 (95) 86 Room Air 03/19/21 10:00 2.00 General Appearance: No Apparent Distress, WD/WN, Obese Respiratory: Lungs Clear, No Respiratory Distress Cardiovascular: Regular Rate, Rhythm, No Murmur Gastrointestinal: Normal Bowel Sounds, Soft Neurologic/Psychiatric: Alert, Oriented x3 Hospital Course Patient was admitted to the hospital due to sepsis secondary to urinary tract infection. She was treated with IV antibiotics until culture grew yeast in her urine and she was switched to Diflucan. She was also found to be quite acidotic on presentation and work-up revealed likely renal tubular acidosis. She was started on bicarb and did well. She has a history of recurrent urinary tract infections and decision was made after consultation with urology to leave Winters catheter in place until urology outpatient follow-up. She was also seen by oncology due to pancytopenia which was thought to be due to her methotrexate. Methotrexate was held and she improved. I called and discussed all of this with her primary care doctor Dr. Parra who will see her in follow-up. We did decide to discontinue her Invokana due to her recurrent urinary tract infections. Patient was agreeable to this change. She was discharged home in stable improved condition with home health for continued care at home. Labs (last 24 hrs) Laboratory Tests 03/24/21 10:58: Glucometer 270H 03/24/21 15:43: Glucometer 172H 03/24/21 20:32: Glucometer 157H 03/25/21 05:02: White Blood Count 5.2, Red Blood Count 2.70L, Hemoglobin 7.7L, Hematocrit 24L, Mean Corpuscular Volume 90, Mean Corpuscular Hemoglobin 29, Mean Corpuscular Hemoglobin Concent 32, Red Cell Distribution Width 15.4H, Platelet Count 119L, Mean Platelet Volume 10.4, Immature Granulocyte % (Auto) 1, Neutrophils (%) (Auto) 46, Lymphocytes (%) (Auto) 37, Monocytes (%) (Auto) 9, Eosinophils (%) (Auto) 7, Basophils (%) (Auto) 0, Neutrophils # (Auto) 2.4, Lymphocytes # (Auto) 1.9, Monocytes # (Auto) 0.5, Eosinophils # (Auto) 0.3, Basophils # (Auto) 0.0, Immature Granulocyte # (Auto) 0.0, Sodium Level 136, Potassium Level 3.5L, Chloride Level 102, Carbon Dioxide Level 22, Anion Gap 12, Blood Urea Nitrogen 13, Creatinine 0.92, Estimat Glomerular Filtration Rate 59, BUN/Creatinine Ratio 14, Glucose Level 126H, Calcium Level 8.3L Microbiology 03/19/21 MRSA Screen - Final, Complete MRSA not isolated 03/18/21 Urine Culture - Final, Complete YEAST 03/18/21 Blood Culture - Final, Complete No growth Patient resulted labs reviewed. Pending Labs Laboratory Tests 03/25/21 05:02: White Blood Count 5.2, Red Blood Count 2.70, Hemoglobin 7.7, Hematocrit 24, Mean Corpuscular Volume 90, Mean Corpuscular Hemoglobin 29, Mean Corpuscular Hemoglobin Concent 32, Red Cell Distribution Width 15.4, Platelet Count 119, Mean Platelet Volume 10.4, Immature Granulocyte % (Auto) 1, Neutrophils (%) (Auto) 46, Lymphocytes (%) (Auto) 37, Monocytes (%) (Auto) 9, Eosinophils (%) (Auto) 7, Basophils (%) (Auto) 0, Neutrophils # (Auto) 2.4, Lymphocytes # (Auto) 1.9, Monocytes # (Auto) 0.5, Eosinophils # (Auto) 0.3, Basophils # (Auto) 0.0, Immature Granulocyte # (Auto) 0.0, Sodium Level 136, Potassium Level 3.5, Chloride Level 102, Carbon Dioxide Level 22, Anion Gap 12, Blood Urea Nitrogen 13, Creatinine 0.92, Estimat Glomerular Filtration Rate 59, BUN/Creatinine Ratio 14, Glucose Level 126, Calcium Level 8.3 Discussion & Recommendations Discharge Planning: >30 minutes discharge planning Discharge Home Medications: Active Scripts Active Diflucan (Fluconazole) 100 Mg Tablet 100 Mg PO DAILY Sodium Bicarbonate 650 Mg Tablet 650 Mg PO TID Reported Myrbetriq (Mirabegron) 50 Mg Tab.er.24h 50 Mg PO DAILY Invokana (Canagliflozin) 100 Mg Tablet 100 Mg PO DAILY Cephalexin 250 Mg Tablet 250 Mg PO DAILY Vitamin D3 (Cholecalciferol (Vitamin D3)) 25 Mcg Tablet 25 Mcg PO DAILY Vitamin C (Ascorbic Acid) 500 Mg Tablet 500 Mg PO DAILY Zinc 50 Mg Tablet 50 Mg PO DAILY Tylenol Extra Strength (Acetaminophen) 500 Mg Tablet 1,000 Mg PO Q8H PRN Probiotic (L.acidoph & Paracasei,B.lactis) 1 Each Capsule 1 Each PO DAILY Solifenacin Succinate 5 Mg Tablet 5 Mg PO HS Aspirin EC (Aspirin) 81 Mg Tablet.dr 81 Mg PO HS Methotrexate (Methotrexate Sodium) 2.5 Mg Tablet 5 Mg PO FRI TAKES 2 (2.5MG) TABS Furosemide 40 Mg Tablet 40 Mg PO DAILY PRN MAY TAKE AN ADDITIONAL DOSE NEEDED Furosemide 40 Mg Tablet 40 Mg PO DAILY Folic Acid 1 Mg Tablet 1 Mg PO HS Meloxicam 15 Mg Tablet 15 Mg PO DAILY Omeprazole 20 Mg Tablet.dr 20 Mg PO DAILY Enalapril Maleate 20 Mg Tablet 20 Mg PO BID Metoprolol Succinate 200 Mg Tab.er.24h 100 Mg PO BID TAKES OF A 200MG TAB Atorvastatin Calcium 40 Mg Tablet 40 Mg PO HS Amlodipine Besylate 10 Mg Tablet 10 Mg PO DAILY Metformin HCl ER (Metformin HCl) 500 Mg Tab.er.24h 1,000 Mg PO BID TAKES 2 (500MG) TABS Instructions to patient/family Please see electronic discharge instructions given to patient. Copy Copies To 1: MARK PARRA DO Problem Qualifiers (1) T2DM (type 2 diabetes mellitus): Diabetes mellitus assisted insulin use: without assisted use Diabetes mellitus complication status: without complication Qualified Codes: E11.9 - Type 2 diabetes mellitus without complications KAYE GARZA MD Mar 25, 2021 09:21
--- NOTE | 2021-03-25 11:22 | Occupational Ther Daily Note ---
OT Current Status-Daily Note Subjective Pt alert, sitting at EOB getting ready to get dressed when OT entered. Pt agreed to therapy. No c/o pain reported. Mental Status/Objective Patient Orientation: Person, Place, Time, Situation Attachments: Winters Catheter ADL-Treatment After set up, pt donned shirt while sitting at EOB. Pt was able to thread BLE through LB dressing. Pt sit-stand from EOB to FWW with SBA to hike LB dressing. Pt required min A to hike LB. After set up, pt donned shoes. Pt sit-stand from EOB to FWW with SBA. Pt transferred to recliner. Therapy Code Descriptions/Definitions Functional [place] Measure: 0=Not Assessed/NA 4=Minimal Assistance 1=Total Assistance 5=Supervision or Setup 2=Maximal Assistance 6=Modified [place] 3=Moderate Assistance 7=Complete IndependenceSCALE: Activities may be completed with or without assistive devices. 3-Gjcsovukdr-tnavndn completes the activity by him/herself with no assistance from a helper. 5-Set-up or Clean-up Assistance-helper sets up or cleans up; patient completes activity. [place] assists only prior to or following the activity. 4-Supervision or Touching Assistance-helper provides verbal cues and/or touching/steadying and/or contact guard assistance as patient completes activity. Assistance may be provided throughout the activity or intermittently. 3-Partial/Moderate Assistance-helper does LESS THAN HALF the effort. [place] lifts, holds or supports trunk or limbs, but provides less than half the effort. 2-Substantial/Maximal Assistance-helper does MORE THAN HALF the effort. [place] lifts or holds trunk or limbs and provides more than half the effort. 9-Kywbsaafv-ezkyra does ALL the effort. Patient does none of the effort to complete the activity. Or, the assistance of 2 or more helpers is required for the patient to complete the activity. If activity was not attempted, code reason: 7-Patient Refused. 9-Not Applicable-not attempted and the patient did not perform the activity before the current illness, exacerbation or injury. 10-Not Attempted due to Environmental Limitations-(lack of equipment, weather restraints, etc.). 88-Not Attempted due to Medical Conditions or Safety Concerns. Other Treatment Skilled instruction provided of BUE green theraband exercises. Pt completed x1 set of 10 reps of B UE green theraband exercises while seated in recliner to increase BUE strength for improved independence with ADLs. Pt tolerated exercises well and was able to return and verbalize understanding of exercises before nrsing staff entered room. After therapy, pt sitting in recliner. Nrsing in room. All needs met and call light in reach. Education OT Patient Education: Energy conservation, Exercise program, Home exercise program Teaching Recipient: Patient Teaching Methods: Demonstration, Discussion Response to Teaching: Verbalize Understanding, Return Demonstration OT Shelter Goals Shelter Goals Time Frame: Mar 28, 2021 Eating (QC): 6 Oral Hygiene (QC): 6 Toileting Hygiene (QC): 6 Shower/Bathe Self (QC): 4 Upper Body Dressing (QC): 6 Lower Body Dressing (QC): 6 On/Off Footwear (QC): 6 Additional Goals: 1-Demonstrate ADL Tasks, 2-Verbalize Understanding, 3- ImproveStrength/Livia 1=Demonstrate adherence to instructed precautions during ADL tasks. 2=Patient will verbalize/demonstrate understanding of assistive devices/modifications for ADL. 3=Patient will improve strength/tolerance for activity to enable patient to perform ADL's. OT Education/Plan Problem List/Assessment Assessment: Decreased Activ Tolerance, Decreased UE Strength, Impaired Self- Care Skills Pt would benefit from short term skilled OT services in order to increase safety and independence with ADLs, and she would benefit from education on sock aide/ AE for LE dressing. Discharge Recommendations Plan/Recommendations: Continue POC Treatment Plan/Plan of Care Patient would benefit from OT for education, treatment and training to promote independence in ADL's, mobility, safety and/or upper extremity function for ADL's. Plan of Care: ADL Retraining, Functional Mobility, UE Funct Exercise/Act Treatment Duration: Mar 28, 2021 Frequency: 5 times per week Estimated Hrs Per Day: .25 hour per day Rehab Potential: Fair Time/GCodes Start Time: 10:17 Stop Time: 10:34 Total Time Billed (hr/min): 17 Billed Treatment Time 1, ADL (17') ALIA HAYS Mar 25, 2021 11:22
== END 2021-03-25 12:12 | disposition home health service (06) | DRG 871 ==
LOC: EDUNIT# 20:51 → ER 20:53 → ICU 23:00 → 4TH 03-19 12:43
PROVIDERS: ADMIT Internal Medicine; ATTEND Internal Medicine
DX: B37.7 Candidal sepsis (principal); D61.811 Other drug-induced pancytopenia; N17.9 Acute kidney failure, unspecified; E87.1 Hypo-osmolality and hyponatremia; N13.39 Other hydronephrosis; N13.8 Other obstructive and reflux uropathy; E87.2 Acidosis; R65.20 Severe sepsis without septic shock; Z20.822 Contact with and (suspected) exposure to COVID-19; B37.2 Candidiasis of skin and nail; E87.5 Hyperkalemia; E86.0 Dehydration; I12.9 Hypertensive chronic kidney disease with stage 1 through stage 4 chronic kidney disease, or unspecified chronic kidney disease; E13.22 Other specified diabetes mellitus with diabetic chronic kidney disease; N18.9 Chronic kidney disease, unspecified; N25.89 Other disorders resulting from impaired renal tubular function; N32.0 Bladder-neck obstruction; K21.9 Gastro-esophageal reflux disease without esophagitis; E78.00 Pure hypercholesterolemia, unspecified; M06.9 Rheumatoid arthritis, unspecified; H54.7 Unspecified visual loss; R21 Rash and other nonspecific skin eruption; M19.91 Primary osteoarthritis, unspecified site; Z79.84 Long term (current) use of oral hypoglycemic drugs; Z85.038 Personal history of other malignant neoplasm of large intestine; Z88.6 Allergy status to analgesic agent; Z79.82 Long term (current) use of aspirin; T45.1X5A Adverse effect of antineoplastic and immunosuppressive drugs, initial encounter
CPT/HCPCS: 36415; 70450; 71045; 71250; 74176; 76770; 80048; 80053; 81000; 82010; 82150; 82436; 82550; 82553; 82607; 82728; 82746; 82805; 82947; 83540; 83550; 83605; 83615; 83690; 83735; 83874; 84133; 84145; 84300; 84443; 84484; 85007; 85025; 85027; 85045; 85610; 85652; 85730; 86141; 86747; 87040; 87081; 87088; 87636; 93005; 93041; 96361; 96374; 96375; 99291

== ENCOUNTER 2021-03-31 06:38 | Inpatient (IN) | payer MEDICARE, BC ==
[~2021-03-31] VITALS: Ht 157.5 cm; Wt 96.3 kg
[2021-03-31] VITALS (7 sets, daily range): BP systolic 107–137; BP diastolic 58–85
[~2021-03-31 06:38] MED LIST changes: +CEPH250T PO; +FLUC100T PO; +MIRA50TA PO; +NF-SODBICA PO
[2021-03-31] MEDS ORDERED: ACETAMINOPHEN 650 MG SUPP (TYLENOL) PR ONE (07:00)
[2021-03-31] MEDS ORDERED: NS IV 1000 ML 1,000 ML IV SCH ×3 (07:00→09:45)
[2021-03-31] MEDS ORDERED: ACETAMINOPHEN 500 MG TAB (TYLENOL) PO PRN (07:00)
[2021-03-31] MEDS ORDERED: CEFEPIME INJECTION 1,000 MG in WATER (STERILE) FOR INJECTION 10 ML IV ONE (07:00)
--- NOTE | 2021-03-31 07:00 | ED General ---
General Chief Complaint: Respiratory Problems Stated Complaint: SOA Nursing Triage Note: brought in by [facility] ems for soa/low spo2. Source of Information: Patient Exam Limitations: No Limitations History of Present Illness Date Seen by Provider: Mar 31, 2021 Time Seen by Provider: 06:44 Initial Comments Patient to the ER by EMS from her home where she lives with her daughter and chief complaint of shortness of air last night noted her oxygen sats to be 85%. She does not use supplemental oxygen at baseline. EMS put her on CPAP. She has recently discharged home on to home health care after being admitted locally for UTI. She had a Winters catheter placed and was to follow-up with Dr. Bhakta. She is known to Dr. Parra for primary care. Dr. Hill is her oncologist for history of colon cancer. She is not having any nausea or vomiting. She does not smoke or have a history of COPD or asthma. She denies a heart history. She is not having any pain anywhere. She has not received any antipyretics. EMS gave her a IV, CPAP at 7 cm water pressure 100% FiO2 and albuterol treatment en route. Allergies and Home Medications Allergies Coded Allergies: hydroxychloroquine (Verified Allergy, Mild, HIVES, 09/07/18) fentanyl (Verified Adverse Reaction, Intermediate, HALLUCINATIONS, 03/31/21) Patient Home Medication List Home Medication List Reviewed: Yes Acetaminophen (Tylenol Extra Strength) 500 Mg Tablet, 500-1,000 MG PO Q8H PRN for PAIN-MILD (1-4), (Reported) Entered as Reported by: FIDELINA WATSON on 02/13/211512 Last Action: Reviewed Amlodipine Besylate (Amlodipine Besylate) 10 Mg Tablet, 10 MG PO DAILY, (Reported) Entered as Reported by: THAI ARREOLA on 08/05/17 1206 Last Action: Reviewed Ascorbic Acid (Vitamin C) 500 Mg Tablet, 500 MG PO DAILY, (Reported) Entered as Reported by: FIDELINA WATSON on 02/13/211512 Last Action: Reviewed Aspirin (Aspirin EC) 81 Mg Tablet., 81 MG PO HS, (Reported) Entered as Reported by: FIDELINA WATSON on 02/13/211512 Last Action: Reviewed Atorvastatin Calcium (Atorvastatin Calcium) 40 Mg Tablet, 40 MG PO HS, (Reporte d) Entered as Reported by: THAI ARREOLA on 08/05/171205 Last Action: Reviewed Cholecalciferol (Vitamin D3) (Vitamin D3) 25 Mcg Tablet, 25 MCG PO DAILY, (Reported) Entered as Reported by: FIDELINA WATSON on 02/13/211512 Last Action: Reviewed Enalapril Maleate (Enalapril Maleate) 20 Mg Tablet, 20 MG PO BID, (Reported) Entered as Reported by: THAI ARREOLA on 08/05/171205 Last Action: Reviewed Folic Acid (Folic Acid) 1 Mg Tablet, 1 MG PO HS, (Reported) Entered as Reported by: THAI ARREOLA on 08/05/171241 Last Action: Reviewed Furosemide (Furosemide) 40 Mg Tablet, 40 MG PO DAILY, (Reported) Entered as Reported by: THAI ARREOLA on 08/05/171241 Last Action: Reviewed Furosemide (Furosemide) 40 Mg Tablet, 40 MG PO DAILY PRN for SWELLING, (Reported) Entered as Reported by: JASIEL ORR on 08/27/17 111 Last Action: Reviewed L.acidoph & Paracasei,B.lactis (Probiotic) 1 Each Capsule, 1 EACH PO DAILY, (Reported) Entered as Reported by: FIDELINA WATSON on 02/13/211512 Last Action: Reviewed Meloxicam (Meloxicam) 15 Mg Tablet, 15 MG PO DAILY, (Reported) Entered as Reported by: THAI ARREOLA on 08/05/171241 Last Action: Reviewed Metformin HCl (Metformin HCl ER) 500 Mg Tab.er.24h, 1,000 MG PO BID, (Reported) Entered as Reported by: THAI ARREOLA on 08/05/171205 Last Action: Reviewed Metoprolol Succinate (Metoprolol Succinate) 200 Mg Tab.er.24h, 100 MG PO BID, (Reported) Entered as Reported by: THAI ARREOLA on 08/05/171205 Last Action: Reviewed Omeprazole (Omeprazole) 20 Mg Tablet.dr, 20 MG PO DAILY, (Reported) Entered as Reported by: THAI ARREOLA on 08/05/171241 Last Action: Reviewed Sodium Bicarbonate (Sodium Bicarbonate) 650 Mg Tablet, 650 MG PO TIDWM, (Reported) Entered as Reported by: FIDELINA WATSON on 03/31/21 1316 Last Action: Reviewed Zinc (Zinc) 50 Mg Tablet, 50 MG PO DAILY, (Reported) Entered as Reported by: FIDELINA WATSON on 02/13/21 151 Last Action: Reviewed Discontinued Medications Canagliflozin (Invokana) 100 Mg Tablet, 100 MG PO DAILY, (Reported) Entered as Reported by: FIDELINA WATSON on 03/21/21 0911 Cephalexin (Cephalexin) 250 Mg Tablet, 250 MG PO DAILY, (Reported) Entered as Reported by: FIDELINA WATSON on 03/19/21 152 Fluconazole (Diflucan) 100 Mg Tablet, 100 MG PO DAILY Discontinued Reason: No Longer Taking Prescribed by: KAYE GARZA on 03/24/21 0953 Last Action: Discontinued Methotrexate Sodium (Methotrexate) 2.5 Mg Tablet, 5 MG PO FRI, (Reported) Entered as Reported by: JESSICA MONTAGUE on 09/07/18 0943 Mirabegron (Myrbetriq) 50 Mg Tab.er.24h, 50 MG PO DAILY, (Reported) Entered as Reported by: FIDELINA WATSON on 03/21/21 1003 Sodium Bicarbonate (Sodium Bicarbonate) 650 Mg Tablet, 650 MG PO TID Discontinued Reason: Duplicate Order Prescribed by: KAYE GARZA on 03/24/21952 Last Action: Discontinued Solifenacin Succinate (Solifenacin Succinate) 5 Mg Tablet, 5 MG PO HS, (Re ported) Entered as Reported by: FIDELINA WATSON on 02/13/21 151 Review of Systems Review of Systems Constitutional: No chills, No diaphoresis EENTM: No ear discharge, No ear pain Respiratory: No cough; short of breath Cardiovascular: No chest pain, No palpitations Gastrointestinal: No abdominal pain, No constipation, No diarrhea, No nausea, No vomiting Genitourinary: No discharge, No dysuria Musculoskeletal: No back pain, No joint pain Skin: No pruritus, No rash Psychiatric/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: Denies Headache, Denies Numbness Hematologic/Lymphatic: Denies Blood Clots, Denies Easy Bleeding, Denies Easy Bruising All Other Systems Reviewed Negative Unless Noted: Yes Past Ktmjqfy-Fguhqk-Wzmbmw Hx Patient Social History Tobacco Use?: No Use of E-Cig and/or Vaping dev: No Substance use?: No Alcohol Use?: No Pt feels they are or have been: No Immunizations Up To Date Tetanus Booster (TDap): Unknown First/Initial COVID19 Vaccinat: 07/28 Second COVID19 Vaccination [place]: 08/25 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 Seasonal Allergies Seasonal Allergies: No Past Medical History Surgery/Hospitalization HX: Colon resection, gallbladder, tonsilectomy, Surgeries: Yes (cystoscopy, CATARACTS, COLON RESECTION) Abdominal, Bladder Surgery, Bowel Surgery, Eye Surgery, Gallbladder, Tonsillectomy Respiratory: No Currently Using CPAP: No Currently Using BIPAP: No Cardiac: Yes High Cholesterol, Hypertension 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: No [employer] History: Menopausal Sexually Transmitted Disease: No HIV/AIDS: No Genitourinary: Yes UTI-Chronic Gastrointestinal: Yes (COLON CANCER DX 2018) Gastroesophageal Reflux Musculoskeletal: Yes (ON METHOTREXATE) Arthritis, Rheumatoid Arthritis Endocrine: Yes Diabetes, Non-Insulin dep HEENT: Yes (READING GLASSES; S/P CATARACT SURGERY) Cataract Loss of Vision: Bilateral Hearing Impairment: Denies Cancer: Yes Colon Did You Recieve Any Treatments: Yes What Type of Treatment Did You: Surgical Intervention Psychosocial: No Integumentary: No Blood Disorders: Yes (anemia) Adverse Reaction/Blood Tranf: No (N/A) Family Medical History Abdominal aortic aneurysm 19 MOTHER Arthritis G8 SISTER Cardiovascular disease 19 FATHER Hypertension 19 FATHER PAST SURGICAL HISTORY: -LAPAROSCOPIC RIGHT HEMICOLECTOMY [address] PIERCE -CHOLECYSTECTOMY -TONSILLECTOMY -CATARACT SURGERY -CYSTOSCOPIES -EGD/COLONOSCOPY 2013 Physical Exam-Suspected Sepsis Physical Exam Vital Signs Vital Signs - First Documented 03/31/21 03/31/21 09:15 10:48 O2 Flow Rate 60.00 FiO2 60 Capillary Refill : Less Than 3 Seconds Blood Pressure Mean: 67 Height, Weight, BMI Height: 5'2.00" Weight: 225lbs. 0.0oz. 102.905992gd; 38.00 BMI Method: General Appearance: Chronically ill, Obese, Severe Distress Eyes: Bilateral Eye Normal Inspection, Bilateral Eye PERRL, Bilateral Eye EOMI HEENT: PERRL/EOMI, Normal ENT Inspection; No Moist Mucous Membranes Neck: Full Range of Motion, Normal Inspection, Non Tender, Supple; No JVD Respiratory: Accessory Muscle Use, Respiratory Distress (25 to 30 breaths/min on CPAP 7 cm water pressure), Wheezing (Slight expiratory) Cardiovascular: Regular Rate, Rhythm; No JVD; Tachycardia Gastrointestinal: Normal Bowel Sounds, Non Tender, Soft Extremity: Normal Capillary Refill, Normal Inspection, No Pedal Edema Neurologic/Psychiatric: Alert, Oriented x3 (Obtunded, slow to answer; GCS 15), No Motor/Sensory Deficits, physical instructor II-XII Norm as Tested Skin: normal color, warm/dry Focused Exam Sepsis Stage: Severe Sepsis Possible Source: Pulmonary Lactate Level 03/31/21 06:45: Lactic Acid Level 3.84*H 03/31/21 08:49: Lactic Acid Level 1.89 Time of Focused Exam: 07:56 Respiratory: No Accessory Muscle Use, Respiratory Distress, Wheezing Cardiovascular: Regular Rate, Rhythm, No Edema, Normal Peripheral Pulses Capillary Refill: Less Than 3 Seconds Peripheral Pulses: 2+ Dorsalis Pedis (R), 2+ Left Dors-Pedis (L) Skin: normal color, warm/dry Lactic Acid Level Within 3hrs of presentation: Admin fluids, Admin 30ml/kg IBW due to BMI>30, Admin ABX, Blood cultures prior to ABX's, Focus exam, Lactate level Progress/Results/Core Measures Suspected Sepsis SIRS Temperature: Pulse: 74 Respiratory Rate: 32 Laboratory Tests 03/31/21 06:45: White Blood Count 12.1H Blood Pressure 107 /84 Mean: 67 03/31/21 06:45: Lactic Acid Level 3.84*H 03/31/21 08:49: Lactic Acid Level 1.89 Laboratory Tests 03/31/21 06:45: Creatinine 1.31H, INR Comment 1.4, Platelet Count 651H, Total Bilirubin 0.6 03/31/21 16:45: Creatinine 1.03 Results/Orders Lab Results Laboratory Tests Test 03/31/21 06:45 03/31/21 07:11 03/31/21 08:49 03/31/21 11:25 Range/Units White Blood Count 12.1 H 4.3-11.0 10^3/uL Red Blood Count 2.19 L 3.80-5.11 10^6/uL Hemoglobin 6.2 *L 11.5-16.0 g/dL Hematocrit 20 *L 35-52 % Mean Corpuscular Volume 91 80-99 fL Mean Corpuscular Hemoglobin 28 25-34 pg Mean Corpuscular Hemoglobin Concent 31 L 32-36 g/dL Red Cell Distribution Width 16.3 H 10.0-14.5 % Platelet Count 651 H 130-400 10^3/uL Mean Platelet Volume 10.2 9.0-12.2 fL Immature Granulocyte % (Auto) 6 % Neutrophils (%) (Auto) 66 42-75 % Lymphocytes (%) (Auto) 19 12-44 % Monocytes (%) (Auto) 8 0-12 % Eosinophils (%) (Auto) 1 0-10 % Basophils (%) (Auto) 1 0-10 % Neutrophils # (Auto) 8.0 H 1.8-7.8 10^3/uL Lymphocytes # (Auto) 2.3 1.0-4.0 10^3/uL Monocytes # (Auto) 0.9 0.0-1.0 10^3/uL Eosinophils # (Auto) 0.1 0.0-0.3 10^3/uL Basophils # (Auto) 0.1 0.0-0.1 10^3/uL Immature Granulocyte # (Auto) 0.7 H 0.0-0.1 10^3/uL Prothrombin Time 17.1 H 12.2-14.7 SEC INR Comment 1.4 0.8-1.4 Activated Partial Thromboplast Time 26 24-35 SEC D-Dimer 8.01 H 0.00-0.49 UG/ML Urine Color ORANGE Urine Clarity CLOUDY Urine pH 6.0 5-9 Urine Specific [place] >=1.030 1.016-1.022 Urine Protein 2+ H NEGATIVE Urine Glucose (UA) NEGATIVE NEGATIVE Urine Ketones NEGATIVE NEGATIVE Urine Nitrite NEGATIVE NEGATIVE Urine Bilirubin NEGATIVE NEGATIVE Urine Urobilinogen 1.0 < = 1.0 MG/DL Urine Leukocyte Esterase 2+ H NEGATIVE Urine RBC (Auto) 3+ H NEGATIVE Urine RBC 50-100 H /HPF Urine WBC TNTC H /HPF Urine Squamous Epithelial Cells 2-5 /HPF Urine Crystals NONE /LPF Urine Bacteria FEW H /HPF Urine Casts NONE /LPF Urine Mucus NEGATIVE /LPF Urine Culture Indicated YES Sodium Level 133 L 135-145 MMOL/L Potassium Level 4.9 3.6-5.0 MMOL/L Chloride Level 100 98-107 MMOL/L Carbon Dioxide Level 20 L 21-32 MMOL/L Anion Gap 13 5-14 MMOL/L Blood Urea Nitrogen 21 H 7-18 MG/DL Creatinine 1.31 H 0.60-1.30 MG/DL Estimat Glomerular Filtration Rate 39 BUN/Creatinine Ratio 16 Glucose Level 200 H 70-105 MG/DL Lactic Acid Level 3.84 *H 1.89 0.50-2.00 MMOL/L Calcium Level 8.0 L 8.5-10.1 MG/DL Corrected Calcium 9.0 8.5-10.1 MG/DL Total Bilirubin 0.6 0.1-1.0 MG/DL Aspartate Amino Transf (AST/SGOT) 38 H 5-34 U/L Alanine Aminotransferase (ALT/SGPT) 35 0-55 U/L Alkaline Phosphatase 95 40-136 U/L C-Reactive Protein High Sensitivity 10.18 H 0.00-0.50 MG/DL B-Type Natriuretic Peptide 385.4 H <100.0 PG/ML Total Protein 7.3 6.4-8.2 GM/DL Albumin 2.8 L 3.2-4.5 GM/DL Procalcitonin 0.16 H <0.10 NG/ML Influenza Type A (RT-PCR) Not Detected Not Detecte Influenza Type B (RT-PCR) Not Detected Not Detecte SARS-CoV-2 RNA (RT-PCR) Not Detected Not Detecte Blood Gas Puncture Site RR Blood Gas Patient Temperature 38.2 Arterial Blood pH 7.44 H 7.37-7.43 Arterial Blood Partial Pressure CO2 36 35-45 MMHG Arterial Blood Partial Pressure O2 78 L 79-93 MMHG Arterial Blood HCO3 24 23-27 MMOL/L Arterial Blood Total CO2 24.8 21.0-31.0 MMOL/L Arterial Blood Oxygen Saturation 94 94-100 % Arterial Blood Base Excess 0.3 -2.5-2.5 MMOL/L Hayden Test YES-POS Blood Gas Ventilator Setting NO Blood Gas Inspired Oxygen 60 Glucometer 148 H 70-110 MG/DL Test 03/31/21 15:07 03/31/21 16:45 Range/Units Glucometer 151 H 70-110 MG/DL Hemoglobin 8.7 #L 11.5-16.0 g/dL Sodium Level 134 L 135-145 MMOL/L Potassium Level 3.8 3.6-5.0 MMOL/L Chloride Level 103 98-107 MMOL/L Carbon Dioxide Level 22 21-32 MMOL/L Anion Gap 9 5-14 MMOL/L Blood Urea Nitrogen 20 H 7-18 MG/DL Creatinine 1.03 0.60-1.30 MG/DL Estimat Glomerular Filtration Rate 52 BUN/Creatinine Ratio 19 Glucose Level 137 H 70-105 MG/DL Calcium Level 7.5 L 8.5-10.1 MG/DL My Orders Orders - CHRISTIE ELY Cbc With Automated Diff (03/31/21 06:51) Comprehensive Metabolic Panel (03/31/21 06:51) Blood Culture (03/31/21 06:51) Sputum Culture (03/31/21 06:51) Urinalysis (03/31/21:51) Urine Culture (03/31/21:51) Protime With Inr (03/31/21:51) Partial Thromboplastin Time (03/31/21:51) Chest 1 View, Ap/Pa Only (03/31/21 06:51) Acetaminophen Tablet (Tylenol Tablet) (03/31/21 07:00) Ed Iv/Invasive Line Start (03/31/21 06:51) Ed Iv/Invasive Line Start (03/31/21 06:51) Vital Signs Adult Sepsis Patie Q15M (03/31/21 06:51) O2 (03/31/21 06:51) Remove Rings In Anticipation O (03/31/21:51) Lactic Acid Analyzer (03/31/21 06:51) Influenza A And B By Pcr (03/31/21 06:51) Ns Iv 1000 Ml (Sodium Chloride 0.9%) (03/31/21 07:00) Cefepime Injection (Maxipime Injection) (03/31/21 07:00) Ed Iv/Invasive Line Start (03/31/21 06:51) Ns Iv 1000 Ml (Sodium Chloride 0.9%) (03/31/21 07:00) BNP (03/31/21 06:51) Hs C Reactive Protein (03/31/21 06:51) Procalcitonin (Pct) (03/31/21 06:51) Covid 19 Inhouse Test (03/31/21 06:51) Cpap (Set Up) (03/31/21 06:55) Acetaminophen Suppository (Tylenol Suppo (03/31/21 07:00) Arterial Blood Gas (03/31/21 07:11) Fibrin Degradation Products (03/31/21 07:13) Vital Signs: Special (Order) (03/31/21 07:52) Consent-Obtain Consent For (03/31/21 07:52) Monitor S/S Transfusion Reacti (03/31/21 07:52) Ns Iv 500 Ml (Sodium Chloride 0.9%) (03/31/21 08:00) Type And Screen (03/31/21 07:52) Red Cells Leukocytes Reduced (03/31/21 07:52) Vancomycin Injection (Vancomycin Injecti (03/31/21 07:59) Ct Angio Chest W (03/31/21 08:27) Iohexol Injection (Omnipaque 350 Mg/Ml 1 (03/31/21 09:15) Received Contrast (Hold Metformin- Contr (03/31/21 09:15) Ns (Ivpb) (Sodium Chloride 0.9% Ivpb Bag (03/31/21 09:15) Arterial Blood Draw (03/31/21 07:11) Medications Given in ED Current Medications Medications Dose Ordered Sig/Faiza Route Start Time Stop Time Status Last Admin Dose Admin Acetaminophen 1,000 mg ONCE PRN PO 03/31/21 07:00 03/31/21 07:03 DC 03/31/21 07:03 1,000 MG Cefepime HCl 1000 mg/Sterile Water 10 ml @ 200 mls/hr ONCE ONCE IV 03/31/21 07:00 03/31/21 07:02 DC 03/31/21 07:39 200 MLS/HR Vancomycin HCl 2000 mg/Sodium Chloride 500 ml @ 260 mls/hr 0759 ONCE IV 03/31/21 07:59 03/31/21 09:54 DC 03/31/21 08:34 260 MLS/HR Vital Signs/I&O 03/31/21 03/31/21 03/31/21 03/31/21 06:40 06:40 06:45 07:03 Temp 38.2 38.1 Pulse 75 74 Resp 30 32 B/P (MAP) 103/49 (67) Pulse Ox 89 92 O2 Delivery NIV CPAP NIV CPAP 03/31/21 03/31/21 03/31/21 03/31/21 09:15 09:34 09:40 09:58 Temp 38.0 Pulse 75 76 75 75 Resp 18 30 24 B/P (MAP) 134/69 134/79 Pulse Ox 92 92 99 O2 Delivery NIV Bilevel NIV CPAP O2 Flow Rate 60.00 60.00 03/31/21 03/31/21 03/31/21 03/31/21 10:00 10:22 10:22 10:29 Temp 38.0 Pulse 72 75 75 Resp 21 B/P (MAP) 110/58 (75) 120/58 134/79 Pulse Ox 99 O2 Delivery NIV CPAP O2 Flow Rate 99.00 03/31/21 03/31/21 03/31/21 03/31/21 10:48 11:00 11:24 11:30 Temp 38.0 37.1 37.5 Pulse 74 67 68 Resp 23 B/P (MAP) 131/63 131/63 Pulse Ox 92 97 O2 Delivery NIV CPAP NIV CPAP O2 Flow Rate 60.00 FiO2 60 60 03/31/21 03/31/21 03/31/21 03/31/21 11:41 12:00 12:25 13:00 Temp 37.3 Pulse 67 63 66 Resp 20 21 B/P (MAP) 137/85 138/68 141/72 Pulse Ox 96 97 96 90 O2 Delivery NIV CPAP NIV CPAP NIV CPAP NIV CPAP O2 Flow Rate 60.00 60.00 FiO2 60 60 03/31/21 03/31/21 03/31/21 03/31/21 13:00 14:00 15:00 15:02 Pulse 69 70 70 Resp 25 30 B/P (MAP) 139/72 135/74 Pulse Ox 89 86 90 O2 Delivery NIV CPAP NIV CPAP High Flow N/C O2 Flow Rate 60.00 60.00 8.00 03/31/21 03/31/21 03/31/21 03/31/21 15:17 16:00 16:00 16:07 Temp 36.3 36.4 Pulse 74 70 Resp 18 31 B/P (MAP) 135/70 126/66 Pulse Ox 91 90 96 O2 Delivery High Flow N/C NIV CPAP O2 Flow Rate 9.00 9.00 FiO2 60 03/31/21 17:00 Pulse 72 Resp 15 B/P (MAP) 107/64 Pulse Ox 90 O2 Delivery High Flow N/C O2 Flow Rate 9.00 Capillary Refill : Less Than 3 Seconds Blood Pressure Mean: 67 Progress Note #1: Time: 07:06 Progress Note Patient presents in acute respiratory distress after recent hospitalization for UTI. Patient's urine cultures grew out yeast and she was put on Diflucan. She is also being followed by oncology for her pancytopenia likely due to methotrexate. Methotrexate was held as well as some of her antihyperglycemic's. Her daughter reports that her blood sugars have been running in the 200s. Invokana was discontinued. Hemoglobin was 7.7 on discharge. Previous blood cultures did not grow anything out. Septic work-up, CPAP at 7 cm water pressure was continued FiO2 60% and an ABG was obtained. Covid and influenza swabs. We will do a D-dimer however once we get her stabilized I suspect we will need to do a CT angiogram if her kidneys can handle it to rule out pulmonary embolism. Her blood pressure is soft 108/57. 2 L normal saline will be 30 mL/kg based on an adjusted ideal body weight of 149 pounds. Tylenol for her fever. Strongly suspect a UTI based on the orange marmelade coming out of her Winters catheter. Cefepime was selected. Progress Note #2: Time: 07:58 Progress Note Oxygenation is good with a sat of 94% on 60 FiO2. She is tolerating the CPAP well. We will expand her coverage with vancomycin. We will give her a unit of red blood cells inpatient. Diagnostic Imaging Diagonstic Imaging: Xray Plain Films/CT/US/NM/MRI: chest Comments [facility]. [place], [place] NAME: LULÚ WARREN [facility] REC#: [id number] PT STATUS: REG ER : 1945 PHYSICIAN: CHRISTIE ELY MD ADMIT DATE: 03/31/21/ER Draft Date of Exam:03/31/21 CHEST 1 VIEW, AP/PA ONLY INDICATION: Sepsis COMPARISON: 03/18/2021 TECHNIQUE: Single radiograph of the chest dated 03/31/2021. FINDINGS: The cardiac silhouette appears stable. Pulmonary vasculature is obscured. Extensive right greater than left pulmonary opacities are present, having developed since the prior examination. No large-volume pleural effusion. No pneumothorax. Mild S-shaped curvature of the spine with scattered osseous degenerative changes without acute osseous abnormality. IMPRESSION: Development of extensive right greater than left pulmonary opacities, concerning for infection. Pulmonary edema would be an additional consideration, though there is no significant pleural effusion identified at this time. Persistent prominence of the cardiac silhouette. Dictated on workstation # [id number] Dict: 03/31/21719 Trans: 03/31/21721 CVB [id number] Interpreted by: JAIME RIVERA MD Electronically signed by: Reviewed: Reviewed by Me Diagonstic Imaging: CT (angio) Plain Films/CT/US/NM/MRI: chest Comments [facility] [place] [place] NAME: LULÚ WARREN [facility] REC#: [id number] PT STATUS: ADM IN : 1945 PHYSICIAN: CHRISTIE ELY MD ADMIT DATE: 03/31/21/ICU Signed Date of Exam:03/31/21 CT ANGIO CHEST W PROCEDURE: CT angiography of the chest with contrast. TECHNIQUE: Multiple contiguous axial images were obtained through the chest after uneventful bolus administration of intravenous contrast. 3D reconstructed CTA MIP acquisitions were also performed. Auto Exposure Controls were utilized during the CT exam to meet ALARA standards for radiation dose reduction. INDICATION: Strong clinical suspicion for PE. COMPARISON: Nonenhanced exam of 03/18/2021. FINDINGS: Best seen in the coronal reconstructions is a small amount of nonocclusive clot within a right lower lobe segmental branch as well as some distal subsegmental occlusive clot. The remaining pulmonary arterial segments are patent and well-opacified. There is no evidence for right heart strain or elevated right heart pressure. The undivided pulmonary segment is patent. The left and right main pulmonary arteries are patent. The patient has tiny subcentimeter pleural effusions, nonloculated. There is some right basilar partial atelectasis. There are progressive 5 lobed diffuse groundglass infiltrates. The cava is patent. No intracardiac chamber mass or thrombus. The aorta is patent and nonaneurysmal. There is no pneumothorax. There is no acute soft tissue or osseous chest wall pathology. The visualized upper abdomen is stable. IMPRESSION: A small amount of PE is identified within right lower lobe segmental and subsegmental branches without right heart strain or saddle embolus. Progressive 5 lobed groundglass pulmonary opacities with tiny pleural effusions (nonloculated) and no pneumothorax. These results were discussed with the Emergency Room physician. Dictated by: Dictated on workstation # [id number] Dict: 03/31/21 1012 Trans: 03/31/217 [id number] Interpreted by: DAMIEN GOODRICH Electronically signed by: DAMIEN GOODRICH 03/31/21 1647 Reviewed: Reviewed by Me Departure Communication (Admissions) Time/Spoke to Admitting Phy: 08:25 Discussed the case with Dr. Mccauley and he has concerns with her recent hospitalization for a pulmonary embolism and would like a CT on the way up to the ICU. He accepts the patient on cefepime and vancomycin with a unit of packed red blood cells pending. Time/Spoke to Consulting Phy: 08:30 Discussed the case with Pepito Arriaga. Impression Primary Impression: Pneumonia Qualified Codes: J18.9 - Pneumonia, unspecified organism Additional Impressions: Acute respiratory failure with hypoxia Severe sepsis Catheter-associated urinary tract infection Qualified Codes: T83.511A - Infection and inflammatory reaction due to ind welling urethral catheter, initial encounter; N39.0 - Urinary tract infection, site not specified Normocytic hypochromic anemia Disposition: ADMITTED INPATIENT Condition: Stable Admissions Decision to Admit Reason: Admit from ER (General) Decision to Admit/Date: Mar 31, 2021 Time/Decision to Admit Time: 07:55 Departure-Patient Inst. Referrals: JEFFREY PARRA DO (PCP/Family) Primary Care Physician CHRISTIE ELY Mar 31, 2021 07:00
[2021-03-31 07:04] LABS: BASOPHILS # (AUTO) 0.1 10^3/uL (0.0-0.1); BASOPHILS % (AUTO) 1 % (0-10); BILIRUBIN,URINE NEGATIVE (NEGATIVE); CLARITY,URINE CLOUDY; COLOR,URINE ORANGE; EOSINOPHILS # (AUTO) 0.1 10^3/uL (0.0-0.3); EOSINOPHILS % (AUTO) 1 % (0-10); GLUCOSE, URINE (UA) NEGATIVE (NEGATIVE); KETONES,URINE NEGATIVE (NEGATIVE); LEUKOCYTE ESTERASE ,URINE 2+ (NEGATIVE); LYMPHOCYTES # (AUTO) 2.3 10^3/uL (1.0-4.0); LYMPHOCYTES % (AUTO) 19 % (12-44); MEAN CORPUSCULAR HEMOGLOBIN 28 pg (25-34); MEAN CORPUSCULAR HGB CONC 31 g/dL (32-36); MEAN CORPUSCULAR VOLUME 91 fL (80-99); MEAN PLATELET VOLUME 10.2 fL (9.0-12.2); MONOCYTES # (AUTO) 0.9 10^3/uL (0.0-1.0); MONOCYTES % (AUTO) 8 % (0-12); NEUTROPHILS % (AUTO) 66 % (42-75); NITRITE,URINE NEGATIVE (NEGATIVE); PLATELET COUNT 651 10^3/uL (130-400); PROTEIN,URINE 2+ (NEGATIVE); WHITE BLOOD COUNT 12.1 10^3/uL (4.3-11.0)
[2021-03-31 07:07] LABS: INR 1.4 (0.8-1.4); PROTHROMBIN TIME PATIENT 17.1 SEC (12.2-14.7)
[2021-03-31 07:08] LABS: ALBUMIN 2.8 GM/DL (3.2-4.5); POTASSIUM 4.9 MMOL/L (3.6-5.0)
[2021-03-31 07:09] LABS: HEMATOCRIT 20 % (35-52); HEMOGLOBIN 6.2 g/dL (11.5-16.0)
[2021-03-31 07:11] LABS: TOTAL PROTEIN 7.3 GM/DL (6.4-8.2)
[2021-03-31 07:13] LABS: BILIRUBIN,TOTAL 0.6 MG/DL (0.1-1.0)
[2021-03-31 07:14] LABS: CREATININE SERUM 1.31 MG/DL (0.60-1.30)
[2021-03-31 07:19] LABS: ABG BASE EXCESS 0.3 MMOL/L (-2.5-2.5); ABG OXYGEN SATURATION 94 % (94-100); ABG PCO2 36 MMHG (35-45); ABG PH 7.44 (7.37-7.43); ABG PO2 78 MMHG (79-93); ABG TCO2 24.8 MMOL/L (21.0-31.0)
[2021-03-31 07:21] LABS: ALLENS TEST YES-POS; INSPIRED O2 60; PATIENT TEMP 38.2; VENTILATOR NO
--- NOTE | 2021-03-31 07:23 | Diagnostic Imaging Report ---
INDICATION: Sepsis COMPARISON: 03/18/2021 TECHNIQUE: Single radiograph of the chest dated 03/31/2021. FINDINGS: The cardiac silhouette appears stable. Pulmonary vasculature is obscured. Extensive right greater than left pulmonary opacities are present, having developed since the prior examination. No large-volume pleural effusion. No pneumothorax. Mild S-shaped curvature of the spine with scattered osseous degenerative changes without acute osseous abnormality. IMPRESSION: Development of extensive right greater than left pulmonary opacities, concerning for infection. Pulmonary edema would be an additional consideration, though there is no significant pleural effusion identified at this time. Persistent prominence of the cardiac silhouette. Dictated by: Dictated on workstation # [id number]
[2021-03-31 07:32] LABS: BACTERIA,URINE FEW /HPF; RBC,URINE 50-100 /HPF; WBC,URINE TNTC /HPF
[2021-03-31] MEDS ORDERED: VANCOMYCIN INJECTION 2,000 MG in NS IV 500 ML 500 ML IV ONE (07:59)
[2021-03-31] MEDS ORDERED: NS IV 500 ML 500 ML IV SCH (08:00)
[2021-03-31] MEDS ORDERED: HOLD METFORMIN - RECEIVED CONTRAST 20 ML VIAL IV SCH (09:15)
[2021-03-31] MEDS ORDERED: IOHEXOL 350 MG/ML 100 ML (OMNIPAQUE 350) VIAL IV ONE (09:15)
[2021-03-31] MEDS ORDERED: NS 100 ML (IVPB) BAG IV ONE (09:15)
[2021-03-31] MEDS ORDERED: EPINEPHrine 1 MG INJECTION 4 MG in NS (IVPB) 248 ML IV SCH (09:45)
[2021-03-31] MEDS ORDERED: ONDANSETRON 4 MG/2 ML (SDV) Z0FRAN IV PRN (09:45)
[2021-03-31] MEDS ORDERED: ACETAMINOPHEN 325 MG TABLET PO PRN (09:45)
[2021-03-31] MEDS ORDERED: IBUPROFEN 600 MG (MOTRIN) TAB PO PRN (09:45)
[2021-03-31] MEDS: VASOPRESSIN INJECTION 20 UNIT in NS (IVPB) 100 ML IV SCH ×2 (10:22→20:45)
[2021-03-31] MEDS: NOREPINEPHRINE 8 MG/250 ML 250 ML IV SCH ×2 (10:22→22:27)
[2021-03-31] MEDS: ENOXAPARIN 100 MG/1 ML (LOVENOX) SYR SC SCH ×2 (10:30→22:27)
[2021-03-31] MEDS: inSUlin ASPART (NovoLOG) 1 UNIT/0.01 ML (CHARGE PER UNIT) SC SCH ×3 (11:33→20:45)
[2021-03-31] MEDS ORDERED: RT-ALBUTEROL SULF 2.5 MG/3 ML PRE-MIX VIAL INH PRN (12:00)
--- NOTE | 2021-03-31 12:33 | Diagnostic Imaging Report ---
PROCEDURE: CT angiography of the chest with contrast. TECHNIQUE: Multiple contiguous axial images were obtained through the chest after uneventful bolus administration of intravenous contrast. 3D reconstructed CTA MIP acquisitions were also performed. Auto Exposure Controls were utilized during the CT exam to meet ALARA standards for radiation dose reduction. INDICATION: Strong clinical suspicion for PE. COMPARISON: Nonenhanced exam of 03/18/2021. FINDINGS: Best seen in the coronal reconstructions is a small amount of nonocclusive clot within a right lower lobe segmental branch as well as some distal subsegmental occlusive clot. The remaining pulmonary arterial segments are patent and well-opacified. There is no evidence for right heart strain or elevated right heart pressure. The undivided pulmonary segment is patent. The left and right main pulmonary arteries are patent. The patient has tiny subcentimeter pleural effusions, nonloculated. There is some right basilar partial atelectasis. There are progressive 5 lobed diffuse groundglass infiltrates. The cava is patent. No intracardiac chamber mass or thrombus. The aorta is patent and nonaneurysmal. There is no pneumothorax. There is no acute soft tissue or osseous chest wall pathology. The visualized upper abdomen is stable. IMPRESSION: A small amount of PE is identified within right lower lobe segmental and subsegmental branches without right heart strain or saddle embolus. Progressive 5 lobed groundglass pulmonary opacities with tiny pleural effusions (nonloculated) and no pneumothorax. These results were discussed with the Emergency Room physician. Dictated by: Dictated on workstation # [id number]
[2021-03-31] MEDS ORDERED: NF-SODBICA PO (13:16)
--- NOTE | 2021-03-31 13:37 | Pulmonary Consultation ---
IVONNE KEITH 03/31/21 1337: History of Present Illness History of Present Illness Date Seen by Provider: Mar 31, 2021 Time Seen by Provider: 13:20 Date of Admission History of Present Illness Pt presents with shortness of breath. She notes that she measured her O2 saturation at 85% prior to calling EMS. She does not use oxygen at baseline. Originally placed in cpap 7 @ 60%FiO2, she has progressed to 8L maintaining low 90s O2 saturation. Allergies and Home Medications Allergies Coded Allergies: hydroxychloroquine (Verified Allergy, Mild, HIVES, 09/07/18) fentanyl (Verified Adverse Reaction, Intermediate, HALLUCINATIONS, 03/31/21) Home Medications Acetaminophen 500 Mg Tablet, 500-1,000 MG PO Q8H PRN for PAIN-MILD (1-4), (Reported) Amlodipine Besylate 10 Mg Tablet, 10 MG PO DAILY, (Reported) Ascorbic Acid 500 Mg Tablet, 500 MG PO DAILY, (Reported) Aspirin 81 Mg Tablet.dr, 81 MG PO HS, (Reported) Atorvastatin Calcium 40 Mg Tablet, 40 MG PO HS, (Reported) Cholecalciferol (Vitamin D3) 25 Mcg Tablet, 25 MCG PO DAILY, (Reported) Enalapril Maleate 20 Mg Tablet, 20 MG PO BID, (Reported) Folic Acid 1 Mg Tablet, 1 MG PO HS, (Reported) Furosemide 40 Mg Tablet, 40 MG PO DAILY, (Reported) Furosemide 40 Mg Tablet, 40 MG PO DAILY PRN for SWELLING, (Reported) MAY TAKE AN ADDITIONAL DOSE NEEDED L.acidoph & Paracasei,B.lactis 1 Each Capsule, 1 EACH PO DAILY, (Reported) Meloxicam 15 Mg Tablet, 15 MG PO DAILY, (Reported) Metformin HCl 500 Mg Tab.er.24h, 1,000 MG PO BID, (Reported) TAKES 2 (500MG) TABS Metoprolol Succinate 200 Mg Tab.er.24h, 100 MG PO BID, (Reported) TAKES OF A 200MG TAB Omeprazole 20 Mg Tablet.dr, 20 MG PO DAILY, (Reported) Sodium Bicarbonate 650 Mg Tablet, 650 MG PO TIDWM, (Reported) Zinc 50 Mg Tablet, 50 MG PO DAILY, (Reported) Past Medical/Social/Family Hx Patient Social History Tobacco Use?: No Smoking Status: Never a Smoker Smokeless Tobacco Frequency: Never a User Use of E-Cig and/or Vaping dev: No Substance use?: No Alcohol Use?: No Pt stated abuse/neglect: No Immunizations Up To Date First/Initial COVID19 Vaccinat: 07/28 Second COVID19 Vaccination [place]: 08/25 Tetanus Booster (TDap): More Than 5 Years Date of Pneumonia Vaccine: Aug 27, 2014 Current Status status: No Advance Directives: No Communicates: Verbally Primary Language: Gabonese Preferred Spoken Language: Gabonese Is interpretation needed?: No Implanted or Applied Medical D: None Family Medical History Family Hx: PAST SURGICAL HISTORY: -LAPAROSCOPIC RIGHT HEMICOLECTOMY [address] PIERCE -CHOLECYSTECTOMY -TONSILLECTOMY -CATARACT SURGERY -CYSTOSCOPIES -EGD/COLONOSCOPY 2013 Review of Systems Constitutional: No: Fever, Chills, Sweats, Weakness, Malaise, Other Eyes: No: Pain, Vision change, Conjunctivae inflammation, Eyelid inflammation, Other, Redness ENT: No: Ear pain, Ear discharge, Nose pain, Nose discharge, Nose congestion, Mouth pain, Mouth swelling, Throat pain, Throat swelling, Other Respiratory: No: Cough, Dry, Shortness of breath, SOB with excertion, Wheezing, Hemoptysis, Pleuritic Pain, Sputum, Wheezing, Other Cardiovascular: No: Chest Pain, Palpitations, Orthopnea, Paroxysmal Noc. Dyspnea, Edema, Lt Headedness, Other Gastrointestinal: No: Nausea, Vomiting, Abdominal Pain, Diarrhea, Constipation, Melena, Hematochezia, Other Genitourinary: No Dysuria, No Frequency, No Incontinence, No Hematuria, No Retention, No Other Musculoskeletal: No: other, neck pain, shoulder pain, arm pain, back pain, hand pain, leg pain, foot pain Skin: No: Rash, Lesions, Jaundice, Bruising, Other 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: No: Weakness, Numbness, Incoordination, Change in speech, Confusion, Seizures, Other Sepsis Event Evaluation Height, Weight, BMI Height: 5'2.00" Weight: 225lbs. 0.0oz. 102.898912iw; 38.85 BMI Method: Exam Exam Patient acknowledged, consented, and participated in this virtual visit which was conducted using real time audio/video Vital Signs Date Time Temp Pulse Resp B/P (MAP) Pulse Ox O2 Delivery O2 Flow Rate FiO2 03/31/21 12:25 96 NIV CPAP 60 03/31/21 11:41 37.3 67 137/85 96 NIV CPAP 60 03/31/21 11:30 37.5 03/31/21 11:24 37.1 68 131/63 NIV CPAP 60 03/31/21 11:00 67 23 131/63 97 NIV CPAP 60.00 03/31/21 10:48 38.0 74 92 60 03/31/21 10:29 38.0 03/31/21 10:22 75 134/79 03/31/21 10:22 75 120/58 03/31/21 10:00 72 21 110/58 (75) 99 NIV CPAP 99.00 03/31/21 09:58 38.0 75 24 134/79 99 NIV CPAP 60.00 03/31/21 09:40 75 03/31/21 09:34 76 30 92 03/31/21 09:15 75 18 134/69 92 NIV Bilevel 60.00 03/31/21 07:03 38.1 03/31/21 06:45 74 32 92 03/31/21 06:40 NIV CPAP 03/31/21 06:40 38.2 75 30 103/49 (67) 89 NIV CPAP Height & Weight Height: 5'2.00" Weight: 225lbs. 0.0oz. 102.520543dl; 38.85 BMI Method: General Appearance: Chronically ill, Obese, Severe Distress HEENT: PERRL/EOMI, Normal ENT Inspection; No Moist Mucous Membranes Neck: Full Range of Motion, Normal Inspection, Non Tender, Supple; No JVD Respiratory: No Accessory Muscle Use, Respiratory Distress, Wheezing Cardiovascular: Regular Rate, Rhythm, No Edema, Normal Peripheral Pulses Capillary Refill: Less Than 3 Seconds Peripheral Pulses: 2+ Dorsalis Pedis (R), 2+ Left Dors-Pedis (L) Extremity: Normal Capillary Refill, Normal Inspection, No Pedal Edema Neurologic/Psychiatric: Alert, Oriented x3 (Obtunded, slow to answer; GCS 15), No Motor/Sensory Deficits, brass cleaner II-XII Norm as Tested Results Lab Laboratory Tests Test 03/31/21 07:11 Blood Gas Puncture Site RR Blood Gas Patient Temperature 38.2 Arterial Blood pH 7.44 Arterial Blood Partial Pressure CO2 36 MMHG Arterial Blood Partial Pressure O2 78 MMHG Arterial Blood HCO3 24 MMOL/L Arterial Blood Total CO2 24.8 MMOL/L Arterial Blood Oxygen Saturation 94 % Arterial Blood Base Excess 0.3 MMOL/L Hayden Test YES-POS Blood Gas Ventilator Setting NO Blood Gas Inspired Oxygen 60 Laboratory Tests 03/31/21 06:45 Diagnosis/Problems Problems/Diagonsis (1) Acute respiratory failure with hypoxia Status: Acute Assessment & Plan: Pt is currently on 8L nasal cannula and oxygen saturation is hovering in the low 90s, displaying no acidosis. This is likely secondary to a small embolism detected on CTA. Will continue to follow. (2) Pulmonary emboli Assessment & Plan: Small pulmonary embolism detected on CTA. Will follow clinical presentation and start LMWH. (3) Sepsis Status: Acute Assessment & Plan: pt meets 1/4 SIRS criteria. Will follow labs and manage with vancomycin and cefepime. (4) Pancytopenia Assessment & Plan: pt has already received 1 unit of pRBCs. Will continue to follow labs. LISSET JARAMILLO MD 03/31/21 1429: History of Present Illness History of Present Illness History of Present Illness Has both extensive opacities on CXR/CT and also TNTC WBC's in urine, Allergies and Home Medications Allergies Coded Allergies: hydroxychloroquine (Verified Allergy, Mild, HIVES, 09/07/18) fentanyl (Verified Adverse Reaction, Intermediate, HALLUCINATIONS, 03/31/21) Home Medications Acetaminophen 500 Mg Tablet, 500-1,000 MG PO Q8H PRN for PAIN-MILD (1-4), (Reported) Amlodipine Besylate 10 Mg Tablet, 10 MG PO DAILY, (Reported) Ascorbic Acid 500 Mg Tablet, 500 MG PO DAILY, (Reported) Aspirin 81 Mg Tablet.dr, 81 MG PO HS, (Reported) Atorvastatin Calcium 40 Mg Tablet, 40 MG PO HS, (Reported) Cholecalciferol (Vitamin D3) 25 Mcg Tablet, 25 MCG PO DAILY, (Reported) Enalapril Maleate 20 Mg Tablet, 20 MG PO BID, (Reported) Folic Acid 1 Mg Tablet, 1 MG PO HS, (Reported) Furosemide 40 Mg Tablet, 40 MG PO DAILY, (Reported) Furosemide 40 Mg Tablet, 40 MG PO DAILY PRN for SWELLING, (Reported) MAY TAKE AN ADDITIONAL DOSE NEEDED L.acidoph & Paracasei,B.lactis 1 Each Capsule, 1 EACH PO DAILY, (Reported) Meloxicam 15 Mg Tablet, 15 MG PO DAILY, (Reported) Metformin HCl 500 Mg Tab.er.24h, 1,000 MG PO BID, (Reported) TAKES 2 (500MG) TABS Metoprolol Succinate 200 Mg Tab.er.24h, 100 MG PO BID, (Reported) TAKES OF A 200MG TAB Omeprazole 20 Mg Tablet.dr, 20 MG PO DAILY, (Reported) Sodium Bicarbonate 650 Mg Tablet, 650 MG PO TIDWM, (Reported) Zinc 50 Mg Tablet, 50 MG PO DAILY, (Reported) Review of Systems Time Seen by Provider: 14:00 Exam Exam Respiratory: Crackles, Inspiration (insp crackles both bases ) Cardiovascular: Regular Rate, Rhythm Gastrointestinal: normal bowel sounds, non tender, soft Neurologic/Psychiatric: Alert, Oriented x3 (Obtunded, slow to answer; GCS 15) Assessment/Plan Assessment/Plan Has extensive opacities on both CXR and CT, at risk for hypoxic resp failure, will continue on present abx, check sputum cultures Need to closely monitor SpO2, continue 8 lpm NC Right now not working hard to breathe Critical Care: Critically Ill Patient Time spent with patient (mins): 25 Supervisory-Addendum Brief Verification & Attestation Participated in pt care: history Personally performed: exam Care discussed with: Medical Student Procedures: n/a Results interpretation: Verified all documentation Physical findings per student and RN, IVONNE KEITH Mar 31, 2021 13:37 LISSET JARAMILLO MD Mar 31, 2021 14:29
[2021-03-31] MEDS: CEFEPIME 1,000 MG/SWFI 10 ML IV PUSH IV SCH ×4 (14:43→22:27)
[2021-03-31] MEDS: RT-ALBUTEROL SULF 2.5 MG/3 ML PRE-MIX VIAL INH SCH ×3 (15:02→22:10)
[2021-03-31] MEDS ORDERED: FUROSEMIDE 40 MG/4 ML INJ (LASIX) IVP NR (15:30)
--- NOTE | 2021-03-31 16:41 | Diagnostic Imaging Report ---
INDICATION: Pulmonary emboli. Bilateral lower extremity venous Doppler study was performed in the routine fashion with color flow Doppler and waveform analysis. FINDINGS: The common femoral veins, superficial femoral veins, popliteal veins and visualized portion of the tibial veins show normal compressibility and venous flow patterns. There is normal augmentation. IMPRESSION: No evidence of deep vein thrombosis in the major veins of both legs. Dictated by: Dictated on workstation # [id number]
[2021-03-31 17:10] LABS: POTASSIUM 3.8 MMOL/L (3.6-5.0)
[2021-03-31 17:11] LABS: CALCIUM 7.5 MG/DL (8.5-10.1)
[2021-03-31 17:16] LABS: CREATININE SERUM 1.03 MG/DL (0.60-1.30)
--- NOTE | 2021-03-31 17:31 | Progress Note ---
Standard Progress Note Progress Notes/Assess & Plan Date Seen by a Provider: Mar 31, 2021 Time Seen by a Provider: 17:29 Progress/Assessment & Plan called for Hb 8.7 after one unit of PRBC which is appropriate, SpO2 remains around 90%, given extent of opacities on CXR I would change to BiPAP 05/11, FiO2 60% Focused Exam Lactate Level 03/31/21 06:45: Lactic Acid Level 3.84*H 03/31/21 08:49: Lactic Acid Level 1.89 Time of Focused Exam: 07:56 LISSET JARAMILLO MD Mar 31, 2021 17:31
--- NOTE | 2021-03-31 18:43 | History & Physical-Hospitalist ---
History of Present Illness HPI/Chief Complaint Gabriela Hobbs is a 75 year old female with PMH HTN, HLD, T2DM, renal tubular acidosis, rheumatoid arthritis, recurrent UTIs, who presented with hypoxia. Her daughter reports that her oxygen level was 83% at home and she brought her to the ER. She does not normally wear oxygen at home. She was recently admitted due to UTI. She was sent home with a farmer catheter due to urinary retention. She denies any subjective fevers at home. She has been feeling like her normal self. She denies chest pain. She denies cough. She denies leg pain or swelling. She caught her farmer catheter when she was getting out of the shower but did not have any bleeding. Source: patient, family Exam Limitations: no limitations Date Seen 03/31/21 Time Seen by a Provider: 10:30 Attending Physician Ros Leiva MD PCP Mark Hernandez DO Referring Physician Date of Admission Mar 31, 2021 at 08:30 Home Medications & Allergies Home Medications Reviewed patient Home Medication Reconciliation performed by pharmacy medication reconciliations remote broadcast technician and/or nursing. Patients Allergies have been reviewed. Allergies Allergies Coded Allergies hydroxychloroquine (Verified Allergy, Mild, HIVES, 09/07/18) fentanyl (Verified Adverse Reaction, Intermediate, HALLUCINATIONS, 03/31/21) Past Rwiptpe-[id number]-Gewxhq Hx Patient Social History Tobacco Use?: No Smoking Status: Never a Smoker Smokeless Tobacco Frequency: Never a User Use of E-Cig and/or Vaping dev: No Substance use?: No Alcohol Use?: No Pt feels they are or have been: No Immunizations Up To Date Date of Influenza Vaccine: Mar 19, 2021 First/Initial COVID19 Vaccinat: 07/28 Second COVID19 Vaccination [place]: 08/25 Tetanus Booster (TDap): More Than 5 Years Date of Pneumonia Vaccine: Aug 27, 2014 Seasonal Allergies Seasonal Allergies: No Current Status status: No Advance Directives: No Communicates: Verbally Primary Language: Nepalese Preferred Spoken Language: Nepalese Is interpretation needed?: No Implanted or Applied Medical D: None Past Medical History Surgeries: Abdominal, Bladder Surgery, Bowel Surgery, Eye Surgery, Gallbladder, Tonsillectomy Currently Using CPAP: No Currently Using BIPAP: No High Cholesterol, Hypertension 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 PIERCE -CHOLECYSTECTOMY -TONSILLECTOMY -CATARACT SURGERY -CYSTOSCOPIES -EGD/COLONOSCOPY 2013 Review of Systems Constitutional: no symptoms reported EENTM: no symptoms reported Respiratory: short of breath Cardiovascular: no symptoms reported Gastrointestinal: no symptoms reported Genitourinary: no symptoms reported Musculoskeletal: no symptoms reported Skin: no symptoms reported Psychiatric/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: No Symptoms Reported Physical Exam Physical Exam Vital Signs Vital Signs - First Documented 03/31/21 03/31/21 09:15 10:48 O2 Flow Rate 60.00 FiO2 60 Capillary Refill : Less Than 3 Seconds Height, Weight, BMI Height: 5'2.00" Weight: 225lbs. 0.0oz. 102.857811ge; 38.85 BMI Method: General Appearance: No Apparent Distress, Obese HEENT: PERRL/EOMI, Pharynx Normal Neck: Normal Inspection, Supple Respiratory: Lungs Clear, Normal Breath Sounds, No Respiratory Distress Cardiovascular: Regular Rate, Rhythm, No Murmur, Normal Peripheral Pulses Gastrointestinal: Normal Bowel Sounds, Non Tender, Soft Extremity: Normal Inspection, Non Tender, Pedal Edema Neurologic/Psychiatric: Alert, Oriented x3, No Motor/Sensory Deficits, Normal Mood/Affect Skin: Warm/Dry, Pallor Results Results/Procedures Labs Laboratory Tests 03/31/21 06:45 03/31/21 16:45 Patient resulted labs reviewed. Imaging: Reviewed Imaging Report Assessment/Plan Admission Diagnosis Acute respiratory failure with hypoxia Admission Status: Inpatient Order (span 2 midnights) Reason for Inpatient Admission: Respiratory failure Assessment and Plan Acute respiratory failure with hypoxia Pulmonary emboli Symptomatic anemia Multifocal pneumonia Supplemental oxygen as needed CT showed right lower lobe segemental and subsegmental emboli Started on therapeutic Lovenox BNP elevated Obtain echo Venous dopplers negative CT showed diffuse groundglass opacities COVID negative, fully vaccinated Flu negative, vaccinated Obtain respiratory viral panel Procalcitonin within normal limits IV antibiotics started Hemoglobin 6.2 1 unit PRBC ordered Repeat H/H improved to 8.7 Worsening hypoxia Begin Lasix Transition to BiPAP Recurrent UTIs Urinary retention Chronic indwelling farmer catheter Pyuria UA with pyuria, few bacteria Urine culture pending IV antibiotics T2DM Hold metformin Sliding scale insulin HTN HLD RTA GERD Continue home meds Obesity History of colon cancer Clinically significant, no acute management needs Diagnosis/Problems Diagnosis/Problems (1) Acute respiratory failure with hypoxia Status: Acute (2) Pulmonary emboli Status: Acute Qualifiers: Pulmonary embolism type: other Chronicity: acute Acute cor pulmonale presence: without acute cor pulmonale Qualified Codes: I26.99 - Other pulmonary embolism without acute cor pulmonale (3) Anemia Status: Acute (4) Pneumonia Status: Acute Qualifiers: Pneumonia type: due to unspecified organism Laterality: right Lung location: unspecified part of lung Qualified Codes: J18.9 - Pneumonia, unspecified organism (5) T2DM (type 2 diabetes mellitus) Status: Chronic Qualifiers: Diabetes mellitus mcc insulin use: without mcc use (6) History of colon cancer Status: Chronic (7) Obesity Status: Chronic (8) HTN (hypertension) Status: Chronic (9) HLD (hyperlipidemia) Status: Chronic (10) GERD (gastroesophageal reflux disease) Status: Chronic ROS LEIVA MD Mar 31, 2021 18:43
[2021-03-31] MEDS ORDERED: NON-FORMULARY MEDICATION 1 EA EA (Metoprolol Succinate 100 MG) PO SCH (21:00)
[2021-03-31] MEDS ORDERED: NON-FORMULARY MEDICATION 1 EA EA (Enalapril Maleate 20 MG) PO SCH (21:00)
[2021-03-31] MEDS: FOLIC ACID 1 MG TAB PO SCH (21:13)
[2021-03-31] MEDS: meTOprolol SUCCINATE 100 MG (TOPROL XL) TAB PO SCH (21:13)
[2021-03-31] MEDS: ASPIRIN E.C. 81 MG (ECOTRIN) TAB PO SCH (21:13)
[2021-03-31] MEDS: BISACODYL 5 MG (DULCOLAX) TABLET PO SCH (21:13)
[2021-04-01] MEDS: RT-ALBUTEROL SULF 2.5 MG/3 ML PRE-MIX VIAL INH SCH ×6 (02:48→22:35)
[2021-04-01 04:40] LABS: BASOPHILS # (AUTO) 0.1 10^3/uL (0.0-0.1); BASOPHILS % (AUTO) 1 % (0-10); EOSINOPHILS # (AUTO) 0.5 10^3/uL (0.0-0.3); EOSINOPHILS % (AUTO) 6 % (0-10); HEMATOCRIT 27 % (35-52); HEMOGLOBIN 8.6 g/dL (11.5-16.0); LYMPHOCYTES # (AUTO) 1.8 10^3/uL (1.0-4.0); LYMPHOCYTES % (AUTO) 21 % (12-44); MEAN CORPUSCULAR HEMOGLOBIN 29 pg (25-34); MEAN CORPUSCULAR HGB CONC 32 g/dL (32-36); MEAN CORPUSCULAR VOLUME 89 fL (80-99); MEAN PLATELET VOLUME 9.6 fL (9.0-12.2); MONOCYTES # (AUTO) 0.9 10^3/uL (0.0-1.0); MONOCYTES % (AUTO) 10 % (0-12); NEUTROPHILS # (AUTO) 5.1 10^3/uL (1.8-7.8); NEUTROPHILS % (AUTO) 61 % (42-75); PLATELET COUNT 369 10^3/uL (130-400); WHITE BLOOD COUNT 8.4 10^3/uL (4.3-11.0)
[2021-04-01 04:54] LABS: POTASSIUM 3.8 MMOL/L (3.6-5.0)
[2021-04-01 04:55] LABS: CALCIUM 7.6 MG/DL (8.5-10.1)
[2021-04-01 05:00] LABS: CREATININE SERUM 0.96 MG/DL (0.60-1.30)
[2021-04-01] MEDS: POTASSIUM CL 10MEQ/50ML IVPB 50 ML IV SCH (05:28)
[2021-04-01] MEDS: KCL 20 MEQ TAB (K-DUR) PO SCH (05:29)
[2021-04-01] MEDS: inSUlin ASPART (NovoLOG) 1 UNIT/0.01 ML (CHARGE PER UNIT) SC SCH ×4 (05:29→21:10)
[2021-04-01 06:20] LABS: PHOSPHORUS 2.6 MG/DL (2.3-4.7)
[2021-04-01 06:22] LABS: MAGNESIUM 1.3 MG/DL (1.6-2.4)
--- NOTE | 2021-04-01 07:14 | Diagnostic Imaging Report ---
History: Pneumonia COMPARISON: 03/31/2021 TECHNIQUE: Frontal view the chest FINDINGS: There are interstitial opacities throughout the lungs bilaterally with patchy airspace opacities in the right midlung and right lung base. Aeration appears mildly improved. There is no pleural effusion or pneumothorax. Lung volumes are mildly low. The cardiac silhouette is stable in size. The right central line tip projects over the cavoatrial junction. IMPRESSION: 1. The right central line tip projects over the cavoatrial junction. 2. Bilateral pulmonary opacities with mildly improved aeration since the prior exam. Dictated by: Dictated on workstation # [id number]
[2021-04-01] MEDS: MAGNESIUM 1 GM/100 ML IVPB 100 ML IV SCH ×5 (07:49→09:56)
[2021-04-01] MEDS: SODIUM BICARBONATE 650 MG TABLET (NON-FORMULARY) PO SCH ×3 (07:50→17:01)
[2021-04-01] MEDS: VANCOMYCIN 1250 MG/NS 250 ML IVPB IV SCH ×2 (07:50)
[2021-04-01] MEDS: CEFEPIME 1,000 MG/SWFI 10 ML IV PUSH IV SCH ×6 (07:50→22:22)
[2021-04-01] MEDS: meTOprolol SUCCINATE 100 MG (TOPROL XL) TAB PO SCH ×2 (07:50→21:10)
[2021-04-01] MEDS: LACTOBACILLUS ACIDOPHILUS (PROBIOTIC) CAPSULE PO SCH (07:51)
[2021-04-01] MEDS: BISACODYL 5 MG (DULCOLAX) TABLET PO SCH ×2 (07:51→21:10)
[2021-04-01] MEDS: PANTOPRAZOLE 20 MG TABLET (PROTONIX) PO SCH (07:51)
[2021-04-01] MEDS: VASOPRESSIN INJECTION 20 UNIT in NS (IVPB) 100 ML IV SCH ×2 (08:07→17:38)
[2021-04-01] MEDS ORDERED: FUROSEMIDE 40 MG/4 ML INJ (LASIX) IVP ONE (08:30)
[2021-04-01] MEDS ORDERED: amLODIPine 10 MG (NORVASC) TAB PO SCH (09:00)
[2021-04-01] MEDS ORDERED: NON-FORMULARY MEDICATION 1 EA EA (L.acidoph & Paracasei,B.lactis (Probiotic) 1 EACH) PO SCH (09:00)
--- NOTE | 2021-04-01 09:16 | Tele-ICU Progress Note ---
Subjective Date Seen by a Provider: Apr 01, 2021 Time Seen by a Provider: 07:55 Subjective/Events-last exam This virtual visit was conducted using real time audio/video. Thank you for asking us to see this patient for respiratory insufficiency and distress due to pna, small PE. Also has UTI HPC: Recent events: O2 needs decreased. Did not tolerate BiPAP. PE: Resting comfortably. Obese. VSS O2 sat 95% on 9LPM NC. HEENT: No obvious masses, adenopathy or JVD. Chest: clear to auscultation, but diminished. CV: RRR S1 S2 No murmur or added sounds. Abd: Non-tender. Bowel sounds Y. : Unremarkable. [place] Y. 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 No obvious focal findings. Extremities: No edema. Capillary refill < 3 seconds. Skin: unremarkable. Results: CXR w B infilts, CTAC w small R PE. A/P: Respiratory insufficiency/distress: Wean O2 as terrance. Available chart/ vitals / labs / Images reviewed. Video assessment done using teleICU camera, rest of exam as per RN. Monitor for increasing oxygenation needs and/or need for intubation. Critical Care: critically ill patient. Cont abx, albuterol, Lovenox. Discussed with URI Tuttle. Asked RN to reach out to eICU if any questions or concerns later. Time spent with patient/coordination of care with other health professionals (mins): 20. Sepsis Event Evaluation Height, Weight, BMI Height: 5'2.00" Weight: 225lbs. 0.0oz. 102.791747rp; 38.85 BMI Method: Focused Exam Lactate Level 03/31/21 06:45: Lactic Acid Level 3.84*H 03/31/21 08:49: Lactic Acid Level 1.89 Time of Focused Exam: 07:56 Exam Exam Patient acknowledged, consented, and participated in this virtual visit which was conducted using real time audio/video Vital Signs Date Time Temp Pulse Resp B/P (MAP) Pulse Ox O2 Delivery O2 Flow Rate FiO2 04/01/21 08:09 93 High Flow N/C 9.00 04/01/21 08:07 71 137/63 04/01/21 07:06 96 High Flow N/C 9.00 04/01/21 07:00 36.4 04/01/21 06:00 71 22 137/63 91 High Flow N/C 9.00 04/01/21 05:00 67 10 136/66 92 High Flow N/C 9.00 04/01/21 04:00 69 22 129/66 92 High Flow N/C 9.00 04/01/21 04:00 92 High Flow N/C 9.00 04/01/21 03:00 71 20 119/60 92 High Flow N/C 9.00 04/01/21 02:48 93 High Flow N/C 9.00 04/01/21 02:35 36.6 High Flow N/C 9.00 04/01/21 02:00 67 20 114/56 93 High Flow N/C 9.00 04/01/21 01:02 68 04/01/21 01:00 78 27 118/58 93 High Flow N/C 9.00 04/01/21 00:00 75 26 131/75 90 High Flow N/C 9.00 03/31/21 23:36 93 High Flow N/C 9.00 03/31/21 23:35 36.7 High Flow N/C 9.00 03/31/21 23:00 73 26 123/75 95 NIV Bilevel 50.00 03/31/21 22:14 NIV Bilevel 50.00 03/31/21 22:10 69 24 99 60.00 03/31/21 22:00 68 26 125/67 95 NIV Bilevel 60.00 03/31/21 21:24 NIV Bilevel 60.00 03/31/21 21:00 73 17 137/69 92 High Flow N/C 9.00 03/31/21 20:40 94 High Flow N/C 9.00 03/31/21 20:00 36.6 03/31/21 20:00 77 12 9 High Flow N/C 9.00 03/31/21 19:04 76 03/31/21 19:00 77 15 117/70 91 High Flow N/C 9.00 03/31/21 19:00 High Flow N/C 9.00 03/31/21 18:25 93 High Flow N/C 8.00 03/31/21 18:00 71 19 133/71 88 High Flow N/C 9.00 03/31/21 17:00 72 15 107/64 90 High Flow N/C 9.00 03/31/21 16:07 96 NIV CPAP 60 03/31/21 16:00 36.4 03/31/21 16:00 70 31 126/66 90 High Flow N/C 9.00 03/31/21 15:17 36.3 74 18 135/70 91 9.00 03/31/21 15:02 90 High Flow N/C 8.00 03/31/21 15:00 70 30 135/74 86 NIV CPAP 60.00 03/31/21 14:00 70 25 139/72 89 NIV CPAP 60.00 03/31/21 13:00 69 03/31/21 13:00 66 21 141/72 90 NIV CPAP 60.00 03/31/21 12:25 96 NIV CPAP 60 03/31/21 12:00 63 20 138/68 97 NIV CPAP 60.00 03/31/21 11:41 37.3 67 137/85 96 NIV CPAP 60 03/31/21 11:30 37.5 03/31/21 11:24 37.1 68 131/63 NIV CPAP 60 03/31/21 11:00 67 23 131/63 97 NIV CPAP 60.00 03/31/21 10:48 38.0 74 92 60 03/31/21 10:29 38.0 03/31/21 10:22 75 134/79 03/31/21 10:22 75 120/58 03/31/21 10:00 72 21 110/58 (75) 99 NIV CPAP 99.00 03/31/21 09:58 38.0 75 24 134/79 99 NIV CPAP 60.00 03/31/21 09:40 75 03/31/21 09:34 76 30 92 03/31/21 09:15 75 18 134/69 92 NIV Bilevel 60.00 I & O 04/01/21 07:00 Intake Total 4460 ml Output Total 4150 ml Balance 310 ml Height & Weight Height: 5'2.00" Weight: 225lbs. 0.0oz. 102.391057tx; 38.85 BMI Method: General Appearance: No Apparent Distress, Obese HEENT: PERRL/EOMI, Pharynx Normal Neck: Normal Inspection, Supple Respiratory: Lungs Clear, Normal Breath Sounds, No Respiratory Distress Cardiovascular: Regular Rate, Rhythm, No Murmur, Normal Peripheral Pulses Capillary Refill: Less Than 3 Seconds Peripheral Pulses: 2+ Dorsalis Pedis (R), 2+ Left Dors-Pedis (L) Gastrointestinal: normal bowel sounds, non tender, soft Extremity: Normal Inspection, Non Tender, Pedal Edema Neurologic/Psychiatric: Alert, Oriented x3, No Motor/Sensory Deficits, Normal Mood/Affect Skin: Warm/Dry, Pallor Results Lab Laboratory Tests 03/31/21 06:45 03/31/21 16:45 04/01/21 04:30 Assessment/Plan Assessment/Plan See free text. Critical Care: Critically Ill Patient ROSE JOSEPH MD Apr 01, 2021 09:16
[2021-04-01] MEDS: ENOXAPARIN 100 MG/1 ML (LOVENOX) SYR SC SCH ×2 (09:55→22:22)
[2021-04-01] MEDS ORDERED: CAMPHOR TP PRN (11:30)
[2021-04-01] MEDS ORDERED: MENTHOL TP PRN (11:30)
[2021-04-01] MEDS: NOREPINEPHRINE 8 MG/250 ML 250 ML IV SCH (14:03)
[2021-04-01 14:30] LABS: PARAINFLU 1 PCR Not Detected (Not Detected); PARAINFLU 2 PCR Not Detected (Not Detected); RSV PCR TEST Not Detected (Not Detected)
--- NOTE | 2021-04-01 16:19 | Progress Note - Hospitalist ---
Subjective HPI/CC On Admission Date Seen by Provider: Apr 01, 2021 Time Seen by Provider: 11:00 Gabriela Hobbs is a 75 year old female with PMH HTN, HLD, T2DM, renal tubular acidosis, rheumatoid arthritis, recurrent UTIs, who presented with hypoxia. Her daughter reports that her oxygen level was 83% at home and she brought her to the ER. She does not normally wear oxygen at home. She was recently admitted due to UTI. She was sent home with a farmer catheter due to urinary retention. She denies any subjective fevers at home. She has been feeling like her normal self. She denies chest pain. She denies cough. She denies leg pain or swelling. She caught her farmer catheter when she was getting out of the shower but did not hav e any bleeding. Subjective/Events-last exam She is feeling better. She does not feel short of breath. She has been coughing up some phlegm. She denies pain. Focused Exam Lactate Level 03/31/21 06:45: Lactic Acid Level 3.84*H 03/31/21 08:49: Lactic Acid Level 1.89 Time of Focused Exam: 07:56 Objective Exam Vital Signs Vital Signs Date Time Temp Pulse Resp B/P (MAP) Pulse Ox O2 Delivery O2 Flow Rate FiO2 04/01/21 14:15 99 Nasal Cannula 9.00 04/01/21 13:00 75 04/01/21 11:24 36.6 04/01/21 11:00 33 150/68 03/31/21 16:07 60 Capillary Refill : Less Than 3 Seconds General Appearance: No Apparent Distress, Obese Respiratory: Lungs Clear, Normal Breath Sounds, No Respiratory Distress Cardiovascular: Regular Rate, Rhythm, No Murmur Gastrointestinal: Normal Bowel Sounds, Non Tender, Soft Extremity: Normal Inspection, Pedal Edema Neurologic/Psychiatric: Alert, Oriented x3, No Motor/Sensory Deficits, Normal Mood/Affect Skin: Normal Color, Warm/Dry Results/Procedures Lab Laboratory Tests 03/31/21 16:45 04/01/21 04:30 Patient resulted labs reviewed. Imaging: Reviewed Imaging Report Assessment/Plan Assessment and Plan Assess & Plan/Chief Complaint Acute respiratory failure with hypoxia Pulmonary emboli Multifocal pneumonia Fluid overload TeleICU following Supplemental oxygen as needed Chest xray slighly improved, diffuse infiltrates Continue therapeutic Lovenox for PE Echo showed pulmonary hypertension, normal EF Respiratory viral panel negative Procalcitonin trended up slightly Continue IV antibiotics Hemoglobin improved to 8.6 after tranfusion s/p 1 unit PRBC Repeat Lasix Unable to tolerate BiPAP Recurrent UTIs Urinary retention Chronic indwelling farmer catheter Pyuria UA with pyuria, few bacteria Urine culture with gram negative tucker and likely Enterococcus Continue IV antibiotics T2DM Hold metformin Sliding scale insulin HTN HLD RTA GERD Continue home meds Obesity History of colon cancer Clinically significant, no acute management needs Symptomatic anemia, resolved Critical Care Critically Ill Patient Diagnosis/Problems Diagnosis/Problems (1) Acute respiratory failure with hypoxia Status: Acute (2) Pulmonary emboli Status: Acute Qualifiers: Pulmonary embolism type: other Chronicity: acute Acute cor pulmonale presence: without acute cor pulmonale Qualified Codes: I26.99 - Other pulmonary embolism without acute cor pulmonale (3) Anemia Status: Acute (4) Pneumonia Status: Acute Qualifiers: Pneumonia type: due to unspecified organism Laterality: right Lung locati on: unspecified part of lung Qualified Codes: J18.9 - Pneumonia, unspecified organism (5) T2DM (type 2 diabetes mellitus) Status: Chronic Qualifiers: Diabetes mellitus retirement insulin use: without terminologist use (6) History of colon cancer Status: Chronic (7) Obesity Status: Chronic (8) HTN (hypertension) Status: Chronic (9) HLD (hyperlipidemia) Status: Chronic (10) GERD (gastroesophageal reflux disease) Status: Chronic ROS LEIVA MD Apr 01, 2021 16:19
[2021-04-01] MEDS ORDERED: FUROSEMIDE 40 MG/4 ML INJ (LASIX) IVP NR (16:30)
[2021-04-01] MEDS: ASPIRIN E.C. 81 MG (ECOTRIN) TAB PO SCH (21:10)
[2021-04-01] MEDS: FOLIC ACID 1 MG TAB PO SCH (21:10)
[2021-04-02] MEDS: RT-ALBUTEROL SULF 2.5 MG/3 ML PRE-MIX VIAL INH SCH ×6 (02:35→22:12)
[2021-04-02] MEDS: NOREPINEPHRINE 8 MG/250 ML 250 ML IV SCH (04:50)
[2021-04-02 05:23] LABS: BASOPHILS % (AUTO) 1 % (0-10); EOSINOPHILS # (AUTO) 0.5 10^3/uL (0.0-0.3); EOSINOPHILS % (AUTO) 6 % (0-10); HEMATOCRIT 26 % (35-52); HEMOGLOBIN 8.2 g/dL (11.5-16.0); LYMPHOCYTES # (AUTO) 1.9 10^3/uL (1.0-4.0); LYMPHOCYTES % (AUTO) 24 % (12-44); MEAN CORPUSCULAR HEMOGLOBIN 28 pg (25-34); MEAN CORPUSCULAR HGB CONC 31 g/dL (32-36); MEAN CORPUSCULAR VOLUME 90 fL (80-99); MEAN PLATELET VOLUME 10.1 fL (9.0-12.2); MONOCYTES # (AUTO) 0.8 10^3/uL (0.0-1.0); MONOCYTES % (AUTO) 10 % (0-12); NEUTROPHILS # (AUTO) 4.5 10^3/uL (1.8-7.8); NEUTROPHILS % (AUTO) 58 % (42-75); PLATELET COUNT 311 10^3/uL (130-400); WHITE BLOOD COUNT 7.7 10^3/uL (4.3-11.0)
[2021-04-02 05:33] LABS: POTASSIUM 3.5 MMOL/L (3.6-5.0)
[2021-04-02 05:34] LABS: CALCIUM 7.5 MG/DL (8.5-10.1)
[2021-04-02 05:38] LABS: PHOSPHORUS 2.5 MG/DL (2.3-4.7)
[2021-04-02 05:39] LABS: CREATININE SERUM 0.86 MG/DL (0.60-1.30)
[2021-04-02 05:41] LABS: MAGNESIUM 1.8 MG/DL (1.6-2.4)
[2021-04-02] MEDS: POTASSIUM CL 10MEQ/50ML IVPB 50 ML IV SCH (05:54)
[2021-04-02] MEDS: MAGNESIUM 1 GM/100 ML IVPB 100 ML IV SCH (05:54)
[2021-04-02] MEDS: inSUlin ASPART (NovoLOG) 1 UNIT/0.01 ML (CHARGE PER UNIT) SC SCH ×4 (05:55→21:27)
[2021-04-02] MEDS: VASOPRESSIN INJECTION 20 UNIT in NS (IVPB) 100 ML IV SCH (05:55)
[2021-04-02] MEDS: KCL 20 MEQ TAB (K-DUR) PO SCH (05:55)
[2021-04-02] MEDS: CEFEPIME 1,000 MG/SWFI 10 ML IV PUSH IV SCH ×2 (06:05)
[2021-04-02] MEDS ORDERED: KCL 20 MEQ TAB (K-DUR) PO ONE (08:00)
[2021-04-02] MEDS ORDERED: FUROSEMIDE 40 MG/4 ML INJ (LASIX) IVP ONE ×2 (08:00→14:30)
[2021-04-02] MEDS: PANTOPRAZOLE 20 MG TABLET (PROTONIX) PO SCH (08:35)
[2021-04-02] MEDS: BISACODYL 5 MG (DULCOLAX) TABLET PO SCH ×2 (08:35→19:35)
[2021-04-02] MEDS: SODIUM BICARBONATE 650 MG TABLET (NON-FORMULARY) PO SCH ×3 (08:35→17:50)
[2021-04-02] MEDS: meTOprolol SUCCINATE 100 MG (TOPROL XL) TAB PO SCH ×2 (08:36→19:35)
[2021-04-02] MEDS: LACTOBACILLUS ACIDOPHILUS (PROBIOTIC) CAPSULE PO SCH (08:36)
[2021-04-02] MEDS: VANCOMYCIN 1250 MG/NS 250 ML IVPB IV SCH ×2 (08:37)
--- NOTE | 2021-04-02 08:50 | Tele-ICU Progress Note ---
Subjective Date Seen by a Provider: Apr 02, 2021 Time Seen by a Provider: 08:00 Subjective/Events-last exam This virtual visit was conducted using real time audio/video. Thank you for asking us to see this patient for respiratory insufficiency and distress due to pna, small PE. Also has UTI. HPC: Recent events: O2 needs decreased again. PE: Resting comfortably. Obese. VSS O2 sat 94% on 5LPM NC. HEENT: No obvious masses, adenopathy or JVD. Chest: clear to auscultation, but diminished. CV: RRR S1 S2 No murmur or added sounds. Abd: Non-tender. Bowel sounds Y. : Unremarkable. Winters Y. HEALTH AND SAFETY CONSULTANT/psychiatric: Alert and oriented, grossly intact. No obvious focal findings. Extremities: No edema. Capillary refill < 3 seconds. Skin: unremarkable. Results: H 3.5, Hb 8.2. CXR w B infilts, CTAC w small R PE. A/P: Respiratory insufficiency/distress: Wean O2 as terrance. Available chart/ vitals / labs / Images reviewed. Video assessment done using teleICU camera, rest of exam as per RN. Monitor for increasing oxygenation needs and/or need for intubation. Critical Care: critically ill patient. Cont abx, albuterol, Lovenox. Replace K. Discussed with URI Tuttle. Asked RN to reach out to eICU if any questions or concerns later. Time spent with patient/coordination of care with other health professionals (mins): 20. Sepsis Event Evaluation Height, Weight, BMI Height: 5'2.00" Weight: 225lbs. 0.0oz. [id number]; 38.85 BMI Method: Focused Exam Lactate Level 03/31/21 06:45: Lactic Acid Level 3.84*H 03/31/21 08:49: Lactic Acid Level 1.89 Time of Focused Exam: 07:56 Exam Exam Patient acknowledged, consented, and participated in this virtual visit which was conducted using real time audio/video Vital Signs Date Time Temp Pulse Resp B/P (MAP) Pulse Ox O2 Delivery O2 Flow Rate FiO2 04/02/21 07:30 High Flow N/C 5.00 04/02/21 06:00 51 27 140/65 95 High Flow N/C 7.00 04/02/21 05:00 54 28 137/71 95 High Flow N/C 7.00 04/02/21 04:00 61 27 147/69 92 High Flow N/C 7.00 04/02/21 04:00 94 High Flow N/C 5.00 04/02/21 03:00 57 27 135/68 94 High Flow N/C 7.00 04/02/21 03:00 36.9 High Flow N/C 5.00 04/02/21 02:35 96 High Flow N/C 5.00 04/02/21 02:00 51 15 142/67 94 High Flow N/C 7.00 04/02/21 01:00 60 04/02/21 01:00 66 26 138/64 97 High Flow N/C 7.00 04/02/21 00:09 93 High Flow N/C 7.00 04/02/21 00:00 67 28 148/75 96 High Flow N/C 7.00 04/01/21 23:00 69 28 144/70 96 High Flow N/C 7.00 04/01/21 23:00 37.0 High Flow N/C 7.00 04/01/21 22:36 95 High Flow N/C 7.00 04/01/21 22:00 80 25 150/72 93 High Flow N/C 7.00 04/01/21 21:45 90 High Flow N/C 7.00 04/01/21 21:00 90 26 148/72 90 High Flow N/C 5.00 04/01/21 20:23 91 High Flow N/C 5.00 04/01/21 20:00 74 30 152/71 91 High Flow N/C 5.00 04/01/21 19:25 37.2 04/01/21 19:00 74 04/01/21 19:00 70 25 152/70 94 High Flow N/C 5.00 04/01/21 19:00 High Flow N/C 5.00 04/01/21 18:39 95 High Flow N/C 5.00 04/01/21 18:09 67 25 151/81 94 High Flow N/C 10.00 04/01/21 17:09 25 153/79 High Flow N/C 10.00 04/01/21 16:28 94 High Flow N/C 8.00 04/01/21 16:00 75 11 148/70 96 High Flow N/C 10.00 04/01/21 16:00 37.0 04/01/21 16:00 37.0 04/01/21 15:00 74 19 130/90 95 High Flow N/C 10.00 04/01/21 14:15 99 Nasal Cannula 9.00 04/01/21 14:00 73 28 147/69 95 High Flow N/C 10.00 04/01/21 13:00 75 29 139/69 95 High Flow N/C 10.00 04/01/21 13:00 75 04/01/21 12:00 75 15 150/70 94 High Flow N/C 10.00 04/01/21 12:00 95 High Flow N/C 9.00 04/01/21 11:24 36.6 04/01/21 11:00 73 33 150/68 92 High Flow N/C 10.00 04/01/21 10:39 100 High Flow N/C 9.00 04/01/21 10:00 71 29 143/85 92 High Flow N/C 10.00 04/01/21 09:00 71 26 137/88 93 High Flow N/C 9.00 I & O 04/02/21 07:00 Intake Total 2245 ml Output Total 3375 ml Balance -1130 ml Height & Weight Height: 5'2.00" Weight: 225lbs. 0.0oz. [id number]; 38.85 BMI Method: General Appearance: No Apparent Distress, Obese HEENT: PERRL/EOMI, Pharynx Normal Neck: Normal Inspection, Supple Respiratory: Lungs Clear, Normal Breath Sounds, No Respiratory Distress Cardiovascular: Regular Rate, Rhythm, No Murmur Capillary Refill: Less Than 3 Seconds Peripheral Pulses: 2+ Dorsalis Pedis (R), 2+ Left Dors-Pedis (L) Gastrointestinal: normal bowel sounds, non tender, soft Extremity: Normal Inspection, Pedal Edema Neurologic/Psychiatric: Alert, Oriented x3, No Motor/Sensory Deficits, Normal Mood/Affect Skin: Normal Color, Warm/Dry Results Lab Laboratory Tests 03/31/21 16:45 04/01/21 04:30 04/02/21 05:00 Assessment/Plan Assessment/Plan See free text Critical Care: Critically Ill Patient ROSE JOSEPH MD Apr 02, 2021 08:50
--- NOTE | 2021-04-02 09:23 | Physical Therapy Evaluation ---
PT Evaluation-General Medical Diagnosis Admission Date Mar 31, 2021 at 08:30 Medical Diagnosis: acute respiratory failure with hypoxia Onset Date: Mar 31, 2021 Therapy Diagnosis Therapy Diagnosis: impaired mobility, strength, endurance Height/Weight Height (Feet): 5 Height (Inches): 2.00 Weight (Pounds): 225 Weight (Ounces): 0.0 Precautions Precautions/Isolations: Fall Prevention, Standard Precautions Referral Physician: Garrick Reason for Referral: Evaluation/Treatment Medical History Pertinent Medical History: DM, Rheumatoid Arthritis Additional Medical History Past Medical History Surgeries: Abdominal, Bladder Surgery, Bowel Surgery, Eye Surgery, Gallbladder, Tonsillectomy Currently Using CPAP: No Currently Using BIPAP: No High Cholesterol, Hypertension 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 9-Yozndklqbe-uadizep completes the activity by him/herself with no assistance from a helper. 5-Set-up or Clean-up Assistance-helper sets up or cleans up; patient completes activity. [place] assists only prior to or following the activity. 4-Supervision or Touching Assistance-helper provides verbal cues and/or touching/steadying and/or contact guard assistance as patient completes activity. Assistance may be provided throughout the activity or intermittently. 3-Partial/Moderate Assistance-helper does LESS THAN HALF the effort. Galt lifts, holds or supports trunk or limbs, but provides less than half the effort. 2-Substantial/Maximal Assistance-helper does MORE THAN HALF the effort. [place] lifts or holds trunk or limbs and provides more than half the effort. 2-Pugztofnr-ndzbgl does ALL the effort. Patient does none of the effort to complete the activity. Or, the assistance of 2 or more helpers is required for the patient to complete the activity. If activity was not attempted, code reason: 7-Patient Refused. 9-Not Applicable-not attempted and the patient did not perform the activity before the current illness, exacerbation or injury. 10-Not Attempted due to Environmental Limitations-(lack of equipment, weather restraints, etc.). 88-Not Attempted due to Medical Conditions or Safety Concerns. Bed Mobility: 6 Transfers (B,C,W/C): 6 Gait: 6 Stairs: 6 Indoor Mobility (Ambulation): Independent Stairs: Independent PT Evaluation-Current Subjective Patient in bed pre tx, agrees to PT, has no complaints of pain, says "I can't walk". Pt/Family Goals to be independent at home Objective Patient Orientation: Person, Place Attachments: Oxygen, Winters Catheter ROM/Strength ROM Lower Extremities WNL Strength Lower Extremities LLE (hip flexion 3-/5, knee flexion 4+/5, knee extension 4+/5, dorsiflexion 4+/5), RLE (hip flexion 3-/5, knee flexion 4+/5, knee extension 4+/5, dorsifle xion 4+/5) Sensory Vision: Functional Hearing: Functional Sensation Right Lower Extremit: Impaired Sensation Left Lower Extremity: Impaired Transfers Roll Left to Right (QC): 6 Sit to Lying (QC): 3 Lying to Sitting/Side of Bed(Q: 3 Sit to Stand (QC): 3 Patient was able to stand with min assist and ambulate forward and back and then sidestep toward the head of the bed and sit back down. Cues for hand placement and positioning. O2 dropped to 87% with this activity and came back up quickly after sitting. Gait Does the Patient Walk?: Yes Mode of Locomotion: Walk Anticipated Mode of Locomotion: Walk Walk 10 feet (QC): 4 Distance: 10', 4' Gait Assistive Device: FWW Comments/Gait Description slow but steady ambulation Balance Sitting Static: Normal Sitting Dynamic: Normal Standing Static: Fair Standing Dynamic: Fair Treatment BLE supine exercises x20 (AP, HS) Assessment/Needs Patient has impaired mobility, strength, endurance. Patient in bed post tx with nurse call, phone, tray, all needs met. Needs min/mod assist for supine <-> sit but just min assist to stand. O2 drops with activity. Rehab Potential: Fair PT Long-Term Goals Long-Term Goals PT Long-Term Goals Time Frame: Apr 09, 2021 Roll Left & Right (QC): 6 Sit to Lying (QC): 6 Lying-Sitting on Side/Bed(QC): 6 Sit to Stand (QC): 4 Chair/Fbh-qb-Hpzmg Xfer(QC): 4 Walk 10 feet (QC): 4 Walk 50ft with 2 Turns (QC): 4 PT Plan Problem List Problem List: Activity Tolerance, Functional Strength, Safety, Balance, Gait, Transfer, Bed Mobility, ROM Treatment/Plan Treatment Plan: Continue Plan of Care Treatment Plan: Bed Mobility, Education, Functional Activity Livia, Functional Strength, Gait, Safety, Therapeutic Exercise, Transfers Treatment Duration: Apr 09, 2021 Frequency: 6 times per week Estimated Hrs Per Day: .25 hour per day Patient and/or Family Agrees t: Yes Safety Risks/Education Patient Education: Gait Training, Transfer Techniques, Correct Positioning, Safety Issues Teaching Recipient: Patient Teaching Methods: Demonstration, Discussion Response to Teaching: Reinforcement Needed Discharge Recommendations Plan Patient will perform bed mobility and transfer training, balance and endurance training, functional strengthening, stair training, gait training, and education, to improve functional mobility and independence at home. Therapy Discharge Recommendati: Scheduled Assistance, Home & Family, Post Acute PT Time/GCodes Time In: 837 Time Out: 899 Total Billed Treatment Time: 22 Total Billed Treatment 1 visit EBONY Ruiz' RAEGAN WHYTE PT Apr 02, 2021 09:23
--- NOTE | 2021-04-02 10:14 | Occupational Therapy Eval ---
OT Evaluation-General/PLF Medical Diagnosis Admission Date Mar 31, 2021 at 08:30 Medical Diagnosis: acute respiratory failure with hypoxia Onset Date: Mar 31, 2021 Therapy Diagnosis Therapy Diagnosis: decreased ADL status Height/Weight Height (Feet): 5 Height (Inches): 2.00 Weight (Pounds): 225 Weight (Ounces): 0.0 Precautions Precautions/Isolations: Fall Prevention, Standard Precautions Referral Physician: Garrick Referral Reason: Evaluation/Treatment Medical History Pertinent Medical History: DM, Rheumatoid Arthritis Additional Medical History HTN, HLD, DM, renal tubular acidosis, RA, recurrent UTI Current History ED due to hypoxia, O2 saturation 85% at home. Recently discharged from hospital 03/25/21 Social History Home: Single Level Current Living Status: Spouse Entry Into Home: Stairs Without Railing Steps Into Home: 2 ADL-Prior Level of Function SCALE: Activities may be completed with or without assistive devices. 3-Gpzwylodde-fgoynrt completes the activity by him/herself with no assistance fr om a helper. 5-Set-up or Clean-up Assistance-helper sets up or cleans up; patient completes activity. [place] assists only prior to or following the activity. 4-Supervision or Touching Assistance-helper provides verbal cues and/or touching/steadying and/or contact guard assistance as patient completes activity. Assistance may be provided throughout the activity or intermittently. 3-Partial/Moderate Assistance-helper does LESS THAN HALF the effort. [place] lifts, holds or supports trunk or limbs, but provides less than half the effort. 2-Substantial/Maximal Assistance-helper does MORE THAN HALF the effort. [place] lifts or holds trunk or limbs and provides more than half the effort. 2-Otoktqyxs-cfoovb does ALL the effort. Patient does none of the effort to complete the activity. Or, the assistance of 2 or more helpers is required for the patient to complete the activity. If activity was not attempted, code reason: 7-Patient Refused. 9-Not Applicable-not attempted and the patient did not perform the activity before the current illness, exacerbation or injury. 10-Not Attempted due to Environmental Limitations-(lack of equipment, weather restraints, etc.). 88-Not Attempted due to Medical Conditions or Safety Concerns. ADL PLOF Comments Pt reports requiring assistance into/out of the bathtub, she is independent with bathing/dressing and toileting once in the tub. Pt has a tub transfer bench, sliding transfer bench, and a shower chair. Self Care: Needed Some Help Functional Cognition: Independent DME/Equipment: Bath Bench, Bath Chair, Tub/Shower OT Current Status Subjective Pt in bed, family member present. Pt agreeable to OT Tx. Mental Status/Objective Patient Orientation: Person, Place, Time, Situation Attachments: Winters Catheter, Oxygen Current Dentures/Partials: Yes Hand Dominance: Right Upper Extremity ROM WFL Upper Extremity Coordination WFL Upper Extremity Strength grossly 3+/5 ADL-Treatment Eating (QC): 6 (per pt report, independent with breakfast.) Oral Hygiene (QC): 5 (based on clincial judgment.) Toileting Hygiene (QC): 4 (per pt report, pt able to manage hygiene and clothing) Other Treatments Pt laying in bed, agreeable to OT evaluation and tx. Family member present, states she has purchased a tub transfer bench, a sliding tub transfer bench with cutout and a shower chair. OT educated pt on purpose of each SC, with recommendations on using one of the tub transfer benches, pt and family member verbalize understanding. Pt and family members concern is pt being able to complete shower at home with little assistance, but feel like she is pretty safe with the other ADLs. OT showed pt and family member sock aide and environmental compliance officer, education provided on purpose of them. Family member encouraged to bring LE clothing into the hospital so OT can address AE for LE dressing, family member verbalizes understanding. OT also provided education on energy conservation and activity modifications within the home. Post tx, pt in bed, call light in reach and all needs met. Education OT Patient Education: Correct positioning, Energy conservation, Modified ADL techniques, Progress toward Goal/Update tx plan, Purpose of tx/functional activities, Rehab process, Safety issues, Transfer techniques Teaching Recipient: Patient, Family Teaching Methods: Discussion Response to Teaching: Verbalize Understanding OT Business Administration Professor Goals Business Administration Professor Goals Time Frame: Apr 11, 2021 Eating (QC): 6 Oral Hygiene (QC): 6 Toileting Hygiene (QC): 6 Shower/Bathe Self (QC): 4 Upper Body Dressing (QC): 5 Lower Body Dressing (QC): 4 On/Off Footwear (QC): 4 Additional Goals: 1-Demonstrate ADL Tasks, 2-Verbalize Understanding, 3- ImproveStrength/Livia 1=Demonstrate adherence to instructed precautions during ADL tasks. 2=Patient will verbalize/demonstrate understanding of assistive devices/modifications for ADL. 3=Patient will improve strength/tolerance for activity to enable patient to perform ADL's. OT Education/Plan Problem List/Assessment Assessment: Decreased Activ Tolerance, Decreased UE Strength, Impaired Funct Balance, Impaired I ADL's, Impaired Self-Care Skills Pt would benefit from short term skilled OT services in order to increase BUE strength and activity tolerance, increase safety and independence with ADLs and functional mobility, and to provide education on AE for LE dressing in order to maximize LOF for safe return home. Discharge Recommendations Plan/Recommendations: Continue POC Treatment Plan/Plan of Care Patient would benefit from OT for education, treatment and training to promote independence in ADL's, mobility, safety and/or upper extremity function for ADL's. Plan of Care: ADL Retraining, Functional Mobility, UE Funct Exercise/Act Treatment Duration: Apr 11, 2021 Frequency: 5 times per week Estimated Hrs Per Day: .25 hour per day Rehab Potential: Fair Time/GCodes Start Time: 09:45 Stop Time: 10:00 Total Time Billed (hr/min): 15 Billed Treatment Time 1, LISA MORA OT Apr 02, 2021 10:14
[2021-04-02] MEDS: AMPICILLIN/SULBACTAM INJECTION 1.5 GM in NS (IVPB) 100 ML IV SCH ×3 (12:34→22:01)
--- NOTE | 2021-04-02 17:15 | Physician Query Clarification ---
Physician Query-General Query to Physician: The medical record reflects the following clinical scenario: The patient, in the setting of History/Risk factors: multi focal Pneumonia, UTI, recent illness/hospitalization Clinical Findings Admission VS/Labs: HR 75, RR 30, BP 103/49, SpO2 89% sat on 02 T 38.2, WBC 12.1, Lactic acid 3.84 Treatment ER: Tylenol, normal saline 2 L, cefepime IV, Question: Do you agree with the impression of Sepsis/Severe Sepsis per Dr. Deya Kimbrough and Dr. Nima Avalos? 1. Yes; will document Sepsis/Severe Sepsis present on admission in the Progress Notes 2. No; will continue current documentation in the Progress Notes 3. Other; will document explanation of clinical findings 4. Clinically undetermined; no explanation for clinical findings Please clarify and document your clinical opinion in the Progress Notes and Discharge Summary including the definitive and/or presumptive diagnosis, (suspected or probable), related to the above clinical findings. Please include clinical findings supporting your diagnosis. In responding to this query, please exercise your independent professional judgment. The purpose of this communication is to more accurately reflect the complexity of your patients condition. The fact that a question is asked does not imply that any particular answer is desired or expected. Please remember a lack of response to the above will prompt a phone page by CDI/coding staff Thank you for timely response to this clarification. Ofelia Lowe MSN, RN Clinical Wardrobe Supervisor [phone] [email or web address] PHYSICIAN RESPONSE: Based on the clinical findings in the record, please respond to the query above on this document as an addendum. Physician Response: Physician Response 1 If you have questions please contact: Parcel Carrier: Ext: Thank you for your time and cooperation. Clinical Wardrobe Supervisor/Parcel Carrier This is a permanent part of the medical record OFELIA LOWE Apr 02, 2021 17:15 ROS LEIVA MD Apr 09, 2021 09:05
[2021-04-02] MEDS: RIVAROXABAN 15 MG TABLET (XARELTO) PO SCH (17:50)
[2021-04-02] MEDS: FOLIC ACID 1 MG TAB PO SCH (19:35)
[2021-04-02] MEDS: ASPIRIN E.C. 81 MG (ECOTRIN) TAB PO SCH (19:35)
--- NOTE | 2021-04-02 20:07 | Progress Note - Hospitalist ---
Subjective HPI/CC On Admission Date Seen by Provider: Apr 02, 2021 Time Seen by Provider: 09:45 Gabriela Hobbs is a 75 year old female with PMH HTN, HLD, T2DM, renal tubular acidosis, rheumatoid arthritis, recurrent UTIs, who presented with hypoxia. Her daughter reports that her oxygen level was 83% at home and she brought her to the ER. She does not normally wear oxygen at home. She was recently admitted due to UTI. She was sent home with a farmer catheter due to urinary retention. She denies any subjective fevers at home. She has been feeling like her normal self. She denies chest pain. She denies cough. She denies leg pain or swelling. She caught her farmer catheter when she was getting out of the shower but did not hav e any bleeding. Subjective/Events-last exam She is feeling better. She is sitting in her bedside chair. She is not short of breath. She has been eating and drinking. Focused Exam Lactate Level 03/31/21 06:45: Lactic Acid Level 3.84*H 03/31/21 08:49: Lactic Acid Level 1.89 Time of Focused Exam: 07:56 Objective Exam Vital Signs Vital Signs Date Time Temp Pulse Resp B/P (MAP) Pulse Ox O2 Delivery O2 Flow Rate FiO2 04/02/21 19:47 36.9 83 20 180/75 91 High Flow N/C 2.00 03/31/21 16:07 60 Capillary Refill : Less Than 3 Seconds General Appearance: No Apparent Distress, Obese HEENT: PERRL/EOMI, Pharynx Normal Neck: Normal Inspection, Supple Respiratory: Lungs Clear, Normal Breath Sounds, No Respiratory Distress Cardiovascular: Regular Rate, Rhythm, No Edema, No Murmur Gastrointestinal: Normal Bowel Sounds, Non Tender, Soft Extremity: Normal Inspection, Non Tender, Pedal Edema Neurologic/Psychiatric: Alert, Oriented x3, No Motor/Sensory Deficits, Normal Mood/Affect Skin: Normal Color, Warm/Dry Results/Procedures Lab Laboratory Tests 04/02/21 05:00 Patient resulted labs reviewed. Imaging: Reviewed Imaging Report Assessment/Plan Assessment and Plan Assess & Plan/Chief Complaint Acute respiratory failure with hypoxia Pulmonary emboli Multifocal pneumonia Pulmonary edema TeleICU following Supplemental oxygen as needed, improving Transition to Xarelto for pulmonary embolism Transition to Unasyn for pneumonia/UTI Hemoglobin stable since tranfusion s/p 1 unit PRBC Continue IV Lasix Recurrent UTIs Urinary retention Chronic indwelling farmer catheter Pyuria UA with pyuria, few bacteria Urine culture with E coli and Enterococcus, awaiting final susceptibilities Unasyn T2DM Hold metformin Sliding scale insulin HTN HLD RTA GERD Continue home meds Obesity History of colon cancer Clinically significant, no acute management needs Symptomatic anemia, resolved Diagnosis/Problems Diagnosis/Problems (1) Acute respiratory failure with hypoxia Status: Acute (2) Pulmonary emboli Status: Acute Qualifiers: Pulmonary embolism type: other Chronicity: acute Acute cor pulmonale presence: without acute cor pulmonale Qualified Codes: I26.99 - Other pulmonary embolism without acute cor pulmonale (3) Anemia Status: Acute (4) Pneumonia Status: Acute Qualifiers: Pneumonia type: due to unspecified organism Laterality: right Lung location: unspecified part of lung Qualified Codes: J18.9 - Pneumonia, unspecified organism (5) T2DM (type 2 diabetes mellitus) Status: Chronic Qualifiers: Diabetes mellitus residential insulin use: without intermission coordinator use (6) History of colon cancer Status: Chronic (7) Obesity Status: Chronic (8) HTN (hypertension) Status: Chronic (9) HLD (hyperlipidemia) Status: Chronic (10) GERD (gastroesophageal reflux disease) Status: Chronic ROS LEIVA MD Apr 02, 2021 20:07
[2021-04-03] MEDS: RT-ALBUTEROL SULF 2.5 MG/3 ML PRE-MIX VIAL INH SCH ×6 (02:50→22:39)
[2021-04-03] MEDS: AMPICILLIN/SULBACTAM INJECTION 1.5 GM in NS (IVPB) 100 ML IV SCH (04:15)
[2021-04-03] MEDS: RIVAROXABAN 15 MG TABLET (XARELTO) PO SCH ×2 (06:12→18:34)
[2021-04-03] MEDS: inSUlin ASPART (NovoLOG) 1 UNIT/0.01 ML (CHARGE PER UNIT) SC SCH ×4 (06:29→20:10)
[2021-04-03 06:40] LABS: HEMOGLOBIN 9.6 g/dL (11.5-16.0)
[2021-04-03 06:43] LABS: POTASSIUM 3.9 MMOL/L (3.6-5.0)
[2021-04-03 06:45] LABS: CALCIUM 8.3 MG/DL (8.5-10.1)
[2021-04-03 06:49] LABS: CREATININE SERUM 0.99 MG/DL (0.60-1.30)
[2021-04-03] MEDS: meTOprolol SUCCINATE 100 MG (TOPROL XL) TAB PO SCH ×2 (08:28→20:40)
[2021-04-03] MEDS: PANTOPRAZOLE 20 MG TABLET (PROTONIX) PO SCH (08:28)
[2021-04-03] MEDS: SODIUM BICARBONATE 650 MG TABLET (NON-FORMULARY) PO SCH ×3 (08:28→18:35)
[2021-04-03] MEDS: LACTOBACILLUS ACIDOPHILUS (PROBIOTIC) CAPSULE PO SCH (08:28)
[2021-04-03] MEDS: BISACODYL 5 MG (DULCOLAX) TABLET PO SCH ×2 (08:28→20:40)
[2021-04-03] MEDS ORDERED: FUROSEMIDE 40 MG/4 ML INJ (LASIX) IVP NR (08:30)
[2021-04-03] MEDS ORDERED: KCL 20 MEQ TAB (K-DUR) PO NR (08:30)
--- NOTE | 2021-04-03 08:35 | Diagnostic Imaging Report ---
Indication: Pulmonary edema, shortness of breath COMPARISON: 04/01/2021 TECHNIQUE: Single frontal radiograph of the chest dated 04/03/2021. FINDINGS: Right-sided PICC line is stable. The cardiac silhouette is unchanged. Mild central pulmonary vascular congestion, improved from the prior examination. Improved aeration of the lungs with improved bilateral interstitial opacities. No new focal pulmonary opacity. No significant pleural effusion. No pneumothorax. No acute osseous abnormality. IMPRESSION: Improved aeration of the lungs with improved though minimal persisting bilateral interstitial pulmonary opacities. Improved minimal central pulmonary vascular congestion. Dictated by: Dictated on workstation # [id number]
[2021-04-03] MEDS ORDERED: FUROSEMIDE 40 MG (LASIX) TAB PO SCH (09:00)
--- NOTE | 2021-04-03 10:07 | Physical Therapy Daily Note ---
PT Daily Note-Current Subjective Patient agrees to PT. Mental Status Patient Orientation: Normal For Age Attachments: Winters Catheter Transfers SCALE: Activities may be completed with or without assistive devices. 5-Ffpqpizzqn-irofstp completes the activity by him/herself with no assistance from a helper. 5-Set-up or Clean-up Assistance-helper sets up or cleans up; patient completes activity. [place] assists only prior to or following the activity. 4-Supervision or Touching Assistance-helper provides verbal cues and/or touching/steadying and/or contact guard assistance as patient completes activity. Assistance may be provided throughout the activity or intermittently. 3-Partial/Moderate Assistance-helper does LESS THAN HALF the effort. [place] lifts, holds or supports trunk or limbs, but provides less than half the effort. 2-Substantial/Maximal Assistance-helper does MORE THAN HALF the effort. [place] lifts or holds trunk or limbs and provides more than half the effort. 7-Mcdkgugmb-stowmb does ALL the effort. Patient does none of the effort to complete the activity. Or, the assistance of 2 or more helpers is required for the patient to complete the activity. If activity was not attempted, code reason: 7-Patient Refused. 9-Not Applicable-not attempted and the patient did not perform the activity before the current illness, exacerbation or injury. 10-Not Attempted due to Environmental Limitations-(lack of equipment, weather restraints, etc.). 88-Not Attempted due to Medical Conditions or Safety Concerns. Lying to Sitting/Side of Bed(Q: 6 Sit to Stand (QC): 4 (SBA) Chair/Wrk-qb-Llgtn Xfer(QC): 4 (SBA) Gait Training Does the Patient Walk?: Yes Distance: 75' Walk 10 feet (QC): 4 (SBA) Walk 50 ft with 2 Turns(QC): 4 (SBA) Gait Assistive Device: FWW slow, steady gait sequence Assessment Patient tolerated treatment well and is encouraged with her progress. Patient is SBA with dynamic activity. Continue to increase activity as tolerated by patient. PT Correspondence Transcriber Goals Correspondence Transcriber Goals PT Custodial Goals Time Frame: Apr 09, 2021 Roll Left & Right (QC): 6 Sit to Lying (QC): 6 Lying-Sitting on Side/Bed(QC): 6 Sit to Stand (QC): 4 Chair/Fyd-vy-Dekqx Xfer(QC): 4 Walk 10 feet (QC): 4 Walk 50ft with 2 Turns (QC): 4 PT Plan Treatment/Plan Treatment Plan: Continue Plan of Care Treatment Plan: Bed Mobility, Education, Functional Activity Livia, Functional Strength, Gait, Safety, Therapeutic Exercise, Transfers Treatment Duration: Apr 09, 2021 Frequency: 6 times per week Estimated Hrs Per Day: .25 hour per day Patient and/or Family Agrees t: Yes Time/GCodes Time In: 849 Time Out: 902 Total Billed Treatment Time: 13 Total Billed Treatment 1 visit FA 13 min DEAN DUBON PT Apr 03, 2021 10:07
--- NOTE | 2021-04-03 11:00 | Progress Note - Hospitalist ---
Subjective HPI/CC On Admission Date Seen by Provider: Apr 03, 2021 Time Seen by Provider: 09:45 Gabriela Hobbs is a 75 year old female with PMH HTN, HLD, T2DM, renal tubular acidosis, rheumatoid arthritis, recurrent UTIs, who presented with hypoxia. Her daughter reports that her oxygen level was 83% at home and she brought her to the ER. She does not normally wear oxygen at home. She was recently admitted due to UTI. She was sent home with a farmer catheter due to urinary retention. She denies any subjective fevers at home. She has been feeling like her normal self. She denies chest pain. She denies cough. She denies leg pain or swelling. She caught her farmer catheter when she was getting out of the shower but did not hav e any bleeding. Subjective/Events-last exam She is feeling better today. She is not short of breath. She has been working with therapy. She has no other complaints or concerns. Focused Exam Time of Focused Exam: 07:56 Objective Exam Vital Signs Vital Signs Date Time Temp Pulse Resp B/P (MAP) Pulse Ox O2 Delivery O2 Flow Rate FiO2 04/03/21 07:37 36.2 58 20 178/78 High Flow N/C 4.00 04/03/21 07:13 92 03/31/21 16:07 60 Capillary Refill : Less Than 3 Seconds General Appearance: No Apparent Distress, Obese Respiratory: Lungs Clear, Normal Breath Sounds, No Respiratory Distress Cardiovascular: Regular Rate, Rhythm, No Edema, No Murmur Gastrointestinal: Normal Bowel Sounds, Non Tender, Soft Extremity: Normal Inspection, Non Tender, No Pedal Edema Neurologic/Psychiatric: Alert, Oriented x3, No Motor/Sensory Deficits, Normal Mood/Affect Skin: Normal Color, Warm/Dry Results/Procedures Lab Laboratory Tests 04/03/21 06:34 Patient resulted labs reviewed. Imaging: Reviewed Imaging Report Assessment/Plan Assessment and Plan Assess & Plan/Chief Complaint Acute respiratory failure with hypoxia Pulmonary emboli Pulmonary edema TeleICU following Supplemental oxygen as needed, improving Continue Xarelto for pulmonary embolism Transition to Macrobid for UTI Hemoglobin stable since tranfusion s/p 1 unit PRBC Continue IV Lasix Recurrent UTIs Urinary retention Chronic indwelling farmer catheter Pyuria UA with pyuria, few bacteria Urine culture with E coli and Enterococcus, both susceptible to Macrobid Transition to Macrobid T2DM Hold metformin Sliding scale insulin HTN HLD RTA GERD Continue home meds Obesity History of colon cancer Clinically significant, no acute management needs DVT prophylaxis: already receiving therapeutic anticoagulation Symptomatic anemia, resolved Multifocal pneumonia, resolved Diagnosis/Problems Diagnosis/Problems (1) Acute respiratory failure with hypoxia Status: Acute (2) Pulmonary emboli Status: Acute Qualifiers: Pulmonary embolism type: other Chronicity: acute Acute cor pulmonale presence: without acute cor pulmonale Qualified Codes: I26.99 - Other pulmonary embolism without acute cor pulmonale (3) Anemia Status: Acute (4) Pneumonia Status: Acute Qualifiers: Pneumonia type: due to unspecified organism Laterality: right Lung location: unspecified part of lung Qualified Codes: J18.9 - Pneumonia, unspecified organism (5) T2DM (type 2 diabetes mellitus) Status: Chronic Qualifiers: Diabetes mellitus usp insulin use: without terminal operator use (6) History of colon cancer Status: Chronic (7) Obesity Status: Chronic (8) HTN (hypertension) Status: Chronic (9) HLD (hyperlipidemia) Status: Chronic (10) GERD (gastroesophageal reflux disease) Status: Chronic ROS LEIVA MD Apr 03, 2021 11:00
--- NOTE | 2021-04-03 11:11 | Occupational Ther Daily Note ---
OT Current Status-Daily Note Subjective Pt was seated in chair upon OT arrival w/ legs elevated. Pt agreed to tx session this date. Mental Status/Objective Patient Orientation: Person, Place, Time, Situation Attachments: Winters Catheter, Oxygen ADL-Treatment Therapy Code Descriptions/Definitions Functional [place] Measure: 0=Not Assessed/NA 4=Minimal Assistance 1=Total Assistance 5=Supervision or Setup 2=Maximal Assistance 6=Modified [place] 3=Moderate Assistance 7=Complete IndependenceSCALE: Activities may be completed with or without assistive devices. 4-Rxdzkhsyqd-nmytzov completes the activity by him/herself with no assistance from a helper. 5-Set-up or Clean-up Assistance-helper sets up or cleans up; patient completes activity. [place] assists only prior to or following the activity. 4-Supervision or Touching Assistance-helper provides verbal cues and/or touching/steadying and/or contact guard assistance as patient completes activity. Assistance may be provided throughout the activity or intermittently. 3-Partial/Moderate Assistance-helper does LESS THAN HALF the effort. [place] lifts, holds or supports trunk or limbs, but provides less than half the effort. 2-Substantial/Maximal Assistance-helper does MORE THAN HALF the effort. [place] lifts or holds trunk or limbs and provides more than half the effort. 3-Kharlzwkt-rymjfs does ALL the effort. Patient does none of the effort to complete the activity. Or, the assistance of 2 or more helpers is required for the patient to complete the activity. If activity was not attempted, code reason: 7-Patient Refused. 9-Not Applicable-not attempted and the patient did not perform the activity before the current illness, exacerbation or injury. 10-Not Attempted due to Environmental Limitations-(lack of equipment, weather restraints, etc.). 88-Not Attempted due to Medical Conditions or Safety Concerns. Oral Hygiene (QC): 5 (Pt required set up while seated in chair utilizing bedside tray. ) Shower/Bathe Self (QC): 3 (Pt required assistance washing feet per nursing staff, able to wash all other parts.) On/Off Footwear: 6 (Pt performed task IND.) Other Treatment Pt was seated in chair upon OT arrival w/ legs elevated. Pt agreed to tx session this date. Pt performed chair mobility from feet elevated to feet on floor w/ Min assist. Pt performed oral hygiene task while seated in chair and donning/ doffing gripper socks, see above QC's. Pt was educated w/ skilled demonstrations provided from OT on AE, sock aid and deck specialist regarding gripper socks. Post tx session, pt was seated in chair, legs elevated, call light within reach, and all needs met. Education OT Patient Education: Energy conservation, Modified ADL techniques, Progress toward Goal/Update tx plan, Purpose of tx/functional activities, Use of adapted equipment Teaching Recipient: Patient Teaching Methods: Demonstration, Discussion Response to Teaching: Verbalize Understanding, Return Demonstration OT Alf Goals Alf Goals Time Frame: Apr 11, 2021 Eating (QC): 6 Oral Hygiene (QC): 6 Toileting Hygiene (QC): 6 Shower/Bathe Self (QC): 4 Upper Body Dressing (QC): 5 Lower Body Dressing (QC): 4 On/Off Footwear (QC): 4 Additional Goals: 1-Demonstrate ADL Tasks, 2-Verbalize Understanding, 3- ImproveStrength/Livia 1=Demonstrate adherence to instructed precautions during ADL tasks. 2=Patient will verbalize/demonstrate understanding of assistive devices/modifications for ADL. 3=Patient will improve strength/tolerance for activity to enable patient to perform ADL's. OT Education/Plan Problem List/Assessment Assessment: Decreased Activ Tolerance, Decreased UE Strength, Impaired Funct Balance, Impaired I ADL's, Impaired Self-Care Skills Pt would benefit from short term skilled OT services in order to increase BUE strength and activity tolerance, increase safety and independence with ADLs and functional mobility, and to provide education on AE for LE dressing in order to maximize LOF for safe return home. Discharge Recommendations Plan/Recommendations: Continue POC Treatment Plan/Plan of Care Patient would benefit from OT for education, treatment and training to promote independence in ADL's, mobility, safety and/or upper extremity function for ADL's. Plan of Care: ADL Retraining, Functional Mobility, UE Funct Exercise/Act Treatment Duration: Apr 11, 2021 Frequency: 5 times per week Estimated Hrs Per Day: .25 hour per day Rehab Potential: Fair Time/GCodes Start Time: 10:33 Stop Time: 10:57 Total Time Billed (hr/min): 24 Billed Treatment Time 1 Visit, ADL 2 LISA RODRIGUEZ OT Apr 03, 2021 11:11
[2021-04-03] MEDS ORDERED: NITROFURANTOIN 100 MG (MACROBID) CAPSULE PO NR (11:28)
[2021-04-03] MEDS: NITROFURANTOIN 100 MG (MACROBID) CAPSULE PO SCH (20:40)
[2021-04-03] MEDS: ASPIRIN E.C. 81 MG (ECOTRIN) TAB PO SCH (20:40)
[2021-04-03] MEDS: FOLIC ACID 1 MG TAB PO SCH (20:40)
[2021-04-04] MEDS: RT-ALBUTEROL SULF 2.5 MG/3 ML PRE-MIX VIAL INH SCH ×5 (02:28→18:44)
[2021-04-04] MEDS: RIVAROXABAN 15 MG TABLET (XARELTO) PO SCH ×2 (05:36→18:05)
[2021-04-04 05:51] LABS: POTASSIUM 3.9 MMOL/L (3.6-5.0)
[2021-04-04 05:52] LABS: CALCIUM 7.9 MG/DL (8.5-10.1)
[2021-04-04 05:56] LABS: CREATININE SERUM 0.81 MG/DL (0.60-1.30)
[2021-04-04] MEDS: inSUlin ASPART (NovoLOG) 1 UNIT/0.01 ML (CHARGE PER UNIT) SC SCH ×4 (05:57→19:59)
[2021-04-04] MEDS: PANTOPRAZOLE 20 MG TABLET (PROTONIX) PO SCH (08:22)
[2021-04-04] MEDS: NITROFURANTOIN 100 MG (MACROBID) CAPSULE PO SCH ×2 (08:22→20:58)
[2021-04-04] MEDS: SODIUM BICARBONATE 650 MG TABLET (NON-FORMULARY) PO SCH ×3 (08:22→18:05)
[2021-04-04] MEDS: LACTOBACILLUS ACIDOPHILUS (PROBIOTIC) CAPSULE PO SCH (08:22)
[2021-04-04] MEDS: meTOprolol SUCCINATE 100 MG (TOPROL XL) TAB PO SCH ×2 (08:22→20:58)
[2021-04-04] MEDS: BISACODYL 5 MG (DULCOLAX) TABLET PO SCH ×2 (08:22→20:58)
[2021-04-04] MEDS: FUROSEMIDE 40 MG (LASIX) TAB PO SCH (08:24)
[2021-04-04 08:38] LABS: HEMOGLOBIN 9.4 g/dL (11.5-16.0)
--- NOTE | 2021-04-04 09:59 | Physical Therapy Daily Note ---
PT Daily Note-Current Subjective Patient reports she is feeling anxious today. Agrees to PT. Mental Status Patient Orientation: Normal For Age Attachments: Oxygen (3L HF), Winters Catheter Transfers SCALE: Activities may be completed with or without assistive devices. 0-Oilyjuwzvh-sjkwrdt completes the activity by him/herself with no assistance from a helper. 5-Set-up or Clean-up Assistance-helper sets up or cleans up; patient completes activity. [place] assists only prior to or following the activity. 4-Supervision or Touching Assistance-helper provides verbal cues and/or touching/steadying and/or contact guard assistance as patient completes activity. Assistance may be provided throughout the activity or intermittently. 3-Partial/Moderate Assistance-helper does LESS THAN HALF the effort. [place] lifts, holds or supports trunk or limbs, but provides less than half the effort. 2-Substantial/Maximal Assistance-helper does MORE THAN HALF the effort. [place] lifts or holds trunk or limbs and provides more than half the effort. 7-Qtqfbhtcb-qomkuz does ALL the effort. Patient does none of the effort to complete the activity. Or, the assistance of 2 or more helpers is required for the patient to complete the activity. If activity was not attempted, code reason: 7-Patient Refused. 9-Not Applicable-not attempted and the patient did not perform the activity before the current illness, exacerbation or injury. 10-Not Attempted due to Environmental Limitations-(lack of equipment, weather restraints, etc.). 88-Not Attempted due to Medical Conditions or Safety Concerns. Sit to Stand (QC): 5 Gait Training Distance: 200' Walk 10 feet (QC): 4 (SBA) Walk 50 ft with 2 Turns(QC): 4 (SBA) Walk 150 ft (QC): 4 (SBA) Gait Assistive Device: FWW very slow, functional gait sequence/assist for O2 tank Treatments Patient placed on RA. Ambulated 30' with SAO2 decreasing to 85%. 1L O2 placed with recovery to 88%/increase to 2L to 90%/increased to 3L with 95% SAO2 remainder of session. RT notified. Assessment Patient up in recliner with needs met. PT to continues to address functional mobility and strengthening as tolerated by patient. PT [facility] Goals Traffic Control Specialist Goals PT Traffic Control Specialist Goals Time Frame: Apr 09, 2021 Roll Left & Right (QC): 6 Sit to Lying (QC): 6 Lying-Sitting on Side/Bed(QC): 6 Sit to Stand (QC): 4 Chair/Wxi-tl-Ulwgh Xfer(QC): 4 Walk 10 feet (QC): 4 Walk 50ft with 2 Turns (QC): 4 PT Plan Treatment/Plan Treatment Plan: Continue Plan of Care Treatment Plan: Bed Mobility, Education, Functional Activity Livia, Functional Strength, Gait, Safety, Therapeutic Exercise, Transfers Treatment Duration: Apr 09, 2021 Frequency: 6 times per week Estimated Hrs Per Day: .25 hour per day Patient and/or Family Agrees t: Yes Time/GCodes Time In: 854 Time Out: 917 Total Billed Treatment Time: 23 Total Billed Treatment 1 visit FA x 2 23 min DEAN DUBON PT Apr 04, 2021 09:59
[2021-04-04] MEDS ORDERED: NITR100C10 PO (11:17)
[2021-04-04] MEDS ORDERED: RIVA20TA PO (11:17)
[2021-04-04] MEDS ORDERED: RIVA1TAB PO (11:17)
--- NOTE | 2021-04-04 11:28 | Discharge Summary ---
Discharge Summary Reconcile Patient Problems Problems Reviewed?: Yes Instructions for Patient [facility] Home Health Assessment/Instructions Take medications as prescribed. Begin taking Xarelto for blood clots in your lungs. You are being given a prescription for Macrobid for a urinary tract infection. You are being set up with home oxygen 3 L continuously. Your home health care will be resumed. You should follow up with your primary care physician. Return with worsening shortness of breath, confusion, or if you feel like you are getting worse. 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 She was started on Lovenox and eventually transitioned to Xarelto. Her course was complicated by fluid overload and pulmonary edema. She was treated with IV Lasix and her edema and chest x-ray findings improved. She was requiring up to 9 L of oxygen which improved with her diuresis. At the time of discharge she was requiring 3 L continuously. She was set up with home oxygen. Her course was complicated by urinary tract infection and she was given IV antibiotics and then transition to Macrobid once sensitivities were available. Her Winters catheter was exchanged. She had acute on chronic debility and worked with physical and Occupational Therapy during her stay. She was offered long term facility placement but refused. She was set up with home health care for nursing, PT, and OT. She was feeling good on the day of discharge but anxious about being home over the weekend. Her concerns were appreciated and addressed. She was discharged in stable condition. She should follow-up with her primary care physician in about a week. Labs and Pending Lab Test: Laboratory Tests 04/03/21 15:17: Glucometer 131H 04/03/21 20:03: Glucometer 147H 04/04/21 05:35: Sodium Level 138, Potassium Level 3.9, Chloride Level 103, Carbon Dioxide Level 26, Anion Gap 9, Blood Urea Nitrogen 10, Creatinine 0.81, Estimat Glomerular Fi ltration Rate 69, BUN/Creatinine Ratio 12, Glucose Level 124H, Calcium Level 7.9L 04/04/21 08:35: Hemoglobin 9.4L, Hematocrit 30L 04/04/21 11:11: Glucometer 153H Microbiology 03/31/21 Gram Stain - Final, Complete 03/31/21 Sputum Culture - Final, Complete Usual upper respiratory alden 03/31/21 Blood Culture - Preliminary, Resulted No growth 03/31/21 Urine Culture - Final, Complete Escherichia coli Enterococcus faecalis Mixed Bacterial [place] Home Meds Active Xarelto (Rivaroxaban) 20 Mg Tablet 20 Mg PO HS 60 Days Xarelto Starter Pack (Rivaroxaban) 1 Each Tab.ds.pk 1 Each PO UD 15mg by mouth twice daily x 21 days then 20mg by mouth daily Nitrofurantoin Bell-Mcr 100 mg (Nitrofurantoin Monohyd/M-Cryst) 100 Mg Capsule 100 Mg PO BID 5 Days Reported Sodium Bicarbonate 650 Mg Tablet 650 Mg PO TIDWM Vitamin D3 (Cholecalciferol (Vitamin D3)) 25 Mcg Tablet 25 Mcg PO DAILY Vitamin C (Ascorbic Acid) 500 Mg Tablet 500 Mg PO DAILY Zinc 50 Mg Tablet 50 Mg PO DAILY Tylenol Extra Strength (Acetaminophen) 500 Mg Tablet 500-1,000 Mg PO Q8H PRN Probiotic (L.acidoph & Paracasei,B.lactis) 1 Each Capsule 1 Each PO DAILY Aspirin EC (Aspirin) 81 Mg Tablet.dr 81 Mg PO HS Furosemide 40 Mg Tablet 40 Mg PO DAILY PRN MAY TAKE AN ADDITIONAL DOSE NEEDED Furosemide 40 Mg Tablet 40 Mg PO DAILY Folic Acid 1 Mg Tablet 1 Mg PO HS Meloxicam 15 Mg Tablet 15 Mg PO DAILY Omeprazole 20 Mg Tablet.dr 20 Mg PO DAILY Enalapril Maleate 20 Mg Tablet 20 Mg PO BID Metoprolol Succinate 200 Mg Tab.er.24h 100 Mg PO BID TAKES OF A 200MG TAB Atorvastatin Calcium 40 Mg Tablet 40 Mg PO HS Amlodipine Besylate 10 Mg Tablet 10 Mg PO DAILY Metformin HCl ER (Metformin HCl) 500 Mg Tab.er.24h 1,000 Mg PO BID TAKES 2 (500MG) TABS Patient Allergies: Coded Allergies: hydroxychloroquine (Verified Allergy, Mild, HIVES, 4/3/19) fentanyl (Verified Adverse Reaction, Intermediate, HALLUCINATIONS, 03/31/21) Height (Feet): 5 Height (Inches): 2.00 Weight (Pounds): 225 Weight (Ounces): 0.0 Home Health Need/Face to Face Date of Face to Face: Apr 04, 2021 Clinical Findings: Generalized weakness and fatigue, Instability, Muscle weakness, Shortness of breath, Unsteady gait I have seen Pt [id number]: Yes Discharged To: Home Diagnosis/Conditions: Respiratory failure Pulmonary embolism Problems/Diagnosis/Condition: (1) Fluid overload (2) Acute respiratory failure with hypoxia (3) Pulmonary emboli (4) UTI (urinary tract infection) (5) HTN (hypertension) (6) HLD (hyperlipidemia) (7) T2DM (type 2 diabetes mellitus) (8) History of colon cancer (9) Obesity Patient is Homebound due to: Ki fall risk due to instabilty, Muscle weakness, Shortness of breath/distress Homebound Status Due to the above stated illness, injury or surgical procedure (medical condition or diagnosis) and associated clinical findings, the patient is homebound because of his/her inability to leave home except with aid of a supportive device and/or person AND leaving the home requires a considerable and taxing effort or is medically contraindicated. Pt req the following assistanc: Aid of another person, [facility] Home Health Nursing Orders Home Health Services Order: Nursing Services, Handstitching Machine Collar Feller-Evaluate & Treat, Physical Therapy-Evaluate & Treat Home Health Infusion Therapy Line Start Date: Mar 31, 2021 Therapy Orders Therapy Orders: OT (must have SN or PT order), Physical Therapy Therapy Specific Orders: Eval assistive deivces, Teach enviro modifications/safety, Gait training, Increase strength/endurance Certify Stmt I certify that this patient is under my care and that I, a nurse practitioner or a physician; a clothing sales assistant working with me, had a face to face encounter that - meets the physician face to face encounter requirements with this patient as dated. Discharge Physical Exam General: Alert, Oriented X3, Cooperative, No Acute Distress HEENT: Atraumatic, EOMI, Mucous Memb Moist/[place] Lungs: Clear to Auscultation, Normal Air Movement Heart: Regular Rate, Normal S1, Normal S2, No Murmurs Abdomen: Normal Bowel Sounds, Soft, No Tenderness Extremities: No Tenderness/Swelling, Other (1+ bilateral lower extremity edema) Skin: No Rashes, No Significant Lesion Neuro: Normal Speech, Normal Tone Psych/Mental Status: Mental Status NL, Mood NL ROS LEIVA MD Apr 04, 2021 11:28
--- NOTE | 2021-04-04 13:45 | Occupational Ther Daily Note ---
OT Current Status-Daily Note Subjective Pt was seated in chair w/ legs elevated upon OT arrival. Pt stated she was discouraged because her daughter is upset she will be leaving the hospital so soon. Pt stated her daughter feels that everything at home isn't ready for her return yet. Pt spent all morning crying and wanted to participate in OT tx sess ion to get her mind off of everything. Mental Status/Objective Patient Orientation: Person, Place, Time, Situation Attachments: Winters Catheter ADL-Treatment Therapy Code Descriptions/Definitions Functional [place] Measure: 0=Not Assessed/NA 4=Minimal Assistance 1=Total Assistance 5=Supervision or Setup 2=Maximal Assistance 6=Modified [place] 3=Moderate Assistance 7=Complete IndependenceSCALE: Activities may be completed with or without assistive devices. 8-Httioizgtd-hosknnp completes the activity by him/herself with no assistance from a helper. 5-Set-up or Clean-up Assistance-helper sets up or cleans up; patient completes activity. [place] assists only prior to or following the activity. 4-Supervision or Touching Assistance-helper provides verbal cues and/or touching/steadying and/or contact guard assistance as patient completes activity. Assistance may be provided throughout the activity or intermittently. 3-Partial/Moderate Assistance-helper does LESS THAN HALF the effort. [place] lifts, holds or supports trunk or limbs, but provides less than half the effort. 2-Substantial/Maximal Assistance-helper does MORE THAN HALF the effort. [place] lifts or holds trunk or limbs and provides more than half the effort. 1-Vgtkhcrwb-ftquta does ALL the effort. Patient does none of the effort to complete the activity. Or, the assistance of 2 or more helpers is required for the patient to complete the activity. If activity was not attempted, code reason: 7-Patient Refused. 9-Not Applicable-not attempted and the patient did not perform the activity before the current illness, exacerbation or injury. 10-Not Attempted due to Environmental Limitations-(lack of equipment, weather restraints, etc.). 88-Not Attempted due to Medical Conditions or Safety Concerns. Other Treatment Pt was seated in chair w/ legs elevated upon OT arrival. Pt participated in BUE theraband exercises, medium resistance, x10 reps, one round, w/ VC and [place] demonstrations for 3/5 exercises, to support strength, endurance, and function for ADL's in each of the following: shoulder abduction, shoulder external rotation, shoulder horizontal abduction, elbow flexion, and elbow extension. Pt was also educated on the importance of exercise for ADL function, and given handout. Pt tx session, pt felt better emotionally, pt was seated in chair w/ feet elevated, call light within reach, and all needs met. Education OT Patient Education: Correct positioning, Energy conservation, Exercise program, Home exercise program, Progress toward Goal/Update tx plan, Purpose of tx/functional activities Teaching Recipient: Patient Teaching Methods: Demonstration, Handout Response to Teaching: Verbalize Understanding, Return Demonstration OT Allergist/Pediatric Pulmonologist Goals Care Home Goals Time Frame: Apr 11, 2021 Eating (QC): 6 Oral Hygiene (QC): 6 Toileting Hygiene (QC): 6 Shower/Bathe Self (QC): 4 Upper Body Dressing (QC): 5 Lower Body Dressing (QC): 4 On/Off Footwear (QC): 4 Additional Goals: 1-Demonstrate ADL Tasks, 2-Verbalize Understanding, 3- ImproveStrength/Livia 1=Demonstrate adherence to instructed precautions during ADL tasks. 2=Patient will verbalize/demonstrate understanding of assistive device s/modifications for ADL. 3=Patient will improve strength/tolerance for activity to enable patient to perform ADL's. OT Education/Plan Problem List/Assessment Assessment: Decreased Activ Tolerance, Decreased UE Strength, Impaired I ADL's, Impaired Self-Care Skills Pt would benefit from short term skilled OT services in order to increase BUE strength and activity tolerance, increase safety and independence with ADLs and functional mobility, and to provide education on AE for LE dressing in order to maximize LOF for safe return home. Discharge Recommendations Plan/Recommendations: Continue POC Treatment Plan/Plan of Care Patient would benefit from OT for education, treatment and training to promote independence in ADL's, mobility, safety and/or upper extremity function for ADL's. Plan of Care: ADL Retraining, Functional Mobility, UE Funct Exercise/Act Treatment Duration: Apr 11, 2021 Frequency: 5 times per week Estimated Hrs Per Day: .25 hour per day Rehab Potential: Fair Time/GCodes Start Time: 11:21 Stop Time: 11:36 Total Time Billed (hr/min): 15 Billed Treatment Time 1 Visit, EX LISA RODRIGUEZ OT Apr 04, 2021 13:45
[2021-04-04 17:55] VITALS: BP 157/72
[2021-04-04] MEDS: ASPIRIN E.C. 81 MG (ECOTRIN) TAB PO SCH (20:58)
[2021-04-04] MEDS: FOLIC ACID 1 MG TAB PO SCH (20:58)
[2021-04-05] MEDS: RIVAROXABAN 15 MG TABLET (XARELTO) PO SCH ×2 (06:38→18:03)
[2021-04-05] MEDS: inSUlin ASPART (NovoLOG) 1 UNIT/0.01 ML (CHARGE PER UNIT) SC SCH ×4 (06:38→20:21)
[2021-04-05] MEDS: RT-ALBUTEROL SULF 2.5 MG/3 ML PRE-MIX VIAL INH SCH ×2 (07:21→19:51)
[2021-04-05] MEDS: NITROFURANTOIN 100 MG (MACROBID) CAPSULE PO SCH ×2 (08:13→21:49)
[2021-04-05] MEDS: FUROSEMIDE 40 MG (LASIX) TAB PO SCH (08:13)
[2021-04-05] MEDS: SODIUM BICARBONATE 650 MG TABLET (NON-FORMULARY) PO SCH ×3 (08:13→18:03)
[2021-04-05] MEDS: meTOprolol SUCCINATE 100 MG (TOPROL XL) TAB PO SCH ×2 (08:13→21:50)
[2021-04-05] MEDS: PANTOPRAZOLE 20 MG TABLET (PROTONIX) PO SCH (08:13)
[2021-04-05] MEDS: BISACODYL 5 MG (DULCOLAX) TABLET PO SCH ×2 (08:13→21:50)
[2021-04-05] MEDS: LACTOBACILLUS ACIDOPHILUS (PROBIOTIC) CAPSULE PO SCH (08:13)
--- NOTE | 2021-04-05 09:54 | Physical Therapy Daily Note ---
PT Daily Note-Current Subjective Patient agrees to PT. Mental Status Patient Orientation: Normal For Age Attachments: Oxygen, Winters Catheter Transfers SCALE: Activities may be completed with or without assistive devices. 0-Rqvejxhnay-zvyfdvw completes the activity by him/herself with no assistance from a helper. 5-Set-up or Clean-up Assistance-helper sets up or cleans up; patient completes activity. [place] assists only prior to or following the activity. 4-Supervision or Touching Assistance-helper provides verbal cues and/or touching/steadying and/or contact guard assistance as patient completes activity. Assistance may be provided throughout the activity or intermittently. 3-Partial/Moderate Assistance-helper does LESS THAN HALF the effort. [place] l ifts, holds or supports trunk or limbs, but provides less than half the effort. 2-Substantial/Maximal Assistance-helper does MORE THAN HALF the effort. [place] lifts or holds trunk or limbs and provides more than half the effort. 3-Yekyjdsgu-wpozzf does ALL the effort. Patient does none of the effort to complete the activity. Or, the assistance of 2 or more helpers is required for t he patient to complete the activity. If activity was not attempted, code reason: 7-Patient Refused. 9-Not Applicable-not attempted and the patient did not perform the activity before the current illness, exacerbation or injury. 10-Not Attempted due to Environmental Limitations-(lack of equipment, weather restraints, etc.). 88-Not Attempted due to Medical Conditions or Safety Concerns. Sit to Stand (QC): 5 Gait Training Does the Patient Walk?: Yes Distance: 175' Walk 10 feet (QC): 5 Walk 50 ft with 2 Turns(QC): 5 Walk 150 ft (QC): 5 Gait Assistive Device: FWW very slow, functional gait sequence Assessment Current Status: Excellent Progress PT Intermediate Goals Intermediate Goals PT Medical Equipment Repairer Goals Time Frame: Apr 09, 2021 Roll Left & Right (QC): 6 Sit to Lying (QC): 6 Lying-Sitting on Side/Bed(QC): 6 Sit to Stand (QC): 4 Chair/Izp-wg-Rkdab Xfer(QC): 4 Walk 10 feet (QC): 4 Walk 50ft with 2 Turns (QC): 4 PT Plan Treatment/Plan Treatment Plan: Continue Plan of Care Treatment Plan: Bed Mobility, Education, Functional Activity Livia, Functional Strength, Gait, Safety, Therapeutic Exercise, Transfers Treatment Duration: Apr 09, 2021 Frequency: 6 times per week Estimated Hrs Per Day: .25 hour per day Patient and/or Family Agrees t: Yes Time/GCodes Time In: 914 Time Out: 926 Total Billed Treatment Time: 12 Total Billed Treatment 1 visit FA 12 min DEAN DUBON PT Apr 05, 2021 09:54
[2021-04-05] MEDS: FOLIC ACID 1 MG TAB PO SCH (21:49)
[2021-04-05] MEDS: ASPIRIN E.C. 81 MG (ECOTRIN) TAB PO SCH (21:50)
[2021-04-06] MEDS: RIVAROXABAN 15 MG TABLET (XARELTO) PO SCH (06:06)
[2021-04-06] MEDS: inSUlin ASPART (NovoLOG) 1 UNIT/0.01 ML (CHARGE PER UNIT) SC SCH (06:06)
[2021-04-06] MEDS: RT-ALBUTEROL SULF 2.5 MG/3 ML PRE-MIX VIAL INH SCH (07:10)
[2021-04-06] MEDS: LACTOBACILLUS ACIDOPHILUS (PROBIOTIC) CAPSULE PO SCH (08:02)
[2021-04-06] MEDS: SODIUM BICARBONATE 650 MG TABLET (NON-FORMULARY) PO SCH (08:02)
[2021-04-06] MEDS: meTOprolol SUCCINATE 100 MG (TOPROL XL) TAB PO SCH (08:02)
[2021-04-06] MEDS: BISACODYL 5 MG (DULCOLAX) TABLET PO SCH (08:02)
[2021-04-06] MEDS: NITROFURANTOIN 100 MG (MACROBID) CAPSULE PO SCH (08:02)
[2021-04-06] MEDS: FUROSEMIDE 40 MG (LASIX) TAB PO SCH (08:02)
[2021-04-06] MEDS: PANTOPRAZOLE 20 MG TABLET (PROTONIX) PO SCH (08:02)
== END 2021-04-06 11:00 | disposition home health service (06) | DRG 698 ==
LOC: EDUNIT# 06:38 → ER 06:39 → ICU 08:30 → 4TH 04-02 17:44
PROVIDERS: ADMIT Internal Medicine; ATTEND Internal Medicine
DX: T83.518A Infection and inflammatory reaction due to other urinary catheter, initial encounter (principal); I26.99 Other pulmonary embolism without acute cor pulmonale; A41.9 Sepsis, unspecified organism; J96.01 Acute respiratory failure with hypoxia; J18.9 Pneumonia, unspecified organism; N39.0 Urinary tract infection, site not specified; R33.9 Retention of urine, unspecified; D64.9 Anemia, unspecified; E11.9 Type 2 diabetes mellitus without complications; Z20.822 Contact with and (suspected) exposure to COVID-19; K21.9 Gastro-esophageal reflux disease without esophagitis; I10 Essential (primary) hypertension; E78.5 Hyperlipidemia, unspecified; E78.00 Pure hypercholesterolemia, unspecified; E66.9 Obesity, unspecified; E87.70 Fluid overload, unspecified; I27.20 Pulmonary hypertension, unspecified; M06.9 Rheumatoid arthritis, unspecified; M19.91 Primary osteoarthritis, unspecified site; H54.3 Unqualified visual loss, both eyes; B96.20 Unspecified Escherichia coli [E. coli] as the cause of diseases classified elsewhere; B95.2 Enterococcus as the cause of diseases classified elsewhere; Z68.38 Body mass index [BMI] 38.0-38.9, adult; Z79.84 Long term (current) use of oral hypoglycemic drugs; Z79.82 Long term (current) use of aspirin; Z85.038 Personal history of other malignant neoplasm of large intestine; Z90.49 Acquired absence of other specified parts of digestive tract; Z88.6 Allergy status to analgesic agent; Z88.8 Allergy status to other drugs, medicaments and biological substances
CPT/HCPCS: 36415; 36569; 36600; 71045; 71275; 76937; 80048; 80053; 81000; 82805; 82947; 83605; 83735; 83880; 84100; 84145; 85014; 85018; 85025; 85379; 85610; 85730; 86141; 86850; 86900; 86901; 86920; 87040; 87070; 87077; 87081; 87088; 87186; 87205; 87631; 87636; 93306; 93970; 94640; 94660; 94760; 94761; 96361; 96365; 96375

== ENCOUNTER 2021-05-22 20:02 | Emergency (ER) | payer MEDICARE, BC ==
[~2021-05-22] VITALS: Ht 155 cm; Wt 91.0 kg
[~2021-05-22 20:02] MED LIST changes: +NITR100C10 PO; +RIVA1TAB PO; +RIVA20TA PO
[2021-05-22 21:04] LABS: CLARITY,URINE CLOUDY; COLOR,URINE RED; GLUCOSE, URINE (UA) 1+ (NEGATIVE); KETONES,URINE 2+ (NEGATIVE); LEUKOCYTE ESTERASE ,URINE 3+ (NEGATIVE); NITRITE,URINE POSITIVE (NEGATIVE); PROTEIN,URINE 3+ (NEGATIVE)
[2021-05-22 21:18] LABS: BASOPHILS % (AUTO) 0 % (0-10); EOSINOPHILS # (AUTO) 0.3 10^3/uL (0.0-0.3); EOSINOPHILS % (AUTO) 3 % (0-10); HEMATOCRIT 34 % (35-52); HEMOGLOBIN 10.4 g/dL (11.5-16.0); LYMPHOCYTES # (AUTO) 2.5 10^3/uL (1.0-4.0); LYMPHOCYTES % (AUTO) 29 % (12-44); MEAN CORPUSCULAR HEMOGLOBIN 28 pg (25-34); MEAN CORPUSCULAR HGB CONC 31 g/dL (32-36); MEAN CORPUSCULAR VOLUME 92 fL (80-99); MEAN PLATELET VOLUME 10.5 fL (9.0-12.2); MONOCYTES # (AUTO) 0.6 10^3/uL (0.0-1.0); MONOCYTES % (AUTO) 7 % (0-12); NEUTROPHILS # (AUTO) 5.2 10^3/uL (1.8-7.8); NEUTROPHILS % (AUTO) 60 % (42-75); PLATELET COUNT 242 10^3/uL (130-400); WHITE BLOOD COUNT 8.7 10^3/uL (4.3-11.0)
[2021-05-22 21:40] LABS: INR 1.4 (0.8-1.4)
[2021-05-22 21:45] LABS: ALBUMIN 3.9 GM/DL (3.2-4.5); BILIRUBIN,TOTAL 0.4 MG/DL (0.1-1.0); CALCIUM 9.3 MG/DL (8.5-10.1); CREATININE SERUM 1.3 MG/DL (0.60-1.30); TOTAL PROTEIN 8.9 GM/DL (6.4-8.2)
[2021-05-22 21:48] LABS: BACTERIA,URINE LARGE /HPF; BILIRUBIN,URINE 2+ (NEGATIVE); RBC,URINE TNTC /HPF
[2021-05-22 21:50] LABS: WBC,URINE 50-100 /HPF
--- NOTE | 2021-05-22 21:53 | ED GU-Female ---
General Chief Complaint: - Reproductive Stated Complaint: VAG BLEEDING Nursing Triage Note: PT ARRIVED TO ER WITH C/O VAG BLEEDING THAT STARTED THIS AFTERNOON AFTER A LONG CAR RIDE. PT HAD A MARY FOR A FEW WEEKS THAT WAS REMOVED 4 DAYS AGO IN [place] Source: patient, family Exam Limitations: no limitations History of Present Illness Date Seen by Provider: May 22, 2021 Time Seen by Provider: 21:30 Initial Comments Patient is a 75-year-old female who presents to the emergency room with a chief complaint of concern for bleeding in her urine. 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 Patient has a long history of kidney infections. She just saw Dr. Bhakta in [place] on Wednesday and had a catheter removed. She states that she is a little bit chronically incontinent since that time. She recently started on Keflex yesterday for a mild UTI per her primary care doctor Dr. Parra. She denies fevers, chills, chest pain, shortness of breath. No abdominal pain although she did have a little lower abdominal pressure earlier this morning. She was started on Xarelto at her last hospitalization with a history of pulmonary embolism. She is on that and baby aspirin. She states overall she feels really good. She does have a history of anemia. All other review of systems reviewed and negative except as stated. Timing/Duration: this afternoon Severity/Quality: mild Activities at Onset: none Associated Symptoms: loss of bladder control Allergies and Home Medications Allergies Coded Allergies: hydroxychloroquine (Verified Allergy, Mild, HIVES, 09/07/18) fentanyl (Verified Adverse Reaction, Intermediate, HALLUCINATIONS, 03/31/21) Patient Home Medication List Home Medication List Reviewed: Yes Acetaminophen (Tylenol Extra Strength) 500 Mg Tablet, 500-1,000 MG PO Q8H PRN for PAIN-MILD (1-4), (Reported) Entered as Reported by: FIDELINA WATSON on 02/13/21 1513 Amlodipine Besylate (Amlodipine Besylate) 10 Mg Tablet, 10 MG PO DAILY, (Reported) Entered as Reported by: THAI ARREOLA on 08/05/17 1206 Ascorbic Acid (Vitamin C) 500 Mg Tablet, 500 MG PO DAILY, (Reported) Entered as Reported by: FIDELINA WATSON on 02/13/211512 Aspirin (Aspirin EC) 81 Mg Tablet.dr, 81 MG PO HS, (Reported) Entered as Reported by: FIDELINA WATSON on 02/13/211512 Atorvastatin Calcium (Atorvastatin Calcium) 40 Mg Tablet, 40 MG PO HS, (Reported) Entered as Reported by: THAI ARREOLA on 08/05/17 120 Cholecalciferol (Vitamin D3) (Vitamin D3) 25 Mcg Tablet, 25 MCG PO DAILY, (Reported) Entered as Reported by: FIDELINA WATSON on 02/13/211512 Enalapril Maleate (Enalapril Maleate) 20 Mg Tablet, 20 MG PO BID, (Reported) Entered as Reported by: THAI ARREOLA on 08/05/17 120 Folic Acid (Folic Acid) 1 Mg Tablet, 1 MG PO HS, (Reported) Entered as Reported by: THAI ARREOLA on 08/05/17 124 Furosemide (Furosemide) 40 Mg Tablet, 40 MG PO DAILY, (Reported) Entered as Reported by: THAI ARREOLA on 08/05/17 1242 Furosemide (Furosemide) 40 Mg Tablet, 40 MG PO DAILY PRN for SWELLING, (Reported) Entered as Reported by: JASIEL ORR on 08/27/17 1119 L.acidoph & Paracasei,B.lactis (Probiotic) 1 Each Capsule, 1 EACH PO DAILY, (Reported) Entered as Reported by: FIDELINA WATSON on 02/13/211512 Meloxicam (Meloxicam) 15 Mg Tablet, 15 MG PO DAILY, (Reported) Entered as Reported by: THAI ARREOLA on 08/05/17 1242 Metformin HCl (Metformin HCl ER) 500 Mg Tab.er.24h, 1,000 MG PO BID, (Reported) Entered as Reported by: THAI ARREOLA on 08/05/17 120 Metoprolol Succinate (Metoprolol Succinate) 200 Mg Tab.er.24h, 100 MG PO BID, (Reported) Entered as Reported by: THAI ARREOLA on 08/05/17 1206 Nitrofurantoin Monohyd/M-Cryst (Nitrofurantoin [place]-Mcr 100 mg) 100 Mg Capsule, 100 MG PO BID Prescribed by: ROS LEIVA on 04/04/21 1117 Omeprazole (Omeprazole) 20 Mg Tablet.dr, 20 MG PO DAILY, (Reported) Entered as Reported by: THAI ARREOLA on 08/05/17 1242 Rivaroxaban (Xarelto Starter Pack) 1 Each Tab.ds.pk, 1 EACH PO UD Prescribed by: ROS LEIVA on 04/04/21 1117 Rivaroxaban (Xarelto) 20 Mg Tablet, 20 MG PO HS Prescribed by: ROS LEIVA on 04/04/21 1117 Sodium Bicarbonate (Sodium Bicarbonate) 650 Mg Tablet, 650 MG PO TIDWM, (Reported) Entered as Reported by: FIDELINA WATSON on 03/31/21 1316 Zinc (Zinc) 50 Mg Tablet, 50 MG PO DAILY, (Reported) Entered as Reported by: FIDELINA WATSON on 02/13/21 1513 Review of Systems Review of Systems Constitutional: see HPI EENTM: no symptoms reported Respiratory: no symptoms reported Cardiovascular: no symptoms reported Gastrointestinal: no symptoms reported Genitourinary: hematuria : No Musculoskeletal: no symptoms reported Skin: no symptoms reported Psychiatric/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: No Symptoms Reported All Other Systemes Reviewed Negative Unless Noted: Yes Past Vityiaz-Xbrjdt-Ijjkxy Hx Patient Social History Tobacco Use?: No Substance use?: No Alcohol Use?: No Pt feels they are or have been: No Immunizations Up To Date Tetanus Booster (TDap): Unknown Influenza Vaccine Up-to-Date: Yes; Up-to-Date First/Initial COVID19 Vaccinat: 07/28 Second COVID19 Vaccination [place]: 08/25 Third COVID19 Vaccination Date: 07/28 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 Seasonal Allergies Seasonal Allergies: No Past Medical History Surgery/Hospitalization HX: Colon resection, gallbladder, tonsilectomy,HTN, SEPSIS Surgeries: Yes (cystoscopy, CATARACTS, COLON RESECTION) Abdominal, Bladder Surgery, Bowel Surgery, Eye Surgery, Gallbladder, Tonsillectomy Respiratory: No Currently Using CPAP: No Currently Using BIPAP: No Cardiac: Yes High Cholesterol, Hypertension 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: No [employer]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 Sexually Transmitted Disease: No HIV/AIDS: No Genitourinary: Yes UTI-Chronic Gastrointestinal: Yes (COLON CANCER DX 2018) Gastroesophageal Reflux Musculoskeletal: Yes (ON METHOTREXATE) Arthritis, Rheumatoid Arthritis Endocrine: Yes Diabetes, Non-Insulin dep HEENT: Yes (READING GLASSES; S/P CATARACT SURGERY) Cataract Loss of Vision: Bilateral Hearing Impairment: Denies Cancer: Yes Colon Did You Recieve Any Treatments: Yes What Type of Treatment Did You: Surgical Intervention Psychosocial: No Integumentary: No Blood Disorders: Yes (anemia) Adverse Reaction/Blood Tranf: No (N/A) Family Medical History Abdominal aortic aneurysm 19 MOTHER Arthritis G8 SISTER Cardiovascular disease 19 FATHER Hypertension 19 FATHER PAST SURGICAL HISTORY: -LAPAROSCOPIC RIGHT HEMICOLECTOMY [address] PIERCE -CHOLECYSTECTOMY -TONSILLECTOMY -CATARACT SURGERY -CYSTOSCOPIES -EGD/COLONOSCOPY 2013 Physical Exam Vital Signs Vital Signs - First Documented 05/22/21 20:55 Temp 36.2 Pulse 66 Resp 18 B/P (MAP) 164/92 (116) Pulse Ox 96 Capillary Refill : Less Than 3 Seconds Height, Weight, BMI Height: 5'2.00" Weight: 225lbs. 0.0oz. [id number]; 37.00 BMI Method: General Appearance: WD/WN, no apparent distress HEENT: PERRL/EOMI Neck: full range of motion Cardiovascular: regular rate, rhythm Respiratory: lungs clear, normal breath sounds, no respiratory distress, no accessory muscle use Gastrointestinal: normal bowel sounds, non tender, soft Back: normal inspection Extremities: non-tender, normal inspection, pedal edema (2+ bilateral) Neurologic/Psychiatric: alert, normal mood/affect, oriented x 3 Skin: normal color, warm/dry Progress/Results/Core Measures Suspected Sepsis SIRS Temperature: Pulse: 66 Respiratory Rate: 18 Laboratory Tests 05/22/21 21:05: White Blood Count 8.7 Blood Pressure 164 /92 Mean: 116 Laboratory Tests 05/22/21 21:05: Creatinine 1.30, INR Comment 1.4, Platelet Count 242, Total Bilirubin 0.4 Results/Orders Lab Results Laboratory Tests Test 05/22/21 20:56 05/22/21 21:05 Range/Units Urine Color RED H Urine Clarity CLOUDY Urine pH 7.0 5-9 Urine Specific [place] 1.020 1.016-1.022 Urine Protein 3+ H NEGATIVE Urine Glucose (UA) 1+ H NEGATIVE Urine Ketones 2+ H NEGATIVE Urine Nitrite POSITIVE H NEGATIVE Urine Bilirubin 2+ H NEGATIVE Urine Urobilinogen >=8.0 < = 1.0 MG/DL Urine Leukocyte Esterase 3+ H NEGATIVE Urine RBC (Auto) 3+ H NEGATIVE Urine RBC TNTC H /HPF Urine WBC 50-100 H /HPF Urine Crystals NONE /LPF Urine Bacteria LARGE H /HPF Urine Casts NONE /LPF Urine Mucus NEGATIVE /LPF Urine Culture Indicated YES White Blood Count 8.7 4.3-11.0 10^3/uL Red Blood Count 3.66 L 3.80-5.11 10^6/uL Hemoglobin 10.4 L 11.5-16.0 g/dL Hematocrit 34 L 35-52 % Mean Corpuscular Volume 92 80-99 fL Mean Corpuscular Hemoglobin 28 25-34 pg Mean Corpuscular Hemoglobin Concent 31 L 32-36 g/dL Red Cell Distribution Width 14.3 10.0-14.5 % Platelet Count 242 130-400 10^3/uL Mean Platelet Volume 10.5 9.0-12.2 fL Immature Granulocyte % (Auto) 0 % Neutrophils (%) (Auto) 60 42-75 % Lymphocytes (%) (Auto) 29 12-44 % Monocytes (%) (Auto) 7 0-12 % Eosinophils (%) (Auto) 3 0-10 % Basophils (%) (Auto) 0 0-10 % Neutrophils # (Auto) 5.2 1.8-7.8 10^3/uL Lymphocytes # (Auto) 2.5 1.0-4.0 10^3/uL Monocytes # (Auto) 0.6 0.0-1.0 10^3/uL Eosinophils # (Auto) 0.3 0.0-0.3 10^3/uL Basophils # (Auto) 0.0 0.0-0.1 10^3/uL Immature Granulocyte # (Auto) 0.0 0.0-0.1 10^3/uL Prothrombin Time 18.0 H 12.2-14.7 SEC INR Comment 1.4 0.8-1.4 Activated Partial Thromboplast Time 45 H 24-35 SEC Sodium Level 139 135-145 MMOL/L Potassium Level 4.0 3.6-5.0 MMOL/L Chloride Level 103 98-107 MMOL/L Carbon Dioxide Level 21 21-32 MMOL/L Anion Gap 15 H 5-14 MMOL/L Blood Urea Nitrogen 18 7-18 MG/DL Creatinine 1.30 0.60-1.30 MG/DL Estimat Glomerular Filtration Rate 40 BUN/Creatinine Ratio 14 Glucose Level 142 H 70-105 MG/DL Calcium Level 9.3 8.5-10.1 MG/DL Corrected Calcium 9.4 8.5-10.1 MG/DL Total Bilirubin 0.4 0.1-1.0 MG/DL Aspartate Amino Transf (AST/SGOT) 16 5-34 U/L Alanine Aminotransferase (ALT/SGPT) 16 0-55 U/L Alkaline Phosphatase 81 40-136 U/L Total Protein 8.9 H 6.4-8.2 GM/DL Albumin 3.9 3.2-4.5 GM/DL Vital Signs/I&O 05/22/21 20:55 Temp 36.2 Pulse 66 Resp 18 B/P (MAP) 164/92 (116) Pulse Ox 96 Capillary Refill : Less Than 3 Seconds Blood Pressure Mean: 116 Progress Note : Time: 22:39 Progress Note Reviewed patient's labs with her and her daughter, her hemoglobin is stable at 10. She does have evidence of urinary tract infection. Renal function and electrolytes are normal. Vital signs are stable. She feels good and looks well. I recommended that she stay on the Keflex and touch base with Dr. Bhakta's office tomorrow as well as Dr. Parra. She states she is personal friends with Dr. Parra and will discuss with him continuing to take Xarelto or possibly switching to Eliquis. I have advised that she monitor herself for fever, stay well-hydrated. She verbalized understanding, will await culture re sults. All questions are sought and answered. Departure Impression Primary Impression: UTI (urinary tract infection) Qualified Codes: N30.01 - Acute cystitis with hematuria Additional Impressions: Hematuria Qualified Codes: R31.9 - Hematuria, unspecified Chronic anticoagulation Disposition: HOME, SELF-CARE Condition: Stable Departure-Patient Inst. Decision time for Depature: 22:41 Referrals: JEFFREY PARRA DO (PCP/Family) Primary Care Physician Patient Instructions: Urinary Tract Infection, Adult (DC), Blood in Urine (Hematuria), Adult ED Add. Discharge Instructions: Drink plenty of fluids to stay well-hydrated. Continue your cephalexin antibiotic as prescribed. Please follow-up with Dr. Bhakta's office tomorrow as well as with Dr. Parra. Come back to the emergency room if you develop fever, have abdominal pain, have any confusion or any other emergent concerning symptoms develop. Copy Copies To 1: JEFFREY PARRA KATHRYN M MD May 22, 2021 21:53
[2021-05-22 23:10] VITALS: BP 162/90
== END 2021-05-22 23:15 | disposition home or self-care (01) ==
LOC: EDUNIT# 20:02 → ER 20:05
DX: N39.0 Urinary tract infection, site not specified (principal); R31.9 Hematuria, unspecified; I10 Essential (primary) hypertension; E78.00 Pure hypercholesterolemia, unspecified; K21.9 Gastro-esophageal reflux disease without esophagitis; E11.9 Type 2 diabetes mellitus without complications; Z79.01 Long term (current) use of anticoagulants; Z79.82 Long term (current) use of aspirin; Z79.84 Long term (current) use of oral hypoglycemic drugs; Z79.899 Other long term (current) drug therapy
CPT/HCPCS: 36415; 80053; 81000; 85025; 85610; 85730; 87088

== ENCOUNTER 2021-05-27 10:02 | Emergency (ER) | payer MEDICARE, BC ==
[~2021-05-27] VITALS: Ht 154.9 cm; Wt 90.7 kg
[~2021-05-27 10:02] MED LIST changes: -HOLD METFORMIN - RECEIVED CONTRAST 20 ML VIAL IV SCH; -IOHEXOL 350 MG/ML 100 ML (OMNIPAQUE 350) VIAL IV ONE; -NS 100 ML (IVPB) BAG IV ONE
[2021-05-27 10:32] LABS: BILIRUBIN,URINE NEGATIVE (NEGATIVE); CLARITY,URINE CLOUDY; COLOR,URINE RED; GLUCOSE, URINE (UA) TRACE (NEGATIVE); KETONES,URINE 1+ (NEGATIVE); LEUKOCYTE ESTERASE ,URINE 2+ (NEGATIVE); NITRITE,URINE POSITIVE (NEGATIVE); PROTEIN,URINE 3+ (NEGATIVE)
[2021-05-27 10:40] LABS: BACTERIA,URINE NEGATIVE /HPF; RBC,URINE TNTC /HPF
[2021-05-27 10:40] LABS: BASOPHILS % (AUTO) 0 % (0-10); EOSINOPHILS # (AUTO) 0.2 10^3/uL (0.0-0.3); EOSINOPHILS % (AUTO) 2 % (0-10); HEMATOCRIT 22 % (35-52); LYMPHOCYTES # (AUTO) 2.7 10^3/uL (1.0-4.0); LYMPHOCYTES % (AUTO) 32 % (12-44); MEAN CORPUSCULAR HEMOGLOBIN 29 pg (25-34); MEAN CORPUSCULAR HGB CONC 31 g/dL (32-36); MEAN CORPUSCULAR VOLUME 93 fL (80-99); MEAN PLATELET VOLUME 10.4 fL (9.0-12.2); MONOCYTES # (AUTO) 0.4 10^3/uL (0.0-1.0); MONOCYTES % (AUTO) 5 % (0-12); NEUTROPHILS # (AUTO) 5.1 10^3/uL (1.8-7.8); NEUTROPHILS % (AUTO) 60 % (42-75); PLATELET COUNT 228 10^3/uL (130-400); WHITE BLOOD COUNT 8.4 10^3/uL (4.3-11.0)
[2021-05-27 10:42] LABS: HEMOGLOBIN 6.8 g/dL (11.5-16.0)
[2021-05-27 11:03] LABS: POTASSIUM 3.9 MMOL/L (3.6-5.0)
[2021-05-27 11:04] LABS: CALCIUM 8.9 MG/DL (8.5-10.1)
[2021-05-27 11:08] LABS: CREATININE SERUM 1.16 MG/DL (0.60-1.30)
[2021-05-27] MEDS ORDERED: NS IV 500 ML 500 ML ONE (12:40)
[2021-05-27 12:50] VITALS: BP 138/81
[2021-05-27 13:00] VITALS: BP 138/100
[2021-05-27] MEDS ORDERED: cefTRIAXone 1 GM PRE-MIX 50 ML IV STA (14:05)
--- NOTE | 2021-05-27 15:11 | ED General ---
General Chief Complaint: General Problems/Pain Stated Complaint: ABNORMAL LABS Nursing Triage Note: PT TO [facility] 6 BY WHEELCHAIR AFTER BEING SENT BY DR BUCHANAN OFFICE FOR LOW HGB. PT HAD OUTPATIENT CT SCAN PRIOR TO ER ARRIVAL. Source of Information: Patient, Old Records, Other (Dr. Parra) Exam Limitations: No Limitations History of Present Illness Date Seen by Provider: May 27, 2021 Time Seen by Provider: 10:23 Initial Comments This is 75-year-old woman presents to the emergency room via private vehicle at the direction of Dr. Parra for reasons of severe anemia and hematuria. She had been admitted to this facility 3 times this fall in February and March for sepsis, pneumonia, pulmonary embolus, etc. She had follow-up with Dr. Parra in the clinic including labs that were performed yesterday. A hem oglobin of 7.2 was noted which was a significant drop from baseline. She was contacted by Dr. Parra and referred to the ER. She was actually at the hospital at the time obtaining a CT scan of the abdomen and pelvis for Dr. Zhong. She has been struggling with hematuria and cystitis for several months. She recently had a catheter removed which had been in place since her admission to the hospital. Cystoscopies previously noted inflammatory changes with no mass. She has been on antibiotics including a round of Keflex that ended yesterday. Her prior urology work-ups have been performed by Dr. Gonzalez. She is transitioning her urology care to Dr. Zhong as he has cared for other members of her family. Patient has noted her pale skin and some fatigue but does not have any severe symptoms of anemia or volume loss. She denies any hematochezia or melena. She is presently taking Xarelto for the pulmonary embolus she had last fall. Patient denies any fever. Allergies and Home Medications Allergies Coded Allergies: hydroxychloroquine (Verified Allergy, Mild, HIVES, 09/07/18) fentanyl (Verified Adverse Reaction, Intermediate, HALLUCINATIONS, 03/31/21) Patient Home Medication List Home Medication List Reviewed: Yes Acetaminophen (Tylenol Extra Strength) 500 Mg Tablet, 500-1,000 MG PO Q8H PRN for PAIN-MILD (1-4), (Reported) Entered as Reported by: FIDELINA WATSON on 02/13/21 6963 Amlodipine Besylate (Amlodipine Besylate) 10 Mg Tablet, 10 MG PO DAILY, (Reported) Entered as Reported by: THAI ARREOLA on 08/05/17 1206 Ascorbic Acid (Vitamin C) 500 Mg Tablet, 500 MG PO DAILY, (Reported) Entered as Reported by: FIDELINA WATSON on 02/13/21 151 Aspirin (Aspirin EC) 81 Mg Tablet.dr, 81 MG PO HS, (Reported) Entered as Reported by: FIDELINA WATSON on 02/13/21 151 Atorvastatin Calcium (Atorvastatin Calcium) 40 Mg Tablet, 40 MG PO HS, (Reported) Entered as Reported by: THAI ARREOLA on 08/05/17 1206 Cefdinir (Cefdinir) 300 Mg Capsule, 300 MG PO BID Prescribed by: ALEXA MANCERA on 05/27/21 1553 Cholecalciferol (Vitamin D3) (Vitamin D3) 25 Mcg Tablet, 25 MCG PO DAILY, (Rep orted) Entered as Reported by: FIDELINA WATSON on 02/13/21 151 Enalapril Maleate (Enalapril Maleate) 20 Mg Tablet, 20 MG PO BID, (Reported) Entered as Reported by: THAI ARREOLA on 08/05/17 1206 Folic Acid (Folic Acid) 1 Mg Tablet, 1 MG PO HS, (Reported) Entered as Reported by: THAI ARREOLA on 08/05/17 1242 Furosemide (Furosemide) 40 Mg Tablet, 40 MG PO DAILY, (Reported) Entered as Reported by: THAI ARREOLA on 08/05/17 1242 Furosemide (Furosemide) 40 Mg Tablet, 40 MG PO DAILY PRN for SWELLING, (Reported) Entered as Reported by: JASIEL ORR on 08/27/17 1119 L.acidoph & Paracasei,B.lactis (Probiotic) 1 Each Capsule, 1 EACH PO DAILY, (Reported) Entered as Reported by: FIDELINA WATSON on 02/13/21 151 Meloxicam (Meloxicam) 15 Mg Tablet, 15 MG PO DAILY, (Reported) Entered as Reported by: THAI ARREOLA on 08/05/17 1242 Metformin HCl (Metformin HCl ER) 500 Mg Tab.er.24h, 1,000 MG PO BID, (Reported) Entered as Reported by: THAI ARREOLA on 08/05/17 1206 Metoprolol Succinate (Metoprolol Succinate) 200 Mg Tab.er.24h, 100 MG PO BID, (Reported) Entered as Reported by: THAI ARREOLA on 08/05/17 1206 Nitrofurantoin Monohyd/M-Cryst (Nitrofurantoin Schley-Mcr 100 mg) 100 Mg Capsule, 100 MG PO BID Prescribed by: ROS LEIVA on 04/04/21 1117 Omeprazole (Omeprazole) 20 Mg Tablet.dr, 20 MG PO DAILY, (Reported) Entered as Reported by: THAI ARREOLA on 08/05/17 1242 Rivaroxaban (Xarelto Starter Pack) 1 Each Tab.ds.pk, 1 EACH PO UD Prescribed by: ROS LEIVA on 04/04/21 1117 Rivaroxaban (Xarelto) 20 Mg Tablet, 20 MG PO HS Prescribed by: ROS LEIVA on 04/04/21 1117 Sodium Bicarbonate (Sodium Bicarbonate) 650 Mg Tablet, 650 MG PO TIDWM, (Reported) Entered as Reported by: FIDELINA WATSON on 03/31/21 1316 Zinc (Zinc) 50 Mg Tablet, 50 MG PO DAILY, (Reported) Entered as Reported by: FIDELINA WATSON on 02/13/21 1513 Review of Systems Review of Systems Constitutional: see HPI EENTM: no symptoms reported Respiratory: see HPI Cardiovascular: see HPI Gastrointestinal: no symptoms reported Genitourinary: see HPI : No Musculoskeletal: no symptoms reported Skin: no symptoms reported Psychiatric/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: No Symptoms Reported Hematologic/Lymphatic: See HPI Immunological/Allergic: no symptoms reported Past Vbeetue-Ogulwn-Xdzmov Hx Patient Social History Tobacco Use?: No Use of E-Cig and/or Vaping dev: No Substance use?: No Alcohol Use?: No Pt feels they are or have been: No Immunizations Up To Date Tetanus Booster (TDap): Unknown Influenza Vaccine Up-to-Date: Yes; Up-to-Date First/Initial COVID19 Vaccinat: 07/28 Second COVID19 Vaccination [place]: 08/25 Third COVID19 Vaccination Date: 05/27 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 Seasonal Allergies Seasonal Allergies: No Past Medical History Surgery/Hospitalization HX: Colon resection, gallbladder, tonsilectomy,HTN, SEPSIS Surgeries: Yes (cystoscopy, CATARACTS, COLON RESECTION) Abdominal, Bladder Surgery, Bowel Surgery, Eye Surgery, Gallbladder, Tonsillect uriel Respiratory: Yes Pneumonia, Pulmonary Embolism Currently Using CPAP: No Currently Using BIPAP: No Cardiac: Yes High Cholesterol, Hypertension 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: No 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 History: Menopausal Sexually Transmitted Disease: No HIV/AIDS: No Genitourinary: Yes (Cystitis and chronic hematuria) UTI-Chronic Gastrointestinal: Yes (COLON CANCER DX 2018) Gastroesophageal Reflux Musculoskeletal: Yes (ON METHOTREXATE) Arthritis, Rheumatoid Arthritis Endocrine: Yes Diabetes, Non-Insulin dep HEENT: Yes (READING GLASSES; S/P CATARACT SURGERY) Cataract Loss of Vision: Bilateral Hearing Impairment: Denies Cancer: Yes Colon Did You Recieve Any Treatments: Yes What Type of Treatment Did You: Surgical Intervention Psychosocial: No Integumentary: No Blood Disorders: Yes (anemia) Adverse Reaction/Blood Tranf: No (N/A) Family Medical History Abdominal aortic aneurysm 19 MOTHER Arthritis G8 SISTER Cardiovascular disease 19 FATHER Hypertension 19 FATHER PAST SURGICAL HISTORY: -LAPAROSCOPIC RIGHT HEMICOLECTOMY [address] PIERCE -CHOLECYSTECTOMY -TONSILLECTOMY -CATARACT SURGERY -CYSTOSCOPIES -EGD/COLONOSCOPY 2013 Physical Exam Vital Signs Vital Signs - First Documented 05/27/21 10:08 Temp 36.8 Pulse 74 Resp 16 B/P (MAP) 158/69 (98) Pulse Ox 97 O2 Delivery Room Air Capillary Refill : Less Than 3 Seconds Height, Weight, BMI Height: 5'2.00" Weight: 225lbs. 0.0oz. 102.901086lj; 37.00 BMI Method: General Appearance: No Apparent Distress, WD/WN HEENT: PERRL/EOMI, Normal ENT Inspection Neck: Normal Inspection Respiratory: Lungs Clear, Normal Breath Sounds, No Accessory Muscle Use Cardiovascular: Regular Rate, Rhythm, No Edema, No Murmur Gastrointestinal: Non Tender, Soft; No Distended Extremity: Normal Inspection, No Pedal Edema Neurologic/Psychiatric: Alert, Oriented x3, No Motor/Sensory Deficits, Normal Mood/Affect Skin: Warm/Dry, Pallor Progress/Results/Core Measures Suspected Sepsis SIRS Temperature: Pulse: 69 Respiratory Rate: 20 Laboratory Tests 05/27/21 10:30: White Blood Count 8.4 Blood Pressure 138 /100 Mean: 113 Laboratory Tests 05/27/21 10:30: Creatinine 1.16, Platelet Count 228 Results/Orders Lab Results Laboratory Tests Test 05/27/21 10:20 05/27/21 10:30 Range/Units Urine Color RED H Urine Clarity CLOUDY Urine pH 7.0 5-9 Urine Specific [place] 1.010 L 1.016-1.022 Urine Protein 3+ H NEGATIVE Urine Glucose (UA) TRACE H NEGATIVE Urine Ketones 1+ H NEGATIVE Urine Nitrite POSITIVE H NEGATIVE Urine Bilirubin NEGATIVE NEGATIVE Urine Urobilinogen >=8.0 < = 1.0 MG/DL Urine Leukocyte Esterase 2+ H NEGATIVE Urine RBC (Auto) 3+ H NEGATIVE Urine RBC TNTC H /HPF Urine WBC 10-25 H /HPF Urine Crystals NONE /LPF Urine Bacteria NEGATIVE /HPF Urine Casts NONE /LPF Urine Mucus NEGATIVE /LPF Urine Culture Indicated YES White Blood Count 8.4 4.3-11.0 10^3/uL Red Blood Count 2.36 L 3.80-5.11 10^6/uL Hemoglobin 6.8 #*L 11.5-16.0 g/dL Hematocrit 22 L 35-52 % Mean Corpuscular Volume 93 80-99 fL Mean Corpuscular Hemoglobin 29 25-34 pg Mean Corpuscular Hemoglobin Concent 31 L 32-36 g/dL Red Cell Distribution Width 14.3 10.0-14.5 % Platelet Count 228 130-400 10^3/uL Mean Platelet Volume 10.4 9.0-12.2 fL Immature Granulocyte % (Auto) 1 % Neutrophils (%) (Auto) 60 42-75 % Lymphocytes (%) (Auto) 32 12-44 % Monocytes (%) (Auto) 5 0-12 % Eosinophils (%) (Auto) 2 0-10 % Basophils (%) (Auto) 0 0-10 % Neutrophils # (Auto) 5.1 1.8-7.8 10^3/uL Lymphocytes # (Auto) 2.7 1.0-4.0 10^3/uL Monocytes # (Auto) 0.4 0.0-1.0 10^3/uL Eosinophils # (Auto) 0.2 0.0-0.3 10^3/uL Basophils # (Auto) 0.0 0.0-0.1 10^3/uL Immature Granulocyte # (Auto) 0.1 0.0-0.1 10^3/uL Sodium Level 137 135-145 MMOL/L Potassium Level 3.9 3.6-5.0 MMOL/L Chloride Level 105 98-107 MMOL/L Carbon Dioxide Level 21 21-32 MMOL/L Anion Gap 11 5-14 MMOL/L Blood Urea Nitrogen 18 7-18 MG/DL Creatinine 1.16 0.60-1.30 MG/DL Estimat Glomerular Filtration Rate 45 BUN/Creatinine Ratio 16 Glucose Level 162 H 70-105 MG/DL Calcium Level 8.9 8.5-10.1 MG/DL My Orders Orders - ALEXA SCALES MD Basic Metabolic Panel (05/27/21 10:24) Cbc With Automated Diff (05/27/21 10:24) Ua Culture If Indicated (05/27/21 10:24) Ed Iv/Invasive Line Start (05/27/21 10:24) Urine Culture (05/27/21 10:20) Ns Iv 500 Ml (Sodium Chloride 0.9%) (05/27/21 12:40) Ceftriaxone 1 Gm Pre-Mix (Rocephin 1 Gm (05/27/21 14:05) Medications Given in ED Current Medications Medications Dose Ordered Sig/Faiza Route Start Time Stop Time Status Last Admin Dose Admin Sodium Chloride 500 ml @ STK-MED ONCE .ROUTE 05/27/21 12:40 05/27/21 12:42 DC 05/27/21 12:58 100 MLS/HR Vital Signs/I&O 05/27/21 05/27/21 05/27/21 05/27/21 10:08 12:50 13:00 15:18 Temp 36.8 36.2 36.5 36.5 Pulse 74 69 69 65 Resp 16 17 20 B/P (MAP) 158/69 (98) 138/81 138/100 155/62 Pulse Ox 97 98 96 O2 Delivery Room Air Room Air Room Air 05/27/21 05/27/21 05/27/21 15:30 16:32 16:40 Temp 36.5 37.1 Pulse 61 65 66 Resp 20 18 17 B/P (MAP) 147/61 162/74 162/74 Pulse Ox 98 97 96 O2 Delivery Room Air Room Air Room Air Capillary Refill : Less Than 3 Seconds Blood Pressure Mean: 113 Progress Note : Time: 15:44 Progress Note Patient is receiving 2 units of PRBC. There was some evidence of persistent infection on UA. Rocephin was administered in the ER and a prescription for Omnicef is being provided. I have advised her to stop the Xarelto for the next 2 doses to allow bleeding to cease since she has now had a very serious drop in hemoglobin related to blood loss. I discussed the situation with Dr. Gonzalez. He agrees with stopping Xarelto for at least 2 days. He does not believe admission to the hospital is necessary but does recommend antibiotics until urine culture is available and follow-up for cystoscopy. He recommends pushing clear liquids. Since patient does not need admission, I also contacted Dr. Zhong with whom she wishes to follow-up as an outpatient urology natural remedy consultant. He agreed with the plan of care and recommended that she present to [place] for further evaluation should she develop any obstruction related to hematuria. The CT scan ordered by Dr. Zhong did show a filling defect in the bladder suspicious for a clot. Dr. Zhong plans to perform cystoscopy under sedation with possible biopsies. This plan was communicated to the patient and family. Notes are being faxed to the urology office and the images are being clouded to [facility]. Diagnostic Imaging Diagonstic Imaging: CT Plain Films/CT/US/NM/MRI: abdomen, pelvis Comments Outpatient CT scan from earlier today was reviewed by me and report reviewed. See report below: NAME: LULÚ [facility] REC#: [id number] PT STATUS: REG CLI : 1945 PHYSICIAN: ANDRES ZHONG MD ADMIT DATE: 05/27/21/RAD Signed Date of Exam:05/27/21 CT ABDOMEN/PELVIS W WO PROCEDURE: CT abdomen and pelvis with and without contrast. TECHNIQUE: Precontrast acquisitions were acquired through the abdomen and pelvis. Multiple contiguous axial images were obtained through the abdomen and pelvis after the administration of intravenous contrast. Auto Exposure Controls were utilized during the CT exam to meet ALARA standards for radiation dose reduction. INDICATION: Acute cystitis. COMPARISON: March 18, 2021. FINDINGS: Mild bibasilar scarring and/or atelectasis. Tiny hiatal hernia. Cholecystectomy. The liver is unremarkable. The spleen is unremarkable. The adrenal glands are unremarkable. The pancreas is unremarkable. Minimal right and mild left hydroureteronephrosis is present. No obstructing renal or ureteral calculi. No focal filling defect within the opacified portions of the bilateral renal collecting systems or the bilateral ureters. A near 5 cm filling defect is identified within the inferior aspect of the urinary bladder. This is associated with mural thickening of the urinary bladder, particularly on the left, with associated mild inflammatory stranding about the urinary bladder. The uterus and adnexal structures are unremarkable. Colonic diverticulosis without CT evidence of diverticulitis. Postsurgical changes of a right hemicolectomy. No bowel obstruction or pneumatosis. No significant adenopathy, free air, or free fluid within the abdomen or pelvis. Scattered osseous degenerative changes without acute osseous abnormality. Central canal stenosis is identified within the lower lumbar spine. IMPRESSION: 5 cm filling defect within the urinary bladder. This is of uncertain etiology. This could relate to a blood clot/hematoma, though fungal ball or mass lesion should be considered. Recommend direct visualization with cystoscopy for further evaluation. Mural thickening of the urinary bladder with adjacent inflammatory stranding. Recommend correlation with urinalysis as this could relate to underlying cystitis. Mild left and minimal right hydroureteronephrosis. No obstructing calculus identified at this time. This could be secondary to the filling defect noted within the urinary bladder. Postsurgical changes associated with the bowel without bowel obstruction. Additional findings as above. Dictated by: Dictated on workstation # [id number] Dict: 05/27/21 1120 Trans: 05/27/21 1543 [id number] Interpreted by: JAIME RIVERA MD Electronically signed by: JAIME RIVERA MD 05/27/21 1543 Departure Impression Primary Impression: Severe anemia Additional Impressions: Hematuria Qualified Codes: R31.9 - Hematuria, unspecified Cystitis Disposition: 01 HOME, SELF-CARE Condition: Improved Departure-Patient Inst. Decision time for Depature: 15:21 Referrals: JEFFREY PARRA DO (PCP/Family) Primary Care Physician Patient Instructions: Blood in Urine (Hematuria), Adult ED Add. Discharge Instructions: Because you had a significant blood loss with your hematuria (bleeding in the urine), it is necessary to stop your Xarelto for a few days. Skip your dose tonight and tomorrow night. Follow-up with your urologist and primary care provider soon as possible. Continue antibiotics for possible urinary tract infection until your urine culture can be reviewed. Results should be available in 2 or 3 days. Return to the ER if you have worsening symptoms. If you develop urinary obstruction and are unable to urinate, you will need to return to the ER. If you wish to be cared for by Dr. Zhong and his partners, you should present to [facility]. Drink plenty of clear liquids to stay well-hydrated and continue to flush out your urine. All discharge instructions reviewed with patient and/or family. Voiced understanding. Scripts Cefdinir (Cefdinir) 300 Mg Capsule 300 MG PO BID, #14 CAP Prov: ALEXA SCALES MD 05/27/21 Copy Copies To 1: JEFFREY PARRA DO Copies To 2: Jaquan ZHONG MD, JOSHUA T MD May 27, 2021 15:11
[2021-05-27 15:18] VITALS: BP 155/62
[2021-05-27 15:30] VITALS: BP 147/61
[2021-05-27] MEDS ORDERED: CEFD300C3 PO (15:53)
[2021-05-27 16:32] VITALS: BP 162/74
[2021-05-27 16:40] VITALS: BP 162/74
== END 2021-05-27 16:40 | disposition home or self-care (01) ==
LOC: EDUNIT# 10:02 → ER 10:04
DX: D64.9 Anemia, unspecified (principal); N30.91 Cystitis, unspecified with hematuria; I10 Essential (primary) hypertension; K21.9 Gastro-esophageal reflux disease without esophagitis; E11.9 Type 2 diabetes mellitus without complications; E78.00 Pure hypercholesterolemia, unspecified; Z86.711 Personal history of pulmonary embolism; Z79.01 Long term (current) use of anticoagulants; Z79.899 Other long term (current) drug therapy; Z79.84 Long term (current) use of oral hypoglycemic drugs; Z79.82 Long term (current) use of aspirin
CPT/HCPCS: 36430; 80048; 81000; 85025; 86850; 86900; 86901; 86920; 87088; 99285; P9016; 36415

== ENCOUNTER → 2021-05-27 | Outpatient (CLI) | payer MEDICARE, BC ==
[~2021-05-27] MED LIST changes: +HOLD METFORMIN - RECEIVED CONTRAST 20 ML VIAL IV SCH; +IOHEXOL 350 MG/ML 100 ML (OMNIPAQUE 350) VIAL IV ONE; +NS 100 ML (IVPB) BAG IV ONE
--- NOTE | 2021-05-27 12:10 | Diagnostic Imaging Report ---
PROCEDURE: CT abdomen and pelvis with and without contrast. TECHNIQUE: Precontrast acquisitions were acquired through the abdomen and pelvis. Multiple contiguous axial images were obtained through the abdomen and pelvis after the administration of intravenous contrast. Auto Exposure Controls were utilized during the CT exam to meet ALARA standards for radiation dose reduction. INDICATION: Acute cystitis. COMPARISON: March 18, 2021. FINDINGS: Mild bibasilar scarring and/or atelectasis. Tiny hiatal hernia. Cholecystectomy. The liver is unremarkable. The spleen is unremarkable. The adrenal glands are unremarkable. The pancreas is unremarkable. Minimal right and mild left hydroureteronephrosis is present. No obstructing renal or ureteral calculi. No focal filling defect within the opacified portions of the bilateral renal collecting systems or the bilateral ureters. A near 5 cm filling defect is identified within the inferior aspect of the urinary bladder. This is associated with mural thickening of the urinary bladder, particularly on the left, with associated mild inflammatory stranding about the urinary bladder. The uterus and adnexal structures are unremarkable. Colonic diverticulosis without CT evidence of diverticulitis. Postsurgical changes of a right hemicolectomy. No bowel obstruction or pneumatosis. No significant adenopathy, free air, or free fluid within the abdomen or pelvis. Scattered osseous degenerative changes without acute osseous abnormality. Central canal stenosis is identified within the lower lumbar spine. IMPRESSION: 5 cm filling defect within the urinary bladder. This is of uncertain etiology. This could relate to a blood clot/hematoma, though fungal ball or mass lesion should be considered. Recommend direct visualization with cystoscopy for further evaluation. Mural thickening of the urinary bladder with adjacent inflammatory stranding. Recommend correlation with urinalysis as this could relate to underlying cystitis. Mild left and minimal right hydroureteronephrosis. No obstructing calculus identified at this time. This could be secondary to the filling defect noted within the urinary bladder. Postsurgical changes associated with the bowel without bowel obstruction. Additional findings as above. Dictated by: Dictated on workstation # [id number]
== END ==
LOC: RAD 09:15
PROVIDERS: ATTEND Specialist
DX: N30.00 Acute cystitis without hematuria (principal); N13.30 Unspecified hydronephrosis
CPT/HCPCS: 74178

== ENCOUNTER 2023-03-29 12:57 | Emergency (ER) | payer MEDICARE, BC ==
[~2023-03-29] VITALS: Ht 154.9 cm; Wt 107.5 kg
[~2023-03-29 12:57] MED LIST changes: +ENAL-70 PO; -ENAL20TA16 PO; +OMEP20TA56 PO; -OMEP20TA7 PO
--- NOTE | 2023-03-29 13:10 | ED Fall/Injury ---
General Chief Complaint: Trauma-Non Activation Stated Complaint: FALL/LEFT RIB PAIN History of Present Illness Date Seen by Provider: Mar 29, 2023 Time Seen by Provider: 13:09 Initial Comments 77-year-old female presents with left rib pain. Patient reports she was going up the stairs when she lost her balance and fell. She normally uses a walker but did not have that next her since she was going up the stairs. Patient complains of pain with deep breath and some mild shortness of breath from the pain. She denies hitting her head or any other injuries from the fall. Allergies and Home Medications Allergies Coded Allergies: hydroxychloroquine (Verified Allergy, Mild, HIVES, 09/07/18) fentanyl (Verified Adverse Reaction, Intermediate, HALLUCINATIONS, 03/31/21) Patient Home Medication List Home Medication List Reviewed: Yes Acetaminophen (Tylenol Extra Strength) 500 Mg Tablet, 500-1,000 MG PO Q8H PRN for PAIN-MILD (1-4), (Reported) Entered as Reported by: FIDELINA WATSON on 02/13/211512 Amlodipine Besylate (Amlodipine Besylate) 10 Mg Tablet, 10 MG PO DAILY, (Reported) Entered as Reported by: THAI ARREOLA on 08/05/17 1206 Ascorbic Acid (Vitamin C) 500 Mg Tablet, 500 MG PO DAILY, (Reported) Entered as Reported by: FIDELINA WATSON on 02/13/21 151 Aspirin (Aspirin EC) 81 Mg Tablet.dr, 81 MG PO HS, (Reported) Entered as Reported by: FIDELINA WATSON on 02/13/21 151 Atorvastatin Calcium (Atorvastatin Calcium) 40 Mg Tablet, 40 MG PO HS, (Reported) Entered as Reported by: THAI ARREOLA on 08/05/17 1206 Cefdinir (Cefdinir) 300 Mg Capsule, 300 MG PO BID Prescribed by: ALEXA MANCERA on 05/27/21 155 Cholecalciferol (Vitamin D3) (Vitamin D3) 25 Mcg Tablet, 25 MCG PO DAILY, (Reported) Entered as Reported by: FIDELINA WATSON on 02/13/21 151 Enalapril Maleate (Enalapril Maleate) 20 Mg Tablet, 20 MG PO BID, (Reported) Entered as Reported by: THAI ARREOLA on 08/05/17 1206 Folic Acid (Folic Acid) 1 Mg Tablet, 1 MG PO HS, (Reported) Entered as Reported by: THAI ARREOLA on 08/05/17 124 Furosemide (Furosemide) 40 Mg Tablet, 40 MG PO DAILY, (Reported) Entered as Reported by: THAI ARREOLA on 08/05/17 1242 Furosemide (Furosemide) 40 Mg Tablet, 40 MG PO DAILY PRN for SWELLING, (Re ported) Entered as Reported by: JASIEL ORR on 08/27/17 1119 L.acidoph & Paracasei,B.lactis (Probiotic) 1 Each Capsule, 1 EACH PO DAILY, (Reported) Entered as Reported by: FIDELINA WATSON on 02/13/21 1513 Meloxicam (Meloxicam) 15 Mg Tablet, 15 MG PO DAILY, (Reported) Entered as Reported by: THAI ARREOLA on 08/05/17 1242 Metformin HCl (Metformin HCl ER) 500 Mg Tab.er.24h, 1,000 MG PO BID, (Reported) Entered as Reported by: THAI ARREOLA on 08/05/17 120 Metoprolol Succinate (Metoprolol Succinate) 200 Mg Tab.er.24h, 100 MG PO BID, (Reported) Entered as Reported by: THAI ARREOLA on 08/05/17 120 Nitrofurantoin Monohyd/M-Cryst (Nitrofurantoin [place]-Mcr 100 mg) 100 Mg Capsule, 100 MG PO BID Prescribed by: ROS LEIVA on 04/04/21 111 Omeprazole (Omeprazole) 20 Mg Tablet.dr, 20 MG PO DAILY, (Reported) Entered as Reported by: THAI ARREOLA on 08/05/17 124 Rivaroxaban (Xarelto Starter Pack) 1 Each Tab.ds.pk, 1 EACH PO UD Prescribed by: ROS LEIVA on 04/04/21 111 Rivaroxaban (Xarelto) 20 Mg Tablet, 20 MG PO HS Prescribed by: ROS LEIVA on 04/04/21 111 Sodium Bicarbonate (Sodium Bicarbonate) 650 Mg Tablet, 650 MG PO TIDWM, (Reported) Entered as Reported by: FIDELINA WATSON on 03/31/21 1316 Zinc (Zinc) 50 Mg Tablet, 50 MG PO DAILY, (Reported) Entered as Reported by: FIDELINA WATSON on 02/13/21 1513 Review of Systems Review of Systems Constitutional: no symptoms reported Eyes: No Symptoms Reported Respiratory: see HPI Cardiovascular: see HPI Genitourinary: no symptoms reported Musculoskeletal: no symptoms reported Skin: no symptoms reported Past [id number] Hx Patient Social History Tobacco Use?: No Substance use?: No Alcohol Use?: No Immunizations Up To Date Tetanus Booster (TDap): Unknown First/Initial COVID19 Vaccinat: 07/28 Second COVID19 Vaccination [place]: 08/25 Third COVID19 Vaccination Date: 05/27 Seasonal Allergies Seasonal Allergies: No Past Medical History Surgery/Hospitalization HX: Colon resection, gallbladder, tonsilectomy,HTN, SEPSIS Surgeries: Yes (cystoscopy, CATARACTS, COLON RESECTION) Abdominal, Bladder Surgery, Bowel Surgery, Eye Surgery, Gallbladder, Ton sillectomy Respiratory: Yes Pneumonia, Pulmonary Embolism Currently Using CPAP: No Currently Using BIPAP: No Cardiac: Yes High Cholesterol, Hypertension 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: 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 Sexually Transmitted Disease: No HIV/AIDS: No Genitourinary: Yes (Cystitis and chronic hematuria) UTI-Chronic Gastrointestinal: Yes (COLON CANCER DX 2018) Gastroesophageal Reflux Musculoskeletal: Yes (ON METHOTREXATE) Arthritis, Rheumatoid Arthritis Endocrine: Yes Diabetes, Non-Insulin dep HEENT: Yes (READING GLASSES; S/P CATARACT SURGERY) Cataract Loss of Vision: Bilateral Hearing Impairment: Denies Cancer: Yes Colon Did You Recieve Any Treatments: Yes What Type of Treatment Did You: Surgical Intervention Psychosocial: No Integumentary: No Blood Disorders: Yes (anemia) Adverse Reaction/Blood Tranf: No (N/A) Family Medical History Abdominal aortic aneurysm 19 MOTHER Arthritis G8 SISTER Cardiovascular disease 19 FATHER Hypertension 19 FATHER PAST SURGICAL HISTORY: -LAPAROSCOPIC RIGHT HEMICOLECTOMY [address] PIERCE -CHOLECYSTECTOMY -TONSILLECTOMY -CATARACT SURGERY -CYSTOSCOPIES -EGD/COLONOSCOPY 2013 Physical Exam Vital Signs Vital Signs - First Documented 03/29/23 13:03 Temp 36.1 Pulse 65 Pulse Ox 94 O2 Delivery Nasal Cannula O2 Flow Rate 2.00 Capillary Refill : Height, Weight, BMI Height: 5'2.00" Weight: 225lbs. 0.0oz. 102.837741kg; 37.00 BMI Method: General Appearance: WD/WN, no apparent distress Cardiovascular: normal peripheral pulses, regular rate, rhythm Respiratory: lungs clear, other (Left chest wall tenderness) Gastrointestinal: non tender, soft Extremities: normal range of motion, non-tender Neurologic/Psychiatric: alert, normal mood/affect, oriented x 3 Skin: normal color, warm/dry Progress/Results/Core Measures Results/Orders My Orders Orders - SHERMAN OLIVA DO Ribs/Unilateral With Chest (03/29/23 13:07) Vital Signs/I&O 03/29/23 13:03 Temp 36.1 Pulse 65 B/P (MAP) Pulse Ox 94 O2 Delivery Nasal Cannula O2 Flow Rate 2.00 Progress Progress Note : Progress Note Patient's x-ray was ordered reviewed with initial interpretation negative by me with final interpretation per radiology report. Patient does not require oxygen at home and the oxygen was stopped here and she had appropriate pulse ox. Patient was encouraged to take deep breaths although it was painful. Recommend she use topical lidocaine with menthol cream gel or patch to help with the pain. Patient was stable and discharged home Diagnostic Imaging Diagonstic Imaging: Xray Plain Films/CT/US/NM/MRI: chest Comments Date of Exam:03/29/23 RIBS/UNILATERAL WITH CHEST INDICATION: Rib pain. EXAMINATION: PA chest and three views of the left ribs are obtained. FINDINGS: Lungs are clear. Heart and mediastinum are normal. There are no effusions or pneumothoraces. There are no displaced rib fractures seen. IMPRESSION: Unremarkable chest and left ribs. Reviewed: Reviewed by Me, Reviewed/Discussed Departure Impression Primary Impression: Contusion of rib on left side Qualified Codes: S20.212A - Contusion of left front wall of thorax, initial encounter Disposition: 01 HOME, SELF-CARE Condition: Stable Departure-Patient Inst. Referrals: JEFFREY PARRA DO (PCP/Family) Primary Care Physician Patient Instructions: Bruised Rib Add. Discharge Instructions: 4% topical lidocaine with menthol cream gel or patch use as directed on package. Voltaren/diclofenac cream or gel use as directed on package. Ice 3-4 times daily for the next 24 to 36 hours then warm moist heat. Follow-up with your primary care provider as needed All discharge instructions reviewed with patient and/or family. Voiced understanding. SHERMAN OLIVA DO Mar 29, 2023 13:10
--- NOTE | 2023-03-29 14:02 | Diagnostic Imaging Report ---
INDICATION: Rib pain. EXAMINATION: PA chest and three views of the left ribs are obtained. FINDINGS: Lungs are clear. Heart and mediastinum are normal. There are no effusions or pneumothoraces. There are no displaced rib fractures seen. IMPRESSION: Unremarkable chest and left ribs. Dictated by: Dictated on workstation # [id number]
[2023-03-29] MEDS ORDERED: KETOROLAC INJ 30 MG/ML VIAL IM STA (14:13)
[2023-03-29 14:26] VITALS: BP 182/87
== END 2023-03-29 14:31 | disposition home or self-care (01) ==
LOC: EDUNIT# 12:57 → ER 13:01
DX: S20.212A Contusion of left front wall of thorax, initial encounter (principal); W01.198A Fall on same level from slipping, tripping and stumbling with subsequent striking against other object, initial encounter
CPT/HCPCS: 71101; 96372